=== PATIENT | male | born 1940 | race African-American/Black ===

== ENCOUNTER 2017-04-30 11:37 | Inpatient (IN) | payer OTHER ==
--- NOTE | 2017-04-30 11:45 | PDOC ---
History of Present Illness - General Chief Complaint: Revisit,Radiology Variance Stated Complaint: Revisit, Lab Variance Time Seen by Provider: 04/30/17 11:44 History Source: Patient Exam Limitations: No Limitations Medical Decision Making - Medical Decision Making 04/30/17 11:44 A portion of this note was documented by scribe services under my direction. I have reviewed the details of the note, within reason, and agree with the documentation with the following case summary and management plan written by me. Nursing documentation reviewed and incorporated into medical decision making
[2017-04-30 12:10] LABS: BASOPHIL 0.6 % (0-2.0); EOSINOPHIL 1.9 % (0-4.5); MCH 22.6 pg (25.7-33.7); MCHC 31.3 g/dl (32.0-35.9); MEAN CELL VOLUME 72.2 fl (80-96); NEUTROPHILS 52.8 % (42.8-82.8); PLATELET COUNT 137 K/MM3 (134-434); RDW 15.9 % (11.9-15.9); WHITE BLOOD COUNT 3.3 K/mm3 (4.0-10.0)
[2017-04-30 12:45] LABS: ALBUMIN 3.5 g/dl (3.4-5.0); ANION GAP 8 (8-16); BILIRUBIN,TOTAL 0.7 mg/dL (0.2-1.0); CALCIUM 8.5 mg/dL (8.5-10.1); CO2 27 mmol/L (21-32); CREATININE 0.8 mg/dL (0.7-1.3); GLUCOSE,RANDOM 118 mg/dL (74-106); SGOT/AST 9 U/L (15-37); SGPT/ALT 19 U/L (12-78)
[2017-04-30 12:46] LABS: ALK PHOS 55 U/L (45-117)
[2017-04-30 12:56] LABS: INR 1.26 (0.82-1.09); PROTHROMBIN TIME (PATIENT) 13.9 SEC (9.98-11.88)
--- NOTE | 2017-04-30 13:48 | PDOC ---
History of Present Illness - General Chief Complaint: Revisit,Radiology Variance Stated Complaint: Revisit, Lab Variance Time Seen by Provider: 04/30/17 11:44 History Source: Patient Exam Limitations: Clinical Condition, Dementia - History of Present Illness Initial Comments: 04/30/17 13:43 Patient is a 76M with history of CAD (s/p stenting in 2013), CVA (2003), HTN, non-insulin dependent diabetes here today complaining of abnormal radiology results. MRI of the head showed a subdural hematoma. Family reports that patient fell about a month ago, and has had increased slurring of his speech, and has been increasingly emotional labile and confused. Patient is unable to properly cooperate with review of systems, giving nonsensical answers or answers directly contradicted by family members. 04/30/17 14:[address] Donato Barriga. 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 Neurologist is Dr Murrell. Past History - Past Medical History Allergies/Adverse Reactions: Allergies Allergy/AdvReac Type Severity Reaction Status Date / Time No Known Allergies Allergy Verified 04/30/17 13:10 Home Medications: Ambulatory Orders Aspirin [Ecotrin] 325 mg PO DAILY 04/30/17 Carvedilol 12.5 mg PO BID 04/30/17 Clonidine HCl 0.2 mg PO BID 04/30/17 Gabapentin 100 mg PO TID 04/30/17 Glipizide 10 mg PO DAILY 04/30/17 Losartan/Hydrochlorothiazide [Losartan-Hctz 100-25 mg Tab] 1 each PO DAILY 04/30 Metformin HCl 1,500 mg PO DAILY 04/30/17 Quetiapine Fumarate [Seroquel -] 12.5 mg PO HS 04/30/17 Cardiac Disorders: Yes CVA: Yes (2004 w/ rt side residual weakness.) Diabetes: Yes HTN: Yes - Surgical History Cardiac Surgery: Yes (STENT.) - Psycho/Social/Smoking Cessation Hx Anxiety: No Suicidal Ideation: No Smoking History: Former smoker Have you smoked in the past 12 months: No If you are a former smoker, when did you quit?: 2004 Information on smoking cessation initiated: No Hx Alcohol Use: No Drug/Substance Use Hx: No Substance Use Type: None Review of Systems - Review of Systems Able to Perform ROS?: No (clinical condition) *Physical Exam - Vital Signs Last Vital Signs Temp Pulse Resp BP Pulse Ox 97.5 F L 61 18 156/84 100 04/30/17 11:49 04/30/17 13:08 04/30/17 13:08 04/30/17 13:08 04/30/17 13:08 - Physical Exam Comments: 04/30/17 13:48 GENERAL: Awake, alert, and fully oriented, in no acute distress HEAD: No signs of trauma, normocephalic, atraumatic EYES: PERRLA, EOMI, sclera anicteric, conjunctiva clear ENT: Auricles normal inspection, hearing grossly normal, nares patent, oropharynx clear without exudates. Moist mucosa LUNGS: No distress, speaks full sentences, clear to auscultation bilaterally HEART: Irregular rhythm, bradycardic, normal S1 and S2, no murmurs, rubs or gallops, peripheral pulses 1+ and equal ABDOMEN: Soft, nontender, normoactive bowel sounds. No guarding, no rebound. No masses EXTREMITIES: Normal inspection, Normal range of motion, 1+ pitting edema to knee . No clubbing or cyanosis. NEUROLOGICAL: Left sided facial droop, slurred speech, moves all extremities, alert, oriented to self, place, not year SKIN: Warm, Dry, normal turgor, no rashes or lesions noted. ED Treatment Course - LABORATORY CBC & Chemistry Diagram: 04/30/17 11:47 04/30/17 11:47 - ADDITIONAL ORDERS Additional order review: Laboratory Results 04/30/17 04/30/17 04/30/17 11:47 11:47 11:47 INR 1.26 H Sodium 140 Potassium 3.3 L D Chloride 105 Carbon Dioxide 27 Anion Gap 8 BUN 15 D Creatinine 0.8 D Creat Clearance w eGFR > 60 Random Glucose 118 H Calcium 8.5 Total Bilirubin 0.7 AST 9 L ALT 19 Alkaline Phosphatase 55 Total Protein 7.0 Albumin 3.5 Blood Type O POSITIVE Antibody Screen Negative 04/30/17 11:47 RBC 4.73 MCV 72.2 L MCHC 31.3 L RDW 15.9 MPV 9.0 Neutrophils % 52.8 Lymphocytes % 34.4 Monocytes % 10.3 H Eosinophils % 1.9 Basophils % 0.6 - RADIOLOGY Radiology Studies Ordered: Category Date Time Status CHEST X-RAY PORTABLE* [RAD] Stat Radiology 04/30/17 12:34 Completed Medical Decision Making - Medical Decision Making 04/30/17 13:51 76M with history of CVA, HTN, and CAD (s/p stenting in 2013) here today with subdural hematoma and multiple falls. Bradycardic to the high 30s in the ED, mostly in high 40s and low 50s, asymptomatic. ECG shows aflutter, normal axis, irregular rhythm, and no ST elevations. Falls likely due to cardiovascular dysfunction. Will evaluate with CBC, CMP, Trop, CXR, ECG. Will consult neurosurg for subdural hemotoma. 04/30/17 14:[address] Ackerman (Neurosurgery) and Dr. Man (Medicine). CBC and CMP unremarkable. Trop negative. INR 1.2, Hgb 10, K 3.3 04/30/17 15:32 Dr Ackerman contacted and discussed patient. Requested PTT and INR. INR already done , PTT ordered and in lab. 04/30/17 23:23 Admitted to ICU. *DC/Admit/Observation/Transfer Diagnosis at time of Disposition: Subdural hematoma, Bradycardia - Discharge Dispostion Condition at time of disposition: Guarded Admit: Yes - Referrals
--- NOTE | 2017-04-30 14:03 | PDOC ---
Attending Attestation - Resident Resident Name: Vimal Milian - ED Attending Attestation I have performed the following: I have examined & evaluated the patient, The case was reviewed & discussed with the resident, I agree w/resident's findings & plan, Exceptions are as noted - HPI HPI: 04/30/17 13:42 THis pt is a 76 yo M with a history of CAD, h/o CVA in the past Apparently, pt had been noted to have a change in her behaviour (increased agitation and confusion) Pt seen by neurologist who sent him for an MRI MRI obtained today, demonstrates a subdural hematoma Pt sent to the ER Noted to be bradycardiac Has irregular pulse (Aflutter, ?prior history) Pt had a known fall 1 month ago 04/30/17 14:04 - Physicial Exam PE: 04/30/17 14:03 Pt is awake Irregularly irregular, bradyardiac No abd tenderness to palpation - Medical Decision Making 04/30/17 14:04 Pt with SDH and bradycardia Will: Do labs EKG CXR Admit Discharge Disposition - Diagnosis Subdural hematoma, Bradycardia - Discharge Dispostion Condition at time of disposition: Fair Admit: Yes
[2017-04-30 14:08] LABS: CPK 153 IU/L (39-308); MAGNESIUM 1.8 mg/dL (1.8-2.4)
[2017-04-30 14:09] LABS: TROPONIN I < 0.02 ng/ml (0.00-0.05)
--- NOTE | 2017-04-30 16:16 | EKG ---
Test Reason : Blood Pressure : / mmHG Vent. Rate : 048 BPM Atrial Rate : 250 BPM P-R Int : 000 ms QRS Dur : 098 ms QT Int : 486 ms P-R-T Axes : 193 027 253 degrees QTc Int : 434 ms ATRIAL FLUTTER WITH VARIABLE A-V BLOCK NONSPECIFIC ST AND T WAVE ABNORMALITY ABNORMAL ECG NO PREVIOUS ECGS AVAILABLE Confirmed by VARGHESE BASS MD (2013) on 04/30/2017 4:16:10 PM Referred By: Confirmed By:VARGHESE BASS MD
--- NOTE | 2017-04-30 16:55 | PN ---
Progress Note (short form) - Note Progress Note: NEUROSURGERY CONSULT DICTATED Chart reviewed Pt examined Family at bedside and provided some history as well H/o CAD (s/p stenting in 2013), CVA (2003), HTN, non-insulin dependent diabetes here today secondary to MRI showing subdural hematoma. Family reports that patient fell about 3 months ago. Increased slurring of his speech, and has been increasingly emotional labile and confused. Denies H/A, N/V. No witnessed sz. Poor historian. PE; HR 30-60's General- unremarkable; speech garbled; A/A/Ox2 CN- intact; Motor- 4/5 R LE (Old?); R UE drift; Sensation- intact LT; decreased vibration distally; DTR- hyporeflexic, B toes upgoing WBC 3.3, Hgb 10.7, platelet 137k; BUN 15, Cr 0.8, Troponin < 0.02 Brain MRI- Atrophy; moderate size L [id number] subacute/chronic SDH 6x8 x 1.7cm with cortical mass effect but no shift; chronic L putamen ICH with encephalomalacia; B periventricular vascular dz Subacute chronic SDH with mass effect but no shift Prior multiple CVA's, largest L putamen Given size of SDH and mass effect as well as resultant neurological changes recently, would recommend surgical drainage through small L FTP craniotomy and possible subdural drain placement; the above can only be achieved if pt could be medically/cardiac-guerrero cleared Risks of surgery- bleeding, infection, stroke, seizure, coma, and other risks GA (AK, stroke, pneumonia etc) Pros and cons of treatment approaches including no surgery were discussed All questions answered Pt family also brought up possible transfer to tertiary institution for surgical intervention; should have cardiology input first (if pt cannot be cleared for surgery then surgery or transfer is moot) Spent 65 minutes in ED for history, exam, family conference in patient's presence, and care discussion with admitting team/ED team
[2017-04-30] MEDS ORDERED: KCL 10 MEQ IVPB 100 ML IVPB SCH (17:30)
--- NOTE | 2017-04-30 17:38 | HP ---
CHIEF COMPLAINT: Subdural hematoma (incidentally discovered on MRI) w/ new onset Afib PCP: Dr. Barriga HISTORY OF PRESENT ILLNESS: Pt is a 76 y/o M with PMH CAD with stents, CVA (2004), HTN, non-insulin dependent DM, spinal stenosis who had a fall 3 months ago and was sent to ED after and MRI done today revealed a subdural hematoma. History collected primarily from pt's and ED staff. Since pt had his fall, he has had personality change, slurred speech, emotional lability, hallucinations, confusion as well as new onset Afib. ER course was notable for: (1) EKG (slow afib), unremarkable CXR, CBC (mild microcytic anemia), CMP ( hypokalemia) (2) consults to Cardio, Neuro (3) Recent Travel: [place] PAST MEDICAL HISTORY: CAD with stents, CVA (2004), HTN, non-insulin dependent DM PAST SURGICAL HISTORY: spinal stenosis repair Social History: Smoking: denies Alcohol: denies Drugs: denies Family History: denies Allergies No Known Allergies Allergy (Verified 04/30/17 13:10) HOME MEDICATIONS: Home Medications Medication Instructions Recorded Aspirin [Ecotrin] 325 mg PO DAILY 04/30/17 Carvedilol 12.5 mg PO BID 04/30/17 Clonidine HCl 0.2 mg PO DAILY 04/30/17 Gabapentin 100 mg PO BID 04/30/17 Glipizide 10 mg PO DAILY 04/30/17 Losartan/Hydrochlorothiazide 1 each PO DAILY 04/30/17 [Losartan-Hctz 100-25 mg Tab] Metformin HCl 1,500 mg PO DAILY 04/30/17 Quetiapine Fumarate [Seroquel -] 12.5 mg PO HS 04/30/17 REVIEW OF SYSTEMS CONSTITUTIONAL: generalized weakness Absent: fever, chills, diaphoresis, , malaise, loss of appetite, weight change HEENT: Absent: rhinorrhea, nasal congestion, throat pain, throat swelling, difficulty swallowing, mouth swelling, ear pain, eye pain, visual changes CARDIOVASCULAR: Absent: chest pain, syncope, palpitations, irregular heart rate, lightheadedness , peripheral edema RESPIRATORY: Absent: cough, shortness of breath, dyspnea with exertion, orthopnea, wheezing, stridor, hemoptysis GASTROINTESTINAL: Absent: abdominal pain, abdominal distension, nausea, vomiting, diarrhea, constipation, melena, hematochezia GENITOURINARY: Incontinence Absent: dysuria, frequency, urgency, hesitancy, hematuria, flank pain, genital pain MUSCULOSKELETAL: Absent: myalgia, arthralgia, joint swelling, back pain, neck pain SKIN: Absent: rash, itching, pallor HEMATOLOGIC/IMMUNOLOGIC: Absent: easy bleeding, easy bruising, lymphadenopathy, frequent infections ENDOCRINE: Absent: unexplained weight gain, unexplained weight loss, heat intolerance, cold intolerance NEUROLOGIC: focal weakness, unsteady gait, mental status changes, bladder or bowel incontinence Absent: headache, or paresthesias, dizziness, , seizure, PSYCHIATRIC: hallucinations Absent: anxiety, depression, suicidal or homicidal ideation, . PHYSICAL EXAMINATION Vital Signs - 24 hr 04/30/17 04/30/17 04/30/17 11:49 13:08 16:14 Temperature 97.5 F L 97.5 F L Pulse Rate 52 L Pulse Rate [ 61 121 H Apical] Respiratory 18 18 18 Rate Blood Pressure 137/89 Blood Pressure 156/84 183/134 [Right Arm] O2 Sat by Pulse 100 100 98 Oximetry (%) GENERAL: Awake, alert, in no acute distress. HEAD: Normal with no signs of trauma. EYES: Pupils equal, round and reactive to light, extraocular movements intact, sclera anicteric, conjunctiva clear. No lid lag. EARS, NOSE, THROAT: nares patent, oropharynx clear without exudates. Moist mucous membranes. NECK: Normal range of motion, supple without lymphadenopathy, JVD, or masses. No carotid bruits LUNGS: Breath sounds equal, clear to auscultation bilaterally. No wheezes, and no crackles. No accessory muscle use. HEART: Regular rate and irregularly irregular rhythm, normal S1 and S2 without murmur, rub or gallop. ABDOMEN: Soft, nontender, not distended, normoactive bowel sounds, no guarding, no rebound, no masses. No hepatomegaly or splenomegaly. MUSCULOSKELETAL: Normal range of motion at all joints. No bony deformities or tenderness. No CVA tenderness. rigidity to passive ROM, limited active ROM UPPER EXTREMITIES: 2+ pulses, warm, well-perfused. No cyanosis. No clubbing. No peripheral edema. LOWER EXTREMITIES: 2+ pulses, warm, well-perfused. No calf tenderness. No peripheral edema. NEUROLOGICAL: Limitied participation/cooperation. right brow and nasolabial fold diminished movement. Normal speech. Gait not observed. Strength 5/5 UE b/l , 4/5 RLE, 5/5 LLE. Sensation intact throughout. 2+ reflexes in b/l biceps and patellar. Upgoing L babinski, downgoing R babinski. PSYCHIATRIC: Cooperative. Good eye contact. Appropriate mood and affect. SKIN: Warm, dry, normal turgor, no rashes or lesions noted, normal capillary refill. Laboratory Results - last 24 hr 04/30/17 04/30/17 04/30/17 11:47 11:47 11:47 WBC 3.3 L RBC 4.73 Hgb 10.7 L Hct 34.1 L MCV 72.2 L MCH 22.6 L MCHC 31.3 L RDW 15.9 Plt Count 137 MPV 9.0 Neutrophils % 52.8 Lymphocytes % 34.4 Monocytes % 10.3 H Eosinophils % 1.9 Basophils % 0.6 INR 1.26 H Sodium 140 Potassium 3.3 L D Chloride 105 Carbon Dioxide 27 Anion Gap 8 BUN 15 D Creatinine 0.8 D Creat Clearance w eGFR > 60 Random Glucose 118 H Calcium 8.5 Magnesium Total Bilirubin 0.7 AST 9 L ALT 19 Alkaline Phosphatase 55 Creatine Kinase Creatine Kinase Index CK-MB (CK-2) Troponin I Total Protein 7.0 Albumin 3.5 Blood Type Antibody Screen 04/30/17 04/30/17 11:47 13:01 WBC RBC Hgb Hct MCV MCH MCHC RDW Plt Count MPV Neutrophils % Lymphocytes % Monocytes % Eosinophils % Basophils % INR Sodium Potassium Chloride Carbon Dioxide Anion Gap BUN Creatinine Creat Clearance w eGFR Random Glucose Calcium Magnesium 1.8 Total Bilirubin AST ALT Alkaline Phosphatase Creatine Kinase 153 Creatine Kinase Index 0.8 CK-MB (CK-2) 1.313 Troponin I < 0.02 Total Protein Albumin Blood Type O POSITIVE Antibody Screen Negative ASSESSMENT/PLAN: Pt is a 76y/o M with PMH CAD with stents, CVA (2004), HTN, non-insulin dependent DM, spinal stenosis who presented to ED with new MRI showing subdural hematoma 3 months after a fall with head trauma. Pt admitted to ICU for evaluation and treatment of subdural hematoma and new onset afib with bradycardia. #Subdural hematoma -discovered on MRI -new onset afib w/ bradycardia -possible neurosurg tomorrow pending cardiac eval -neuro consult -neurosurg consult -cardio consult -speech and swallow consult -coags, NPO #afib -secondary to subdural hematoma #non-insulin dependent DM -diabetic diet #hypokalemia -replete w/ IV KCl #FEN -not on fluid -hypokalemia, repleting -diabetic diet #Dispo Admit to ICU for possible surgical evacuation tomorrow Ramiro Mcgraw MD PGY-1 Visit type - Emergency Visit Emergency Visit: Yes ED Registration Date: 04/30/17 Care time: The patient presented to the Emergency Department on the above date and was hospitalized for further evaluation of their emergent condition. - New Patient This patient is new to me today: Yes Date on this admission: 05/01/17 - Critical Care Critical Care patient: No
--- NOTE | 2017-04-30 17:39 | CONSULT ---
Consultation: REQUESTING PROVIDER: CONSULT REQUEST: We have been asked to medically evaluate this patient for. HISTORY OF PRESENT ILLNESS: Pt is a 76 y/o M with PMH CAD with stents, CVA (2004 ), HTN, non-insulin dependent DM, spinal stenosis who had a fall 3 months ago and was sent to ED after and MRI done today revealed a subdural hematoma. Since pt had his fall, he has had personality change, slurred speech, emotional lability, hallucinations, confusion as well as new onset Afib. In ED patient was given keppra and Dr Ackerman was consulted. Patient will go for surgery after cardiac clearance. patient is started on keppra. Patient is getting IV kcl. Will repeat sr. k in evening. walks with cane and sometime with walker. PMH; HTN, hyperlipidemia, DM, CAD( stent placed in 2014), 2 strokes in 2006 with residual weakness on right side, peripharal neuropathy b/l lower limb PSH: Cervical spine surgery for stenosis. Allergies: NKDA social: stopped smoking 30 years ago, unable to tell for how many years did he smoke. use to drink ocassionaly but stopped. EKG ( afib kavya), CBC ( microcytic anemia), CMP (hypokalemia) REVIEW OF SYSTEMS: CONSTITUTIONAL: Absent: fever, chills, diaphoresis, generalized weakness, malaise, loss of appetite, weight change HEENT: Absent: rhinorrhea, nasal congestion, throat pain, throat swelling, CARDIOVASCULAR: Absent: chest pain, syncope, palpitations, irregular heart rate, RESPIRATORY: Absent: cough, shortness of breath, dyspnea with exertion, GASTROINTESTINAL: Absent: abdominal pain, abdominal distension, nausea, vomiting, diarrhea, GENITOURINARY: Absent: dysuria, frequency, urgency, hesitancy, MUSCULOSKELETAL: Absent: myalgia, arthralgia, joint swelling, back pain, neck pain NEUROLOGIC: Absent: headache, focal weakness or paresthesias, dizziness, unsteady gait, seizure, mental status changes, bladder or bowel incontinence PHYSICAL EXAMINATION GENERAL: Awake, alert, oriented, in no acute distress. able to remember name, , date, recognize and grand daughter. HEAD: Normal with no signs of trauma. EYES: Pupils equal, extraocular movements intact, EARS, NOSE, THROAT: Moist mucous membranes. NECK: Normal range of motion, JVD, or masses. LUNGS: Breath sounds equal, clear to auscultation bilaterally. No wheezes, and no crackles. No accessory muscle use. HEART: irregular, normal S1 and S2 without murmur, ABDOMEN: Soft, nontender, not distended, normoactive bowel sounds, no guarding, no rebound, MUSCULOSKELETAL: Normal range of motion at all joints. No bony deformities or tenderness. No CVA tenderness. UPPER EXTREMITIES: 2+ pulses, warm, b/l fine touch present, power b/l biceps, trices, daltoid normal. pronation and supination normal. LOWER EXTREMITIES: 2+ pulses, warm, no pedal edema, b/l lowe limb power normal, peripharal neuropathy NEUROLOGICAL: Cranial nerves grossly II-XII intact. slurred speech. gait not checked. PSYCHIATRIC: Cooperative. Good eye contact. Appropriate mood and affect. SKIN: Warm, dry, Active Medications Generic Name Dose Route Start Last Admin Trade Name Freq PRN Reason Stop Dose Admin Chlorhexidine Gluconate 1 applic 04/30/17 22:00 Hibiclens For Decolonization - TP HS DANNY Potassium Chloride 100 mls @ 100 mls/hr 04/30/17 17:30 Potassium Chloride 10 Meq Premix Ivpb - IVPB 04/30/17 20:29 Q60M DANNY Insulin Aspart 0 vial 04/30/17 22:00 Novolog Vial Sliding Scale - SQ ACHS [facility] Protocol Levetiracetam 250 mg 04/30/17 22:00 Keppra - PO BID DANNY Mupirocin 1 applic 04/30/17 22:00 Bactroban Ointment (For Decolonization) - NS 05/05/17 21:59 BID DANNY CBCD WBC 3.3 K/mm3 (4.0-10.0) L 04/30/17 11:47 RBC 4.73 M/mm3 (4.00-5.60) 04/30/17 11:47 Hgb 10.7 GM/dL (11.7-16.9) L 04/30/17 11:47 Hct 34.1 % (35.4-49) L 04/30/17 11:47 MCV 72.2 fl (80-96) L 04/30/17 11:47 MCHC 31.3 g/dl (32.0-35.9) L 04/30/17 11:47 RDW 15.9 % (11.9-15.9) 04/30/17 11:47 Plt Count 137 K/MM3 (134-434) 04/30/17 11:47 MPV 9.0 fl (7.5-11.1) 04/30/17 11:47 CMP Sodium 140 mmol/L (136-145) 04/30/17 11:47 Potassium 3.3 mmol/L (3.5-5.1) L D 04/30/17 11:47 Chloride 105 mmol/L (98-107) 04/30/17 11:47 Carbon Dioxide 27 mmol/L (21-32) 04/30/17 11:47 Anion Gap 8 (8-16) 04/30/17 11:47 BUN 15 mg/dL (7-18) D 04/30/17 11:47 Creatinine 0.8 mg/dL (0.7-1.3) D 04/30/17 11:47 Creat Clearance w eGFR > 60 (>60) 04/30/17 11:47 Random Glucose 118 mg/dL (74-106) H 04/30/17 11:47 Calcium 8.5 mg/dL (8.5-10.1) 04/30/17 11:47 Total Bilirubin 0.7 mg/dL (0.2-1.0) 04/30/17 11:47 AST 9 U/L (15-37) L 04/30/17 11:47 ALT 19 U/L (12-78) 04/30/17 11:47 Alkaline Phosphatase 55 U/L (45-117) 04/30/17 11:47 Total Protein 7.0 g/dl (6.4-8.2) 04/30/17 11:47 Albumin 3.5 g/dl (3.4-5.0) 04/30/17 11:47 CARDIAC ENZYMES Creatine Kinase 153 IU/L (39-308) 04/30/17 13:01 Troponin I < 0.02 ng/ml (0.00-0.05) 04/30/17 13:01 Current Medications Generic Name Dose Route Start Last Admin Trade Name Freq PRN Reason Stop Dose Admin Chlorhexidine Gluconate 1 applic 04/30/17 22:00 Hibiclens For Decolonization - TP HS DANNY Insulin Aspart 0 vial 04/30/17 22:00 Novolog Vial Sliding Scale - SQ ACHS [facility] Protocol Levetiracetam 250 mg 04/30/17 22:00 Keppra - PO BID [facility] Mupirocin 1 applic 04/30/17 22:00 Bactroban Ointment (For Decolonization) - NS 05/05/17 21:59 BID [facility] Home Medications Medication Instructions Recorded Aspirin [Ecotrin] 325 mg PO DAILY 04/30/17 Carvedilol 12.5 mg PO BID 04/30/17 Clonidine HCl 0.2 mg PO DAILY 04/30/17 Gabapentin 100 mg PO BID 04/30/17 Glipizide 10 mg PO DAILY 04/30/17 Losartan/Hydrochlorothiazide 1 each PO DAILY 04/30/17 [Losartan-Hctz 100-25 mg Tab] Metformin HCl 1,500 mg PO DAILY 04/30/17 Quetiapine Fumarate [Seroquel -] 12.5 mg PO HS 04/30/17 ASSESSMENT/PLAN: Pt is a 76y/o M with PMH CAD with stents, CVA (2004), HTN, non-insulin dependent DM, spinal stenosis who presented to ED with new MRI showing subdural hematoma 3 months after a fall with head trauma. Pt admitted to ICU for evaluation and treatment of subdural hematoma and new onset afib with bradycardia. # Subacute on chronic Subdural hematoma - INR 1.26 not on any anticoagulation - keep head end elevated. - Monitor blood pressure and control blood pressure. - neuro consult - neurosurg consult: possible surgery after cardiac evaluation. - On Keppra for seizure prophylaxis #afib with bradycardia - Possible secondary to subdural hematoma. - Cardiology evaluation. - ECHO _ TSH _ repeat electrolytes in morning. - Patient took last dose of clonidine and carvedilol in morning. we will hold both for bradycardia. - Cardiology consult #non-insulin dependent DM - diabetic diet - monitor and contror blood sugra - novalog sliding scale - hold oral hypoglycemic was on metformin and glipizide #hypokalemia -replete po kcl. 40meq #HTN Family states he normally have high BP, his avg systolic is 170 He is on clonidine, carvedilol, losartan. Didn't take losartan this morning but took clonidine and carvedilol. we will hold carvedilol and clonidine due to bradycardia. H/o CAD stent placed in prox circumflex in 2013 on aspirin, will hold aspirin for now due to subdural haematoma. #FEN -not on fluid -hypokalemia, repleting -diabetic diet. npo #Dispo Admit to ICU for possible surgical evacuation tomorrow Visit type - Emergency Visit Emergency Visit: Yes ED Registration Date: 04/30/17 Care time: The patient presented to the Emergency Department on the above date and was hospitalized for further evaluation of their emergent condition. - New Patient This patient is new to me today: Yes Date on this admission: 04/30/17 - Critical Care Critical Care patient: Yes Total Critical Care Time (in minutes): 45 Critical Care Statement: The care of this patient involved high complexity decision making to prevent further life threatening deterioration of the patient 's condition and/or to evaluate & treat vital organ system(s) failure or risk of failure.
--- NOTE | 2017-04-30 18:01 | PN ---
Teaching Attending Note Name of Resident: Ramiro Mcgraw ATTENDING PHYSICIAN STATEMENT I saw and evaluated the patient. I reviewed the resident's note and discussed the case with the resident. I agree with the resident's findings and plan as documented. SUBJECTIVE: This is a 76 year old man with a history of cervical stenosis, CVA, HTN, type 2 DM who was sent to the ER after he was found to have a subdural hematoma on MRI. He had fallen about 2 months ago. His found him on the floor and he refused medical attention. Since the fall, she has noted him to be combative, with urinary incontinence, hallucinations, slurred speech. He was seen by Dr. Leal. According to his , blood tests were done. They then went to [place] for a month, and while there, he worsened. After returning to the , he again saw Dr. Leal and an MRI was ordered. It was done today, and he was advised to go to the ER when a subdural hematoma was noted. OBJECTIVE: Vital Signs Period Temp Pulse Resp BP Sys/Cortés Pulse Ox Last 24 Hr 97.5 F-97.5 F 52-121 18-18 137-183/84-134 98-100 HEART: Irregular LUNGS: Clear ABDOMEN: Soft, non-tender, non-distended, normal BS EXTREMITIES: No edema NEUROLOGICAL: Alert, confused, speech mildly slurred, right facial weakness, RLE strength 4/5 Home Medications Medication Instructions Recorded Aspirin [Ecotrin] 325 mg PO DAILY 04/30/17 Carvedilol 12.5 mg PO BID 04/30/17 Clonidine HCl 0.2 mg PO BID 04/30/17 Gabapentin 100 mg PO TID 04/30/17 Glipizide 10 mg PO DAILY 04/30/17 Losartan/Hydrochlorothiazide 1 each PO DAILY 04/30/17 [Losartan-Hctz 100-25 mg Tab] Metformin HCl 1,500 mg PO DAILY 04/30/17 Quetiapine Fumarate [Seroquel -] 12.5 mg PO HS 04/30/17 ASSESSMENT AND PLAN: This is a 76 year old man with a history of cervical stenosis, CVA, HTN, type 2 DM who presents to the ER after being found to have a subdural hematoma on MRI. 1. Subdural hematoma - Admit to ICU - Hold aspirin - Neurosurgery consult appreciated - Plan for surgical drainage - Keppra started for seizure prophylaxis - Neurology consult 2. Atrial fibrillation - Rate 30s-120s - Cardiology consult - Echocardiogram - Serial troponins - No anticoagulation secondary to SDH 3. Hypokalemia - Replete potassium 4. HTN - Continue Coreg, Clonidine, Hyzaar 4. Type 2 diabetes mellitus - Hold metformin, glipizide - Fingersticks with Novolog sliding scale 5. History of CVA 6. History of cervical stenosis
[2017-04-30 18:16] VITALS: BMI 22.6
[2017-04-30] MEDS ORDERED: POTASSIUM CHLORIDE TABS 20 MEQ TABLET.ER (FP) PO ONE (18:40)
[2017-04-30] MEDS ORDERED: MAGNESIUM OXIDE 400 MG TABLET (FP) PO ONE (18:44)
[2017-04-30] MEDS ORDERED: PNEUMOC 13-VAL CONJ-DIP CRM/PF 0.5 ML DISP.SYRIN IM ONE (19:00)
--- NOTE | 2017-04-30 19:09 | CONS ---
DATE OF CONSULTATION: 04/30/2017 REFERRING PHYSICIAN: Jessie Moffett M.D. CONSULTING PHYSICIAN: Vimal Ackerman M.D., neurosurgery CHIEF COMPLAINT: Moderate to large left hemispheric subdural hematoma with mass effect. HISTORY OF PRESENT ILLNESS: The patient is a 76-year-old right-handed male with history of dementia, coronary artery disease, multiple strokes most in the area of 2003, hypertension, and type 2 diabetes who was brought to the emergency room after having an MRI of the head done earlier today. The patient reports that the patient has fallen more frequently in the last couple months. He has been having about a 2-3 month history of personality changes and speech alteration. He denies any headache, nausea, or vomiting. Had no seizure activities. Patient's family also stated that he has been more confused recently. He denies any diplopia, increasing ataxia even though the gait has been worsening, according to the family. He has no new bowel or bladder dysfunction. There is no witnessed seizure activity. There is no fever , chills, no recent infections. Patient denies any chest pain, shortness of breath. He has a history of coronary artery disease and has been under the care of Dr. Larkin, his mri supervisor. He underwent a coronary stent a few years ago. His treating neurologist is Dr. Patel Leal. PAST MEDICAL HISTORY: Significant for hypertension, coronary artery disease, stroke, dementia, type 2 diabetes. MEDICATION: Include aspirin, Coreg, clonidine, gabapentin, glipizide, losartan/hydrochlorothiazide, metformin, and Seroquel. ALLERGIES: No known drug allergies. FAMILY HISTORY: Noncontributory. SOCIAL HISTORY: He smokes periodically and drinks alcohol socially. 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 He lives at home with his family. REVIEW OF SYSTEMS: Otherwise negative for other major constitutional, head and neck, cardiovascular, pulmonary, gastrointestinal, genitourinary, endocrinological, neurological, oncological, or psychological problem except for the above. PHYSICAL EXAMINATION: Vital signs: Temperature is 97.5 with blood pressure 183/134 mmHg, pulse rate has varied between 30 to 120. Noted saturation is 98% on room air. HEENT: Normocephalic, atraumatic, anicteric. Neck: Supple with no carotid bruit. Cardiovascular: Regular rate and rhythm. Coronary: Irregular rhythm without a murmur. He is bradycardic. Lungs: Clear bilaterally. Abdomen: Benign. He has active bowel sounds. Extremities: No signs of DVT. Distal pulses are symmetrically diminished. Neurologic: He is awake, alert, oriented x2. He knows his first name, and he knows the month. He does not know where is at, or why he is here. Cranial nerves examination, his speech is somewhat garbled, and he follows simple commands. Cranial nerves examination is intact 2-12. Motor examination shows 5/5 strength except right lower extremity which is 4/5. He has right upper extremity drift. These findings may be chronic, however. He has somewhat increased tone in his bilateral upper and lower extremity. Sensory examination is intact to light touch, but he has decreased distal vibratory sensation in lower extremities bilaterally. Deep tendon reflexes are hyporeflexive through. His toes are upgoing bilaterally. Gait is not tested for safety reasons. Cerebellar examination demonstrated a mild resting tremor bilaterally. LABORATORY EXAMINATION: Sodium 140, potassium 3.3, BUN and creatinine are 15 and 0.8 respectively, glucose 118, calcium 8.5, troponin less than 0.02, INR 1.26, and PTT is pending. White blood cell count is 3.3. Hemoglobin is 10.7, platelet count is 137,000. MRI of the brain demonstrated moderate cerebral atrophy. There is evidence of multiple bilateral periventricular chronic ischemic zones. There is the size of a large left prior left putamen stroke extending to the central centrum semiovale. There are multiple lacunae to the right basal ganglion as well. There is a moderate sized 1.7 x 6 x x 8 cm left frontal temporal parietal subacute/chronic subdural hematoma with cortical mass effect. Because of the atrophy, there is no significant midline shift. IMPRESSION: 1. Moderate sized subacute-chronic subdural hematoma with cortical mass effect and neurological/psychological changes. 2. Hypertension, coronary artery disease, bradycardia. 3. Non-insulin dependent diabetes. 4. Dementia. RECOMMENDATION: The patient unfortunately presented with a moderate sized left hemisphere subdural hematoma with cortical mass effect. He has sustained a couple falls in the last couple months. He has been falling more frequently according to the family. MRI of the brain, and my examination today, gives mild right hemiparesis, which could be from a chronic right basal ganglion stroke, however. This could also be from the subdural hematoma, however. He has exhibited some emotional, personality changes as well as decreasing gait stability. Given the size of the subdural hematoma, it should generally be evacuated given the mass effect. He does have some underlying atrophy which would accommodate the subdural hematoma partially. The risk of the craniotomy for evacuation of subdural hematoma would include but are not limited to bleeding, infection, stroke, seizure, coma, , and increased thromboembolic risks and other risks of general anesthesia including pneumonia. No guarantee he will be given for a favorable outcome, obviously. If the patient could be cleared from a medical and cardiac standpoint, surgical drainage is preferred. If the patient cannot be medically optimized and cleared, one would obviously need to take a chance and simply watch the hematoma conservatively. The hematoma is unlikely resolve by itself given the size. The pros and cons of various treatment approaches was discussed with the patient and his family at bedside emergency room. All questions answered. His treatment unfortunately is complicated by his age and multiple medical comorbidities. We ideally would need to hold aspirin for at least 24 hours before contemplating any neurosurgical procedure. The above was discussed with ICU team as well. In the meantime, I will put the patient on Keppra for seizure prophylaxis. VIMAL ACKERMAN M.D. [id number] MTDD
[2017-04-30] MEDS ORDERED: LOSARTAN POTASSIUM 25 MG TABLET PO ONE ×2 (19:46→22:45)
--- NOTE | 2017-04-30 19:53 | HP ---
CHIEF COMPLAINT: AMS Neurology: Dr. Leal HISTORY OF PRESENT ILLNESS: 76 yr old man with hx of CVA's, HTN, DMII sent by neurologist for MRI and found to have subdural hematoma. In February notes that she had left the apartment for 30mins and returned to find the pt nonverbal and not moving with blood in the corner of his mouth. She was able to wake him up and did not note any other abnormalities. He had refused to go to the hospital at that time. Since the fall his behavior has been changing; he has become more combative, has developed urinary incontinence, has had hallucinations, vision changes, slurred speech and speaking unlike his usual self. They went on vacation to [place] for about 4 weeks, there his intermittent combative behavior worsened, in one episode 5 men were required to subdue him. He was not taken to any physicians in [place]. 1 week after returning to the [place], she took him to the neurologist who sent him for an MRI. Recent Travel: [place] GENERAL: Awake, alert, and oriented to person, not birthday/date, knows this is a hospital, in no acute distress. HEAD: Normal with no signs of trauma. NECK: Normal range of motion, supple without lymphadenopathy, JVD, or masses. well-healed cervical spine scar. LUNGS: Breath sounds equal, clear to auscultation bilaterally. No wheezes, and no crackles. No accessory muscle use. HEART: afib, normal S1 and S2 without murmur, rub or gallop. UPPER EXTREMITIES: 2+ radial pulse, warm, well-perfused. No cyanosis. No clubbing. No peripheral edema. LOWER EXTREMITIES: 2+ DP pulses, warm, well-perfused. No peripheral edema. NEUROLOGICAL: slurred speech, facial asymmetry ASSESSMENT/PLAN: 76 yr old man with hx of CVA, DMII, HTN, presented with AMS, found to have subdural hematoma with new onset afib admitted to ICU for further monitoring. #Subdural hematoma - likely due to fall in February, although true etiology of unwitnessed fall is unclear - neurosurg consult Dr. Ackerman: recommend cardiology clearance prior to surgical intervention - kedeepikara - no need to repeat imaging at this time, if worsening neuro exam or worsening AMS, consider imaging - monitor h/h - pt eval, speech and swallow #Afib - kavya 30's to 120's - continous cardiac monitoring - defer anticoag at this time due to subdural hematoma - cardio consult #HTN home meds #DM II - hold oral hypoglycemics, BGM ACHS with NISS #F/E/N: no fluids needed at this time, replete magnesium po if bedside eval is clear, nutrition: when cleared low Na+/DM diet #DVT: scd's Visit type - Emergency Visit Emergency Visit: Yes ED Registration Date: 04/30/17 Care time: The patient presented to the Emergency Department on the above date and was hospitalized for further evaluation of their emergent condition. - New Patient This patient is new to me today: Yes Date on this admission: 04/30/17 - Critical Care Critical Care patient: Yes Total Critical Care Time (in minutes): 32 Critical Care Statement: The care of this patient involved high complexity decision making to prevent further life threatening deterioration of the patient 's condition and/or to evaluate & treat vital organ system(s) failure or risk of failure.
--- NOTE | 2017-04-30 20:51 | CONSULT ---
Consult Consult Specialty:: Pulm/CCM Reason for Consultation:: AMS 2/2 subdural hematoma 2/2 fall - History of Present Illness Chief Complaint: AMS History of Present Illness: 76 y/o M with PMH CAD with stents on ASA, CVA (2004), HTN,DMII, spinal stenosis s/p spinal surgery who was brought in to ED after family observed changes in mental status and personality after a fall a few months earlier. On MRI noted to have a subacute/chronic subdural hematoma with mass effect. Also noted to have a A-fib/flutter and bradycardia.He is transferred to ICU for monitoring pending clearance for craniotomy and drainage+/- subdural drain placement. In ED VS HR 30's to 60's,SBP 140's to 150's. Notable labs WBC 3.3, HGb 10.7,BUN/ Creat 15/0.8, K3.3, trop <0.02. Family states since pt had his fall, he has had personality change, slurred speech, emotional lability, hallucinations, confusion as well as new onset Afib. Seen by neurosurgery who recommends craniotomy and evacuation of clot but notes pt is high risk for complications and requires cardiac clearance. In ICU pt A+O x2, pleasant with garbled speech, HR irregular in A-flutter with long pauses rate 40's to 120's. Pacer pads at bedside. - History Source History Provided By: Medical Record Limitations to Obtaining History: Other (Slurred speech) - Past Medical History [employer]: Yes: CVA Cardio/Vascular: Yes: CAD, HTN Endocrine: Yes: Diabetes Mellitus - Alcohol/Substance Use Hx Alcohol Use: No - Smoking History Smoking history: Former smoker Have you smoked in the past 12 months: No If you are a former smoker, when did you quit?: 2004 - Social History Usual Living Arrangement: With Spouse Home Medications - Allergies Allergies/Adverse Reactions: Allergies Allergy/AdvReac Type Severity Reaction Status Date / Time No Known Allergies Allergy Verified 04/30/17 13:10 - Home Medications Home Medications: Ambulatory Orders Aspirin [Ecotrin] 325 mg PO DAILY 04/30/17 Carvedilol 12.5 mg PO BID 04/30/17 Clonidine HCl 0.2 mg PO BID 04/30/17 Gabapentin 100 mg PO TID 04/30/17 Glipizide 10 mg PO DAILY 04/30/17 Losartan/Hydrochlorothiazide [Losartan-Hctz 100-25 mg Tab] 1 each PO DAILY 04/30 Metformin HCl 1,500 mg PO DAILY 04/30/17 Quetiapine Fumarate [Seroquel -] 12.5 mg PO HS 04/30/17 Family Disease History - Family Disease History Family History: Unremarkable Review of Systems Unable to obtain ROS, reason: poor historian Physical Exam Vital Signs: Vital Signs Temperature 98 F 04/30/17 17:00 Pulse Rate 80 04/30/17 18:32 Respiratory Rate 16 04/30/17 18:32 Blood Pressure 152/98 04/30/17 18:32 O2 Sat by Pulse Oximetry (%) 98 04/30/17 16:14 Constitutional: Yes: Well Nourished, No Distress Eyes: Yes: Conjunctiva Clear, PERRL HENT: Yes: Normocephalic Neck: Yes: Trachea Midline, Other (old scar running down cervical to thoracic spine) Cardiovascular: Yes: Bradycardia Respiratory: Yes: Regular, CTA Bilaterally Gastrointestinal: Yes: Soft, Other (NT, ND + BS) Renal/: Yes: WNL Musculoskeletal: 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 Thought he was in a hotel), Confusion ...Motor Strength: WNL Psychiatric: Yes: WNL Labs: CBC,CMP WBC 3.3 K/mm3 (4.0-10.0) L 04/30/17 11:47 RBC 4.73 M/mm3 (4.00-5.60) 04/30/17 11:47 Hgb 10.7 GM/dL (11.7-16.9) L 04/30/17 11:47 Hct 34.1 % (35.4-49) L 04/30/17 11:47 MCV 72.2 fl (80-96) L 04/30/17 11:47 MCH 22.6 pg (25.7-33.7) L 04/30/17 11:47 MCHC 31.3 g/dl (32.0-35.9) L 04/30/17 11:47 RDW 15.9 % (11.9-15.9) 04/30/17 11:47 Plt Count 137 K/MM3 (134-434) 04/30/17 11:47 MPV 9.0 fl (7.5-11.1) 04/30/17 11:47 Neutrophils % 52.8 % (42.8-82.8) 04/30/17 11:47 Lymphocytes % 34.4 % (8-40) 04/30/17 11:47 Monocytes % 10.3 % (3.8-10.2) H 04/30/17 11:47 Eosinophils % 1.9 % (0-4.5) 04/30/17 11:47 Basophils % 0.6 % (0-2.0) 04/30/17 11:47 Sodium 140 mmol/L (136-145) 04/30/17 11:47 Potassium 3.3 mmol/L (3.5-5.1) L D 04/30/17 11:47 Chloride 105 mmol/L (98-107) 04/30/17 11:47 Carbon Dioxide 27 mmol/L (21-32) 04/30/17 11:47 Anion Gap 8 (8-16) 04/30/17 11:47 BUN 15 mg/dL (7-18) D 04/30/17 11:47 Creatinine 0.8 mg/dL (0.7-1.3) D 04/30/17 11:47 Creat Clearance w eGFR > 60 (>60) 04/30/17 11:47 POC Glucometer 91.54527 UNITS (()) 04/30/17 18:28 Random Glucose 118 mg/dL (74-106) H 04/30/17 11:47 Calcium 8.5 mg/dL (8.5-10.1) 04/30/17 11:47 Magnesium 1.8 mg/dL (1.8-2.4) 04/30/17 13:01 Total Bilirubin 0.7 mg/dL (0.2-1.0) 04/30/17 11:47 AST 9 U/L (15-37) L 04/30/17 11:47 ALT 19 U/L (12-78) 04/30/17 11:47 Alkaline Phosphatase 55 U/L (45-117) 04/30/17 11:47 Creatine Kinase 153 IU/L (39-308) 04/30/17 13:01 Creatine Kinase Index 0.8 % (0.0-5.0) 04/30/17 13:01 CK-MB (CK-2) 1.313 ng/mL (0.5-3.6) 04/30/17 13:01 Troponin I < 0.02 ng/ml (0.00-0.05) 04/30/17 13:01 Total Protein 7.0 g/dl (6.4-8.2) 04/30/17 11:47 Albumin 3.5 g/dl (3.4-5.0) 04/30/17 11:47 Imaging - Results MRI: Report Reviewed (L [id number]-[id number] subacute/chronic SDH with cortical mass effect but no shift) Problem List - Problems (1) Bradycardia Code(s): R00.1 - BRADYCARDIA, UNSPECIFIED (2) Subdural hematoma Code(s): I62.00 - NONTRAUMATIC SUBDURAL HEMORRHAGE, UNSPECIFIED Assessment/Plan 76 y/o M with PMH CAD with stents, CVA (2004), HTN,DMII, spinal stenosis s/p spinal surgery who was brought in to ED after family observed changes in mental status and personality after a fall a few months earlier. On MRI noted to have a subacute/chronic subdural hematoma with mass effect. Also noted to have a A- fib/flutter and bradycardia. He is transferred to ICU for monitoring pending clearance for craniotomy and drainage+/- subdural drain placement. Plan: Neuro: -Neuro surgery consult -Neuro checks -Cont Keppra -Hold ASA for now -Safety precautions CV: A-fib/A-flutter with irregular kavya-tachy response; -Cardiology consult -ECG -Replete electrolytes -Continue antiHTN meds -Pacer pads at bedside -TTE -SCD
[2017-04-30] MEDS ORDERED: PT OWN MED DRAWER 7, Y5N ONE (21:26)
--- NOTE | 2017-04-30 21:29 | CON.CARD ---
Cardiology Consult (text) - Consultation Consultation Note: cc: pre-op clearance/aflutter 76 yo with h/o CAD (s/p stenting last in 2013?/2014?), multiple CVA, HTN, NIDDM , here with subdural hematoma. Hospital course notable for new onset atrial flutter with slow ventricular conduction h/o multiple falls this year. Per family no syncope --> mechanical 2/2 residual weakness from cva. Falls increasing in frequency over the past 3 months. Over past 3 months, worsened functional capacity and increasing weakness/ frequency of falls. GAUTAM walking from room to room. Also with associated decreasing cognitive function, hallucinations, emotional lability. no orthopnea, pnd, le edema, overt beeding, cp, palps, presyncope, syncope. . no f/c/s, n/v/d, rashes, h/a, cough, congestion. pmhx/shx: per hpi, Cervical spine surgery for stenosis family hx: no premature cad social hx: former tobacco ros: per hpi Ambulatory Orders Aspirin [Ecotrin] 325 mg PO DAILY 04/30/17 Carvedilol 12.5 mg PO BID 04/30/17 Clonidine HCl 0.2 mg PO BID 04/30/17 Gabapentin 100 mg PO TID 04/30/17 Glipizide 10 mg PO DAILY 04/30/17 Losartan/Hydrochlorothiazide [Losartan-Hctz 100-25 mg Tab] 1 each PO DAILY 04/30 Metformin HCl 1,500 mg PO DAILY 04/30/17 Quetiapine Fumarate [Seroquel -] 12.5 mg PO HS 04/30/17 Current Medications Chlorhexidine Gluconate (Hibiclens For Decolonization -) 1 applic TP HS DANNY Insulin Aspart (Novolog Vial Sliding Scale -) 0 vial SQ ACHS DANNY PRN Reason: Protocol Levetiracetam (Keppra -) 250 mg PO BID DANNY Mupirocin (Bactroban Ointment (For Decolonization) -) 1 applic NS BID DANNY Stop: 05/05/17 21:59 Vital Signs - 24 hr 04/30/17 04/30/17 04/30/17 11:49 13:08 16:14 Temperature 97.5 F L 97.5 F L Pulse Rate 52 L Pulse Rate [ 61 121 H Apical] Respiratory 18 18 18 Rate Blood Pressure 137/89 Blood Pressure 156/84 183/134 [Right Arm] O2 Sat by Pulse 100 100 98 Oximetry (%) 04/30/17 04/30/17 17:00 18:32 Temperature 98 F Pulse Rate 72 80 Pulse Rate [ Apical] Respiratory 16 16 Rate Blood Pressure 168/90 152/98 Blood Pressure [Right Arm] O2 Sat by Pulse Oximetry (%) Intake & Output 04/28/17 04/29/17 04/30/17 05/01/17 07:59 07:59 07:59 07:59 Intake Total 250 Balance 250 Weight 162 lb nad, calm jvd flat, neck supple ctab, nl effort irregular nl s1, s2 no mrg, non-dispaced pmi + bs soft nt nd, no hsm ext without e/c/c alert, slightly confused no jaundice, diaphoresis, no carotid bruits + dp/pt CBC, BMP 04/30/17 11:47 04/30/17 11:47 Laboratory Tests 04/30/17 05/01/17 13:01 03:40 Magnesium 1.8 Troponin I < 0.02 < 0.02 ekg: afutter with variable block, vr 48 bpm. no acute ischemic changes tele: atrial flutter with intermittent SVR to the 40's. no signficant pauses cxr: no chf H/o 76 yo with h/o CAD (s/p stenting in 2013?/2014), mutiple CVA with residual right sided weakness, HTN, NIDDM, recurrent frequent falls (per family, mechanical not presyncopal) here with subdural hematoma. Hospital course notable for new onset atrial flutter with slow ventricular conduciton. Pre-op clearance - patient with RCRI 2 and poor functional status. Estimated kell-operative CV risk is intermediate-high. Currently with slow ventricular rate intermittently in the 40's. No significant pauses thus far on telemetry. Patient on clonidine and coreg as outpatient. Would hold and see monitor rates overnight since surgery/anesthesia may worsen conduction abnormalities. If no significant conduction abnormalities on telemetry on evaluation in the morning, will likely be able to proceed with surgery. - Worsened gautam does not seem to be related to heart failure/volume overload based on clinical exam and cxr. Likely 2/2 deconditioning. Would obtain echo but does not need to be done prior to surgery - bp control as mentioned below. HTN - holding home clonidine and carvedilol as above. Patient has not received anti -hypertensives here. Would give low dose of his home losartan dose now and uptitrate in the morning if bp remains stable. Can cover with IV medications prn overnight if needed. CAD - no recent pci. can hold asa in light of hematoma. con't statin. - currently free of anginal symptoms. ekg without ischemic changes New onset atria flutter - SVR as above. family denies presyncopal/syncopal symptoms/history, state that falls have been mechanical. - Not a candidate for AC due to recent frequent falls and subdural - non-urgent echo as mentioned. - lyte repletion CVA. - Not a candidate for AC or ASA at this time. statin once acute issues resolve. discussed plan with resident cct; 35 min.
[2017-04-30] MEDS ORDERED: CHLORHEXIDINE GLUCONATE 4% CLEANSER FOR DECOLONIZATION TP SCH (22:00)
[2017-04-30] MEDS ORDERED: MUPIROCIN 2% TOPICAL OINTMENT FOR DECOLONIZATION NS SCH (22:00)
[2017-04-30] MEDS ORDERED: levETIRAcetam 250 MG TABLET (FP) PO SCH (22:00)
[2017-04-30] MEDS: MUPIROCIN 2% TOPICAL OINTMENT FOR DECOLONIZATION NS SCH (22:57)
[2017-04-30] MEDS: CHLORHEXIDINE GLUCONATE 4% CLEANSER FOR DECOLONIZATION TP SCH (22:58)
[2017-04-30] MEDS: INSULIN SLIDING SCALE (NOVOLOG) 1 VIAL SQ SCH (23:00)
[2017-05-01] MEDS ORDERED: hydrALAZINE HCL 20 MG/ML VIAL IVPUSH ONE (00:09)
[2017-05-01] MEDS ORDERED: HALOPERIDOL LACTATE 5 MG/ML ONE (02:26)
[2017-05-01] MEDS ORDERED: HALOPERIDOL LACTATE 5 MG/ML IM ONE (02:38)
[2017-05-01] MEDS ORDERED: LORazepam 2 MG/ML SDV VIAL ONE ×3 (02:58→14:46)
[2017-05-01] MEDS ORDERED: MIDAZOLAM HCL 5 MG/1 ML Single Dose Vial ONE (03:21)
[2017-05-01] MEDS ORDERED: MIDAZOLAM HCL 2 MG/2 ML SINGLE DOSE VIAL IVPUSH ONE (03:39)
[2017-05-01] MEDS ORDERED: LACTATED RINGERS SOLUTION 1,000 ML IV SCH (03:45)
[2017-05-01] MEDS ORDERED: DEXTROSE 5%-LACTATED RINGERS 1,000 ML IV SCH (04:00)
[2017-05-01 04:05] LABS: BASOPHIL 0.5 % (0-2.0); EOSINOPHIL 1.3 % (0-4.5); MCH 23.4 pg (25.7-33.7); MCHC 32.6 g/dl (32.0-35.9); MEAN CELL VOLUME 71.8 fl (80-96); MEAN PLT VOLUME 9.7 fl (7.5-11.1); NEUTROPHILS 78.3 % (42.8-82.8); PLATELET COUNT 147 K/MM3 (134-434); RDW 16.1 % (11.9-15.9); WHITE BLOOD COUNT 5.8 K/mm3 (4.0-10.0)
[2017-05-01 04:19] LABS: INR 1.28 (0.82-1.09); PROTHROMBIN TIME (PATIENT) 14.1 SEC (9.98-11.88)
[2017-05-01 04:22] LABS: ACTIVATED PTT 31.5 SECONDS (26.9-34.4)
[2017-05-01 04:29] LABS: ALBUMIN 3.8 g/dl (3.4-5.0); ANION GAP 8 (8-16); BILIRUBIN,TOTAL 0.9 mg/dL (0.2-1.0); CALCIUM 8.7 mg/dL (8.5-10.1); CO2 25 mmol/L (21-32); CREATININE 0.8 mg/dL (0.7-1.3); GLUCOSE,RANDOM 144 mg/dL (74-106); SGOT/AST 12 U/L (15-37); SGPT/ALT 21 U/L (12-78); TOT PROT 7.6 g/dl (6.4-8.2)
[2017-05-01 04:37] LABS: ALK PHOS 63 U/L (45-117); CPK 206 IU/L (39-308); THYROID STIMULATING HORMONE 0.87 uIU/ml (0.358-3.74); TROPONIN I < 0.02 ng/ml (0.00-0.05)
[2017-05-01 05:37] LABS: ANISOCYTOSIS 1+; HYPOCHROMIA 1+; MICROCYTOSIS 1+; PLATELET COMMENT2 NO CLUMPING NOTED; PLATELET COMMENT3 NO CLOTTING DETECTED; PLATELET ESTIMATE DECREASED (NORMAL); POIKILOCYTOSIS 1+; POLYCHROMASIA 1+
[2017-05-01 05:38] LABS: OVALOCYTE 1+
--- NOTE | 2017-05-01 06:00 | PN ---
Progress Note (short form) - Note Progress Note: At about 2:30am pt became severely delirious and combative. Hospital security and additional staff needed to restrain him. Haldol 5mg IM given x1 with some improvement. CT head done to assess for increasing hematoma. Read pending. Lorazepam 0.5mg and versed 0.5mg required for CT scan. Problem List - Problems (1) Bradycardia Code(s): R00.1 - BRADYCARDIA, UNSPECIFIED (2) Subdural hematoma Code(s): I62.00 - NONTRAUMATIC SUBDURAL HEMORRHAGE, UNSPECIFIED
[2017-05-01] MEDS: INSULIN SLIDING SCALE (NOVOLOG) 1 VIAL SQ SCH ×4 (06:48→22:00)
[2017-05-01] MEDS ORDERED: METOPROLOL TARTRATE 5 MG/5 ML VIAL IVPUSH ONE (06:54)
--- NOTE | 2017-05-01 07:02 | CON.NEURO ---
Consult Consult Specialty:: neurology - History of Present Illness Chief Complaint: SDH History of Present Illness: 76 y/o M with PMH CAD with stents on ASA, CVA (2004), HTN,DMII, spinal stenosis s/p spinal surgery who was brought in to ED after family observed changes in mental status and personality after a fall a few months earlier. On MRI noted to have a subacute/chronic subdural hematoma with mass effect. Also noted to have a A-fib/flutter and bradycardia.He is transferred to ICU for monitoring pending clearance for craniotomy and drainage+/- subdural drain placement. In ED VS HR 30's to 60's,SBP 140's to 150's. Notable labs WBC 3.3, HGb 10.7,BUN/ Creat 15/0.8, K3.3, trop <0.02. Family states since pt had his fall, he has had personality change, slurred speech, emotional lability, hallucinations, confusion as well as new onset Afib. Seen by neurosurgery who recommends craniotomy and evacuation of clot but notes pt is high risk for complications and requires cardiac clearance.In ICU pt A+O x2, pleasant with garbled speech, HR irregular in A-flutter with long pauses rate 40's to 120's. Pacer pads at bedside. I saw and examined the pt at the bedside; HPI as above ; pt not able to provide hx to hx obtained from the chart. 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 Cardio/Vascular: Yes: CAD, HTN Endocrine: Yes: Diabetes Mellitus - Alcohol/Substance Use Hx Alcohol Use: No - Smoking History Smoking history: Former smoker Have you smoked in the past 12 months: No If you are a former smoker, when did you quit?: 2004 - Social History Usual Living Arrangement: With Spouse Home Medications - Allergies Allergies/Adverse Reactions: Allergies Allergy/AdvReac Type Severity Reaction Status Date / Time No Known Allergies Allergy Verified 04/30/17 13:10 - Home Medications Home Medications: Ambulatory Orders Aspirin [Ecotrin] 325 mg PO DAILY 04/30/17 Carvedilol 12.5 mg PO BID 04/30/17 Clonidine HCl 0.2 mg PO BID 04/30/17 Gabapentin 100 mg PO TID 04/30/17 Glipizide 10 mg PO DAILY 04/30/17 Losartan/Hydrochlorothiazide [Losartan-Hctz 100-25 mg Tab] 1 each PO DAILY 04/30 Metformin HCl 1,500 mg PO DAILY 04/30/17 Quetiapine Fumarate [Seroquel -] 12.5 mg PO HS 04/30/17 Review of Systems Unable to obtain ROS, reason: DUE TO AMS Physical Exam-Neuro Vital Signs: Vital Signs Temperature 98.4 F 05/01/17 06:00 Pulse Rate 127 H 05/01/17 06:00 Respiratory Rate 19 05/01/17 06:00 Blood Pressure 172/109 05/01/17 06:00 O2 Sat by Pulse Oximetry (%) 98 04/30/17 21:00 Constitutional: Yes: Anxious Neck: Yes: Supple Cardiovascular: Yes: Pulse Irregular Respiratory: Yes: CTA Bilaterally Musculoskeletal: Yes: WNL Edema: No Psychiatric: Yes: Agitated Labs: CBC, BMP 05/01/17 03:40 05/01/17 03:40 INR, PTT INR 1.28 (0.82-1.09) H 05/01/17 03:40 - Neuro Exam Level Of Consciousness: Yes: Sedated Eyes: Yes: PERRLA Speech: Other (Poor verbal outcome) Cranial Nerves II-XII Intact: Yes Gag: Present DTR's: 1+ Left Bicep, 1+ Right Bicep, 1+ Left Tricep, 1+ Right Tricep, 1+ Left Brachioradialis, 1+ Right Brachioradialis, 1+ Left Achilles, 1+ Right Achilles Babinski: Present (toesupgoing bilateral) Response to light touch: Normal Response to pain prick: Normal Motor Strength: 5/5: Left Arm, Right Arm (moves all exts ) Gait: Deferred Imaging - Results Cat Scan: Image Reviewed (L SDH 17-18 mm width) MRI: Image Reviewed (old L stratocapsular) Problem List - Problems (1) Subdural bleeding Code(s): I62.00 - NONTRAUMATIC SUBDURAL HEMORRHAGE, UNSPECIFIED (2) Dementia Code(s): F03.90 - UNSPECIFIED DEMENTIA WITHOUT BEHAVIORAL DISTURBANCE Qualifiers: Dementia behavioral disturbance: with behavioral disturbance (3) Old lacunar stroke without late effect Code(s): Z86.73 - PRSNL HX OF TIA (TIA), AND CEREB INFRC W/O RESID DEFICITS Assessment/Plan 76 y/o M w h/o 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 Pt has had a fall 1 month ago and per since that time has been having behavioral changes and AMS; was seen by neurologist a few days ago and MRI brain revealed L SDH 17-18 mm width . Per house staff , he has been agitated last night and scratched the RN ;his CTH wo did not reveal any acute changes last night ; he was started on keppra for seizure PPX yesterday; dx as Afib but AC held b/o cerebral bleed ; on exam today , sedated b/o haldol , lethargic ; moves all exts , no face asymmetria ; plantar upgoing b/l . -[facility] consult (plan for transfer) -Neurocheck q 2 hr -I recommend switching keppra to depakote 250 mg bid b/o mood irritation which could worsen by keppra - Off AC or ASP for now ; B/O risk of bleed Health maintenance per primary team. Thank you. Eddie Sanderson M.D. [phone]
--- NOTE | 2017-05-01 07:40 | PN ---
Progress Note (short form) - Note Progress Note: NEUROSURGERY Reported combativeness last night and scratched RN neck Denies H/A PE: Tmax 98.4, 144/111; 80-120's received beta caleb per RN General- unremarkable; speech garbled; restless; A/A/Ox1-2 CN- intact; Motor- 4/5 R LE (Old?); R UE drift; Sensation- intact LT; decreased vibration distally; DTR- hyporeflexic, B toes upgoing WBC 5.8, Hgb 12.6, platelet 137k; BUN 14, Cr 0.8, Troponin < 0.02; INR 1.28; ptt 31.5; NA 139; glucose 144 Brain MRI- Atrophy; moderate size L [id number] subacute/chronic SDH 6x8 x 1.7cm with cortical mass effect but no shift; chronic L putamen ICH with encephalomalacia; B periventricular vascular dz Head CT- No fx, old L putamen stroke; periventricular small vessel dz; atrophy; subacute chronic L hemipsheric SDH with cortical mass effect, no shift; no significant change c/w MRI from earlier Subacute chronic SDH with mass effect but no shift Prior multiple CVA's, largest in L putamen Given size of SDH and mass effect as well as resultant neurological changes recently, surgical drainage and possible subdural drain placement is the reasonable approach; the above can only be achieved if pt could be medically/ cardiac-guerrero cleared (reportedly not feasible at this time per cardiology) Risks of surgery- bleeding, infection, stroke, seizure, coma, and other risks GA (FL, stroke, DVT, PE, pneumonia etc) Pros and cons of treatment approaches including no surgery were discussed with pt and family yesterday All questions answered Pt family brought up possible transfer to tertiary institution for surgical intervention; should be stabilized cardic-guerrero if possible even if family wants pt transferred Spent 25 minutes in ICU for exam and care discussion with team
[2017-05-01] MEDS ORDERED: dilTIAZem HCL 50 MG/10 ML - 10 ML VIAL IVPUSH ONE ×2 (08:27→13:15)
[2017-05-01] MEDS ORDERED: DILTIAZEM INJECTION 125 MG in DEXTROSE 5%-WATER - 100 ML IVPB SCH (08:30)
[2017-05-01] MEDS ORDERED: dilTIAZem HCL 125 MG/25 ML - 5 ML VIAL ONE ×2 (08:33→18:17)
[2017-05-01] MEDS ORDERED: dilTIAZem HCL 125 MG/25 ML - 25 ML VIAL ONE ×2 (08:33→09:44)
[2017-05-01] MEDS ORDERED: MAGNESIUM SULF 50% (8.12 MEQ/2 ML-1 GM VIAL) IVPB ONE (08:52)
[2017-05-01] MEDS: KCL 10 MEQ IVPB 100 ML IVPB SCH ×2 (09:31→11:40)
[2017-05-01] MEDS: MUPIROCIN 2% TOPICAL OINTMENT FOR DECOLONIZATION NS SCH (09:32)
[2017-05-01] MEDS ORDERED: DIVALPROEX SODIUM 250 MG TABLET E.C. (FP) PO SCH (10:00)
--- NOTE | 2017-05-01 10:48 | CONSULT ---
Admitting History and Physical - Primary Care Physician PCP: Alex Cristina - Admission History of Present Illness: Per EMR: "Chief Complaint: SDH History of Present Illness: 76 y/o M with PMH CAD with stents on ASA, CVA (2004), HTN,DMII, spinal stenosis s/p spinal surgery who was brought in to ED after family observed changes in mental status and personality after a fall a few months earlier. On MRI noted to have a subacute/chronic subdural hematoma with mass effect. Also noted to have a A-fib/flutter and bradycardia.He is transferred to ICU for monitoring pending clearance for craniotomy and drainage+/- subdural drain placement. In ED VS HR 30's to 60's,SBP 140's to 150's. Notable labs WBC 3.3, HGb 10.7,BUN/ Creat 15/0.8, K3.3, trop <0.02. Family states since pt had his fall, he has had personality change, slurred speech, emotional lability, hallucinations, confusion as well as new onset Afib. Seen by neurosurgery who recommends craniotomy and evacuation of clot but notes pt is high risk for complications and requires cardiac clearance.In ICU pt A+O x2, pleasant with garbled speech, HR irregular in A-flutter with long pauses rate 40's to 120's. Pacer pads at bedside." Chart reviewed at length and discussed with staff. Pt tolerated regular diet, thin liquids last night. Pt has dentures. History Source: Medical Record Limitations to Obtaining History: Other (Per nursing, pt was confused, agitated. Given Ativan. Lethargic. 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 Given Ativan. Lethargic. NPO for OR/Craniotomy. To reassess 06/04.
--- NOTE | 2017-05-01 11:23 | PN ---
Teaching Attending Note Name of Resident: Mario Cordova ATTENDING PHYSICIAN STATEMENT I saw and evaluated the patient. I reviewed the resident's note and discussed the case with the resident. I agree with the resident's findings and plan as documented. SUBJECTIVE: Pt seen and examined in the ICU. Remains lethargic, altered, was given sedatives overnight to facilitate imaging. OBJECTIVE: Last Vital Signs Temp Pulse Resp BP Pulse Ox 98 F 72 18 153/93 98 05/01/17 10:00 05/01/17 10:00 05/01/17 10:00 05/01/17 10:00 05/01/17 09:00 Intake & Output 04/28/17 04/29/17 04/30/17 05/01/17 23:59 23:59 23:59 23:59 Intake Total 500 200 Output Total 925 800 Balance -425 -600 Weight 162 lb Gen: lethargic Heart: RRR Lung: decreased breath sounds at the bases Abd: soft, nontender Ext: no edema CBC, BMP 05/01/17 03:40 05/01/17 03:40 Active Medications Chlorhexidine Gluconate (Hibiclens For Decolonization -) 1 applic TP HS DANNY Last Admin: 04/30/17 22:58 Dose: 1 applic Divalproex Sodium (Depakote -) 250 mg PO BID DANNY Dextrose/Lactated Ringer's (D5-Lr -) 1,000 mls @ 100 mls/hr IV ASDIR DANNY Last Admin: 05/01/17 04:54 Dose: 100 mls/hr Diltiazem HCl 125 mg/ Dextrose 125 mls @ 5 mls/hr IVPB TITR DANNY PRN Reason: 5 MG/HR Last Admin: 05/01/17 09:17 Dose: 5 mls/hr Insulin Aspart (Novolog Vial Sliding Scale -) 0 vial SQ ACHS DANNY PRN Reason: Protocol Last Admin: 05/01/17 06:48 Dose: Not Given Lorazepam (Ativan Injection -) 1 mg IVPUSH Q6H PRN PRN Reason: ANXIETY Mupirocin (Bactroban Ointment (For Decolonization) -) 1 applic NS BID DANNY Stop: 05/05/17 21:59 Last Admin: 05/01/17 09:32 Dose: 1 applic ASSESSMENT AND PLAN: Acute on Chronic Subdural Hematoma Altered Mental Status Atrial Fibrillation/Flutter with RVR Bradycardia HTN DM CAD h/o CVA - antiepileptics per neuro - rate control with cardizem gtt - hold all anticoagulation, antiplatelets for now - neurosurgery evaluation in progress for evacuation - aspiration precautions - minimize sedatives - replete lytes - DVT prophylaxis - continue ICU monitoring critical care time spent in reviewing chart, evaluating patient and formulating plan 35 min
--- NOTE | 2017-05-01 11:27 | PN ---
Progress Note (short form) - Note Progress Note: s: pt lethargic, not communicating. overnight was very agitated and had aflutter with rvr so started on dilt gtt o: Vital Signs Temp 98 F 05/01/17 10:00 Pulse 72 05/01/17 10:00 Resp 18 05/01/17 10:00 BP 153/93 05/01/17 10:00 Pulse Ox 98 05/01/17 09:00 Intake & Output 04/30/17 04/30/17 05/01/17 11:59 23:59 11:59 Intake Total 500 200 Output Total 925 800 Balance -425 -600 Weight 189 lb 162 lb Intake: IV 200 D5-Lr - 1,000 ml @ 100 200 mls/hr IV ASDIR DANNY Rx#: [id number] Oral 500 Output: Urine 925 800 Void 925 800 Other: Voiding Method Urinal Urinal Bowel Movement No Height 5 ft 8 in 5 ft 11 in Body Mass Index (BMI) 28.7 22.6 Weight Measurement Method [facility] in [facility] Weight Measurement Method Est/Stated by Patient nad, calm jvd flat, neck supple ctab, weak effort irregular nl s1, s2 no mrg, non-dispaced pmi + bs soft nt nd, ext without e/c/c lethargic no jaundice, diaphoresis Laboratory Last Values WBC 5.8 K/mm3 (4.0-10.0) D 05/01/17 03:40 RBC 5.38 M/mm3 (4.00-5.60) 05/01/17 03:40 Hgb 12.6 GM/dL (11.7-16.9) D 05/01/17 03:40 Hct 38.6 % (35.4-49) 05/01/17 03:40 MCV 71.8 fl (80-96) L 05/01/17 03:40 MCH 23.4 pg (25.7-33.7) L 05/01/17 03:40 MCHC 32.6 g/dl (32.0-35.9) 05/01/17 03:40 RDW 16.1 % (11.9-15.9) H 05/01/17 03:40 Plt Count 147 K/MM3 (134-434) 05/01/17 03:40 MPV 9.7 fl (7.5-11.1) 05/01/17 03:40 Neutrophils % 78.3 % (42.8-82.8) D 05/01/17 03:40 Lymphocytes % 11.4 % (8-40) D 05/01/17 03:40 Monocytes % 8.5 % (3.8-10.2) 05/01/17 03:40 Eosinophils % 1.3 % (0-4.5) 05/01/17 03:40 Basophils % 0.5 % (0-2.0) 05/01/17 03:40 Hypochromia 1+ 05/01/17 03:40 Platelet Estimate Decreased (NORMAL) 05/01/17 03:40 Platelet Comment Few giant plts 05/01/17 03:40 Platelet Comment No clumping noted 05/01/17 03:40 Polychromasia 1+ 05/01/17 03:40 Poikilocytosis 1+ 05/01/17 03:40 Anisocytosis 1+ 05/01/17 03:40 Microcytosis 1+ 05/01/17 03:40 Ovalocytes 1+ 05/01/17 03:40 Fragmented RBCs Occasional 05/01/17 03:40 INR 1.28 (0.82-1.09) H 05/01/17 03:40 PTT (Actin FS) 31.5 SECONDS (26.9-34.4) 05/01/17 03:40 Sodium 139 mmol/L (136-145) 05/01/17 03:40 Potassium 3.4 mmol/L (3.5-5.1) L 05/01/17 03:40 Chloride 106 mmol/L (98-107) 05/01/17 03:40 Carbon Dioxide 25 mmol/L (21-32) 05/01/17 03:40 Anion Gap 8 (8-16) 05/01/17 03:40 BUN 14 mg/dL (7-18) 05/01/17 03:40 Creatinine 0.8 mg/dL (0.7-1.3) 05/01/17 03:40 Creat Clearance w eGFR > 60 (>60) 05/01/17 03:40 POC Glucometer 87.54154 UNITS (()) 04/30/17 23:08 Random Glucose 144 mg/dL (74-106) H D 05/01/17 03:40 Lactic Acid 1.7 mmol/L (0.4-2.0) 05/01/17 03:40 Calcium 8.7 mg/dL (8.5-10.1) 05/01/17 03:40 Magnesium 1.8 mg/dL (1.8-2.4) 04/30/17 13:01 Total Bilirubin 0.9 mg/dL (0.2-1.0) D 05/01/17 03:40 AST 12 U/L (15-37) L D 05/01/17 03:40 ALT 21 U/L (12-78) 05/01/17 03:40 Alkaline Phosphatase 63 U/L (45-117) 05/01/17 03:40 Creatine Kinase 206 IU/L (39-308) 05/01/17 03:40 Creatine Kinase Index 1.1 % (0.0-5.0) 05/01/17 03:40 CK-MB (CK-2) 2.463 ng/mL (0.5-3.6) 05/01/17 03:40 Troponin I < 0.02 ng/ml (0.00-0.05) 05/01/17 03:40 Total Protein 7.6 g/dl (6.4-8.2) 05/01/17 03:40 Albumin 3.8 g/dl (3.4-5.0) 05/01/17 03:40 TSH 0.87 uIU/ml (0.358-3.74) D 05/01/17 03:40 Blood Type O POSITIVE 04/30/17 11:47 Antibody Screen Negative 04/30/17 11:47 ekg: afutter with variable block, vr 48 bpm. no acute ischemic changes tele: atrial flutter with rvr 120s. no significant pauses cxr: no chf est cct 35 mins a/p: H/o 76 yo with h/o CAD (s/p stenting in 2013?/2014), 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 Hospital course notable for new onset atrial flutter with slow ventricular conduction. New onset atria flutter - Had svr initially and was on coreg and clonidine at home. Meds held and overnight was very agitated and had rvr. He was started on dilt gtt and has been titrated up and currently HR in 70s-80s. -he is unable to take po meds due to ams so will cont with dilt gtt for now - Not a candidate for AC due to recent frequent falls and current sdh - check non-urgent echo Pre-op clearance - patient with RCRI 2 and poor functional status. Estimated kell-operative CV risk is intermediate. Currently HR is controlled w/o significant bradycardia. Ok to proceed with neurosurgery from cardiac pov. d/w neurosurgery. HTN -npo currently due to ams. Cont dilt gtt. Will also order prn hydralazine iv for breakthru htn. CAD - no recent pci. can hold asa in light of hematoma. con't statin when able to take po - no signs acs. CVA. - Not a candidate for AC or ASA at this time. statin once acute issues resolve.
--- NOTE | 2017-05-01 12:02 | EKG ---
Test Reason : Blood Pressure : / mmHG Vent. Rate : 127 BPM Atrial Rate : 254 BPM P-R Int : 000 ms QRS Dur : 082 ms QT Int : 332 ms P-R-T Axes : 265 072 140 degrees QTc Int : 482 ms ATRIAL FLUTTER WITH 2:1 A-V CONDUCTION LEFT VENTRICULAR HYPERTROPHY WITH REPOLARIZATION ABNORMALITY NONSPECIFIC ST AND T WAVE ABNORMALITY ABNORMAL ECG Confirmed by MD GIRISH, RANGEL ([id number]) on 05/01/2017 12:01:36 PM Referred By: MEERA TAYLOR Confirmed By:RANGEL STOUT MD
[2017-05-01] MEDS: hydrALAZINE HCL 20 MG/ML VIAL IVPUSH PRN (12:20)
--- NOTE | 2017-05-01 12:24 | EKG ---
Test Reason : Blood Pressure : / mmHG Vent. Rate : 117 BPM Atrial Rate : 250 BPM P-R Int : 000 ms QRS Dur : 078 ms QT Int : 374 ms P-R-T Axes : 000 023 139 degrees QTc Int : 521 ms ATRIAL FLUTTER WITH VARIABLE A-V BLOCK PROLONGED QT NONSPECIFIC ST ABNORMALITY ABNORMAL ECG Confirmed by MD GIRISH, RANGEL ([id number]) on 05/01/2017 12:24:12 PM Referred By: Confirmed By:RANGEL STOUT MD
--- NOTE | 2017-05-01 12:33 | EKG ---
Test Reason : Blood Pressure : / mmHG Vent. Rate : 052 BPM Atrial Rate : 241 BPM P-R Int : 000 ms QRS Dur : 088 ms QT Int : 434 ms P-R-T Axes : 000 042 142 degrees QTc Int : 403 ms POOR DATA QUALITY, INTERPRETATION MAY BE ADVERSELY AFFECTED ATRIAL FLUTTER WITH VARIABLE A-V BLOCK POOR R WAVE PROGRESSION SEPTAL INFARCT , AGE UNDETERMINED ABNORMAL ECG Confirmed by MD GIRISH, RANGEL ([id number]) on 05/01/2017 12:32:50 PM Referred By: Confirmed By:RANGEL STOUT MD
[2017-05-01 13:07] LABS: MAGNESIUM 1.7 mg/dL (1.8-2.4); PHOSPHOROUS 2.2 mg/dL (2.5-4.9)
--- NOTE | 2017-05-01 14:32 | PN ---
Physical Exam: SUBJECTIVE: Patient seen and examined at bedside. Pt had flutter OBJECTIVE: Vital Signs Period Temp Pulse Resp BP Sys/Cortés Pulse Ox Last 24 Hr 98 F-98.4 F 72-127 16-20 128-172/90-111 98-98 GENERAL: The patient is awake, alert, and fully oriented, in no acute distress. HEAD: Normal with no signs of trauma. EYES: sclera anicteric, conjunctiva clear. No ptosis. ENT: Ears normal, nares patent, oropharynx clear without exudates, moist mucous membranes. NECK: Trachea midline, full range of motion, supple. LUNGS: Breath sounds equal, clear to auscultation bilaterally, no wheezes, no crackles, no accessory muscle use. HEART: Regular rate and rhythm, S1, S2 without murmur, rub or gallop. ABDOMEN: Soft, nontender, nondistended, normoactive bowel sounds, no guarding, no rebound, no hepatosplenomegaly, no masses. EXTREMITIES: 2+ pulses, warm, well-perfused, no edema. NEUROLOGICAL: Cranial nerves II through XII grossly intact. Normal speech, gait not observed. PSYCH: Normal mood, normal affect. SKIN: Warm, dry, normal turgor, no rashes or lesions noted Laboratory Results - last 24 hr 04/30/17 04/30/17 05/01/17 18:28 23:08 03:40 WBC 5.8 D RBC 5.38 Hgb 12.6 D Hct 38.6 MCV 71.8 L MCH 23.4 L MCHC 32.6 RDW 16.1 H Plt Count 147 MPV 9.7 Neutrophils % 78.3 D Lymphocytes % 11.4 D Monocytes % 8.5 Eosinophils % 1.3 Basophils % 0.5 Hypochromia 1+ Platelet Estimate Decreased Platelet Comment No clumping noted Polychromasia 1+ Poikilocytosis 1+ Anisocytosis 1+ Microcytosis 1+ Ovalocytes 1+ Fragmented RBCs Occasional INR PTT (Actin FS) Sodium Potassium Chloride Carbon Dioxide Anion Gap BUN Creatinine Creat Clearance w eGFR POC Glucometer 91.52127 87.15028 Random Glucose Hemoglobin A1c % Lactic Acid Calcium Phosphorus Magnesium Total Bilirubin AST ALT Alkaline Phosphatase Creatine Kinase Creatine Kinase Index CK-MB (CK-2) Troponin I Total Protein Albumin TSH 05/01/17 05/01/17 05/01/17 03:40 03:40 03:40 WBC RBC Hgb Hct MCV MCH MCHC RDW Plt Count MPV Neutrophils % Lymphocytes % Monocytes % Eosinophils % Basophils % Hypochromia Platelet Estimate Platelet Comment Polychromasia Poikilocytosis Anisocytosis Microcytosis Ovalocytes Fragmented RBCs INR 1.28 H PTT (Actin FS) 31.5 Sodium 139 Potassium 3.4 L Chloride 106 Carbon Dioxide 25 Anion Gap 8 BUN 14 Creatinine 0.8 Creat Clearance w eGFR > 60 POC Glucometer Random Glucose 144 H D Hemoglobin A1c % Lactic Acid 1.7 Calcium 8.7 Phosphorus 2.2 L Magnesium 1.7 L Total Bilirubin 0.9 D AST 12 L D ALT 21 Alkaline Phosphatase 63 Creatine Kinase 206 Creatine Kinase Index 1.1 CK-MB (CK-2) 2.463 Troponin I < 0.02 Total Protein 7.6 Albumin 3.8 TSH 0.87 D 05/01/17 05/01/17 03:40 11:48 WBC RBC Hgb Hct MCV MCH MCHC RDW Plt Count MPV Neutrophils % Lymphocytes % Monocytes % Eosinophils % Basophils % Hypochromia Platelet Estimate Platelet Comment Polychromasia Poikilocytosis Anisocytosis Microcytosis Ovalocytes Fragmented RBCs INR PTT (Actin FS) Sodium Potassium Chloride Carbon Dioxide Anion Gap BUN Creatinine Creat Clearance w eGFR POC Glucometer 218.55121 Random Glucose Hemoglobin A1c % 6.2 H Lactic Acid Calcium Phosphorus Magnesium Total Bilirubin AST ALT Alkaline Phosphatase Creatine Kinase Creatine Kinase Index CK-MB (CK-2) Troponin I Total Protein Albumin TSH Active Medications Generic Name Dose Route Start Last Admin Trade Name Freq PRN Reason Stop Dose Admin Chlorhexidine Gluconate 1 applic 04/30/17 22:00 04/30/17 22:58 Hibiclens For Decolonization - TP 1 applic HS DANNY Administration Divalproex Sodium 250 mg 05/01/17 10:00 Depakote - PO BID DANNY Hydralazine HCl 10 mg 05/01/17 11:41 05/01/17 12:20 Apresoline Injection - IVPUSH 10 mg Q4H PRN Administration HYPERTENSION Dextrose/Lactated Ringer's 1,000 mls @ 100 mls/hr 05/01/17 04:00 05/01/17 04:54 D5-Lr - IV 100 mls/hr ASDIR DANNY Administration Diltiazem HCl 125 mg/ Dextrose 125 mls @ 10 mls/hr 05/01/17 13:16 IVPB TITR DANNY 10 MG/HR Insulin Aspart 0 vial 04/30/17 22:00 05/01/17 12:42 Novolog Vial Sliding Scale - SQ Not Given ACHS DANNY Protocol Lorazepam 1 mg 05/01/17 08:40 Ativan Injection - IVPUSH Q6H PRN ANXIETY Mupirocin 1 applic 04/30/17 22:00 05/01/17 09:32 Bactroban Ointment (For Decolonization) - NS 05/05/17 21:59 1 applic BID DANNY Administration ASSESSMENT/PLAN: Pt is a 76y/o M with PMH CAD with stents, CVA (2004), HTN, non-insulin dependent DM, spinal stenosis who presented to ED with new MRI showing subdural hematoma 3 months after a fall with head trauma. Pt admitted to ICU for evaluation and treatment of subdural hematoma and new onset afib with bradycardia. #Subdural hematoma -discovered on MRI -new onset afib w/ bradycardia -possible neurosurg tomorrow today -neuro consult -neurosurg consult -cardio consult -speech and swallow consult -coags, NPO #afib -possibly secondary to subdural hematoma -per cardio on Diltiazem #non-insulin dependent DM -diabetic diet #hypokalemia -replete w/ IV KCl #hypomagnesemia -replete w/ IV Mag #FEN -not on fluid -hypokalemia, hypomagnesemia repleting -diabetic diet #Dispo Admit to ICU for possible surgical evacuation tomorrow Ramiro Mcgraw MD PGY-1 Visit type - Emergency Visit Emergency Visit: No - New Patient This patient is new to me today: No - Critical Care Critical Care patient: No - Discharge Referral Referred to [facility] No
--- NOTE | 2017-05-01 14:42 | PN ---
Teaching Attending Note Name of Resident: Ramiro Mcgraw ATTENDING PHYSICIAN STATEMENT I saw and evaluated the patient. I reviewed the resident's note and discussed the case with the resident. I agree with the resident's findings and plan as documented. SUBJECTIVE: Patient sleeping, difficult to arouse. Appears comfortable. OBJECTIVE: Patient has been agitated/combative. He is currently sedated. Vital Signs Period Temp Pulse Resp BP Sys/Cortés Pulse Ox Last 24 Hr 97.5 F-98.4 F 72-127 16-20 128-183/90-134 98-98 GENERAL: Somnolent HEART: Irregular LUNGS: Clear ABDOMEN: Soft, non-distended, normal BS EXTREMITIES: No edema NEUROLOGICAL: Unable to assess ASSESSMENT AND PLAN: This is a 76 year old man with a history of cervical stenosis, CAD, CVA, HTN, type 2 DM who presented to the ER with confusion, slurred speech, urinary incontinence after a fall 2 months ago. He was found to have a subdural hematoma on MRI. 1. Subdural hematoma - Aspirin held - Continue Depakote - Plan for surgical drainage 2. Atrial flutter with variable block - Cardizem IV drip started - Echocardiogram - No anticoagulation secondary to SDH 3. Hypokalemia - Continue to replete potassium 4. CAD 5. HTN - Coreg, Clonidine, Hyzaar held - On Cardizem IV drip, Hydralazine IV as needed 6. Type 2 diabetes mellitus - Metformin, glipizide held - Continue Novolog sliding scale 7. History of CVA - Aspirin held secondary to SDH 8. History of cervical stenosis
[2017-05-01] MEDS: DILTIAZEM INJECTION 125 MG in DEXTROSE 5%-WATER - 100 ML IVPB SCH (15:00)
[2017-05-01] MEDS ORDERED: ceFAZolin SODIUM 1 GM VIAL IVPB ONE (15:45)
--- NOTE | 2017-05-01 15:47 | PN ---
Physical Exam: SUBJECTIVE: Patient seen and examined. Patient got altered mental sensorium in middle of night and CT head was done. Patient got agitated last night and got halaodol and lorazepam. Patient have tachy of 130 and patient was started on cardiazem drip after consulting cardiology. OBJECTIVE: Vital Signs Period Temp Pulse Resp BP Sys/Cortés Pulse Ox Last 24 Hr 98 F-98.4 F 72-127 16-20 128-172/80-111 98-98 GENERAL: disoriented HEAD: Normal with no signs of trauma. no neck stiffness EYES: Pupils equal, extraocular movements not following command EARS, NOSE, THROAT: Moist mucous membranes. NECK: Normal range of motion, JVD, or masses. LUNGS: Breath sounds equal, clear to auscultation bilaterally. No wheezes, and no crackles. No accessory muscle use. HEART: irregular, normal S1 and S2 without murmur, ABDOMEN: Soft, nontender, not distended, normoactive bowel sounds, no guarding, no rebound, MUSCULOSKELETAL: Normal range of motion at all joints. No bony deformities or tenderness. No CVA tenderness. EXTREMITIES: 2+ pulses, warm, moving all 4 limbs SKIN: Warm, dry, Laboratory Results - last 24 hr 04/30/17 04/30/17 05/01/17 18:28 23:08 03:40 WBC 5.8 D RBC 5.38 Hgb 12.6 D Hct 38.6 MCV 71.8 L MCH 23.4 L MCHC 32.6 RDW 16.1 H Plt Count 147 MPV 9.7 Neutrophils % 78.3 D Lymphocytes % 11.4 D Monocytes % 8.5 Eosinophils % 1.3 Basophils % 0.5 Hypochromia 1+ Platelet Estimate Decreased Platelet Comment No clumping noted Polychromasia 1+ Poikilocytosis 1+ Anisocytosis 1+ Microcytosis 1+ Ovalocytes 1+ Fragmented RBCs Occasional INR PTT (Actin FS) Sodium Potassium Chloride Carbon Dioxide Anion Gap BUN Creatinine Creat Clearance w eGFR POC Glucometer [phone] 87.54899 Random Glucose Hemoglobin A1c % Lactic Acid Calcium Phosphorus Magnesium Total Bilirubin AST ALT Alkaline Phosphatase Creatine Kinase Creatine Kinase Index CK-MB (CK-2) Troponin I Total Protein Albumin TSH 05/01/17 05/01/17 05/01/17 03:40 03:40 03:40 WBC RBC Hgb Hct MCV MCH MCHC RDW Plt Count MPV Neutrophils % Lymphocytes % Monocytes % Eosinophils % Basophils % Hypochromia Platelet Estimate Platelet Comment Polychromasia Poikilocytosis Anisocytosis Microcytosis Ovalocytes Fragmented RBCs INR 1.28 H PTT (Actin FS) 31.5 Sodium 139 Potassium 3.4 L Chloride 106 Carbon Dioxide 25 Anion Gap 8 BUN 14 Creatinine 0.8 Creat Clearance w eGFR > 60 POC Glucometer Random Glucose 144 H D Hemoglobin A1c % Lactic Acid 1.7 Calcium 8.7 Phosphorus 2.2 L Magnesium 1.7 L Total Bilirubin 0.9 D AST 12 L D ALT 21 Alkaline Phosphatase 63 Creatine Kinase 206 Creatine Kinase Index 1.1 CK-MB (CK-2) 2.463 Troponin I < 0.02 Total Protein 7.6 Albumin 3.8 TSH 0.87 D 05/01/17 05/01/17 03:40 11:48 WBC RBC Hgb Hct MCV MCH MCHC RDW Plt Count MPV Neutrophils % Lymphocytes % Monocytes % Eosinophils % Basophils % Hypochromia Platelet Estimate Platelet Comment Polychromasia Poikilocytosis Anisocytosis Microcytosis Ovalocytes Fragmented RBCs INR PTT (Actin FS) Sodium Potassium Chloride Carbon Dioxide Anion Gap BUN Creatinine Creat Clearance w eGFR POC Glucometer [phone] Random Glucose Hemoglobin A1c % 6.2 H Lactic Acid Calcium Phosphorus Magnesium Total Bilirubin AST ALT Alkaline Phosphatase Creatine Kinase Creatine Kinase Index CK-MB (CK-2) Troponin I Total Protein Albumin TSH Active Medications Generic Name Dose Route Start Last Admin Trade Name Freq PRN Reason Stop Dose Admin Chlorhexidine Gluconate 1 applic 04/30/17 22:00 04/30/17 22:58 Hibiclens For Decolonization - TP 1 applic HS DANNY Administration Divalproex Sodium 250 mg 05/01/17 10:00 Depakote - PO BID DANNY Hydralazine HCl 10 mg 05/01/17 11:41 05/01/17 12:20 Apresoline Injection - IVPUSH 10 mg Q4H PRN Administration HYPERTENSION Dextrose/Lactated Ringer's 1,000 mls @ 100 mls/hr 05/01/17 04:00 05/01/17 04:54 D5-Lr - IV 100 mls/hr ASDIR DANNY Administration Diltiazem HCl 125 mg/ Dextrose 125 mls @ 10 mls/hr 05/01/17 13:16 IVPB TITR DANNY 10 MG/HR Insulin Aspart 0 vial 04/30/17 22:00 05/01/17 12:42 Novolog Vial Sliding Scale - SQ Not Given ACHS DANNY Protocol Lorazepam 1 mg 05/01/17 08:40 Ativan Injection - IVPUSH Q6H PRN ANXIETY Mupirocin 1 applic 04/30/17 22:00 05/01/17 09:32 Bactroban Ointment (For Decolonization) - NS 05/05/17 21:59 1 applic BID DANNY Administration ASSESSMENT/PLAN: Pt is a 76y/o M with PMH CAD with stents, CVA (2004), HTN, non-insulin dependent DM, spinal stenosis who presented to ED with new MRI showing subdural hematoma 3 months after a fall with head trauma. Pt admitted to ICU for evaluation and treatment of subdural hematoma and new onset afib with bradycardia. # Subacute on chronic Subdural hematoma - neurosurgery on case - neurology on case: advised to hold keppar and startyed on depakote 250mg bid - patinet finesse go for surgery after cardiac clearance. - #afib - Cardiology on case - ECHO reviewed _ TSH normal - patient started on cardiazem drip and increased to 10. Patient HR is still 130. Manager Customer Service informed. #non-insulin dependent DM - NPO going for surgery. - monitor and contror blood sugra - novalog sliding scale - hold oral hypoglycemic was on metformin and glipizide #hypokalemia -K 3.4 - KCL given. #HTN Family states he normally have high BP, his avg systolic is 170 on hydralazine and cardiazem H/o CAD stent placed in prox circumflex in 2013 on aspirin, will hold aspirin for now due to subdural haematoma. #FEN -on D5 LR 100ml/hr -hypokalemia, repleting - npo #Dispo in ICU Visit type - Emergency Visit Emergency Visit: Yes ED Registration Date: 04/30/17 Care time: The patient presented to the Emergency Department on the above date and was hospitalized for further evaluation of their emergent condition. - New Patient This patient is new to me today: No - Critical Care Critical Care patient: Yes Total Critical Care Time (in minutes): 45 Critical Care Statement: The care of this patient involved high complexity decision making to prevent further life threatening deterioration of the patient 's condition and/or to evaluate & treat vital organ system(s) failure or risk of failure.
[2017-05-01] MEDS ORDERED: LIDOCAINE HCL 0.5% EPINEPHRINE 1:200,000 50 ML VIAL IJ ONE (16:09)
[2017-05-01] MEDS ORDERED: THROMBIN (BOVINE) 5,000 UNIT VIAL TP ONE (16:15)
[2017-05-01] MEDS ORDERED: BACITRACIN 50,000 UNITS VIAL TP ONE (16:15)
--- NOTE | 2017-05-01 16:15 | EKG ---
Test Reason : Blood Pressure : / mmHG Vent. Rate : 128 BPM Atrial Rate : 256 BPM P-R Int : 000 ms QRS Dur : 084 ms QT Int : 326 ms P-R-T Axes : 268 009 252 degrees QTc Int : 475 ms ATRIAL FLUTTER WITH 2:1 A-V CONDUCTION CANNOT RULE OUT ANTERIOR INFARCT , AGE UNDETERMINED ABNORMAL ECG Confirmed by MD GIRISH, RANGEL ([id number]) on 05/01/2017 4:14:49 PM Referred By: Confirmed By:RANGEL STOUT MD
[2017-05-01] MEDS ORDERED: GELATIN, ABSORBABLE 100 EACH SPONGE TP ONE (17:00)
[2017-05-01] MEDS ORDERED: BACITRACIN 15 GM TUBE TOPICAL OINTMENT ONE (17:13)
--- NOTE | 2017-05-01 17:20 | OP ---
Operative Note - Note: Operative Date: 05/01/17 Pre-Operative Diagnosis: L SDH with mass effect Operation: L craniotomy for SDH; drain placement, microdissection Findings: subacute/chronic blood mostly Implants: Craniofix 11 mm x3 Post-Operative Diagnosis: Same as Pre-op Surgeon: Vimal Ackerman Fill Technician: Mulugeta Terry Anesthesiologist/APPLICATIONS INTERN: Marjan Sinclair Anesthesia: General Specimens Removed: SDH for path; fluid for culture Estimated Blood Loss (mls): 100 Drains & Tubes with Location: 12 Fr sundural red rubber catheter to sterile bile bag Operative Report Dictated: Yes
[2017-05-01] MEDS ORDERED: ONDANSETRON 4 MG/2 ML VIAL IVPB PRN (17:24)
[2017-05-01] MEDS ORDERED: BACITRACIN 15 GM TUBE TOPICAL OINTMENT TP ONE (17:30)
--- NOTE | 2017-05-01 17:58 | PN ---
Progress Note (short form) - Note Progress Note: NEUROSURGERY In ICU PE: BP and HR stable; in Afib Drain working Still drowsy-sedated Minimal movement B pupils 3 mm sluggish Allow pt to slowly wake up overnight and plan extubation in AM Longer recovery from GA needed secondary to multiple prior strokes Findings d/w family Labs pending Head CT in AM
[2017-05-01] MEDS: CEFAZOLIN (PRE-DOCKED) 50 ML IVPB SCH (18:41)
[2017-05-01] MEDS: DEXTROSE 5%-LACTATED RINGERS 1,000 ML IV SCH (18:42)
[2017-05-01] MEDS: dilTIAZem HCL 50 MG/10 ML - 10 ML VIAL IVPUSH PRN (20:00)
[2017-05-01] MEDS: VALPROATE SODIUM 500 MG/5 ML VIAL IVPB SCH (21:03)
[2017-05-01 21:15] LABS: ARTERIAL BLOOD GAS BASE EXCESS -0.9 meq/l (-2-2); ARTERIAL BLOOD GAS HCO3 22.8 meq/L (22-26); ARTERIAL BLOOD GAS pH 7.41 (7.35-7.45)
[2017-05-01 21:16] LABS: ART PUNCT SITE ARTERIAL LINE; LPM/O2% 50%; PT. ON O2? YES; TYPE OF O2 MECH VENT
[2017-05-01 21:17] LABS: MECH. VENT. YES; VENT RATE 15; VT/PRESS 500
[2017-05-01 21:18] LABS: MEAN PLT VOLUME 10.2 fl (7.5-11.1); PLATELET COUNT 175 K/MM3 (134-434)
[2017-05-01 21:30] LABS: INR 1.23 (0.82-1.09); PROTHROMBIN TIME (PATIENT) 13.6 SEC (9.98-11.88)
[2017-05-01 21:49] LABS: PLATELET ESTIMATE ADEQUATE (NORMAL)
[2017-05-01 21:54] LABS: ALBUMIN 3.5 g/dl (3.4-5.0); ANION GAP 9 (8-16); BILIRUBIN,TOTAL 0.8 mg/dL (0.2-1.0); CALCIUM 8.4 mg/dL (8.5-10.1); CO2 23 mmol/L (21-32); CREATININE 0.8 mg/dL (0.7-1.3); GLUCOSE,RANDOM 181 mg/dL (74-106); PHOSPHOROUS 2.8 mg/dL (2.5-4.9); SGOT/AST 14 U/L (15-37); SGPT/ALT 20 U/L (12-78); TOT PROT 7.1 g/dl (6.4-8.2)
[2017-05-01 21:55] LABS: ALK PHOS 60 U/L (45-117)
[2017-05-02] MEDS: MUPIROCIN 2% TOPICAL OINTMENT FOR DECOLONIZATION NS SCH ×3 (00:03→22:13)
[2017-05-02] MEDS: PROPOFOL 100 ML IVPB SCH ×2 (00:03→22:08)
[2017-05-02] MEDS: CHLORHEXIDINE GLUCONATE 4% CLEANSER FOR DECOLONIZATION TP SCH ×2 (00:03→22:13)
[2017-05-02] MEDS: KCL 10 MEQ IVPB 100 ML IVPB SCH ×3 (00:05→02:00)
[2017-05-02] MEDS: CEFAZOLIN (PRE-DOCKED) 50 ML IVPB SCH ×2 (03:04→09:58)
[2017-05-02] MEDS ORDERED: dilTIAZem HCL 125 MG/25 ML - 5 ML VIAL ONE ×2 (05:04→15:18)
[2017-05-02] MEDS ORDERED: PROPOFOL 100 ML ONE (05:04)
[2017-05-02 06:02] LABS: BASOPHIL 0.2 % (0-2.0); EOSINOPHIL 0.3 % (0-4.5); MCH 23.3 pg (25.7-33.7); MCHC 32.3 g/dl (32.0-35.9); MEAN CELL VOLUME 72.1 fl (80-96); MEAN PLT VOLUME 10.1 fl (7.5-11.1); NEUTROPHILS 76.9 % (42.8-82.8); PLATELET COUNT 189 K/MM3 (134-434); RDW 16.4 % (11.9-15.9); WHITE BLOOD COUNT 9.2 K/mm3 (4.0-10.0)
[2017-05-02 06:18] LABS: ANION GAP 8 (8-16); CALCIUM 8.4 mg/dL (8.5-10.1); CO2 24 mmol/L (21-32); CREATININE 0.8 mg/dL (0.7-1.3); GLUCOSE,RANDOM 217 mg/dL (74-106); PHOSPHOROUS 2.6 mg/dL (2.5-4.9)
[2017-05-02] MEDS ORDERED: SODIUM CHLORIDE 500 ML IV STA (06:24)
[2017-05-02] MEDS: INSULIN SLIDING SCALE (NOVOLOG) 1 VIAL SQ SCH ×4 (07:32→22:08)
[2017-05-02 07:56] LABS: ART PUNCT SITE ARTERIAL LINE; ARTERIAL BLOOD GAS BASE EXCESS -1.2 meq/l (-2-2); ARTERIAL BLOOD GAS HCO3 21.9 meq/L (22-26); ARTERIAL BLOOD GAS pH 7.43 (7.35-7.45)
[2017-05-02 07:57] LABS: LPM/O2% 35%; MECH. VENT. YES; PT. ON O2? YES; TYPE OF O2 MECH VENT; VENT RATE 15; VT/PRESS 500
--- NOTE | 2017-05-02 09:45 | PN ---
Progress Note (short form) - Note Progress Note: NEUROSURGERY POD #1 In ICU PE: SBP 110-160's; HR stable; in Afib Drain working - 45 cc total/clearing up Still drowsy-sedated B pupils 3 mm sluggish Moving B UE/LE WBC 9.2, Hgb 13, INR 1.23 Cont anticonvulsant Allow pt to wake up after head CT and plan extubation during the day Plan d/c drain in am 8-27 Findings d/w family previously
[2017-05-02] MEDS: VALPROATE SODIUM 500 MG/5 ML VIAL IVPB SCH (09:57)
[2017-05-02] MEDS: hydrALAZINE HCL 20 MG/ML VIAL IVPUSH PRN ×2 (09:57→16:33)
[2017-05-02] MEDS: PANTOPRAZOLE SODIUM 100 ML IVPB SCH (09:58)
--- NOTE | 2017-05-02 10:40 | PN ---
Progress Note (short form) - Note Progress Note: PULM/CCM SUBJECTIVE: Pt seen and examined in the ICU. -still sedated, going for repeat CT head this morning then daily awakening with ideally extubation -tachy on cardizem gtt but normotensive OBJECTIVE: Vital Signs Temp 98 F 05/02/17 05:00 Pulse 116 H 05/02/17 10:08 Resp 19 05/02/17 10:08 BP 144/78 05/02/17 08:00 Pulse Ox 100 05/02/17 10:10 Intake & Output 05/01/17 05/01/17 05/02/17 11:59 23:59 11:59 Intake Total 200 2600 1500 Output Total 800 150 345 Balance -600 2450 1155 Weight 73.482 kg 72.1 kg Intake: IV 200 2500 1450 D5-Lr - 1,000 ml @ 081 933 1314 mls/hr IV ASDIR DANNY Rx#: [id number] Cardizem Injection - 125 100 100 mg In D5w - 100 ml @ 10 MG/HR 10 mls/hr IVPB TITR DANNY Rx#:[id number] D5-Lr - 1,000 ml @ 75 mls 750 /hr IV ASDIR DANNY Rx#: [id number] Diprivan - 100 ml @ 5 MCG 100 /KG/MIN 2.204 mls/hr IVPB TITR DANNY Rx#:[id number] Normal Saline - 500 ml @ 500 500 mls/hr IV ASDIR STA Rx#:[id number] IVPB 100 50 Output: Drainage 45 Head 45 Urine 800 50 300 Void 800 Hall 300 Estimated Blood Loss 100 Other: Voiding Method Urinal Indwelling Catheter Bowel Movement No No Weight Measurement Method Built in [facility] Gen: lethargic, withdrawals to stimuli HEENT: PERRL, craniotomy dressed. Heart: RRR Lung: decreased breath sounds at the bases Abd: soft, nontender Ext: no edema CBC, BMP 05/02/17 05:15 05/02/17 05:15 Active Medications Chlorhexidine Gluconate (Hibiclens For Decolonization -) 1 applic TP HS DANNY Last Admin: 05/02/17 00:03 Dose: 1 applic Hydralazine HCl (Apresoline Injection -) 10 mg IVPUSH Q4H PRN PRN Reason: HYPERTENSION Last Admin: 05/02/17 09:57 Dose: 10 mg Diltiazem HCl 125 mg/ Dextrose 125 mls @ 10 mls/hr IVPB TITR DANNY PRN Reason: 10 MG/HR Last Admin: 05/01/17 15:00 Dose: 10 mls/hr Cefazolin Sodium (Ancef 1gm Ivpb (Pre-Docked)) 50 mls @ 100 mls/hr IVPB Q8H-IV DANNY Stop: 05/02/17 17:59 Last Admin: 05/02/17 09:58 Dose: 100 mls/hr Pantoprazole Sodium (Protonix 40mg Ivpb (Pre-Docked)) 100 mls @ 200 mls/hr IVPB DAILY DANNY Last Admin: 05/02/17 09:58 Dose: 200 mls/hr Dextrose/Lactated Ringer's (D5-Lr -) 1,000 mls @ 75 mls/hr IV ASDIR DANNY Last Admin: 05/01/17 18:42 Dose: 75 mls/hr Propofol (Diprivan -) 100 mls @ 2.204 mls/hr IVPB TITR DANNY; 5 MCG/KG/MIN PRN Reason: Protocol Last Admin: 05/02/17 00:03 Dose: 2.204 mls/hr Insulin Aspart (Novolog Vial Sliding Scale -) 0 vial SQ ACHS DANNY PRN Reason: Protocol Last Admin: 05/02/17 07:32 Dose: Not Given Lorazepam (Ativan Injection -) 1 mg IVPUSH Q6H PRN PRN Reason: ANXIETY Mupirocin (Bactroban Ointment (For Decolonization) -) 1 applic NS BID [facility] Stop: 05/05/17 21:59 Last Admin: 05/02/17 09:58 Dose: 1 applic Ondansetron HCl (Zofran Injection) 4 mg IVPB Q6H PRN PRN Reason: NAUSEA Valproate Sodium (Depacon Injection -) 500 mg IVPB DAILY [facility] Last Admin: 05/02/17 09:57 Dose: 500 mg ASSESSMENT AND PLAN: Acute on Chronic Subdural Hematoma Altered Mental Status Atrial Fibrillation/Flutter with RVR Bradycardia HTN DM CAD h/o CVA - repeat CT head, s/p evacuation - antiepileptics per neuro - rate control with cardizem gtt, change to PO once controlled - hold all anticoagulation, antiplatelets for now - aspiration precautions - minimize sedatives - replete lytes - DVT prophylaxis - continue ICU monitoring critical care time spent in reviewing chart, evaluating patient and formulating plan 35 min Wolf Calzada ACNP [id number]
--- NOTE | 2017-05-02 11:57 | PN ---
Progress Note, Physician Chief Complaint: change in Mental Status History of Present Illness: 76 y/o M with PMH CAD with stents on ASA, CVA (2004), HTN,DMII, spinal stenosis s/p spinal surgery who was brought in to ED after family observed changes in mental status and personality after a fall a few months earlier. On MRI noted to have a subacute/chronic subdural hematoma with mass effect. Also noted to have a A-fib/flutter and bradycardia.He is transferred to ICU for monitoring pending clearance for craniotomy and drainage+/- subdural drain placement. In ED VS HR 30's to 60's,SBP 140's to 150's. Notable labs WBC 3.3, HGb 10.7,BUN/ Creat 15/0.8, K3.3, trop <0.02. Family states since pt had his fall, he has had personality change, slurred speech, emotional lability, hallucinations, confusion as well as new onset Afib. Seen by neurosurgery and underwent craniotomy for drainage and then drain placement. - Current Medication List Current Medications: Active Medications Chlorhexidine Gluconate (Hibiclens For Decolonization -) 1 applic TP HS DANNY Last Admin: 05/02/17 00:03 Dose: 1 applic Hydralazine HCl (Apresoline Injection -) 10 mg IVPUSH Q4H PRN PRN Reason: HYPERTENSION Last Admin: 05/02/17 09:57 Dose: 10 mg Diltiazem HCl 125 mg/ Dextrose 125 mls @ 10 mls/hr IVPB TITR DANNY PRN Reason: 10 MG/HR Last Admin: 05/01/17 15:00 Dose: 10 mls/hr Cefazolin Sodium (Ancef 1gm Ivpb (Pre-Docked)) 50 mls @ 100 mls/hr IVPB Q8H-IV DANNY Stop: 05/02/17 17:59 Last Admin: 05/02/17 09:58 Dose: 100 mls/hr Pantoprazole Sodium (Protonix 40mg Ivpb (Pre-Docked)) 100 mls @ 200 mls/hr IVPB DAILY DANNY Last Admin: 05/02/17 09:58 Dose: 200 mls/hr Dextrose/Lactated Ringer's (D5-Lr -) 1,000 mls @ 75 mls/hr IV ASDIR DANNY Last Admin: 05/01/17 18:42 Dose: 75 mls/hr Propofol (Diprivan -) 100 mls @ 2.204 mls/hr IVPB TITR DANNY; 5 MCG/KG/MIN PRN Reason: Protocol Last Admin: 05/02/17 00:03 Dose: 2.204 mls/hr Insulin Aspart (Novolog Vial Sliding Scale -) 0 vial SQ ACHS DANNY PRN Reason: Protocol Last Admin: 05/02/17 07:32 Dose: Not Given Lorazepam (Ativan Injection -) 1 mg IVPUSH Q6H PRN PRN Reason: ANXIETY Mupirocin (Bactroban Ointment (For Decolonization) -) 1 applic NS BID [facility] Stop: 05/05/17 21:59 Last Admin: 05/02/17 09:58 Dose: 1 applic Ondansetron HCl (Zofran Injection) 4 mg IVPB Q6H PRN PRN Reason: NAUSEA Valproate Sodium (Depacon Injection -) 500 mg IVPB DAILY [facility] Last Admin: 05/02/17 09:57 Dose: 500 mg - Objective Vital Signs: Vital Signs Temperature 98 F 05/02/17 05:00 Pulse Rate 116 H 05/02/17 10:08 Respiratory Rate 18 05/02/17 11:47 Blood Pressure 144/78 05/02/17 08:00 O2 Sat by Pulse Oximetry (%) 100 05/02/17 10:10 Neurological: Yes: Other (Patient intubated, unresponsive to verbal/tactile stimuli. Pupils equal/reactive to light.) Labs: CBC, BMP 05/02/17 05:15 05/02/17 05:15 INR, PTT INR 1.23 (0.82-1.09) H 05/01/17 20:45 Problem List - Problems (1) Subdural bleeding Assessment/Plan: s/p drainage Code(s): I62.00 - NONTRAUMATIC SUBDURAL HEMORRHAGE, UNSPECIFIED Assessment/Plan monitor as patient wakes up, off sedation/intubation
[2017-05-02] MEDS ORDERED: hydrALAZINE HCL 20 MG/ML VIAL IVPUSH ONE (12:34)
--- NOTE | 2017-05-02 13:11 | PN ---
Progress Note (short form) - Note Progress Note: ANESTHESIOLOGY POST-OP CHECK 76M s/p craniotomy and evacuation of hematoma under general anesthesia, POD #1: No acute events. Remains intubated and sedated. Plan to extubate today as per ICU team Vital Signs Temperature 98.8 F 05/02/17 12:00 Pulse Rate 70 05/02/17 12:00 Respiratory Rate 16 05/02/17 12:00 Blood Pressure 136/86 05/02/17 12:00 O2 Sat by Pulse Oximetry (%) 100 05/02/17 10:10 Active Medications Chlorhexidine Gluconate (Hibiclens For Decolonization -) 1 applic TP HS DANNY Last Admin: 05/02/17 00:03 Dose: 1 applic Hydralazine HCl (Apresoline Injection -) 10 mg IVPUSH Q4H PRN PRN Reason: HYPERTENSION Last Admin: 05/02/17 09:57 Dose: 10 mg Diltiazem HCl 125 mg/ Dextrose 125 mls @ 10 mls/hr IVPB TITR DANNY PRN Reason: 10 MG/HR Last Admin: 05/01/17 15:00 Dose: 10 mls/hr Cefazolin Sodium (Ancef 1gm Ivpb (Pre-Docked)) 50 mls @ 100 mls/hr IVPB Q8H-IV DANNY Stop: 05/02/17 17:59 Last Admin: 05/02/17 09:58 Dose: 100 mls/hr Pantoprazole Sodium (Protonix 40mg Ivpb (Pre-Docked)) 100 mls @ 200 mls/hr IVPB DAILY DANNY Last Admin: 05/02/17 09:58 Dose: 200 mls/hr Dextrose/Lactated Ringer's (D5-Lr -) 1,000 mls @ 75 mls/hr IV ASDIR DANNY Last Admin: 05/01/17 18:42 Dose: 75 mls/hr Propofol (Diprivan -) 100 mls @ 2.204 mls/hr IVPB TITR DANNY; 5 MCG/KG/MIN PRN Reason: Protocol Last Admin: 05/02/17 00:03 Dose: 2.204 mls/hr Insulin Aspart (Novolog Vial Sliding Scale -) 0 vial SQ ACHS DANNY PRN Reason: Protocol Last Admin: 05/02/17 12:43 Dose: Not Given Lorazepam (Ativan Injection -) 1 mg IVPUSH Q6H PRN PRN Reason: ANXIETY Mupirocin (Bactroban Ointment (For Decolonization) -) 1 applic NS BID [facility] Stop: 05/05/17 21:59 Last Admin: 05/02/17 09:58 Dose: 1 applic Ondansetron HCl (Zofran Injection) 4 mg IVPB Q6H PRN PRN Reason: NAUSEA Valproate Sodium (Depacon Injection -) 500 mg IVPB DAILY [facility] Last Admin: 05/02/17 09:57 Dose: 500 mg Gen: intubated, sedated No apparent anesthesia complications. Continue management as per ICU.
[2017-05-02] MEDS ORDERED: LABETALOL HCL 5 MG/1 ML (100MG/20 ML VIAL) IVPUSH ONE ×2 (13:34→15:02)
[2017-05-02] MEDS ORDERED: LABETALOL HCL 5 MG/1 ML (100MG/20 ML VIAL) ONE (13:36)
--- NOTE | 2017-05-02 14:31 | PN ---
Physical Exam: SUBJECTIVE: Patient seen and examined at bedside. Intubated and sedated. S/P craniotomy. OBJECTIVE: Vital Signs Period Temp Pulse Resp BP Sys/Cortés Pulse Ox Last 24 Hr 97.2 F-98.8 F 57-128 14-20 117-199/59-101 100-100 GENERAL: The patient is intubated and sedated HEAD: large bandage and drain with serosanguinous fluid EYES: sclera anicteric, conjunctiva clear. No ptosis. ENT: Ears normal, nares patent, oropharynx clear without exudates, moist mucous membranes. NECK: Trachea midline, full range of motion, supple. LUNGS: Breath sounds equal, clear to auscultation bilaterally, no wheezes, no crackles, no accessory muscle use. HEART: Regular rate and rhythm, S1, S2 without murmur, rub or gallop. ABDOMEN: Soft, nondistended, normoactive bowel sounds, no guarding, no hepatosplenomegaly, no masses. EXTREMITIES: 2+ pulses, warm, well-perfused, no edema. NEUROLOGICAL: gait not observed. SKIN: Warm, dry, normal turgor, no rashes or lesions noted Laboratory Results - last 24 hr 05/01/17 05/01/17 05/01/17 16:00 20:45 20:45 WBC 6.0 RBC 5.52 Hgb 12.7 Hct 39.7 MCV 72.0 L MCH 23.0 L MCHC 32.0 RDW 16.0 H Plt Count 175 MPV 10.2 Neutrophils % Lymphocytes % Monocytes % Eosinophils % Basophils % Differential Comment Slide scanned Platelet Estimate Adequate Platelet Comment Few giant plts INR 1.23 H PTT (Actin FS) 33.0 Puncture Site ABG pH ABG pCO2 at Pt Temp ABG pO2 at Pt Temp ABG HCO3 ABG O2 Sat (Measured) ABG O2 Content ABG Base Excess Frank Test O2 Delivery Device Oxygen Flow Rate Vent Mode Vent Rate Mechanical Rate PEEP Pressure Support Vent Sodium Potassium Chloride Carbon Dioxide Anion Gap BUN Creatinine Creat Clearance w eGFR POC Glucometer Random Glucose Calcium Phosphorus Magnesium Total Bilirubin AST ALT Alkaline Phosphatase Total Protein Albumin Blood Type O POSITIVE Antibody Screen Negative Crossmatch IS Only See Detail 05/01/17 05/01/17 05/01/17 20:45 21:05 21:10 WBC RBC Hgb Hct MCV MCH MCHC RDW Plt Count MPV Neutrophils % Lymphocytes % Monocytes % Eosinophils % Basophils % Differential Comment Platelet Estimate Platelet Comment INR PTT (Actin FS) Puncture Site Arterial line ABG pH 7.41 ABG pCO2 at Pt Temp 36.8 ABG pO2 at Pt Temp 256.0 H* ABG HCO3 22.8 ABG O2 Sat (Measured) 100.0 H* ABG O2 Content 18.5 ABG Base Excess -0.9 Frank Test Not applicable O2 Delivery Device Mech vent Oxygen Flow Rate 50% Vent Mode A/c Vent Rate 15 Mechanical Rate Yes PEEP 5.0 Pressure Support Vent 500 Sodium 138 Potassium 3.4 L Chloride 106 Carbon Dioxide 23 Anion Gap 9 BUN 10 D Creatinine 0.8 Creat Clearance w eGFR > 60 POC Glucometer 192.93965 Random Glucose 181 H D Calcium 8.4 L Phosphorus 2.8 D Magnesium 2.0 Total Bilirubin 0.8 AST 14 L ALT 20 Alkaline Phosphatase 60 Total Protein 7.1 Albumin 3.5 Blood Type Antibody Screen Crossmatch IS Only 05/02/17 05/02/17 05/02/17 05:15 05:15 05:47 WBC 9.2 D RBC 5.59 Hgb 13.0 Hct 40.3 MCV 72.1 L MCH 23.3 L MCHC 32.3 RDW 16.4 H Plt Count 189 MPV 10.1 Neutrophils % 76.9 Lymphocytes % 11.7 Monocytes % 10.9 H Eosinophils % 0.3 Basophils % 0.2 Differential Comment Platelet Estimate Platelet Comment INR PTT (Actin FS) Puncture Site ABG pH ABG pCO2 at Pt Temp ABG pO2 at Pt Temp ABG HCO3 ABG O2 Sat (Measured) ABG O2 Content ABG Base Excess Rfank Test O2 Delivery Device Oxygen Flow Rate Vent Mode Vent Rate Mechanical Rate PEEP Pressure Support Vent Sodium 137 Potassium 3.9 Chloride 105 Carbon Dioxide 24 Anion Gap 8 BUN 10 Creatinine 0.8 Creat Clearance w eGFR POC Glucometer 231.43931 Random Glucose 217 H Calcium 8.4 L Phosphorus 2.6 Magnesium 2.0 Total Bilirubin AST ALT Alkaline Phosphatase Total Protein Albumin Blood Type Antibody Screen Crossmatch IS Only 05/02/17 05/02/17 07:55 12:03 WBC RBC Hgb Hct MCV MCH MCHC RDW Plt Count MPV Neutrophils % Lymphocytes % Monocytes % Eosinophils % Basophils % Differential Comment Platelet Estimate Platelet Comment INR PTT (Actin FS) Puncture Site Arterial line ABG pH 7.43 ABG pCO2 at Pt Temp 33.2 L ABG pO2 at Pt Temp 152.0 H* D ABG HCO3 21.9 L ABG O2 Sat (Measured) 100.0 H* ABG O2 Content 18.3 ABG Base Excess -1.2 Frank Test Not applicable O2 Delivery Device Mech vent Oxygen Flow Rate 35% Vent Mode A/c Vent Rate 15 Mechanical Rate Yes PEEP 5.0 Pressure Support Vent 500 Sodium Potassium Chloride Carbon Dioxide Anion Gap BUN Creatinine Creat Clearance w eGFR POC Glucometer 233.43566 Random Glucose Calcium Phosphorus Magnesium Total Bilirubin AST ALT Alkaline Phosphatase Total Protein Albumin Blood Type Antibody Screen Crossmatch IS Only Active Medications Generic Name Dose Route Start Last Admin Trade Name Freq PRN Reason Stop Dose Admin Chlorhexidine Gluconate 1 applic 04/30/17 22:00 05/02/17 00:03 Hibiclens For Decolonization - TP 1 applic HS DANNY Administration Hydralazine HCl 10 mg 05/01/17 11:41 05/02/17 09:57 Apresoline Injection - IVPUSH 10 mg Q4H PRN Administration HYPERTENSION Diltiazem HCl 125 mg/ Dextrose 125 mls @ 10 mls/hr 05/01/17 13:16 05/01/17 15: 00 IVPB 10 mls/hr TITR DANNY Administration 10 MG/HR Cefazolin Sodium 50 mls @ 100 mls/hr 05/01/17 18:00 05/02/17 09:58 Ancef 1gm Ivpb (Pre-Docked) IVPB 05/02/17 17:59 100 mls/hr Q8H-IV DANNY Administration Pantoprazole Sodium 100 mls @ 200 mls/hr 05/02/17 10:00 05/02/17 09:58 Protonix 40mg Ivpb (Pre-Docked) IVPB 200 mls/hr DAILY DANNY Administration Dextrose/Lactated Ringer's 1,000 mls @ 75 mls/hr 05/01/17 18:30 05/01/17 18:42 D5-Lr - IV 75 mls/hr ASDIR DANNY Administration Propofol 100 mls @ 2.204 mls/hr 05/01/17 18:30 05/02/17 00:03 Diprivan - IVPB 2.204 mls/hr TITR DANNY Administration Protocol 5 MCG/KG/MIN Insulin Aspart 0 vial 04/30/17 22:00 05/02/17 12:43 Novolog Vial Sliding Scale - SQ Not Given ACHS DANNY Protocol Lorazepam 1 mg 05/01/17 08:40 Ativan Injection - IVPUSH Q6H PRN ANXIETY Mupirocin 1 applic 04/30/17 22:00 05/02/17 09:58 Bactroban Ointment (For Decolonization) - NS 05/05/17 21:59 1 applic BID DANNY Administration Ondansetron HCl 4 mg 05/01/17 17:24 Zofran Injection IVPB Q6H PRN NAUSEA Valproate Sodium 500 mg 05/01/17 19:30 05/02/17 09:57 Depacon Injection - IVPB 500 mg DAILY DANNY Administration ASSESSMENT/PLAN: Pt is a 76y/o M with PMH CAD with stents, CVA (2004), HTN, non-insulin dependent DM, spinal stenosis who presented to ED with new MRI showing subdural hematoma 3 months after a fall with head trauma. Pt admitted to ICU for evaluation and treatment of subdural hematoma and new onset afib with bradycardia. #Subdural hematoma -discovered on MRI -new onset afib w/ bradycardia, unclear relationship to subdural -neuro, neurosurg, cardio, speech and swallow consults -s/p craniotomy #afib -possibly secondary to subdural hematoma -per cardio on Diltiazem #non-insulin dependent DM -diabetic diet -NPO while sedated #hypokalemia -resolved #hypomagnesemia -resolved #FEN -not on fluid -hypokalemia, hypomagnesemia repleting -NPO #Dispo Admit to ICU for possible surgical evacuation tomorrow Ramiro Mcgraw MD PGY-1 Visit type - Emergency Visit Emergency Visit: No - New Patient This patient is new to me today: No - Critical Care Critical Care patient: No - Discharge Referral Referred to [facility] Med [facility] No
[2017-05-02] MEDS: DILTIAZEM INJECTION 125 MG in DEXTROSE 5%-WATER - 100 ML IVPB SCH (15:25)
--- NOTE | 2017-05-02 16:09 | PN ---
Progress Note (short form) - Note Progress Note: CC: pre-op clearance/subdural hematoma s: s/p surgery yesterday to evacuate hematoma. extubated this afternoon. remains lethargic, unable to take PO. Diltiazem drip weaned off and remains rate controlled. Currently with suboptimal bp control. o: Current Medications Chlorhexidine Gluconate (Hibiclens For Decolonization -) 1 applic TP HS DANNY Last Admin: 05/02/17 00:03 Dose: 1 applic Hydralazine HCl (Apresoline Injection -) 10 mg IVPUSH Q4H PRN PRN Reason: HYPERTENSION Last Admin: 05/02/17 09:57 Dose: 10 mg Diltiazem HCl 125 mg/ Dextrose 125 mls @ 10 mls/hr IVPB TITR DANNY PRN Reason: 10 MG/HR Last Admin: 05/02/17 15:25 Dose: 10 mls/hr Cefazolin Sodium (Ancef 1gm Ivpb (Pre-Docked)) 50 mls @ 100 mls/hr IVPB Q8H-IV DANNY Stop: 05/02/17 17:59 Last Admin: 05/02/17 09:58 Dose: 100 mls/hr Pantoprazole Sodium (Protonix 40mg Ivpb (Pre-Docked)) 100 mls @ 200 mls/hr IVPB DAILY DANNY Last Admin: 05/02/17 09:58 Dose: 200 mls/hr Dextrose/Lactated Ringer's (D5-Lr -) 1,000 mls @ 75 mls/hr IV ASDIR DANNY Last Admin: 05/01/17 18:42 Dose: 75 mls/hr Propofol (Diprivan -) 100 mls @ 2.204 mls/hr IVPB TITR DANNY; 5 MCG/KG/MIN PRN Reason: Protocol Last Admin: 05/02/17 00:03 Dose: 2.204 mls/hr Insulin Aspart (Novolog Vial Sliding Scale -) 0 vial SQ ACHS DANNY PRN Reason: Protocol Last Admin: 05/02/17 12:43 Dose: Not Given Lorazepam (Ativan Injection -) 1 mg IVPUSH Q6H PRN PRN Reason: ANXIETY Mupirocin (Bactroban Ointment (For Decolonization) -) 1 applic NS BID DANNY Stop: 05/05/17 21:59 Last Admin: 05/02/17 09:58 Dose: 1 applic Ondansetron HCl (Zofran Injection) 4 mg IVPB Q6H PRN PRN Reason: NAUSEA Valproate Sodium (Depacon Injection -) 500 mg IVPB DAILY DANNY Last Admin: 05/02/17 09:57 Dose: 500 mg Vital Signs - 24 hr 05/01/17 05/01/17 05/01/17 18:24 18:28 18:40 Temperature 97.2 F L Pulse Rate 124 H 62 124 H Respiratory 16 15 16 Rate Blood Pressure 155/90 162/92 O2 Sat by Pulse 100 Oximetry (%) 05/01/17 05/01/17 05/01/17 19:00 20:00 20:31 Temperature 97.4 F L Pulse Rate 128 H 57 L Respiratory 15 15 15 Rate Blood Pressure 162/92 150/95 O2 Sat by Pulse 100 Oximetry (%) 05/01/17 05/01/17 05/01/17 21:00 22:00 23:00 Temperature 98 F Pulse Rate 70 70 67 Respiratory 15 15 15 Rate Blood Pressure 136/75 136/75 120/65 O2 Sat by Pulse Oximetry (%) 05/01/17 05/02/17 05/02/17 23:30 00:00 01:00 Temperature Pulse Rate 63 81 Respiratory 15 15 15 Rate Blood Pressure 144/70 199/101 O2 Sat by Pulse Oximetry (%) 05/02/17 05/02/17 05/02/17 02:00 02:30 03:00 Temperature 97.8 F Pulse Rate 87 66 Respiratory 17 15 15 Rate Blood Pressure 178/82 161/77 O2 Sat by Pulse Oximetry (%) 05/02/17 05/02/17 05/02/17 04:00 05:00 06:00 Temperature 98 F Pulse Rate 69 67 66 Respiratory 15 19 15 Rate Blood Pressure 148/88 140/59 117/70 O2 Sat by Pulse Oximetry (%) 05/02/17 05/02/17 05/02/17 07:00 07:28 08:00 Temperature Pulse Rate 66 66 Respiratory 15 15 14 Rate Blood Pressure 145/61 144/78 O2 Sat by Pulse Oximetry (%) 05/02/17 05/02/17 05/02/17 09:00 10:08 10:10 Temperature Pulse Rate 116 H Respiratory 19 Rate Blood Pressure O2 Sat by Pulse 100 100 100 Oximetry (%) 05/02/17 05/02/17 05/02/17 11:47 12:00 14:00 Temperature 98.8 F 98.7 F Pulse Rate 70 70 Respiratory 18 16 16 Rate Blood Pressure 136/86 154/67 O2 Sat by Pulse Oximetry (%) 05/02/17 05/02/17 14:02 14:54 Temperature Pulse Rate 79 Respiratory 20 Rate Blood Pressure O2 Sat by Pulse 100 Oximetry (%) Intake & Output 04/30/17 05/01/17 05/02/17 05/03/17 07:59 07:59 07:59 07:59 Intake Total 700 4100 Output Total 1725 495 200 Balance -1025 3605 -200 Weight 162 lb 158 lb 15.253 oz nad, calm jvd flat, neck supple bibasilar crackles, weak effort irregular nl s1, s2 no mrg, non-dispaced pmi + bs soft nt nd, ext without e/c/c lethargic no jaundice, diaphoresis + dp/pt CBC, BMP 05/02/17 05:15 05/02/17 05:15 ekg: afutter with variable block, vr 48 bpm. no acute ischemic changes tele: overall rate controlled atrial flutter. brief SVR to the 50's (no significant pauses) cxr: no chf echo 04/2017: Mild conc lvh. grossly nl lv fn. tds for rwma. nl rv function. 1+ velasquez. mild-mod mac. 1+ mr. mild-mod tr. rvsp 30-40. < 1 cm pericardial effusion, not hemodynamically significant. 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 Hospital course notable for new onset atrial flutter with slow ventricular conduction. New onset atrial flutter - Not a candidate for AC due to recent frequent falls and current sdh - echo with grossly normal lv function. - on admit Had svr to 40's initially (Had been on coreg and clonidine at home). Outpatient meds held and overnight was very agitated and had rvr. He was started on dilt gtt and with improvement in HR to 70s-80s. - 05/02 extubated, but still too lethargic to take PO . Diltiazem drip weaned off and remains overall rate controlled. continue diltiazem IV PRN for breakthrough RVR. - ongoing prn lyte repletion Pre-op clearance - patient with RCRI 2 and poor functional status. Estimated intermediate kell- operative CV risk - s/p L craniotomy for SDH; drain placement, microdissection 05/01. - Ongoing managment of bp/hr as mentioned. HTN - suboptimal bp control while on diltiazem drip. Was able to wean off diltiazem drip from perspective of rate today. Will prioritize mgm't of htn over rate and start nicardipine to achieve bp control. Still unable to take PO . CAD - no recent pci. OK to hold asa. - Patient with multiple falls and subdural hematoma on ASA --> will not be able to continue. - con't statin when able to take po. - no signs acs - ce's neg x 2. ekg without acute ischemic changes. CVA. - Not a candidate for AC or ASA at this time as mentioned. statin once acute issues resolve and able to take po.
[2017-05-02] MEDS ORDERED: dilTIAZem HCL 60 MG TABLET (FP) PO SCH (16:15)
[2017-05-02] MEDS ORDERED: ACETAMINOPHEN 1000 MG/100 ML VIAL (NON FORMULARY) IVPB PRN (16:53)
--- NOTE | 2017-05-02 17:33 | PN ---
Teaching Attending Note Name of Resident: Ramiro Mcgraw ATTENDING PHYSICIAN STATEMENT I saw and evaluated the patient. I reviewed the resident's note and discussed the case with the resident. I agree with the resident's findings and plan as documented. SUBJECTIVE: Patient sedated on vent. OBJECTIVE: Vital Signs Period Temp Pulse Resp BP Sys/Cortés Pulse Ox Last 24 Hr 97.2 F-98.8 F 57-128 14-20 117-199/59-101 100-100 HEART: Irregular LUNGS: Clear ABDOMEN: Soft, non-distended, normal BS EXTREMITIES: No edema ASSESSMENT AND PLAN: This is a 76 year old man with a history of cervical stenosis, CAD, CVA, HTN, type 2 DM who presented to the ER with confusion, slurred speech, urinary incontinence after a fall 2 months ago. He was found to have a subdural hematoma on MRI. 1. Subdural hematoma, subacute/chronic - Aspirin held - Continue Depakote - s/p craniotomy with drain placement yesterday 2. Atrial flutter with variable block - HR and BP have been difficult to manage with Cardizem IV drip - Echocardiogram shows normal LV function, mild concentric LVH, small pericardial effusion, mildly dilated RA, mild MR, mild to moderate TR, RVSP 30- 40 mmHg - No anticoagulation secondary to SDH 3. Hypokalemia - Improved 4. Hypomagnesemia - Improved 5. CAD 6. HTN - Coreg, Clonidine, Hyzaar held - Cardizem IV drip discontinued - Nicardipine IV drip started 7. Type 2 diabetes mellitus - Metformin, glipizide held - Continue Novolog sliding scale 8. History of CVA - Aspirin held secondary to SDH 9. History of cervical stenosis
[2017-05-02] MEDS ORDERED: niCARdipine HCL 25 MG/10 ML AMPUL IVPB ONE ×2 (17:34→22:15)
[2017-05-02] MEDS ORDERED: DILTIAZEM 30 MG, DILTIAZEM 60 MG PO SCH (18:00)
[2017-05-02] MEDS: NICARDIPINE 25 MG in DEXTROSE 5%-WATER - 240 ML IVPB SCH (18:12)
[2017-05-02] MEDS: DEXTROSE 5%-LACTATED RINGERS 1,000 ML IV SCH (19:00)
[2017-05-02] MEDS ORDERED: dilTIAZem HCL 125 MG/25 ML - 25 ML VIAL ONE (19:51)
--- NOTE | 2017-05-02 20:09 | PN ---
Progress Note (short form) - Note Progress Note: NEUROSURGERY F/U POD #1 In ICU Extubated PE: Temp 100.4 earlier; SBP 110-180's, currently 120-140's; HR higher earlier, stable now; in Afib On cardene drip, received cardizem for tachycardia earlier Drain removed earlier by RN Some serosangrenous drainage from drain site earlier- nothing active presently Arousable B pupils 3 mm sluggish; face symmetric Moving B UE/LE Subdural fluid culture - gram stain negative, cultures pending WBC 9.2, Hgb 13, INR 1.[address]- decreased L sided SDH; intracranial air Cont anticonvulsant for sz prophylaxis Cardiology for BP optimization; maintenance meds needed D/w medical team at length earlier
[2017-05-02] MEDS ORDERED: HALOPERIDOL LACTATE 5 MG/ML IM PRN (22:38)
[2017-05-02] MEDS ORDERED: HALOPERIDOL LACTATE 5 MG/ML ONE (22:41)
[2017-05-03] MEDS: dilTIAZem HCL 50 MG/10 ML - 10 ML VIAL IVPUSH PRN ×4 (03:15→21:12)
[2017-05-03] MEDS ORDERED: niCARdipine HCL 25 MG/10 ML AMPUL IVPB ONE (03:45)
[2017-05-03 06:03] LABS: MCH 23.3 pg (25.7-33.7); MCHC 32.3 g/dl (32.0-35.9); MEAN CELL VOLUME 72.2 fl (80-96); MEAN PLT VOLUME 9.9 fl (7.5-11.1); PLATELET COUNT 141 K/MM3 (134-434); RDW 16.1 % (11.9-15.9); WHITE BLOOD COUNT 9.9 K/mm3 (4.0-10.0)
[2017-05-03 06:21] LABS: INR 1.38 (0.82-1.09); PROTHROMBIN TIME (PATIENT) 15.3 SEC (9.98-11.88)
[2017-05-03 06:35] LABS: ALBUMIN 3.1 g/dl (3.4-5.0); ANION GAP 9 (8-16); CALCIUM 7.9 mg/dL (8.5-10.1); CO2 25 mmol/L (21-32); GLUCOSE,RANDOM 174 mg/dL (74-106); MAGNESIUM 1.9 mg/dL (1.8-2.4)
[2017-05-03 06:39] LABS: ALK PHOS 53 U/L (45-117); BILIRUBIN,TOTAL 0.9 mg/dL (0.2-1.0); CREATININE 0.6 mg/dL (0.7-1.3); PHOSPHOROUS 1.7 mg/dL (2.5-4.9); SGOT/AST 13 U/L (15-37); SGPT/ALT 16 U/L (12-78); TOT PROT 6.5 g/dl (6.4-8.2)
[2017-05-03] MEDS: INSULIN SLIDING SCALE (NOVOLOG) 1 VIAL SQ SCH ×5 (07:19→21:06)
[2017-05-03] MEDS ORDERED: dilTIAZem HCL 50 MG/10 ML - 10 ML VIAL IVPUSH ONE (08:20)
[2017-05-03] MEDS ORDERED: HALOPERIDOL LACTATE 5 MG/ML IM PRN (08:23)
--- NOTE | 2017-05-03 08:29 | PN ---
Progress Note (short form) - Note Progress Note: Seen and examined in ICU extubated yesterday Cotn to have RVR cont on nifedapine gtt for BP control and cardizem IVP for rate control very restless and agitated required Current Medications Acetaminophen (Ofirmev Injection -) 1,000 mg IVPB Q6H PRN PRN Reason: FEVER OR PAIN Stop: 05/03/17 10:54 Last Admin: 05/02/17 17:00 Dose: 1,000 mg Chlorhexidine Gluconate (Hibiclens For Decolonization -) 1 applic TP HS DANNY Last Admin: 05/02/17 22:13 Dose: 1 applic Diltiazem HCl (Cardizem Injection -) 5 mg IVPUSH Q4H PRN PRN Reason: TACHYCARDIA Last Admin: 05/03/17 07:10 Dose: 5 mg Diltiazem HCl (Cardizem Injection -) 10 mg IVPUSH ONCE ONE Stop: 05/03/17 08:21 Haloperidol (Haldol Injection (Fast Acting) -) 5 mg IM Q6H PRN PRN Reason: AGITATION Stop: 05/04/17 02:24 Hydralazine HCl (Apresoline Injection -) 10 mg IVPUSH Q4H PRN PRN Reason: HYPERTENSION Last Admin: 05/02/17 16:33 Dose: 10 mg Pantoprazole Sodium (Protonix 40mg Ivpb (Pre-Docked)) 100 mls @ 200 mls/hr IVPB DAILY DANNY Last Admin: 05/02/17 09:58 Dose: 200 mls/hr Dextrose/Lactated Ringer's (D5-Lr -) 1,000 mls @ 75 mls/hr IV ASDIR DANNY Last Admin: 05/02/17 19:00 Dose: 75 mls/hr Nicardipine HCl 25 mg/ (Dextrose) 250 mls @ 25 mls/hr IVPB TITR DANNY; 2.5 MG/HR PRN Reason: Protocol Last Admin: 05/02/17 18:12 Dose: 25 mls/hr Insulin Aspart (Novolog Vial Sliding Scale -) 0 vial SQ ACHS DANNY PRN Reason: Protocol Last Admin: 05/03/17 07:19 Dose: Not Given Lorazepam (Ativan Injection -) 1 mg IVPUSH Q6H PRN PRN Reason: ANXIETY Mupirocin (Bactroban Ointment (For Decolonization) -) 1 applic NS BID [facility] Stop: 05/05/17 21:59 Last Admin: 05/02/17 22:13 Dose: 1 applic Ondansetron HCl (Zofran Injection) 4 mg IVPB Q6H PRN PRN Reason: NAUSEA Valproate Sodium (Depacon Injection -) 500 mg IVPB DAILY [facility] Last Admin: 05/02/17 09:57 Dose: 500 mg Vital Signs Period Temp Pulse Resp BP Sys/Cortés Pulse Ox Last 24 Hr 98.2 F-100.4 F 65-136 14-21 117-167/55-95 100-100 Intake & Output 04/30/17 05/01/17 05/02/17 05/03/17 23:59 23:59 23:59 23:59 Intake Total 500 2800 2670 1250 Output Total 925 101 864 1831 Balance -425 1850 1725 -350 Weight 73.482 kg 73.482 kg 72.1 kg 72.1 kg Exam: very restless, moving around in bed Neuro: PERRL, MAN, unintelligible speech, dressing c/d/i CV: irr, irr RVR Pulm: CTA Abd: SNTND Ext: WWP +2 pulses CBCD WBC 9.9 K/mm3 (4.0-10.0) 05/03/17 05:15 RBC 5.12 M/mm3 (4.00-5.60) 05/03/17 05:15 Hgb 11.9 GM/dL (11.7-16.9) 05/03/17 05:15 Hct 36.9 % (35.4-49) 05/03/17 05:15 MCV 72.2 fl (80-96) L 05/03/17 05:15 MCHC 32.3 g/dl (32.0-35.9) 05/03/17 05:15 RDW 16.1 % (11.9-15.9) H 05/03/17 05:15 Plt Count 141 K/MM3 (134-434) D 05/03/17 05:15 MPV 9.9 fl (7.5-11.1) 05/03/17 05:15 CMP Sodium 141 mmol/L (136-145) 05/03/17 05:15 Potassium 3.6 mmol/L (3.5-5.1) 05/03/17 05:15 Chloride 107 mmol/L (98-107) 05/03/17 05:15 Carbon Dioxide 25 mmol/L (21-32) 05/03/17 05:15 Anion Gap 9 (8-16) 05/03/17 05:15 BUN 8 mg/dL (7-18) 05/03/17 05:15 Creatinine 0.6 mg/dL (0.7-1.3) L D 05/03/17 05:15 Creat Clearance w eGFR > 60 (>60) 05/03/17 05:15 Random Glucose 174 mg/dL (74-106) H 05/03/17 05:15 Calcium 7.9 mg/dL (8.5-10.1) L 05/03/17 05:15 Total Bilirubin 0.9 mg/dL (0.2-1.0) 05/03/17 05:15 AST 13 U/L (15-37) L 05/03/17 05:15 ALT 16 U/L (12-78) 05/03/17 05:15 Alkaline Phosphatase 53 U/L (45-117) 05/03/17 05:15 Total Protein 6.5 g/dl (6.4-8.2) 05/03/17 05:15 Albumin 3.1 g/dl (3.4-5.0) L 05/03/17 05:15 CARDIAC ENZYMES Creatine Kinase 206 IU/L (39-308) 05/01/17 03:40 Troponin I < 0.02 ng/ml (0.00-0.05) 05/01/17 03:40 ASSESSMENT AND PLAN: Acute on Chronic Subdural Hematoma Altered Mental Status Atrial Fibrillation/Flutter with RVR Bradycardia HTN DM CAD h/o CVA - antiepileptics per neuro - swallow eval ordered - rate control with cardizem gtt, change to PO once controlled - hold all anticoagulation, antiplatelets for now - aspiration precautions - minimize benzos given delirium, will use haldol - follow QTc given haldol doses - replete lytes - DVT prophylaxis - continue ICU monitoring Boerem ACNP Pulm/CCM CCT: 35m
--- NOTE | 2017-05-03 08:54 | PN ---
Progress Note (short form) - Note Progress Note: NEUROSURGERY F/U POD #2 In ICU Family at bedside Extubated yesterday PE: AF; SBP 120-150's lately; HR variable; in Afib On cardene drip, received cardizem for tachycardia earlier Dressing dry Arousable B pupils 3 mm to 2 mm; face symmetric Moving B UE/LE Subdural fluid culture - gram stain negative, cultures pending WBC 9.9, Hgb 11.9; INR 1.[address]- decreased L sided SDH; intracranial air (improved mass effect) Cont anticonvulsant for sz prophylaxis Cardiology f/u for BP optimization; optimally SBP 120-160 PT/ROM eventually for inpatient rehab when cardiac condition stabilized
[2017-05-03] MEDS ORDERED: AMIODARONE HCL INJECTION 450 MG in DEXTROSE 5%-WATER - 241 ML IVPB SCH ×4 (09:00→18:00)
[2017-05-03] MEDS ORDERED: AMIODARONE HCL INJECTION 150 MG in DEXTROSE 5%-WATER - 97 ML IVPB ONE (09:00)
[2017-05-03] MEDS ORDERED: AMIODARONE HCL 150 MG/3 ML VIAL ONE (09:11)
[2017-05-03] MEDS: VALPROATE SODIUM 500 MG/5 ML VIAL IVPB SCH (09:26)
[2017-05-03] MEDS: PANTOPRAZOLE SODIUM 100 ML IVPB SCH (09:26)
[2017-05-03] MEDS: MUPIROCIN 2% TOPICAL OINTMENT FOR DECOLONIZATION NS SCH ×2 (09:30→21:05)
--- NOTE | 2017-05-03 10:33 | PN ---
Progress Note, Physician Chief Complaint: change in Mental Status, subdural hematoma History of Present Illness: 76 y/o M with PMH CAD with stents on ASA, CVA (2004), HTN,DMII, spinal stenosis s/p spinal surgery who was brought in to ED after family observed changes in mental status and personality after a fall a few months earlier. On MRI noted to have a subacute/chronic subdural hematoma with mass effect. Also noted to have a A-fib/flutter and bradycardia.He is transferred to ICU for monitoring pending clearance for craniotomy and drainage+/- subdural drain placement. In ED VS HR 30's to 60's,SBP 140's to 150's. Notable labs WBC 3.3, HGb 10.7,BUN/ Creat 15/0.8, K3.3, trop <0.02. Family states since pt had his fall, he has had personality change, slurred speech, emotional lability, hallucinations, confusion as well as new onset Afib. Seen by neurosurgery and underwent craniotomy for drainage and then drain placement. - Current Medication List Current Medications: Active Medications Acetaminophen (Ofirmev Injection -) 1,000 mg IVPB Q6H PRN PRN Reason: FEVER OR PAIN Stop: 05/03/17 10:54 Last Admin: 05/02/17 17:00 Dose: 1,000 mg Chlorhexidine Gluconate (Hibiclens For Decolonization -) 1 applic TP HS [facility] Last Admin: 05/02/17 22:13 Dose: 1 applic Diltiazem HCl (Cardizem Injection -) 5 mg IVPUSH Q4H PRN PRN Reason: TACHYCARDIA Last Admin: 05/03/17 07:10 Dose: 5 mg Haloperidol (Haldol Injection (Fast Acting) -) 5 mg IM Q6H PRN PRN Reason: AGITATION Stop: 05/04/17 02:24 Last Admin: 05/03/17 08:38 Dose: 5 mg Hydralazine HCl (Apresoline Injection -) 10 mg IVPUSH Q4H PRN PRN Reason: HYPERTENSION Last Admin: 05/02/17 16:33 Dose: 10 mg Pantoprazole Sodium (Protonix 40mg Ivpb (Pre-Docked)) 100 mls @ 200 mls/hr IVPB DAILY [facility] Last Admin: 08/27/17 09:26 Dose: 200 mls/hr Dextrose/Lactated Ringer's (D5-Lr -) 1,000 mls @ 75 mls/hr IV ASDIR DANNY Last Admin: 05/02/17 19:00 Dose: 75 mls/hr Nicardipine HCl 25 mg/ (Dextrose) 250 mls @ 25 mls/hr IVPB TITR DANNY; 2.5 MG/HR PRN Reason: Protocol Last Admin: 05/02/17 18:12 Dose: 25 mls/hr Amiodarone HCl 450 mg/ (Dextrose) 250 mls @ 33.33 mls/hr IVPB TITR DANNY; 1 MG/ MIN PRN Reason: Protocol Stop: 05/03/17 14:59 Amiodarone HCl 450 mg/ (Dextrose) 250 mls @ 16.66 mls/hr IVPB TITR DANNY; 0.5 MG/ MIN PRN Reason: Protocol Amiodarone HCl 450 mg/ (Dextrose) 250 mls @ 16.66 mls/hr IVPB TITR DANNY; 0.5 MG/ MIN PRN Reason: Protocol Stop: 05/03/17 17:59 Insulin Aspart (Novolog Vial Sliding Scale -) 0 vial SQ ACHS DANYN PRN Reason: Protocol Last Admin: 05/03/17 07:19 Dose: Not Given Lorazepam (Ativan Injection -) 1 mg IVPUSH Q6H PRN PRN Reason: ANXIETY Mupirocin (Bactroban Ointment (For Decolonization) -) 1 applic NS BID DANNY Stop: 05/05/17 21:59 Last Admin: 05/03/17 09:30 Dose: 1 applic Ondansetron HCl (Zofran Injection) 4 mg IVPB Q6H PRN PRN Reason: NAUSEA Valproate Sodium (Depacon Injection -) 500 mg IVPB DAILY [facility] Last Admin: 05/03/17 09:26 Dose: 500 mg - Objective Vital Signs: Vital Signs Temperature 98.4 F 05/03/17 06:00 Pulse Rate 136 H 05/03/17 07:00 Respiratory Rate 20 05/03/17 07:00 Blood Pressure 133/92 05/03/17 07:00 O2 Sat by Pulse Oximetry (%) 100 05/02/17 21:00 Neurological: Yes: Alert (today more alert, sitting up in bed, moving all limbs , uncooperative with formal exam, persevartive, answers his name to most questions), Other (moves all limbs, right more than left.) Labs: CBC, BMP 05/03/17 05:15 05/03/17 05:15 INR, PTT INR 1.38 (0.82-1.09) H 05/03/17 05:15 - ....Imaging Cat Scan: Report Reviewed, Image Reviewed (s/p craniotomy, diminished size of chronic subdural with reduced mass effect. Small amount of acute blood without mass effect.) Problem List - Problems (1) Subdural bleeding Assessment/Plan: s/p drainage of subdural with patient waking up, but still not back to normal mentation. Unclear if perseveration is evidence of global confusion or aphasia or both. Dr. Gilliland will be covering on Thursday, 05/04. Code(s): I62.00 - NONTRAUMATIC SUBDURAL HEMORRHAGE, UNSPECIFIED
[2017-05-03] MEDS ORDERED: LORazepam 2 MG/ML SDV VIAL ONE (12:04)
[2017-05-03] MEDS: NICARDIPINE 25 MG in DEXTROSE 5%-WATER - 240 ML IVPB SCH ×2 (13:00→18:39)
[2017-05-03] MEDS ORDERED: dilTIAZem HCL 50 MG/10 ML - 10 ML VIAL IVPUSH PRN (14:37)
--- NOTE | 2017-05-03 18:19 | PN ---
Progress Note (short form) - Note Progress Note: CC: pre-op clearance/subdural hematoma s: Nicardipene drip started yesterday with prn IV diltiazem for rate control. Remained overall rate controlled overnight, but this morning heart rate did not respond to prn diltiazem --> started on amiodarone drip. BP has been well controlled. Patient still remains lethargic off sedation, still unable to take PO. o: Current Medications Chlorhexidine Gluconate (Hibiclens For Decolonization -) 1 applic TP HS DANNY Last Admin: 05/02/17 22:13 Dose: 1 applic Diltiazem HCl (Cardizem Injection -) 5 mg IVPUSH Q4H PRN PRN Reason: TACHYCARDIA Last Admin: 05/03/17 16:58 Dose: 5 mg Haloperidol (Haldol Injection (Fast Acting) -) 5 mg IM Q6H PRN PRN Reason: AGITATION Stop: 05/04/17 02:24 Last Admin: 05/03/17 08:38 Dose: 5 mg Hydralazine HCl (Apresoline Injection -) 10 mg IVPUSH Q4H PRN PRN Reason: HYPERTENSION Last Admin: 05/02/17 16:33 Dose: 10 mg Pantoprazole Sodium (Protonix 40mg Ivpb (Pre-Docked)) 100 mls @ 200 mls/hr IVPB DAILY DANNY Last Admin: 05/03/17 09:26 Dose: 200 mls/hr Dextrose/Lactated Ringer's (D5-Lr -) 1,000 mls @ 75 mls/hr IV ASDIR DANNY Last Admin: 05/02/17 19:00 Dose: 75 mls/hr Nicardipine HCl 25 mg/ (Dextrose) 250 mls @ 25 mls/hr IVPB TITR DANNY; 2.5 MG/HR PRN Reason: Protocol Last Admin: 05/03/17 13:00 Dose: 50 mls/hr Amiodarone HCl 450 mg/ (Dextrose) 250 mls @ 16.66 mls/hr IVPB TITR DANNY; 0.5 MG/ MIN PRN Reason: Protocol Amiodarone HCl 450 mg/ (Dextrose) 250 mls @ 16.66 mls/hr IVPB TITR DANNY; 0.5 MG/ MIN PRN Reason: Protocol Stop: 05/03/17 17:59 Insulin Aspart (Novolog Vial Sliding Scale -) 0 vial SQ ACHS DANNY PRN Reason: Protocol Last Admin: 05/03/17 14:23 Dose: 4 units Lorazepam (Ativan Injection -) 1 mg IVPUSH Q6H PRN PRN Reason: ANXIETY Last Admin: 05/03/17 12:15 Dose: 1 mg Mupirocin (Bactroban Ointment (For Decolonization) -) 1 applic NS BID [facility] Stop: 05/05/17 21:59 Last Admin: 05/03/17 09:30 Dose: 1 applic Ondansetron HCl (Zofran Injection) 4 mg IVPB Q6H PRN PRN Reason: NAUSEA Valproate Sodium (Depacon Injection -) 500 mg IVPB DAILY [facility] Last Admin: 05/03/17 09:26 Dose: 500 mg Vital Signs - 24 hr 05/02/17 05/02/17 05/02/17 18:00 18:12 18:39 Temperature 99.6 F Pulse Rate 95 H 98 H 98 H Respiratory 14 Rate Blood Pressure 124/95 167/71 167/71 O2 Sat by Pulse Oximetry (%) 05/02/17 05/02/17 05/02/17 19:00 20:00 21:00 Temperature Pulse Rate 133 H 128 H 94 H Respiratory 18 16 18 Rate Blood Pressure 164/68 145/65 144/56 O2 Sat by Pulse 100 Oximetry (%) 05/02/17 05/02/17 05/03/17 22:00 23:00 00:00 Temperature 98.6 F 98.4 F Pulse Rate 74 80 133 H Respiratory 17 18 21 Rate Blood Pressure 129/56 124/68 125/73 O2 Sat by Pulse Oximetry (%) 05/03/17 05/03/17 05/03/17 01:00 02:00 03:00 Temperature 98.2 F Pulse Rate 128 H 109 H 133 H Respiratory 20 20 18 Rate Blood Pressure 138/74 154/82 152/55 O2 Sat by Pulse Oximetry (%) 05/03/17 05/03/17 05/03/17 04:00 05:00 06:00 Temperature 98.4 F Pulse Rate 75 88 90 Respiratory 20 20 20 Rate Blood Pressure 117/69 145/69 142/75 O2 Sat by Pulse Oximetry (%) 05/03/17 05/03/17 05/03/17 07:00 08:00 09:00 Temperature Pulse Rate 136 H 89 Respiratory 20 14 Rate Blood Pressure 133/92 159/67 O2 Sat by Pulse 100 Oximetry (%) 05/03/17 05/03/17 05/03/17 12:00 13:00 14:00 Temperature 98.7 F Pulse Rate 100 H 86 109 H Respiratory 20 16 Rate Blood Pressure 134/61 125/88 125/88 O2 Sat by Pulse Oximetry (%) Intake & Output 05/01/17 05/02/17 05/03/17 05/04/17 07:59 07:59 07:59 07:59 Intake Total 700 4100 2420 Output Total 9884 029 9326 Balance -1025 3605 220 Weight 162 lb 158 lb 15.253 oz 158 lb 15.253 oz nad, calm jvd flat, neck supple bibasilar crackles, weak effort irregular nl s1, s2 no mrg, non-dispaced pmi + bs soft nt nd, ext without e/c/c lethargic, does not open eyes with stimulation. no jaundice, diaphoresis CBC, BMP 05/03/17 05:15 05/03/17 05:15 Laboratory Tests 05/03/17 05:15 Magnesium 1.9 Albumin 3.1 L ekg: afutter with variable block, vr 48 bpm. no acute ischemic changes tele: rate controlled aflutter until this morning. (HR 130's) cxr: no chf echo 04/2017: Mild conc lvh. grossly nl lv fn. tds for rwma. nl rv function. 1+ velasquez. mild-mod mac. 1+ mr. mild-mod tr. rvsp 30-40. < 1 cm pericardial effusion, not hemodynamically significant. 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 Hospital course notable for new onset atrial flutter with slow ventricular conduction. New onset atrial flutter - Not a candidate for AC due to recent frequent falls and current sdh - echo with grossly normal lv function. - on admit Had svr to 40's initially (Had been on coreg and clonidine at home). Outpatient meds held and overnight was very agitated and had rvr. He was started on dilt gtt and with improvement in HR to 70s-80s. - 05/02 extubated, but still too lethargic to take PO . Diltiazem drip weaned off and remained overall rate controlled with diltiazem IV PRN for breakthrough RVR. - 05/03. breakthrough RVR this morning that did not respond to prn diltiazem --> started on amiodarone drip with improvement in heart rates. Con' t diltiazem prn for breakthrough RVR. Still unable to take PO, plan for speech and swallow eval tomorrow. - ongoing prn lyte repletion Pre-op clearance - patient with RCRI 2 and poor functional status. Estimated intermediate kell- operative CV risk - s/p L craniotomy for SDH; drain placement, microdissection 05/01. - Ongoing managment of bp/hr as mentioned. HTN - suboptimal control while on diltiazem drip. Was able to wean off diltiazem drip from perspective of rate 05/02. Priortized mgm't of htn over rate --> started nicardipine to achieve bp control 05/02 - 05/03: bp well controlled on nicardipine drip. continue. will transition to po regimen when can take PO. CAD - no recent pci. OK to hold asa. - Patient with multiple falls and subdural hematoma on ASA --> will not be able to continue. - con't statin when able to take po. - no signs acs - ce's neg x 2. ekg without acute ischemic changes. CVA. - Not a candidate for AC or ASA at this time as mentioned. statin once acute issues resolve and able to take po.
[2017-05-03] MEDS: DEXTROSE 5%-0.45% SALINE 1,000 ML IV SCH (18:40)
[2017-05-03] MEDS: DEXTROSE 5%-LACTATED RINGERS 1,000 ML IV SCH (18:40)
--- NOTE | 2017-05-03 19:02 | PN ---
Physical Exam: SUBJECTIVE: Patient seen and examined. He is lethargic. He has been confused and agitated. OBJECTIVE: Vital Signs Period Temp Pulse Resp BP Sys/Cortés Pulse Ox Last 24 Hr 98.2 F-98.7 F 74-137 14-21 116-159/55-92 100-100 GENERAL: Asleep. LUNGS: Breath sounds equal, clear to auscultation bilaterally, no wheezes, no crackles, no accessory muscle use. HEART: Irregular. ABDOMEN: Soft, nondistended, normoactive bowel sounds, no hepatosplenomegaly, no masses. EXTREMITIES: 2+ pulses, warm, well-perfused, no edema. NEUROLOGICAL: Unable to assess. Laboratory Results - last 24 hr 05/02/17 05/03/17 05/03/17 21:45 05:15 05:15 WBC 9.9 RBC 5.12 Hgb 11.9 Hct 36.9 MCV 72.2 L MCH 23.3 L MCHC 32.3 RDW 16.1 H Plt Count 141 D MPV 9.9 INR 1.38 H PTT (Actin FS) 30.0 Sodium Potassium Chloride Carbon Dioxide Anion Gap BUN Creatinine Creat Clearance w eGFR POC Glucometer [phone] Random Glucose Calcium Phosphorus Magnesium Total Bilirubin AST ALT Alkaline Phosphatase Total Protein Albumin 05/03/17 05/03/17 05/03/17 05:15 05:20 13:25 WBC RBC Hgb Hct MCV MCH MCHC RDW Plt Count MPV INR PTT (Actin FS) Sodium 141 Potassium 3.6 Chloride 107 Carbon Dioxide 25 Anion Gap 9 BUN 8 Creatinine 0.6 L D Creat Clearance w eGFR > 60 POC Glucometer [phone] Random Glucose 174 H Calcium 7.9 L Phosphorus 1.7 L D Magnesium 1.9 Total Bilirubin 0.9 AST 13 L ALT 16 Alkaline Phosphatase 53 Total Protein 6.5 Albumin 3.1 L 05/03/17 17:16 WBC RBC Hgb Hct MCV MCH MCHC RDW Plt Count MPV INR PTT (Actin FS) Sodium Potassium Chloride Carbon Dioxide Anion Gap BUN Creatinine Creat Clearance w eGFR POC Glucometer [phone] Random Glucose Calcium Phosphorus Magnesium Total Bilirubin AST ALT Alkaline Phosphatase Total Protein Albumin Active Medications Generic Name Dose Route Start Last Admin Trade Name Freq PRN Reason Stop Dose Admin Chlorhexidine Gluconate 1 applic 04/30/17 22:00 05/02/17 22:13 Hibiclens For Decolonization - TP 1 applic HS DANNY Administration Diltiazem HCl 10 mg 05/03/17 17:55 05/03/17 18:00 Cardizem Injection - IVPUSH 10 mg Q4H PRN Administration TACHYCARDIA Haloperidol 5 mg 05/03/17 08:23 05/03/17 08:38 Haldol Injection (Fast Acting) - IM 05/04/17 02:24 5 mg Q6H PRN Administration AGITATION Hydralazine HCl 10 mg 05/01/17 11:41 05/02/17 16:33 Apresoline Injection - IVPUSH 10 mg Q4H PRN Administration HYPERTENSION Pantoprazole Sodium 100 mls @ 200 mls/hr 05/02/17 10:00 05/03/17 09:26 Protonix 40mg Ivpb (Pre-Docked) IVPB 200 mls/hr DAILY DANNY Administration Dextrose/Lactated Ringer's 1,000 mls @ 75 mls/hr 05/01/17 18:30 05/03/17 18:40 D5-Lr - IV Not Given ASDIR DANNY Nicardipine HCl 25 mg/ 250 mls @ 25 mls/hr 05/02/17 17:30 05/03/17 18:39 Dextrose IVPB 50 mls/hr TITR DANNY Administration Protocol 2.5 MG/HR Amiodarone HCl 450 mg/ 250 mls @ 16.66 mls/hr 05/03/17 18:00 05/03/17 18:00 Dextrose IVPB Not Given TITR DANNY Protocol 0.5 MG/MIN Dextrose/Sodium Chloride 1,000 mls @ 75 mls/hr 05/03/17 18:15 05/03/17 18:40 D5-1/2ns - IV 75 mls/hr ASDIR DANNY Administration Insulin Aspart 0 vial 05/03/17 14:17 05/03/17 17:30 Novolog Vial Sliding Scale - SQ 2 units ACHS DANNY Administration Protocol Lorazepam 1 mg 05/01/17 08:40 05/03/17 18:01 Ativan Injection - IVPUSH 1 mg Q6H PRN Administration ANXIETY Mupirocin 1 applic 04/30/17 22:00 05/03/17 09:30 Bactroban Ointment (For Decolonization) - NS 05/05/17 21:59 1 applic BID DANNY Administration Ondansetron HCl 4 mg 05/01/17 17:24 Zofran Injection IVPB Q6H PRN NAUSEA Valproate Sodium 500 mg 05/01/17 19:30 05/03/17 09:26 Depacon Injection - IVPB 500 mg DAILY DANNY Administration ASSESSMENT/PLAN: This is a 76 year old man with a history of cervical stenosis, CAD, CVA, HTN, type 2 DM who presented to the ER with confusion, slurred speech, urinary incontinence after a fall 2 months ago. He was found to have a subdural hematoma on MRI. 1. Subdural hematoma, subacute/chronic - Aspirin held - Continue Depacon for seizure prophylaxis - s/p craniotomy with drain placement 05/01 - Extubated 05/02 2. Atrial flutter with variable block - HR and BP have been difficult to manage with Cardizem IV drip - Amiodarone IV drip started with Cardizem IVP as needed - Echocardiogram shows normal LV function, mild concentric LVH, small pericardial effusion, mildly dilated RA, mild MR, mild to moderate TR, RVSP 30- 40 mmHg - No anticoagulation secondary to SDH 3. Hypokalemia - Improved 4. Hypomagnesemia - Improved 5. CAD 6. HTN - Coreg, Clonidine, Hyzaar held - Continue Nicardipine IV drip, Hydralazine IVP as needed 7. Type 2 diabetes mellitus - Metformin, glipizide held - Continue Novolog sliding scale 8. History of CVA - Aspirin held secondary to SDH 9. History of cervical stenosis 10. Stress ulcer prophylaxis - On Protonix 11. DVT prophylaxis - SCDs - No anticoagulation secondary to SDH Visit type - Emergency Visit Emergency Visit: Yes ED Registration Date: 04/30/17 Care time: The patient presented to the Emergency Department on the above date and was hospitalized for further evaluation of their emergent condition. - New Patient This patient is new to me today: No - Critical Care Critical Care patient: No - Discharge Referral Referred to [facility] No
--- NOTE | 2017-05-03 19:35 | EKG ---
Test Reason : Blood Pressure : / mmHG Vent. Rate : 132 BPM Atrial Rate : 264 BPM P-R Int : 000 ms QRS Dur : 080 ms QT Int : 326 ms P-R-T Axes : 264 015 249 degrees QTc Int : 483 ms ATRIAL FLUTTER WITH 2:1 A-V CONDUCTION ABNORMAL ECG WHEN COMPARED WITH ECG OF 01-MAY-2017 09:40, NO SIGNIFICANT CHANGE IS FOUND Confirmed by ALEX GUTIERREZ, LENIN ([id number]) on 05/03/2017 7:35:19 PM Referred By: Laisha CONTRERAS Confirmed By:LENIN JOHNSON MD
[2017-05-03] MEDS: CHLORHEXIDINE GLUCONATE 4% CLEANSER FOR DECOLONIZATION TP SCH (21:06)
[2017-05-04] MEDS: DILTIAZEM INJECTION 125 MG in DEXTROSE 5%-WATER - 100 ML IVPB SCH ×2 (00:19→14:35)
[2017-05-04] MEDS: dilTIAZem HCL 50 MG/10 ML - 10 ML VIAL IVPUSH PRN (00:19)
[2017-05-04] MEDS ORDERED: DIGOXIN 0.5 MG/2 ML AMPUL ONE (02:11)
[2017-05-04] MEDS ORDERED: DIGOXIN 0.5 MG/2 ML AMPUL IVPUSH ONE (02:11)
[2017-05-04] MEDS ORDERED: METOPROLOL TARTRATE 5 MG/5 ML VIAL IVPUSH ONE (02:30)
[2017-05-04] MEDS ORDERED: METOPROLOL TARTRATE 5 MG/5 ML VIAL ONE (02:34)
[2017-05-04] MEDS ORDERED: LORazepam 2 MG/ML SDV VIAL ONE ×2 (04:56→11:24)
[2017-05-04 05:53] LABS: MCH 23.5 pg (25.7-33.7); MCHC 32.9 g/dl (32.0-35.9); MEAN CELL VOLUME 71.3 fl (80-96); MEAN PLT VOLUME 10.1 fl (7.5-11.1); PLATELET COUNT 147 K/MM3 (134-434); RDW 16.4 % (11.9-15.9); WHITE BLOOD COUNT 8.1 K/mm3 (4.0-10.0)
[2017-05-04 06:21] LABS: ANION GAP 9 (8-16); CALCIUM 8.1 mg/dL (8.5-10.1); CO2 25 mmol/L (21-32); CREATININE 0.6 mg/dL (0.7-1.3); GLUCOSE,RANDOM 208 mg/dL (74-106); MAGNESIUM 1.8 mg/dL (1.8-2.4); PHOSPHOROUS 1.8 mg/dL (2.5-4.9)
[2017-05-04] MEDS: INSULIN SLIDING SCALE (NOVOLOG) 1 VIAL SQ SCH ×4 (06:30→23:20)
[2017-05-04] MEDS: hydrALAZINE HCL 20 MG/ML VIAL IVPUSH PRN ×2 (06:34→10:53)
--- NOTE | 2017-05-04 06:50 | SURG ---
Surgery Cable [address] Operator Note Cable [address] Operator: Mulugeta Terry PA-C Date of Service: 05/01/17 Diagnosis: Left subdural hematoma with mass effect Procedure: Left craniotomy; drain placement, microdissection I was present for the entirety of the operative procedure. For further detail, please refer to operative report. Visit type - Case Type Case Type: ED Admission - Emergency Emergency Visit: Yes ED Registration Date: 04/30/17 Care time: The patient presented to the Emergency Department on the above date and was hospitalized for further evaluation of their emergent condition. - New patient This patient is new to me today: Yes Date on this admission: 05/04/17
[2017-05-04] MEDS: DEXTROSE 5%-0.45% SALINE 1,000 ML IV SCH ×2 (07:46→22:11)
--- NOTE | 2017-05-04 08:27 | PN ---
Progress Note (short form) - Note Progress Note: NEUROSURGERY F/U POD #3 In ICU PE: Tmax 98.6, AF; SBP 120-150's; HR variable up to 130's; in Afib On cardene drip, received cardizem for tachycardia earlier Dressing dry without drainage Drowsy, arousable B pupils 3 mm to 2 mm; face symmetric; tongue midline Moving B UE/LE at least 4/5 Subdural fluid culture - gram stain negative, cultures pending Head CT- decreased L sided SDH; intracranial air (improved mass effect) Cont anticonvulsant for sz prophylaxis Cardiology f/u for BP and HR optimization; optimally SBP 120-160 PT/ROM For inpatient rehab when cardiac condition stabilized
--- NOTE | 2017-05-04 08:35 | PN ---
Physical Exam: SUBJECTIVE: Patient seen and examined by me - Pt w/ atrial Flutter w/ RVR yesterday. Started on nicardipene gtt with prn IV diltiazem for rate control. Sys downtrending to 110s, so nicardipine gtt stopped and transitioned to diltiazem gtt. BP responded but poor HR control, received metoprolol 5mg x1 IV and digoxin 250 mg IV x1. - In AM, Pt started on amiodarone gtt per cardiology. Pt started on Propanol 2mg IV Q4h. - Remains intermittently agitated. Received 1mg Ativan in AM. Significantly sedated throughout day, w/ poor verbalization and waxing/waning consciousness. - Per nursing, possibly slight facial droop on R side of mouth in early PM. However, neuro exam appears grossly unchanged from AM. Per , no significant change in mental status. - Per speech and swallow, pt to remain NPO OBJECTIVE: Active Medications Generic Name Dose Route Start Last Admin Trade Name Freq PRN Reason Stop Dose Admin Chlorhexidine Gluconate 1 applic 04/30/17 22:00 05/03/17 21:06 Hibiclens For Decolonization - TP 1 applic HS DANNY Administration Diltiazem HCl 10 mg 05/03/17 17:55 05/04/17 00:19 Cardizem Injection - IVPUSH 10 mg Q4H PRN Administration TACHYCARDIA Hydralazine HCl 10 mg 05/01/17 11:41 05/04/17 06:34 Apresoline Injection - IVPUSH 10 mg Q4H PRN Administration HYPERTENSION Pantoprazole Sodium 100 mls @ 200 mls/hr 05/02/17 10:00 05/03/17 09:26 Protonix 40mg Ivpb (Pre-Docked) IVPB 200 mls/hr DAILY DANNY Administration Dextrose/Lactated Ringer's 1,000 mls @ 75 mls/hr 05/01/17 18:30 05/03/17 18:40 D5-Lr - IV Not Given ASDIR DANNY Amiodarone HCl 450 mg/ 250 mls @ 16.66 mls/hr 05/03/17 18:00 05/03/17 18:00 Dextrose IVPB Not Given TITR DANNY Protocol 0.5 MG/MIN Dextrose/Sodium Chloride 1,000 mls @ 75 mls/hr 05/03/17 18:15 05/04/17 07:46 D5-1/2ns - IV 75 mls/hr ASDIR DANNY Administration Diltiazem HCl 125 mg/ Dextrose 125 mls @ 5 mls/hr 05/04/17 00:30 05/04/17 00:19 IVPB 5 mls/hr TITR DANNY Administration Protocol 5 MG/HR Insulin Aspart 0 vial 05/03/17 14:17 05/04/17 06:30 Novolog Vial Sliding Scale - SQ 4 units ACHS DANNY Administration Protocol Lorazepam 1 mg 05/01/17 08:40 05/04/17 04:57 Ativan Injection - IVPUSH 1 mg Q6H PRN Administration ANXIETY Mupirocin 1 applic 04/30/17 22:00 05/03/17 21:05 Bactroban Ointment (For Decolonization) - NS 05/05/17 21:59 1 applic BID DANNY Administration Ondansetron HCl 4 mg 05/01/17 17:24 Zofran Injection IVPB Q6H PRN NAUSEA Valproate Sodium 500 mg 05/01/17 19:30 05/03/17 09:26 Depacon Injection - IVPB 500 mg DAILY DANNY Administration Vital Signs Period Temp Pulse Resp BP Sys/Cortés Pulse Ox Last 24 Hr 98.3 F-99 F 70-137 14-22 109-181/61-107 100-100 Intake & Output 05/01/17 05/02/17 05/03/17 05/04/17 23:59 23:59 23:59 23:59 Intake Total 2800 2670 3014 1140.4 Output Total 523 134 6920 700 Balance 1850 1725 514 440.4 Weight 73.482 kg 72.1 kg 72.1 kg GENERAL: Patient lethargic and non-interactive due to sedation HEAD: L side craniotomy w/ bandage. No other lesions noted ENT: Ears normal, nares patent, oropharynx clear without exudates, moist mucous membranes. NECK: Trachea midline, full range of motion, supple. LUNGS: Bibasilar crackles HEART: Irregular irregular, S1, S2 without murmur, rub or gallop. ABDOMEN: Soft, nontender, nondistended, normoactive bowel sounds, no guarding, no rebound, no hepatosplenomegaly, no masses. EXTREMITIES: 2+ pulses, warm, well-perfused, no edema. NEUROLOGICAL: Difficult to perform due to significant sedation. 3/5 strength in R leg, 5/5 in L leg. 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 Cranial nerves appear grossly intact II-XII. Laboratory Results - last 24 hr 05/03/17 05/03/17 05/03/17 13:25 17:16 20:54 WBC RBC Hgb Hct MCV MCH MCHC RDW Plt Count MPV Sodium Potassium Chloride Carbon Dioxide Anion Gap BUN Creatinine POC Glucometer 246.02393 157.30089 134.62210 Random Glucose Calcium Phosphorus Magnesium 05/04/17 05/04/17 05/04/17 05:00 05:00 06:26 WBC 8.1 RBC 5.32 Hgb 12.5 Hct 37.9 MCV 71.3 L MCH 23.5 L MCHC 32.9 RDW 16.4 H Plt Count 147 MPV 10.1 Sodium 138 Potassium 3.3 L Chloride 104 Carbon Dioxide 25 Anion Gap 9 BUN 8 Creatinine 0.6 L POC Glucometer [phone] Random Glucose 208 H Calcium 8.1 L Phosphorus 1.8 L Magnesium 1.8 micro: CSF culture neg ekg: Aflutter w/ RVR. Normal axis. Irregularly irregular rate. No acute ischemic changes tele: Aflutter w/ RVR, rate in 130s. ASSESSMENT/PLAN: Per attending note (will update): 76 year old man with a history of cervical stenosis, CAD, CVA, HTN, type 2 DM who presented to the ER with confusion, slurred speech, urinary incontinence after a fall 2 months ago. He was found to have a subdural hematoma on MRI. #Neuro ASA held Extubated on 05/02 S/p craniotomy w/ drain Depacon for seizure PPX Haldol PRN for sedation Trend MS. Neuro checks Q2H #Cardiac A-flutter w/ RVR to 130s Amiodarone gtt started this AM. Diltiazem 125 mg IV gtt for rate control Diltiazem 10 mg IV q4h prn for HTN Propanol 2mg q4h HTN meds held. Hydralazine 10mg IV q4h prn Echocardiogram shows normal LV function, mild concentric LVH, small pericardial effusion, mildly dilated RA, mild MR, mild to moderate TR, RVSP 30-40 mmHg #Pulmonary - 2L NC for O2 support. #ID No elevated WBC, afebrile #Renal monitor lytes HypoK, HypoMg Repleted #Heme SCDs for DVT PPX Contact Neurosurg about AC #GI Zofran 4mg q6 for nausea Protonix 40mg daily #Endocrine Insulin SS Metformin, glipizide held FEN Fluids: D5 NS 75ml/hr Electolytes: Monitor Nutrition: NPO Dispo: Full code. Will require ICU monitoring Jorge Hobbs, PGY1 Plan discussed w/ attending, Dr. Beauchamp Visit type - Emergency Visit Emergency Visit: No - New Patient This patient is new to me today: Yes Date on this admission: 05/04/17 - Critical Care Critical Care patient: Yes Total Critical Care Time (in minutes): 35 Critical Care Statement: The care of this patient involved high complexity decision making to prevent further life threatening deterioration of the patient 's condition and/or to evaluate & treat vital organ system(s) failure or risk of failure.
--- NOTE | 2017-05-04 08:43 | PN ---
Progress Note, Physician Chief Complaint: SDH History of Present Illness: has had refractory tachycardia overnight, received metoprolol IVP and digoxin 0.25mg; on amio gtt 0.5 mg/min no kavya events per RN report and overnight cardiology note awake, slurred speech, minimal verbal output/communication - Current Medication List Current Medications: Active Medications Chlorhexidine Gluconate (Hibiclens For Decolonization -) 1 applic TP HS DANNY Last Admin: 05/03/17 21:06 Dose: 1 applic Diltiazem HCl (Cardizem Injection -) 10 mg IVPUSH Q4H PRN PRN Reason: TACHYCARDIA Last Admin: 05/04/17 00:19 Dose: 10 mg Hydralazine HCl (Apresoline Injection -) 10 mg IVPUSH Q4H PRN PRN Reason: HYPERTENSION Last Admin: 05/04/17 06:34 Dose: 10 mg Pantoprazole Sodium (Protonix 40mg Ivpb (Pre-Docked)) 100 mls @ 200 mls/hr IVPB DAILY DANNY Last Admin: 05/03/17 09:26 Dose: 200 mls/hr Dextrose/Lactated Ringer's (D5-Lr -) 1,000 mls @ 75 mls/hr IV ASDIR DANNY Last Admin: 05/03/17 18:40 Dose: Not Given Dextrose/Sodium Chloride (D5-1/2ns -) 1,000 mls @ 75 mls/hr IV ASDIR DANNY Last Admin: 05/04/17 07:46 Dose: 75 mls/hr Diltiazem HCl 125 mg/ Dextrose 125 mls @ 5 mls/hr IVPB TITR DANNY; 5 MG/HR PRN Reason: Protocol Last Admin: 05/04/17 00:19 Dose: 5 mls/hr Amiodarone HCl 450 mg/ (Dextrose) 250 mls @ 33.33 mls/hr IVPB TITR DANNY PRN Reason: 1 MG/MIN Insulin Aspart (Novolog Vial Sliding Scale -) 0 vial SQ ACHS DANNY PRN Reason: Protocol Last Admin: 05/04/17 06:30 Dose: 4 units Lorazepam (Ativan Injection -) 1 mg IVPUSH Q6H PRN PRN Reason: ANXIETY Last Admin: 05/04/17 04:57 Dose: 1 mg Mupirocin (Bactroban Ointment (For Decolonization) -) 1 applic NS BID DANNY Stop: 05/05/17 21:59 Last Admin: 05/03/17 21:05 Dose: 1 applic Ondansetron HCl (Zofran Injection) 4 mg IVPB Q6H PRN PRN Reason: NAUSEA Valproate Sodium (Depacon Injection -) 500 mg IVPB DAILY [facility] Last Admin: 05/03/17 09:26 Dose: 500 mg - Objective Vital Signs: Vital Signs Temperature 98.3 F 05/04/17 07:15 Pulse Rate 70 05/04/17 07:37 Respiratory Rate 22 05/04/17 07:15 Blood Pressure 131/82 05/04/17 07:15 O2 Sat by Pulse Oximetry (%) 100 05/04/17 07:24 Constitutional: Yes: Well Nourished, No Distress, Calm Cardiovascular: Yes: Regular Rate and Rhythm, S1, S2. No: JVD, Gallop, Murmur Respiratory: Yes: Regular, CTA Bilaterally (not taking deep breaths). No: Accessory Muscle Use, Rales, Wheezes Extremities: No: Cold Edema: No Neurological: Yes: Alert. No: Seizure Psychiatric: No: Agitated Labs: CBC, BMP 05/04/17 05:00 05/04/17 05:00 INR, PTT INR 1.38 (0.82-1.09) H 05/03/17 05:15 - ....Imaging EKG: Other (tele: AFL 2:1 conduction, at times variable A:V conduction, max HR 130s) Assessment/Plan Echo 04/2017: Mild conc lvh. grossly nl lv fn. tds for rwma. nl rv function. mild-mod tr. rvsp 30-40. < 1 cm pericardial effusion, not hemodynamically significant. 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 Hospital course notable for new onset atrial flutter with slow ventricular conduction. New onset atrial flutter - Not a candidate for AC due to recent frequent falls, the current fall resulting in subdural hematoma - echo with grossly normal lv function. - on admit Had svr to 40's initially (Had been on coreg and clonidine at home)-- suspect initial bradycardia was due to home meds plus increased ICP - rapid AFL rates once home meds held, requiring diltiazem gtt, then required addition of amiodarone drip for rapid HRs on diltiazem. - 05/04: remains rapid in AFL with 2:1 A-V conduction. increased amio to 1 mg/ min and given dose of propranolol 2mg IVP x1, and HR decreased to 70s with variable AFL conduction. - cont present amio rate, start standing propranolol 2mg IVP q4H - will give prn amiodarone boluses as needed h/o multiple falls, now with fall and SDH - s/p L craniotomy for SDH--mgmt per neurosurgery - Ongoing managment of bp/hr as mentioned. HTN - required nicardipine gtt over weekend, now off - bp currently well controlled, cont HR control regimen as above - tight bp control to reduce risk of further ICH CAD - prior details uncertain, no recent PCI - Patient with multiple falls and subdural hematoma on ASA --> may not be able to continue this unfortunately, as risks of recurrent falls and ICH >> benefits. cont holding ASA for now, reassess later (requires outpt cardio f/u also to clarify prior stent history--if no stents, would definitely stop ASA here) - con't statin when able to take po. - no signs acs - ce's neg x 2. ekg without acute ischemic changes. CVA. - Not a candidate for AC or ASA at this time as mentioned. statin once acute issues resolve and able to take po. est crit care time in mgmt of potentially life-threatening conditions = 38 min
[2017-05-04] MEDS ORDERED: PT OWN MED DRAWER 7, Y5N ONE ×2 (08:50→22:07)
[2017-05-04] MEDS: AMIODARONE HCL INJECTION 450 MG in DEXTROSE 5%-WATER - 241 ML IVPB SCH ×4 (08:58→23:10)
[2017-05-04] MEDS ORDERED: PROPRANOLOL HCL 1 MG/1 ML VIAL IVPUSH ONE (09:00)
[2017-05-04] MEDS: MUPIROCIN 2% TOPICAL OINTMENT FOR DECOLONIZATION NS SCH ×2 (09:01→23:13)
[2017-05-04] MEDS: PANTOPRAZOLE SODIUM 100 ML IVPB SCH (09:01)
[2017-05-04] MEDS: VALPROATE SODIUM 500 MG/5 ML VIAL IVPB SCH (09:01)
[2017-05-04] MEDS ORDERED: MAGNESIUM SULF 50% (8.12 MEQ/2 ML-1 GM VIAL) IVPB ONE (10:30)
--- NOTE | 2017-05-04 10:45 | CONSULT ---
Admitting History and Physical - Primary Care Physician PCP: Alireza Traore - Admission History of Present Illness: 76 y/o M with PMH CAD with stents on ASA, CVA (2004), HTN,DMII, spinal stenosis s/p spinal surgery who was brought in to ED after family observed changes in mental status and personality after a fall a few months earlier. On MRI noted to have a subacute/chronic subdural hematoma with mass effect. Also noted to have a A-fib/flutter and bradycardia.He is transferred to ICU for monitoring pending clearance for craniotomy and drainage+/- subdural drain placement. In ED VS HR 30's to 60's,SBP 140's to 150's. Notable labs WBC 3.3, HGb 10.7,BUN/ Creat 15/0.8, K3.3, trop <0.02. Family states since pt had his fall, he has had personality change, slurred speech, emotional lability, hallucinations, confusion as well as new onset Afib. Seen by neurosurgery who recommends craniotomy and evacuation of clot but notes pt is high risk for complications and requires cardiac clearance.In ICU pt A+O x2, pleasant with garbled speech, HR irregular in A-flutter with long pauses rate 40's to 120's. Pacer pads at bedside." Pt s/p Left craniotomy> Pt has been reported as agitated at times, given Ativan. Awake for me and cooperative with poor functional communication. 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: CVA Cardiovascular: Yes: CAD, HTN Endocrine: Yes: Diabetes Mellitus - Smoking History Smoking history: Former smoker Have you smoked in the past 12 months: No If you are a former smoker, when did you quit?: 2004 - Alcohol/Substance Use Hx Alcohol Use: No History - Admission Reason For Visit: BRADYCARDIA; SUBDURAL HEMATOMA - Diagnostics X-ray: Report Reviewed CT Scan: Report Reviewed (Left fronto parietal and chronic BG.) - General Mental Status: Awake and Alert, Flat Affect, Lethargic Attention: Distractible Ability to Follow Directions: Poor Head/Neck Control: Fair - Hearing Hearing: Functional Speech Evaluation - Communication Primary Language: NEPALESE Communication: Yes: Dysarthria, Aphasia Oral Expression Ability: Yes: Severe Impairment - Speech Production Dysarthria: Yes: Flaccid Apraxia: Yes Able to Make Needs Known: Yes: Severely Impaired Intelligibility: Yes: Severely Impaired - Speech Characteristics Voice Loudness: Mildly Soft/Quiet Voice Pitch: Yes: Normal Voice Phonatory-based Quality: Yes: Dysphonia (mild) Speech Pattern: Impaired Speech Clarity: < 25% Nasal Resonance: Nasal Emission (snort- like sounts,) Articulation: Yes: Imprecise Voice, Other Observations: Yes: Progressively Weak Voice - Language/Auditory Comprehension Observation: Able to respond to yes/no queries: No, Yes/No Confusion: Yes, Comprehends Conversational Speech: No, Benefits from Slow Speech: Yes, Benefits from Repetiton: Yes - Language/Verbal Expression Aphasia: Yes: Nonfluent, Anomia, Paraphrasic Errors, Neologisms, Apraxia, Sound Errors Able to Respond to Simple Queries: Yes: Severely Impaired Able to Communicate Wants and Needs: Yes: Severely Impaired Functional Communication Status: Yes: Severely Impaired Aware of Errors: No Attempts to Correct Errors: No - Swallow Evaluation/Bedside Assessment Current Nutritional Intake: NPO Oral Secretions: Yes: WFL Dentition: Yes: Edentulous Facial Symmetry at Rest: Facial Droop Right Jaw Position: Closed at Rest Against Resistance Opening: Weak Against Resistance Closing: Weak Pucker Lips: Droops Right Lingual Movement: Reduced Protrusion Lingual Speed of Movement: Reduced Lingual Movement Strgth Against Opposition: Reduced Laryngeal Movement: Reduced Excursion, Labored,delay initiation, Reduced Velocity Rate of Intake: Slow/Holding Bolus Size: Small Labial Seal: Impaired Bilaterally Oral Prep Time: Increased A-P Transit: Impaired Pocketing: Present Bilaterally Timing of Swallow: Delayed Coughing/Throat Clear: No Change in Voice: No Recommendations - Speech Evaluation, Impression/Plan Impression: Poor intelligibilty of speech production, with improved intelligibility upon repetition of single words. Unable to count in unison with rare intelligible nos. prodced. Perseveration. Paraphasic errors. Dysarthria with imprecise articulkation with reduced rate, audible snorting with velopharyngeal wealness suspected. Swallow is weak, slow to initiate, with repeat swallows generated. No cough or change in voice noted. Suspect stasis and risk of aspiration. With each trial, swallow seemed to improve in coordination and rate. - Disposition Discharge to: [facility] - Dysphagia Impressions/Plan Swallowing Skills: Impaired Dysphagia Impressions: Moderate Impairment, Risk of Aspiration *Silent aspiration: cannot be R/O at bedside Dysphagia Treatment Plan: Small Bites, Chin Tuck/Down, Head Tilt Right, Clear Pocket Food, Elevate HOB during feed, Other (Tell pt to swallow with each trial. Palpate larynx for reflex, and allow pt to swallow continuously, 2-3 times, to clear residue. D/c po trials if congested, cough, throat clear,vocal wetness,etc) Recommendations: Modified Barium Swallow (when medically stable) - Recommendations Diet Consistency: NPO, Other (Npo except for trial of Magic cup only. d/c if signs of dysphagia noted.) Liquids: NPO
[2017-05-04] MEDS ORDERED: POTASSIUM PHOSPHATE 30 MM in SODIUM CHLORIDE 250 ML IVPB ONE (11:00)
[2017-05-04] MEDS ORDERED: cloNIDine-TTS 0.1 MG/24 HRS PATCH.TDWK TD SCH (11:00)
--- NOTE | 2017-05-04 12:21 | PN ---
Teaching Attending Note Name of Resident: Jorge Hobbs ATTENDING PHYSICIAN STATEMENT I saw and evaluated the patient. I reviewed the resident's note and discussed the case with the resident. I agree with the resident's findings and plan as documented. SUBJECTIVE: Pt seen and examined in the ICU. Remains lethargic in rapid atrial fibrillation. No fevers recorded. Received sedation early this AM. OBJECTIVE: Last Vital Signs Temp Pulse Resp BP Pulse Ox 98.3 F 82 20 129/85 100 05/04/17 07:15 05/04/17 12:00 05/04/17 12:00 05/04/17 12:00 05/04/17 09:32 Intake & Output 05/01/17 05/02/17 05/03/17 05/04/17 23:59 23:59 23:59 23:59 Intake Total 2800 2670 3014 1140.4 Output Total 618 533 4396 700 Balance 1850 1725 514 440.4 Weight 162 lb 158 lb 15.253 oz 158 lb 15.253 oz Gen: lethargic, moaning with stimulation Heart: irregular, tachycardic Lung: decreased breath sounds at the bases Abd: soft, nontender Ext: no edema CBC, BMP 05/04/17 05:00 05/04/17 05:00 Active Medications Chlorhexidine Gluconate (Hibiclens For Decolonization -) 1 applic TP HS [facility] Last Admin: 05/03/17 21:06 Dose: 1 applic Clonidine HCl (Catapres Tts Patch -) 0.1 mg TD Q7D@1000 DANNY Last Admin: 05/04/17 11:26 Dose: 0.1 mg Diltiazem HCl (Cardizem Injection -) 10 mg IVPUSH Q4H PRN PRN Reason: TACHYCARDIA Last Admin: 05/04/17 00:19 Dose: 10 mg Hydralazine HCl (Apresoline Injection -) 10 mg IVPUSH Q4H PRN PRN Reason: HYPERTENSION Last Admin: 05/04/17 10:53 Dose: 10 mg Pantoprazole Sodium (Protonix 40mg Ivpb (Pre-Docked)) 100 mls @ 200 mls/hr IVPB DAILY [facility] Last Admin: 05/04/17 09:01 Dose: 200 mls/hr Dextrose/Sodium Chloride (D5-1/2ns -) 1,000 mls @ 75 mls/hr IV ASDIR DANNY Last Admin: 05/04/17 07:46 Dose: 75 mls/hr Diltiazem HCl 125 mg/ Dextrose 125 mls @ 5 mls/hr IVPB TITR DANNY; 5 MG/HR PRN Reason: Protocol Last Admin: 05/04/17 00:19 Dose: 5 mls/hr Amiodarone HCl 450 mg/ (Dextrose) 250 mls @ 33.33 mls/hr IVPB TITR DANNY PRN Reason: 1 MG/MIN Last Admin: 05/04/17 09:12 Dose: 33.33 mls/hr Potassium Phosphate 30 mm/ (Sodium Chloride) 260 mls @ 62.5 mls/hr IVPB ONCE ONE Stop: 05/04/17 15:09 Last Admin: 05/04/17 11:26 Dose: 62.5 mls/hr Insulin Aspart (Novolog Vial Sliding Scale -) 0 vial SQ ACHS DANNY PRN Reason: Protocol Last Admin: 05/04/17 11:35 Dose: Not Given Lorazepam (Ativan Injection -) 1 mg IVPUSH Q6H PRN PRN Reason: ANXIETY Last Admin: 05/04/17 04:57 Dose: 1 mg Mupirocin (Bactroban Ointment (For Decolonization) -) 1 applic NS BID [facility] Stop: 05/05/17 21:59 Last Admin: 05/04/17 09:01 Dose: 1 applic Ondansetron HCl (Zofran Injection) 4 mg IVPB Q6H PRN PRN Reason: NAUSEA Propranolol HCl (Inderal Injection -) 2 mg IVPUSH Q4H-IV DANNY Valproate Sodium (Depacon Injection -) 500 mg IVPB DAILY [facility] Last Admin: 05/04/17 09:01 Dose: 500 mg ASSESSMENT AND PLAN: Acute on Chronic Subdural Hematoma Altered Mental Status Atrial Fibrillation/Flutter with RVR HTN DM CAD h/o CVA - antiepileptics per neuro - rate control with cardizem gtt - aspiration precautions - minimize sedatives - replete lytes - DVT prophylaxis - continue ICU monitoring critical care time spent in reviewing chart, evaluating patient and formulating plan 35 min
[2017-05-04] MEDS: PROPRANOLOL HCL 1 MG/1 ML VIAL IVPUSH SCH ×3 (13:47→22:08)
[2017-05-04] MEDS ORDERED: LORazepam 2 MG/ML SDV VIAL IVPUSH PRN (15:55)
--- NOTE | 2017-05-04 16:02 | PN ---
Teaching Attending Note Name of Resident: Mulugeta Waters ATTENDING PHYSICIAN STATEMENT I saw and evaluated the patient. I reviewed the resident's note and discussed the case with the resident. I agree with the resident's findings and plan as documented. SUBJECTIVE: unable toobtain hx , no events over night OBJECTIVE: NAD, awake , alert , confused , minimal verbal response HEENT: EOMI, round equal pupils 3 mm in diameter , L scalp surgical incision , with no bleeding . no JVD CV: irreg irreg . Lungs : CTAB ext : no edema Abd : soft, NT, ND , nl BS ASSESSMENT AND PLAN: 76 y/o man with h/o CAD, HTN, DM II, CVA , and other medical problems who presented with confusion and urinary incontinence and was found to have L subdural hematoma 1- Subdural hematoma , due to fall. s/p Evacuation 05/01 . STAble. - cont neuro checks - cont valproic acid for seizure prophylaxis - tight blood pressure control 2- A flutter and A fib with RVR. was hard to control. still tachy this am , reposnded to propranolol - cont Amiodaron gtt - cont standing propranolol IV - cont and try to taper off cardizem gtt - can not anticoagulate due to ICH 3- uncontrolled HTN: responded to propranolol - cont standing propranolol. - start clonidine patch 0.1 q 72 h - cont cardizem gtt 4- hypokalemia and hypophosphatemia: replete 5- Dm : hold oral meds - SSI 6- H/o CVA and CAD, off asa due to ICH SCDs
[2017-05-04] MEDS ORDERED: INSULIN (NOVOLOG) ASPART 100 UNITS/ML 10ML VIAL ONE (17:34)
--- NOTE | 2017-05-04 18:57 | PN ---
Physical Exam: SUBJECTIVE: Patient seen and examined, EMR consulted. Per nurse, pt was agitated overnight and was given ativan. When pt was seen, he was very lethargic, mumbling incoherently, barely able to state his own name. He did not answer any other questions. OBJECTIVE: Vital Signs Period Temp Pulse Resp BP Sys/Cortés Pulse Ox Last 24 Hr 98.3 F-99 F 68-136 14-22 109-181/69-107 100-100 GENERAL: AAOx1 (name), lying in bed HEAD: bandage covering left side of head, incision clean, dry, and intact. EYES: PERRL, extraocular movements intact, sclera anicteric, conjunctiva clear. No ptosis. ENT: Ears normal, nares patent, oropharynx clear without exudates, moist mucous membranes. NECK: Trachea midline, full range of motion, supple. LUNGS: b/l rales appreciated HEART: Regular rate and rhythm, S1, S2 without murmur, rub or gallop. ABDOMEN: Soft, nontender, nondistended, normoactive bowel sounds, no guarding, no rebound, no hepatosplenomegaly, no masses. EXTREMITIES: 2+ pulses, warm, well-perfused, no edema. 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 Laboratory Results - last 24 hr 05/01/17 05/03/17 05/04/17 16:00 20:54 05:00 WBC 8.1 RBC 5.32 Hgb 12.5 Hct 37.9 MCV 71.3 L MCH 23.5 L MCHC 32.9 RDW 16.4 H Plt Count 147 MPV 10.1 Sodium Potassium Chloride Carbon Dioxide Anion Gap BUN Creatinine POC Glucometer 134.22913 Random Glucose Calcium Phosphorus Magnesium Blood Type O POSITIVE Antibody Screen Negative Crossmatch IS Only See Detail 05/04/17 05/04/17 05/04/17 05:00 06:26 11:34 WBC RBC Hgb Hct MCV MCH MCHC RDW Plt Count MPV Sodium 138 Potassium 3.3 L Chloride 104 Carbon Dioxide 25 Anion Gap 9 BUN 8 Creatinine 0.6 L POC Glucometer 225.48086 148.92304 Random Glucose 208 H Calcium 8.1 L Phosphorus 1.8 L Magnesium 1.8 Blood Type Antibody Screen Crossmatch IS Only 05/04/17 17:04 WBC RBC Hgb Hct MCV MCH MCHC RDW Plt Count MPV Sodium Potassium Chloride Carbon Dioxide Anion Gap BUN Creatinine POC Glucometer [phone] Random Glucose Calcium Phosphorus Magnesium Blood Type Antibody Screen Crossmatch IS Only Active Medications Generic Name Dose Route Start Last Admin Trade Name Freq PRN Reason Stop Dose Admin Chlorhexidine Gluconate 1 applic 04/30/17 22:00 05/03/17 21:06 Hibiclens For Decolonization - TP 1 applic HS DANNY Administration Clonidine HCl 0.1 mg 05/04/17 11:00 05/04/17 11:26 Catapres Tts Patch - TD 0.1 mg Q7D@1000 DANNY Administration Diltiazem HCl 10 mg 05/03/17 17:55 05/04/17 00:19 Cardizem Injection - IVPUSH 10 mg Q4H PRN Administration TACHYCARDIA Hydralazine HCl 10 mg 05/01/17 11:41 05/04/17 10:53 Apresoline Injection - IVPUSH 10 mg Q4H PRN Administration HYPERTENSION Pantoprazole Sodium 100 mls @ 200 mls/hr 05/02/17 10:00 05/04/17 09:01 Protonix 40mg Ivpb (Pre-Docked) IVPB 200 mls/hr DAILY DANNY Administration Dextrose/Sodium Chloride 1,000 mls @ 75 mls/hr 05/03/17 18:15 05/04/17 07:46 D5-1/2ns - IV 75 mls/hr ASDIR DANNY Administration Diltiazem HCl 125 mg/ Dextrose 125 mls @ 5 mls/hr 05/04/17 00:30 05/04/17 14:35 IVPB 5 mls/hr TITR DANNY Administration Protocol 5 MG/HR Amiodarone HCl 450 mg/ 250 mls @ 33.33 mls/hr 05/04/17 08:34 05/04/17 14:34 Dextrose IVPB 33.33 mls/hr TITR DANNY Administration 1 MG/MIN Insulin Aspart 0 vial 05/03/17 14:17 05/04/17 17:35 Novolog Vial Sliding Scale - SQ 4 units ACHS DANNY Administration Protocol Lorazepam 1 mg 05/04/17 15:55 Ativan Injection - IVPUSH Q6H PRN ANXIETY Mupirocin 1 applic 04/30/17 22:00 05/04/17 09:01 Bactroban Ointment (For Decolonization) - NS 05/05/17 21:59 1 applic BID DANYN Administration Ondansetron HCl 4 mg 05/01/17 17:24 Zofran Injection IVPB Q6H PRN NAUSEA Propranolol HCl 2 mg 05/04/17 14:00 05/04/17 17:19 Inderal Injection - IVPUSH Not Given Q4H-IV DANNY Valproate Sodium 500 mg 05/01/17 19:30 05/04/17 09:01 Depacon Injection - IVPB 500 mg DAILY DANNY Administration ASSESSMENT/PLAN: 76 year old man with a history of cervical stenosis, CAD, CVA, HTN, type 2 DM who presented to the ER with confusion, slurred speech, urinary incontinence after a fall 2 months ago, found to have a subdural hematoma on MRI. 1. Subdural hematoma, subacute/chronic - Aspirin held - Continue Depacot for seizure prophylaxis - s/p craniotomy with drain placement 05/01 - Extubated 05/02 -continue neuro checks and tight BP control 2. Atrial flutter with variable block - HR and BP have been difficult to manage with Cardizem IV drip - Echocardiogram shows normal LV function, mild concentric LVH, small pericardial effusion, mildly dilated RA, mild MR, mild to moderate TR, RVSP 30- 40 mmHg - No anticoagulation secondary to SDH - cont Amiodaron gtt - cont standing propranolol IV - cont and try to taper off cardizem gtt 3. Hypokalemia -K of 3.3 today, repleted 4. Hypomagnesemia - 1.8 today, repleted 5. CAD 6. HTN - cont standing propranolol. - started clonidine patch 0.1 q 72 h - cont cardizem gtt 7. Type 2 diabetes mellitus - Metformin and glipizide held - Continue Novolog sliding scale 8. History of CVA - Aspirin held secondary to SDH 9. History of cervical stenosis 10. Stress ulcer prophylaxis - On Protonix 11. DVT prophylaxis - SCDs - No anticoagulation secondary to SDH #Dispo -- Mulugeta Waters MD PGY1 Problem List - Problems (1) Atrial fibrillation Code(s): I48.91 - UNSPECIFIED ATRIAL FIBRILLATION (2) Diabetes mellitus Code(s): E11.9 - TYPE 2 DIABETES MELLITUS WITHOUT COMPLICATIONS Visit type - Emergency Visit Emergency Visit: Yes ED Registration Date: 04/30/17 Care time: The patient presented to the Emergency Department on the above date and was hospitalized for further evaluation of their emergent condition. - New Patient This patient is new to me today: Yes Date on this admission: 05/04/17 - Critical Care Critical Care patient: Yes Total Critical Care Time (in minutes): 36 Critical Care Statement: The care of this patient involved high complexity decision making to prevent further life threatening deterioration of the patient 's condition and/or to evaluate & treat vital organ system(s) failure or risk of failure.
--- NOTE | 2017-05-04 18:58 | EKG ---
Test Reason : Blood Pressure : / mmHG Vent. Rate : 130 BPM Atrial Rate : 260 BPM P-R Int : 000 ms QRS Dur : 084 ms QT Int : 314 ms P-R-T Axes : 066 043 262 degrees QTc Int : 462 ms ATRIAL FLUTTER WITH 2:1 A-V CONDUCTION ABNORMAL ECG WHEN COMPARED WITH ECG OF 03-MAY-2017 11:21, T WAVE VARIATION Confirmed by SAM RUCKER MD ([id number]) on 05/04/2017 6:58:15 PM Referred By: Confirmed By:SAM RUCKER MD
--- NOTE | 2017-05-04 20:56 | PN ---
Progress Note (short form) - Note Progress Note: Pts. condition appears improved today, he is more alert, follows 1 step commands , turns head to calling his name, attempts to verbalize/ answer questions but garbled speech. Pupils bilat 3mm-2mm. Right memiparesis 2/5 strength. s/p drainage of subdural with patient waking up, but still not back to normal mentation. Unclear if perseveration is evidence of global confusion or aphasia or both. Will cont. to monitor.
[2017-05-04] MEDS: CHLORHEXIDINE GLUCONATE 4% CLEANSER FOR DECOLONIZATION TP SCH (22:08)
[2017-05-04] MEDS ORDERED: HEMOQUE TEST 1 EACH EACH ONE (23:17)
[2017-05-05] MEDS: hydrALAZINE HCL 20 MG/ML VIAL IVPUSH PRN ×3 (01:09→20:21)
[2017-05-05] MEDS: PROPRANOLOL HCL 1 MG/1 ML VIAL IVPUSH SCH ×3 (01:30→10:32)
[2017-05-05] MEDS: DILTIAZEM INJECTION 125 MG in DEXTROSE 5%-WATER - 100 ML IVPB SCH (01:31)
[2017-05-05] MEDS: AMIODARONE HCL INJECTION 450 MG in DEXTROSE 5%-WATER - 241 ML IVPB SCH ×2 (06:11→10:23)
[2017-05-05] MEDS: INSULIN SLIDING SCALE (NOVOLOG) 1 VIAL SQ SCH ×4 (06:17→22:34)
--- NOTE | 2017-05-05 06:46 | PN ---
Physical Exam: SUBJECTIVE: Patient seen and examined by me this AM - Mental status improved. Responds to name and simple commands. Still remains dysarthric and intermittently conscious - No new focal neurological findings noted. - Occasional runs of aFib with RVR overnight, now in NSR in AM - BP in 190s systolic overnight, received 20mg hydralazine IV push q4h w/ correction to 140s systolic - Cardiology and neurosurgery following PM - Seen by speech and swallow. Approved for PO meds. Will go for modified barium swallow. - Plan for transfer to telemetry given clinical improvement. OBJECTIVE: Vital Signs Period Temp Pulse Resp BP Sys/Cortés Pulse Ox Last 24 Hr 98 F-99 F 68-131 10-22 108-193/72-151 100-100 Intake & Output 05/02/17 05/03/17 05/04/17 05/05/17 23:59 23:59 23:59 23:59 Intake Total 2670 3014 2960.4 1359.6 Output Total 945 2500 2000 600 Balance 1725 514 960.4 759.6 Weight 72.1 kg 72.1 kg 74.588 kg GENERAL: Patient lethargic but responsive to simple commands. HEAD: L side craniotomy suture line, w no erythema or drainage. No other lesions noted ENT: Ears normal, nares patent, oropharynx clear without exudates, moist mucous membranes. NECK: Trachea midline, full range of motion, supple. LUNGS: Bibasilar crackles HEART: Irregular irregular, S1, S2 without murmur, rub or gallop. ABDOMEN: Soft, nontender, nondistended, normoactive bowel sounds, no guarding, no rebound, no hepatosplenomegaly, no masses. EXTREMITIES: 2+ pulses, warm, well-perfused, no edema. NEUROLOGICAL: Difficult to perform due to waxing and waning MS. 4/5 strength in R leg, 5/5 in L leg. 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 Cranial nerves appear grossly intact II-XII. Laboratory Results - last 24 hr 05/01/17 05/04/17 05/04/17 16:00 11:34 17:04 WBC RBC Hgb Hct MCV MCH MCHC RDW Plt Count MPV Neutrophils % Lymphocytes % Monocytes % Eosinophils % Basophils % Sodium Potassium Chloride Carbon Dioxide Anion Gap BUN Creatinine POC Glucometer 148.33742 231.42343 Random Glucose Calcium Phosphorus Magnesium Blood Type O POSITIVE Antibody Screen Negative Crossmatch IS Only See Detail 05/04/17 05/05/17 05/05/17 23:19 05:30 05:30 WBC 9.5 RBC 5.55 Hgb 12.6 Hct 39.7 MCV 71.7 L MCH 22.7 L MCHC 31.7 L RDW 16.3 H Plt Count 148 MPV 9.8 Neutrophils % 79.4 Lymphocytes % 7.7 L D Monocytes % 12.4 H Eosinophils % 0.2 Basophils % 0.3 Sodium 137 Potassium 3.6 Chloride 104 Carbon Dioxide 24 Anion Gap 9 BUN 10 D Creatinine 0.7 POC Glucometer 143.25689 Random Glucose 211 H Calcium 8.2 L Phosphorus 2.1 L Magnesium 2.1 Blood Type Antibody Screen Crossmatch IS Only 05/05/17 06:15 WBC RBC Hgb Hct MCV MCH MCHC RDW Plt Count MPV Neutrophils % Lymphocytes % Monocytes % Eosinophils % Basophils % Sodium Potassium Chloride Carbon Dioxide Anion Gap BUN Creatinine POC Glucometer [phone] Random Glucose Calcium Phosphorus Magnesium Blood Type Antibody Screen Crossmatch IS Only Active Medications Generic Name Dose Route Start Last Admin Trade Name Freq PRN Reason Stop Dose Admin Chlorhexidine Gluconate 1 applic 04/30/17 22:00 05/04/17 22:08 Hibiclens For Decolonization - TP 1 applic HS DANNY Administration Clonidine HCl 0.1 mg 05/04/17 11:00 05/04/17 11:26 Catapres Tts Patch - TD 0.1 mg Q7D@1000 DANNY Administration Diltiazem HCl 10 mg 05/03/17 17:55 05/04/17 00:19 Cardizem Injection - IVPUSH 10 mg Q4H PRN Administration TACHYCARDIA Hydralazine HCl 20 mg 05/05/17 05:33 05/05/17 05:37 Apresoline Injection - IVPUSH 20 mg Q4H PRN Administration HYPERTENSION Pantoprazole Sodium 100 mls @ 200 mls/hr 05/02/17 10:00 05/04/17 09:01 Protonix 40mg Ivpb (Pre-Docked) IVPB 200 mls/hr DAILY DANNY Administration Dextrose/Sodium Chloride 1,000 mls @ 75 mls/hr 05/03/17 18:15 05/04/17 22:11 D5-1/2ns - IV 75 mls/hr ASDIR DANNY Administration Diltiazem HCl 125 mg/ Dextrose 125 mls @ 5 mls/hr 05/04/17 00:30 05/05/17 01:31 IVPB Not Given TITR DANNY Protocol 5 MG/HR Amiodarone HCl 450 mg/ 250 mls @ 33.33 mls/hr 05/04/17 08:34 05/05/17 06:11 Dextrose IVPB 33.33 mls/hr TITR DANNY Administration 1 MG/MIN Insulin Aspart 0 vial 05/03/17 14:17 05/05/17 06:17 Novolog Vial Sliding Scale - SQ 4 units ACHS DANNY Administration Protocol Lorazepam 1 mg 05/04/17 15:55 05/04/17 22:12 Ativan Injection - IVPUSH 1 mg Q6H PRN Administration ANXIETY Mupirocin 1 applic 04/30/17 22:00 05/04/17 23:13 Bactroban Ointment (For Decolonization) - NS 05/05/17 21:59 1 applic BID DANNY Administration Ondansetron HCl 4 mg 05/01/17 17:24 Zofran Injection IVPB Q6H PRN NAUSEA Propranolol HCl 2 mg 05/04/17 14:00 05/05/17 05:08 Inderal Injection - IVPUSH 2 mg Q4H-IV DANNY Administration Valproate Sodium 500 mg 05/01/17 19:30 05/04/17 09:01 Depacon Injection - IVPB 500 mg DAILY DANNY Administration micro: CSF culture neg ekg (05/04): Aflutter w/ RVR. Normal axis. Irregularly irregular rate. No acute ischemic changes tele: Occasional runs of aFib with RVR ASSESSMENT/PLAN: 76 year old man with a history of cervical stenosis, CAD, CVA, HTN, type 2 DM who presented to the ER with confusion, slurred speech, urinary incontinence after a fall 2 months ago. He was found to have a subdural hematoma on MRI. Better control of HR on amio gtt w/ indural and cardizem. BP spiked overnight to 190s, down to 140s w/ hydralazine 20mg IV q4h. Mental status continues to improve. Plan to transfer to Telemetry floor given clinical improvement. Approved for PO meds. #Neuro ASA held Extubated on 05/02 S/p craniotomy w/ drain Depacon for seizure PPX Haldol 1mg PRN PO for sedation Trend MS. Much improved since yesterday. #Cardiac Now NSR w/ occasional runs of afib w/ RVR. Much improved on amio, cardizem regimen Amiodarone PO 200mg Transition to PO cardizem 60 mg PO Q6h Diltiazem 20mg IV q4h prn for HTN Propanol 40 mg PO TID BPs to 190s systolic overnight. Improved to 140s with hydralazine 20mg IV push. cardiology recs appreciated. #Pulmonary - 2L NC for O2 support. #ID No elevated WBC, afebrile #Renal monitor lytes HypoMg Repleted #Heme SCDs for DVT PPX Contact Neurosurg about AC #GI Zofran 4mg q6 for nausea Protonix 40mg daily #Endocrine Insulin SS Metformin, glipizide held FEN Fluids: D5 NS 40ml Electolytes: Monitor lytes Nutrition: Magic cup as tolerated. PO meds Dispo: Full code. Plan for transfer to Telemetry. Jorge Hobbs, PGY1 Plan to be discussed w/ attending, Dr. Beauchamp Visit type - Emergency Visit Emergency Visit: No - New Patient This patient is new to me today: No - Critical Care Critical Care patient: Yes Total Critical Care Time (in minutes): 35 Critical Care Statement: The care of this patient involved high complexity decision making to prevent further life threatening deterioration of the patient 's condition and/or to evaluate & treat vital organ system(s) failure or risk of failure.
[2017-05-05 06:47] LABS: BASOPHIL 0.3 % (0-2.0); EOSINOPHIL 0.2 % (0-4.5); MCH 22.7 pg (25.7-33.7); MCHC 31.7 g/dl (32.0-35.9); MEAN CELL VOLUME 71.7 fl (80-96); MEAN PLT VOLUME 9.8 fl (7.5-11.1); NEUTROPHILS 79.4 % (42.8-82.8); PLATELET COUNT 148 K/MM3 (134-434); RDW 16.3 % (11.9-15.9); WHITE BLOOD COUNT 9.5 K/mm3 (4.0-10.0)
[2017-05-05] MEDS ORDERED: INSULIN (NOVOLOG MIX 70/30) 100 UNITS/ML MDV SQ ONE (07:00)
[2017-05-05 07:15] LABS: ANION GAP 9 (8-16); CALCIUM 8.2 mg/dL (8.5-10.1); CO2 24 mmol/L (21-32); GLUCOSE,RANDOM 211 mg/dL (74-106); MAGNESIUM 2.1 mg/dL (1.8-2.4)
[2017-05-05 07:17] LABS: CREATININE 0.7 mg/dL (0.7-1.3); PHOSPHOROUS 2.1 mg/dL (2.5-4.9)
--- NOTE | 2017-05-05 07:59 | PN ---
Progress Note (short form) - Note Progress Note: NEUROSURGERY F/U POD #4 In ICU PE: Tmax 98.6, AF; SBP still with spikes to 170-180's; HR more stabilized On catapress patch and other antihypertensives Dressing dry without drainage More awake B pupils 3 mm to 2 mm; face symmetric; tongue midline Moving B UE/LE at least 4-/5; R side slightly less Subdural fluid culture - gram stain negative, bacterial culture negative Cont anticonvulsant for sz prophylaxis Cardiology f/u for BP and HR optimization PT/ROM For inpatient rehab when cardiac condition stabilized
[2017-05-05] MEDS ORDERED: POTASSIUM PHOSPHATE 30 MM in SODIUM CHLORIDE 250 ML IVPB ONE (09:30)
[2017-05-05] MEDS: PANTOPRAZOLE SODIUM 100 ML IVPB SCH (10:28)
[2017-05-05] MEDS: VALPROATE SODIUM 500 MG/5 ML VIAL IVPB SCH (10:28)
[2017-05-05] MEDS: MUPIROCIN 2% TOPICAL OINTMENT FOR DECOLONIZATION NS SCH (10:30)
[2017-05-05] MEDS ORDERED: PT OWN MED DRAWER 7, Y5N ONE ×3 (10:30→22:13)
--- NOTE | 2017-05-05 10:32 | PN ---
Progress Note, Physician Chief Complaint: change in Mental Status, subdural hematoma History of Present Illness: 76 y/o M with PMH CAD with stents on ASA, CVA (2004), HTN,DMII, spinal stenosis s/p spinal surgery who was brought in to ED after family observed changes in mental status and personality after a fall a few months earlier. On MRI noted to have a subacute/chronic subdural hematoma with mass effect. Also noted to have a A-fib/flutter and bradycardia.He is transferred to ICU for monitoring pending clearance for craniotomy and drainage+/- subdural drain placement. In ED VS HR 30's to 60's,SBP 140's to 150's. Notable labs WBC 3.3, HGb 10.7,BUN/ Creat 15/0.8, K3.3, trop <0.02. Family states since pt had his fall, he has had personality change, slurred speech, emotional lability, hallucinations, confusion as well as new onset Afib. Seen by neurosurgery and underwent craniotomy for drainage and then drain placement. He is increasingly alert and nurse says that he was singing to her this AM. - Current Medication List Current Medications: Active Medications Chlorhexidine Gluconate (Hibiclens For Decolonization -) 1 applic TP HS [facility] Last Admin: 05/04/17 22:08 Dose: 1 applic Clonidine HCl (Catapres Tts Patch -) 0.1 mg TD Q7D@1000 ON [facility] Last Admin: 05/04/17 11:26 Dose: 0.1 mg Diltiazem HCl (Cardizem Injection -) 10 mg IVPUSH Q4H PRN PRN Reason: TACHYCARDIA Last Admin: 05/04/17 00:19 Dose: 10 mg Hydralazine HCl (Apresoline Injection -) 20 mg IVPUSH Q4H PRN PRN Reason: HYPERTENSION Last Admin: 05/05/17 05:37 Dose: 20 mg Pantoprazole Sodium (Protonix 40mg Ivpb (Pre-Docked)) 100 mls @ 200 mls/hr IVPB DAILY [facility] Last Admin: 05/04/17 09:01 Dose: 200 mls/hr Dextrose/Sodium Chloride (D5-1/2ns -) 1,000 mls @ 75 mls/hr IV ASDIR ON [facility] OF [facility] Last Admin: 05/04/17 22:11 Dose: 75 mls/hr Diltiazem HCl 125 mg/ Dextrose 125 mls @ 5 mls/hr IVPB TITR DANNY; 5 MG/HR PRN Reason: Protocol Last Admin: 05/05/17 01:31 Dose: Not Given Amiodarone HCl 450 mg/ (Dextrose) 250 mls @ 33.33 mls/hr IVPB TITR DANNY PRN Reason: 1 MG/MIN Last Admin: 05/05/17 06:11 Dose: 33.33 mls/hr Potassium Phosphate 30 mm/ (Sodium Chloride) 260 mls @ 62.5 mls/hr IVPB ONCE ONE Stop: 05/05/17 13:39 Insulin Aspart (Novolog Vial Sliding Scale -) 0 vial SQ ACHS DANNY PRN Reason: Protocol Last Admin: 05/05/17 06:17 Dose: 4 units Lorazepam (Ativan Injection -) 1 mg IVPUSH Q6H PRN PRN Reason: ANXIETY Last Admin: 05/04/17 22:12 Dose: 1 mg Mupirocin (Bactroban Ointment (For Decolonization) -) 1 applic NS BID ON [facility] Stop: 05/05/17 21:59 Last Admin: 05/04/17 23:13 Dose: 1 applic Ondansetron HCl (Zofran Injection) 4 mg IVPB Q6H PRN PRN Reason: NAUSEA Propranolol HCl (Inderal Injection -) 2 mg IVPUSH Q4H-IV DANNY Last Admin: 05/05/17 05:08 Dose: 2 mg Valproate Sodium (Depacon Injection -) 500 mg IVPB DAILY ON [facility] Last Admin: 05/04/17 09:01 Dose: 500 mg - Objective Vital Signs: Vital Signs Temperature 98.4 F 05/05/17 10:00 Pulse Rate 83 05/05/17 10:00 Respiratory Rate 23 05/05/17 10:00 Blood Pressure 126/94 05/05/17 10:00 O2 Sat by Pulse Oximetry (%) 100 05/05/17 03:07 Neurological: Yes: Other (seen in bed sleeping, and with some effort he was roused and conversant. A bit confused but moving all limbs.) Labs: CBC, BMP 05/05/17 05:30 05/05/17 05:30 INR, PTT INR 1.38 (0.82-1.09) H 05/03/17 05:15 Problem List - Problems (1) Subdural bleeding Code(s): I62.00 - NONTRAUMATIC SUBDURAL HEMORRHAGE, UNSPECIFIED Assessment/Plan monitor as patient wakes up, off sedation/intubation
[2017-05-05] MEDS: DEXTROSE 5%-0.45% SALINE 1,000 ML IV SCH ×2 (11:51→18:42)
--- NOTE | 2017-05-05 11:51 | PN ---
Teaching Attending Note Name of Resident: Jorge Hobbs ATTENDING PHYSICIAN STATEMENT I saw and evaluated the patient. I reviewed the resident's note and discussed the case with the resident. I agree with the resident's findings and plan as documented. SUBJECTIVE: Pt seen and examined in the ICU. Mental status slightly improved from yesterday. Heart rates better controlled but remains hypertensive. On amiodarone and cardizem gtts. OBJECTIVE: Last Vital Signs Temp Pulse Resp BP Pulse Ox 98.4 F 83 23 126/94 100 05/05/17 10:00 05/05/17 10:00 05/05/17 10:00 05/05/17 10:00 05/05/17 03:07 Intake & Output 05/02/17 05/03/17 05/04/17 05/05/17 23:59 23:59 23:59 23:59 Intake Total 2670 3014 2960.4 1359.6 Output Total 945 2500 2000 600 Balance 1725 514 960.4 759.6 Weight 158 lb 15.253 oz 158 lb 15.253 oz 164 lb 7 oz Gen: confused but more alert Heart: irregularly irregular Lung: decreased breath sounds at the bases Abd: soft, nontender Ext: no edema CBC, BMP 05/05/17 05:30 05/05/17 05:30 Active Medications Chlorhexidine Gluconate (Hibiclens For Decolonization -) 1 applic TP HS [facility] Last Admin: 05/04/17 22:08 Dose: 1 applic Clonidine HCl (Catapres Tts Patch -) 0.1 mg TD Q7D@1000 DANNY Last Admin: 05/04/17 11:26 Dose: 0.1 mg Diltiazem HCl (Cardizem Injection -) 10 mg IVPUSH Q4H PRN PRN Reason: TACHYCARDIA Last Admin: 05/04/17 00:19 Dose: 10 mg Hydralazine HCl (Apresoline Injection -) 20 mg IVPUSH Q4H PRN PRN Reason: HYPERTENSION Last Admin: 05/05/17 05:37 Dose: 20 mg Pantoprazole Sodium (Protonix 40mg Ivpb (Pre-Docked)) 100 mls @ 200 mls/hr IVPB DAILY [facility] Last Admin: 05/05/17 10:28 Dose: 200 mls/hr Dextrose/Sodium Chloride (D5-1/2ns -) 1,000 mls @ 75 mls/hr IV ASDIR DANNY Last Admin: 05/04/17 22:11 Dose: 75 mls/hr Diltiazem HCl 125 mg/ Dextrose 125 mls @ 5 mls/hr IVPB TITR DANNY; 5 MG/HR PRN Reason: Protocol Last Admin: 05/05/17 01:31 Dose: Not Given Amiodarone HCl 450 mg/ (Dextrose) 250 mls @ 33.33 mls/hr IVPB TITR DANNY PRN Reason: 1 MG/MIN Last Admin: 05/05/17 10:23 Dose: Not Given Potassium Phosphate 30 mm/ (Sodium Chloride) 260 mls @ 62.5 mls/hr IVPB ONCE ONE Stop: 05/05/17 13:39 Insulin Aspart (Novolog Vial Sliding Scale -) 0 vial SQ ACHS DANNY PRN Reason: Protocol Last Admin: 05/05/17 06:17 Dose: 4 units Lorazepam (Ativan Injection -) 1 mg IVPUSH Q6H PRN PRN Reason: ANXIETY Last Admin: 05/04/17 22:12 Dose: 1 mg Mupirocin (Bactroban Ointment (For Decolonization) -) 1 applic NS BID [facility] Stop: 05/05/17 21:59 Last Admin: 05/04/17 23:13 Dose: 1 applic Ondansetron HCl (Zofran Injection) 4 mg IVPB Q6H PRN PRN Reason: NAUSEA Propranolol HCl (Inderal Injection -) 2 mg IVPUSH Q4H-IV DANNY Last Admin: 05/05/17 10:32 Dose: 2 mg Valproate Sodium (Depacon Injection -) 500 mg IVPB DAILY [facility] Last Admin: 05/05/17 10:28 Dose: 500 mg ASSESSMENT AND PLAN: Acute on Chronic Subdural Hematoma Altered Mental Status Atrial Fibrillation/Flutter with RVR HTN DM CAD h/o CVA - antiepileptics per neuro - rate control with cardizem, amiodarone gtts, transition to PO if can take PO meds - replete lytes - d/c IVF if tolerating PO - aspiration precautions - minimize sedatives - replete lytes - DVT prophylaxis - can monitor on telemetry critical care time spent in reviewing chart, evaluating patient and formulating plan 35 min
[2017-05-05] MEDS ORDERED: INSULIN (NOVOLOG) ASPART 100 UNITS/ML 10ML VIAL ONE ×2 (12:26→17:33)
--- NOTE | 2017-05-05 12:33 | PN ---
Progress Note, RADIO JOURNALIST - Note Progress Note: Looking much better. Able to repeat single words with good intelligibility eg "Hello", but still with unintelligible propositional speech. Snorting intermittently with weakness/dyscoordination of velum suspected. Swallowing seems stronger. Silent aspiration can not be r/o at bedside. Vocal quality fairly euphonic. Singing with good vocal quality and pitch variation, but with jargon output, without pt awareness. Selected Entries 05/04/17 05/04/17 05/04/17 01:00 02:00 04:00 Temperature 98.6 F 98.4 F 98.6 F 05/04/17 05/04/17 05/04/17 07:15 18:00 20:00 Temperature 98.3 F 98 F 98 F 05/04/17 05/05/17 05/05/17 22:00 02:07 03:00 Temperature 98.2 F 98.2 F 99 F 05/05/17 05/05/17 05:35 10:00 Temperature 99 F 98.4 F Laboratory Tests 05/05/17 05:30 WBC 9.5 Suggest: MBS to r/o silent aspiration and initiate most liberal diet with safety , when medically stable. Continue magic cup as tolerated. Crush medication, according to facilities maintenance manager's guidelines and provide in applesauce.
--- NOTE | 2017-05-05 13:00 | PN ---
Progress Note (short form) - Note Progress Note: Chief Complaint: SDH History of Present Illness: awake, slurred speech, able to take po meds today. denies cp, palps, dizziness , sob. + cough Current Medications Chlorhexidine Gluconate (Hibiclens For Decolonization -) 1 applic TP HS DANNY Last Admin: 05/04/17 22:08 Dose: 1 applic Clonidine HCl (Catapres Tts Patch -) 0.1 mg TD Q7D@1000 DANNY Last Admin: 05/04/17 11:26 Dose: 0.1 mg Diltiazem HCl (Cardizem Injection -) 10 mg IVPUSH Q4H PRN PRN Reason: TACHYCARDIA Last Admin: 05/04/17 00:19 Dose: 10 mg Hydralazine HCl (Apresoline Injection -) 20 mg IVPUSH Q4H PRN PRN Reason: HYPERTENSION Last Admin: 05/05/17 05:37 Dose: 20 mg Pantoprazole Sodium (Protonix 40mg Ivpb (Pre-Docked)) 100 mls @ 200 mls/hr IVPB DAILY DANNY Last Admin: 05/05/17 10:28 Dose: 200 mls/hr Dextrose/Sodium Chloride (D5-1/2ns -) 1,000 mls @ 75 mls/hr IV ASDIR DANNY Last Admin: 05/05/17 11:51 Dose: 75 mls/hr Diltiazem HCl 125 mg/ Dextrose 125 mls @ 5 mls/hr IVPB TITR DANNY; 5 MG/HR PRN Reason: Protocol Last Admin: 05/05/17 01:31 Dose: Not Given Amiodarone HCl 450 mg/ (Dextrose) 250 mls @ 33.33 mls/hr IVPB TITR DANNY PRN Reason: 1 MG/MIN Last Admin: 05/05/17 10:23 Dose: Not Given Potassium Phosphate 30 mm/ (Sodium Chloride) 260 mls @ 62.5 mls/hr IVPB ONCE ONE Stop: 05/05/17 13:39 Last Admin: 05/05/17 11:54 Dose: 62.5 mls/hr Insulin Aspart (Novolog Vial Sliding Scale -) 0 vial SQ ACHS DANNY PRN Reason: Protocol Last Admin: 05/05/17 12:28 Dose: 4 units Lorazepam (Ativan Injection -) 1 mg IVPUSH Q6H PRN PRN Reason: ANXIETY Last Admin: 05/04/17 22:12 Dose: 1 mg Mupirocin (Bactroban Ointment (For Decolonization) -) 1 applic NS BID [facility] Stop: 05/05/17 21:59 Last Admin: 05/05/17 10:30 Dose: 1 applic Ondansetron HCl (Zofran Injection) 4 mg IVPB Q6H PRN PRN Reason: NAUSEA Propranolol HCl (Inderal Injection -) 2 mg IVPUSH Q4H-IV [facility] Last Admin: 05/05/17 10:32 Dose: 2 mg Valproate Sodium (Depacon Injection -) 500 mg IVPB DAILY [facility] Last Admin: 05/05/17 10:28 Dose: 500 mg Vital Signs - 24 hr 05/04/17 05/04/17 05/04/17 13:43 14:00 14:35 Temperature Pulse Rate 92 H 78 68 Respiratory 20 18 Rate Blood Pressure 142/92 140/87 140/87 O2 Sat by Pulse Oximetry (%) 05/04/17 05/04/17 05/04/17 15:00 16:00 18:00 Temperature 98 F Pulse Rate 79 72 Respiratory 22 22 Rate Blood Pressure 144/86 124/82 143/72 O2 Sat by Pulse Oximetry (%) 05/04/17 05/04/17 05/04/17 19:00 19:43 20:00 Temperature 98 F Pulse Rate 77 85 Respiratory 20 18 Rate Blood Pressure 161/89 167/107 O2 Sat by Pulse 100 Oximetry (%) 05/04/17 05/04/17 05/04/17 21:00 22:00 22:30 Temperature 98.2 F Pulse Rate 84 94 H 75 Respiratory 22 18 18 Rate Blood Pressure 170/97 193/104 185/95 O2 Sat by Pulse Oximetry (%) 05/04/17 05/05/17 05/05/17 23:00 00:00 00:41 Temperature Pulse Rate 79 81 96 H Respiratory 12 10 L 14 Rate Blood Pressure 108/88 165/104 152/106 O2 Sat by Pulse Oximetry (%) 05/05/17 05/05/17 05/05/17 01:00 01:24 02:00 Temperature Pulse Rate 97 H 88 87 Respiratory 14 14 14 Rate Blood Pressure 183/151 189/94 184/88 O2 Sat by Pulse Oximetry (%) 05/05/17 05/05/17 05/05/17 02:05 02:07 03:00 Temperature 98.2 F 99 F Pulse Rate 78 80 74 Respiratory 16 16 16 Rate Blood Pressure 163/133 142/85 160/84 O2 Sat by Pulse Oximetry (%) 05/05/17 05/05/17 05/05/17 03:07 04:00 05:00 Temperature Pulse Rate 75 88 88 Respiratory 14 18 Rate Blood Pressure 157/75 170/111 O2 Sat by Pulse 100 Oximetry (%) 05/05/17 05/05/17 05/05/17 05:10 05:35 06:00 Temperature 99 F Pulse Rate 99 H 74 74 Respiratory 23 16 18 Rate Blood Pressure 183/102 192/89 148/88 O2 Sat by Pulse Oximetry (%) 05/05/17 05/05/17 05/05/17 07:00 08:00 10:00 Temperature 98.4 F Pulse Rate 96 H 84 83 Respiratory 18 20 23 Rate Blood Pressure 158/96 172/76 126/94 O2 Sat by Pulse Oximetry (%) Intake & Output 05/03/17 05/04/17 05/05/17 05/06/17 07:59 07:59 07:59 07:59 Intake Total 2420 2904.4 3179.6 0 Output Total 2200 1600 1900 Balance 220 1304.4 1279.6 0 Weight 158 lb 15.253 oz 164 lb 7 oz Constitutional: Yes: Well Nourished, No Distress, Calm Cardiovascular: Yes: Regular Rate and Rhythm, S1, S2. No: JVD, Gallop, Murmur Respiratory: Yes: trace rales (not taking deep breaths). No: Accessory Muscle Use, Rales, Wheezes Extremities: No: Cold Edema: No Neurological: Yes: Alert. No: Seizure Psychiatric: No: Agitated Labs: CBC, BMP 05/05/17 05:30 05/05/17 05:30 Laboratory Tests 05/05/17 05:30 Magnesium 2.1 - ....Imaging EKG: Other (tele: intermittent rate controlled afib/sr/wenckebach Assessment/Plan Echo 04/2017: Mild conc lvh. grossly nl lv fn. tds for rwma. nl rv function. mild-mod tr. rvsp 30-40. < 1 cm pericardial effusion, not hemodynamically significant. 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 Hospital course notable for new onset atrial flutter with slow ventricular conduction. New onset atrial flutter - Not a candidate for AC due to recent frequent falls, the current fall resulting in subdural hematoma - echo with grossly normal lv function. - on admit Had svr to 40's initially (Had been on coreg and clonidine at home)-- suspect initial bradycardia was due to home meds plus increased ICP - rapid AFL rates once home meds held, requiring diltiazem gtt, then required addition of amiodarone drip for rapid HRs on diltiazem. - 05/04: remains rapid in AFL with 2:1 A-V conduction. increased amio to 1 mg/ min and given dose of propranolol 2mg IVP x1, and HR decreased to 70s with variable AFL conduction. --> cont present amio rate, started standing propranolol 2mg IVP q4H, prn amiodarone boluses as needed - 05/05 remains rate controlled. intermittently in SR/Wenckebach. Cleared to take PO meds. Has been on amiodarone drip since 05/03 --> will change to maintenance dosing 200 mg po daily. Transition off diltiazem drip and start po regimen of diltiazem 60 mg QID and propanolol 40 mg tid. h/o multiple falls, now with fall and SDH - s/p L craniotomy for SDH--mgmt per neurosurgery - Ongoing managment of bp/hr as mentioned. HTN - required nicardipine gtt over weekend, now off - bp currently well controlled, HR control regimen as above - tight bp control to reduce risk of further ICH CAD - prior details uncertain, no recent PCI - Patient with multiple falls and subdural hematoma on ASA --> may not be able to continue this unfortunately, as risks of recurrent falls and ICH >> benefits. cont holding ASA for now, reassess later (requires outpt cardio f/u also to clarify prior stent history--if no stents, would definitely stop ASA here) - con't statin when able to take po. - no signs acs - ce's neg x 2. ekg without acute ischemic changes. CVA. - Not a candidate for AC or ASA at this time as mentioned. statin once acute issues resolve and able to take po. est crit care time in mgmt of potentially life-threatening conditions = 38 min
--- NOTE | 2017-05-05 13:42 | PATH ---
Surgical Pathology Report Patient Name: LAYO MILLER Med. Rec. #: [id number] /Age/Gender: 1940 (Age: 76) / M Account: [id number] [facility] Taken: 05/01/2017 Received: 05/04/2017 Reported: 05/05/2017 Physicians: Vimal Ackerman M.D. Specimen(s) Received SUBDURAL BLOOD Clinical History Subdural hematoma Final Diagnosis SUBDURAL BLOOD, EVACUATION: FRESH AND CLOTTED BLOOD. Electronically Signed Kris Hood M.D. Gross Description Received in formalin labeled "subdural blood" is a 0.4 x 0.4 x 0.1 cm aggregate of brown tissue fragments, consistent with blood clot. The specimen is submitted in toto in one cassette. 05/04/201705/04/2017
[2017-05-05] MEDS: AMIODARONE HCL 200 MG TABLET (FP) PO SCH (13:54)
[2017-05-05] MEDS: dilTIAZem HCL 60 MG TABLET (FP) PO SCH ×3 (13:54→23:58)
[2017-05-05] MEDS: PROPRANOLOL HCL 40 MG TABLET PO SCH ×2 (15:20→22:34)
--- NOTE | 2017-05-05 15:37 | PN ---
Teaching Attending Note Name of Resident: Mulugeta Waters ATTENDING PHYSICIAN STATEMENT I saw and evaluated the patient. I reviewed the resident's note and discussed the case with the resident. I agree with the resident's findings and plan as documented. SUBECTIVES events over night notable for persistent HTN. OBJECTIVE: NAD, awake , more alert compared to yesterday, garbled speech, partial response to commands HEENT: EOMI, round equal pupils 3 mm in diameter , L scalp surgical incision , with no bleeding . no JVD CV: irreg irreg . Lungs : CTAB ext : no edema Abd : soft, NT, ND , nl BS Neuro : unable to fully assess. 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 no rigidity . 1+ knee jerk and biceps reflexes b/l ASSESSMENT AND PLAN: 76 y/o man with h/o CAD, HTN, DM II, CVA , and other medical problems who presented with confusion and urinary incontinence and was found to have L subdural hematoma 1- Subdural hematoma , due to fall. s/p Evacuation 05/01 . more awake today - cont neuro checks - cont valproic acid for seizure prophylaxis - tight blood pressure control SBP goal 120-160 2- A flutter and A fib with RVR. was hard to control. HR improved on IV propranolol - appreciate Card help. switch to po amio, cardizem and propranolol - can not anticoagulate due to ICH 3- Uncontrolled HTN: - PO propranolol, and cardizem. - clonidine patch stopped by card 4- Dm : hold oral meds - SSI 6- H/o CVA and CAD, off asa due to ICH 7- Nutrition , speech eval with improved response. po meds and majic cup. needs MBS SCDs
--- NOTE | 2017-05-05 16:00 | PN ---
Physical Exam: SUBJECTIVE: Patient seen and examined, EMR consulted. Overnight pt became hypertensive requiring an increase in hydralazine to 20mg q4h PRN which was administered every 4h. Per nurse, pt is more alert than yesterday. When speaking to pt this am, he was difficult to arouse, even with sternal rub. He did not open his eyes when asked, but did squeeze my hands when directed. Pt unable to report any complaints. OBJECTIVE: Vital Signs Period Temp Pulse Resp BP Sys/Cortés Pulse Ox Last 24 Hr 98 F-99 F 72-99 10-23 108-193/72-151 100-100 GENERAL: The patient is sleeping and snoring in bed, unable to be woken up HEAD: incision with sutures on left side of scalp, clean, dry, and intact ENT: Ears normal, nares patent, oropharynx clear without exudates, moist mucous membranes. NECK: Trachea midline, full range of motion, supple. LUNGS: Breath sounds equal, clear to auscultation bilaterally, no wheezes, no crackles, no accessory muscle use. HEART: irregularly irregular, no m/r/g ABDOMEN: Soft, nontender, nondistended, normoactive bowel sounds, no guarding, no rebound, no hepatosplenomegaly, no masses. de oliveira in place. EXTREMITIES: 2+ pulses, warm, well-perfused, no edema. NEUROLOGICAL: strength is 5/5 in left hand, 4/5 in right hand. Pt not cooperating when asked to lift legs or arms. Unable to assess sensation, mental status, cerebellar signs. SKIN: Warm, dry, normal turgor, no rashes or lesions noted Laboratory Results - last 24 hr 05/01/17 05/04/17 05/04/17 16:00 17:04 23:19 WBC RBC Hgb Hct MCV MCH MCHC RDW Plt Count MPV Neutrophils % Lymphocytes % Monocytes % Eosinophils % Basophils % Sodium Potassium Chloride Carbon Dioxide Anion Gap BUN Creatinine POC Glucometer 231.09969 143.69331 Random Glucose Calcium Phosphorus Magnesium Blood Type O POSITIVE Antibody Screen Negative Crossmatch IS Only See Detail 05/05/17 05/05/17 05/05/17 05:30 05:30 06:15 WBC 9.5 RBC 5.55 Hgb 12.6 Hct 39.7 MCV 71.7 L MCH 22.7 L MCHC 31.7 L RDW 16.3 H Plt Count 148 MPV 9.8 Neutrophils % 79.4 Lymphocytes % 7.7 L D Monocytes % 12.4 H Eosinophils % 0.2 Basophils % 0.3 Sodium 137 Potassium 3.6 Chloride 104 Carbon Dioxide 24 Anion Gap 9 BUN 10 D Creatinine 0.7 POC Glucometer [phone] Random Glucose 211 H Calcium 8.2 L Phosphorus 2.1 L Magnesium 2.1 Blood Type Antibody Screen Crossmatch IS Only Active Medications Generic Name Dose Route Start Last Admin Trade Name Freq PRN Reason Stop Dose Admin Amiodarone HCl 200 mg 05/05/17 13:15 05/05/17 13:54 Cordarone - PO 200 mg DAILY DANNY Administration Chlorhexidine Gluconate 1 applic 04/30/17 22:00 05/04/17 22:08 Hibiclens For Decolonization - TP 1 applic HS DANNY Administration Diltiazem HCl 10 mg 05/03/17 17:55 05/04/17 00:19 Cardizem Injection - IVPUSH 10 mg Q4H PRN Administration TACHYCARDIA Diltiazem HCl 60 mg 05/05/17 13:15 05/05/17 13:54 Cardizem - PO 60 mg Q6HPO DANNY Administration Hydralazine HCl 20 mg 05/05/17 05:33 05/05/17 05:37 Apresoline Injection - IVPUSH 20 mg Q4H PRN Administration HYPERTENSION Pantoprazole Sodium 100 mls @ 200 mls/hr 05/02/17 10:00 05/05/17 10:28 Protonix 40mg Ivpb (Pre-Docked) IVPB 200 mls/hr DAILY DANNY Administration Dextrose/Sodium Chloride 1,000 mls @ 75 mls/hr 05/03/17 18:15 05/05/17 11:51 D5-1/2ns - IV 75 mls/hr ASDIR DANNY Administration Insulin Aspart 0 vial 05/03/17 14:17 05/05/17 12:28 Novolog Vial Sliding Scale - SQ 4 units ACHS DANNY Administration Protocol Lorazepam 1 mg 05/04/17 15:55 05/04/17 22:12 Ativan Injection - IVPUSH 1 mg Q6H PRN Administration ANXIETY Mupirocin 1 applic 04/30/17 22:00 05/05/17 10:30 Bactroban Ointment (For Decolonization) - NS 05/05/17 21:59 1 applic BID DANNY Administration Ondansetron HCl 4 mg 05/01/17 17:24 Zofran Injection IVPB Q6H PRN NAUSEA Propranolol HCl 40 mg 05/05/17 14:00 05/05/17 15:20 Inderal - PO 40 mg TID DANNY Administration Valproate Sodium 500 mg 05/01/17 19:30 05/05/17 10:28 Depacon Injection - IVPB 500 mg DAILY DANNY Administration ASSESSMENT/PLAN: 76 year old man with a history of cervical stenosis, CAD, CVA, HTN, type 2 DM who presented to the ER with confusion, slurred speech, urinary incontinence after a fall 2 months ago, found to have a subdural hematoma on MRI. 1. Subdural hematoma, subacute/chronic - Aspirin held - Continue Depacot for seizure prophylaxis - s/p craniotomy with drain placement 05/01 - Extubated 05/02 -continue neuro checks and tight SBP control (120-160) 2. Atrial flutter with RVR - HR improved on IV propranolol - per cardio recs, switch to po cardizem, amiodarone, and propranolol - No anticoagulation secondary to SDH - pt transferred to telemetry 3. Hypokalemia and hypophosphatemia -K of 3.6 and Phos of 2.1 today, repleted 4. Hypomagnesemia - 2.1 today, resolved 5. CAD - cont statin now that tolerating po 6. HTN - po propranolol, clonidine patch 0.1 q 72 h, cardizem gtt, IV PRN meds 7. Type 2 diabetes mellitus - Metformin and glipizide held - Continue Novolog sliding scale 8. History of CVA - Aspirin held secondary to ICH 9. History of cervical stenosis 10. Stress ulcer prophylaxis - On Protonix 11. DVT prophylaxis - SCDs 12. Speech and swallow - pt able to tolerate po, will go for barium swallow #Dispo -needs outpt cardiology f/u to clarify prior stent hx -- Mulugeta Waters MD PGY1 Problem List - Problems (1) Atrial fibrillation Code(s): I48.91 - UNSPECIFIED ATRIAL FIBRILLATION (2) Diabetes mellitus Code(s): E11.9 - TYPE 2 DIABETES MELLITUS WITHOUT COMPLICATIONS Visit type - Emergency Visit Emergency Visit: Yes ED Registration Date: 04/30/17 Care time: The patient presented to the Emergency Department on the above date and was hospitalized for further evaluation of their emergent condition. - New Patient This patient is new to me today: No - Critical Care Critical Care patient: No
[2017-05-05] MEDS ORDERED: HALOPERIDOL 1 MG TABLET (FP) PO ONE (16:32)
[2017-05-05] MEDS: CHLORHEXIDINE GLUCONATE 4% CLEANSER FOR DECOLONIZATION TP SCH (22:34)
[2017-05-06] MEDS: dilTIAZem HCL 60 MG TABLET (FP) PO SCH ×4 (00:05→17:33)
[2017-05-06] MEDS: hydrALAZINE HCL 20 MG/ML VIAL IVPUSH PRN ×2 (03:24→10:03)
[2017-05-06] MEDS: PROPRANOLOL HCL 40 MG TABLET PO SCH (06:01)
[2017-05-06] MEDS: INSULIN SLIDING SCALE (NOVOLOG) 1 VIAL SQ SCH ×4 (06:06→21:57)
[2017-05-06 06:40] LABS: BASOPHIL 0.4 % (0-2.0); MCH 23.4 pg (25.7-33.7); MCHC 32.3 g/dl (32.0-35.9); MEAN CELL VOLUME 72.3 fl (80-96); MEAN PLT VOLUME 10.9 fl (7.5-11.1); NEUTROPHILS 69.5 % (42.8-82.8); RDW 16.1 % (11.9-15.9); WHITE BLOOD COUNT 7.7 K/mm3 (4.0-10.0)
[2017-05-06 06:51] LABS: INR 1.2 (0.82-1.09); PROTHROMBIN TIME (PATIENT) 13.2 SEC (9.98-11.88)
[2017-05-06 06:54] LABS: ACTIVATED PTT 29.2 SECONDS (26.9-34.4); ALK PHOS 62 U/L (45-117); ANION GAP 9 (8-16); BILIRUBIN,TOTAL 1.2 mg/dL (0.2-1.0); CALCIUM 7.9 mg/dL (8.5-10.1); CO2 25 mmol/L (21-32); CREATININE 0.7 mg/dL (0.7-1.3); GLUCOSE,RANDOM 170 mg/dL (74-106); PHOSPHOROUS 2.3 mg/dL (2.5-4.9); SGOT/AST 18 U/L (15-37); SGPT/ALT 20 U/L (12-78); TOT PROT 6.8 g/dl (6.4-8.2)
--- NOTE | 2017-05-06 08:02 | PN ---
Physical Exam: SUBJECTIVE: Patient seen and examined by me this AM - Mental status continue to improve, less sedated. Appears to comprehend questions and answer with basic yes/no. - No major overnight events. - Brief episode of hypertension overnight to 180s. Received Hydralazine 20mg IV and corrected to 140s. - Nicolás down to 50s throughout morning. Amio, cardizem and Inderal held. - Puree diet approved. Modified barium swallow cancelled today due to bradycardia. - Received Hydralazine 20mg IV dose for HTN w. systolic to 160s this AM. Corrected to 140s. - OOB today - Will speak with family to determine baseline functional status/ambulation. OBJECTIVE: Intake & Output 05/03/17 05/04/17 05/05/17 05/06/17 23:59 23:59 23:59 23:59 Intake Total 3014 2960.4 2463.6 1000 Output Total 2500 2000 1600 700 Balance 514 960.4 863.6 300 Weight 72.1 kg 74.588 kg 74.531 kg Vital Signs Period Temp Pulse Resp BP Sys/Cortés Pulse Ox Last 24 Hr 98 F-98.7 F 52-88 14-23 126-180/59-118 100-100 GENERAL: Patient alert and interactive with interviewer. Able to answer questions with yes/no. Mildly aphasic/dysarthric. HEAD: L side craniotomy suture line, w no erythema or drainage. No other lesions noted ENT: Ears normal, nares patent, oropharynx clear without exudates, moist mucous membranes. NECK: Trachea midline, full range of motion, supple. LUNGS: Bibasilar crackles. BL breath sounds equal in all camarlilo. HEART: Irregular irregular, S1, S2 without murmur, rub or gallop. ABDOMEN: Soft, nontender, nondistended, normoactive bowel sounds, no guarding, no rebound, no hepatosplenomegaly, no masses. EXTREMITIES: 2+ pulses, warm, well-perfused, no edema. NEUROLOGICAL: Difficult to assess given MS. 4/5 strength in R leg, 5/5 in L leg. Bilateral bead preparer strength 5/5. Cranial nerves appear grossly intact II-XII. Laboratory Results - last 24 hr CBC, BMP 05/06/17 05:20 05/06/17 05:20 05/05/17 05/05/1717 12:22 16:41 22:31 WBC RBC Hgb Hct MCV MCH MCHC RDW MPV Neutrophils % Lymphocytes % Monocytes % Eosinophils % Basophils % INR PTT (Actin FS) Sodium Potassium Chloride Carbon Dioxide Anion Gap BUN Creatinine Creat Clearance w eGFR POC Glucometer [phone] [phone] Random Glucose Calcium Phosphorus Magnesium Total Bilirubin AST ALT Alkaline Phosphatase Total Protein Albumin 05/06/17 05/06/17 05/06/17 05:20 05:20 05:20 WBC 7.7 RBC 5.29 Hgb 12.4 Hct 38.2 MCV 72.3 L MCH 23.4 L MCHC 32.3 RDW 16.1 H MPV 10.9 D Neutrophils % 69.5 Lymphocytes % 13.5 D Monocytes % 15.6 H Eosinophils % 1.0 D Basophils % 0.4 INR 1.20 H PTT (Actin FS) 29.2 Sodium 138 Potassium 3.7 Chloride 104 Carbon Dioxide 25 Anion Gap 9 BUN 11 Creatinine 0.7 Creat Clearance w eGFR > 60 POC Glucometer Random Glucose 170 H Calcium 7.9 L Phosphorus 2.3 L Magnesium 2.0 Total Bilirubin 1.2 H D AST 18 D ALT 20 D Alkaline Phosphatase 62 Total Protein 6.8 Albumin 3.0 L 05/06/17 06:04 WBC RBC Hgb Hct MCV MCH MCHC RDW MPV Neutrophils % Lymphocytes % Monocytes % Eosinophils % Basophils % INR PTT (Actin FS) Sodium Potassium Chloride Carbon Dioxide Anion Gap BUN Creatinine Creat Clearance w eGFR POC Glucometer [phone] Random Glucose Calcium Phosphorus Magnesium Total Bilirubin AST ALT Alkaline Phosphatase Total Protein Albumin Active Medications Generic Name Dose Route Start Last Admin Trade Name Freq PRN Reason Stop Dose Admin Amiodarone HCl 200 mg 05/05/17 13:15 05/05/17 13:54 Cordarone - PO 200 mg DAILY DANNY Administration Chlorhexidine Gluconate 1 applic 04/30/17 22:00 05/05/17 22:34 Hibiclens For Decolonization - TP 1 applic HS DANNY Administration Diltiazem HCl 10 mg 05/03/17 17:55 05/04/17 00:19 Cardizem Injection - IVPUSH 10 mg Q4H PRN Administration TACHYCARDIA Diltiazem HCl 60 mg 05/05/17 13:15 05/06/17 06:08 Cardizem - PO Not Given Q6HPO DANNY Hydralazine HCl 20 mg 05/05/17 05:33 05/06/17 03:24 Apresoline Injection - IVPUSH 20 mg Q4H PRN Administration HYPERTENSION Pantoprazole Sodium 100 mls @ 200 mls/hr 05/02/17 10:00 05/05/17 10:28 Protonix 40mg Ivpb (Pre-Docked) IVPB 200 mls/hr DAILY DANNY Administration Dextrose/Sodium Chloride 1,000 mls @ 75 mls/hr 05/03/17 18:15 05/05/17 18:42 D5-1/2ns - IV Not Given ASDIR DANNY Insulin Aspart 0 vial 05/03/17 14:17 05/06/17 06:06 Novolog Vial Sliding Scale - SQ 2 units ACHS DANNY Administration Protocol Ondansetron HCl 4 mg 05/01/17 17:24 Zofran Injection IVPB Q6H PRN NAUSEA Propranolol HCl 40 mg 05/05/17 14:00 05/06/17 06:01 Inderal - PO 40 mg TID DANNY Administration Valproate Sodium 500 mg 05/01/17 19:30 05/05/17 10:28 Depacon Injection - IVPB 500 mg DAILY DANNY Administration micro: CSF culture neg ekg (05/04): Aflutter w/ RVR. Normal axis. Irregularly irregular rate. No acute ischemic changes tele: Occasional runs of aFib with RVR ASSESSMENT/PLAN: 76 year old man with a history of cervical stenosis, CAD, CVA, HTN, type 2 DM who presented to the ER with confusion, slurred speech, urinary incontinence after a fall 2 months ago. He was found to have a subdural hematoma on MRI. HR well controlled on amio, inderal PO, however AM episodes of bradycardia to 50s, so amio/cardizem/inderal held. Will switch to home meds and held carvedilol until bradycardia improves. Hydralazine 20mg IV given in overnight and in AM for persistent HTN. Mental status continues to improve, able to answer questions in affirmative/negative with mild dysarthria/aphasia. Plan to transfer to Telemetry floor given clinical improvement. Approved for puree diet and PO meds. #Neuro OOB today ASA held Extubated on 05/02 S/p craniotomy w/ drain Depacon for seizure PPX Haldol 1mg PRN PO for sedation Trend MS. Continues to improve #Cardiac HR better controlled on amio, cardizem, inderal. Episodes of persistent bradycardia in AM, so current regimen held. Will switch to home meds. Amiodarone held cardizem held Diltiazem 20mg IV q4h prn for HTN Propanol held Rate control with PO cardizem, propranolol Resume home losartan-HCTZ combo daily, catapress patch BPs continues to trend upward. Hydralazine 20mg IV PRN for BP >160 #Pulmonary - 2L NC for O2 support. #ID No elevated WBC, afebrile #Renal monitor lytes HypoMg 2.2. Repleted this AM. #Heme SCDs for DVT PPX Hold AC until neurosurg confirms #GI Zofran 4mg q6 for nausea Protonix 40mg daily #Endocrine Insulin SS Metformin, glipizide held FEN Fluids: D5 NS 40ml Electolytes: Monitor lytes Nutrition: Puree diet. PO meds Dispo: Full code. Plan for transfer to Telemetry. Jorge Hobbs, PGY1 Plan to be discussed w/ attending, Dr. Beauchamp Visit type - Emergency Visit Emergency Visit: No - New Patient This patient is new to me today: No - Critical Care Critical Care patient: No Total Critical Care Time (in minutes): 35 Critical Care Statement: The care of this patient involved high complexity decision making to prevent further life threatening deterioration of the patient 's condition and/or to evaluate & treat vital organ system(s) failure or risk of failure.
--- NOTE | 2017-05-06 08:07 | PN ---
Progress Note (short form) - Note Progress Note: NEUROSURGERY F/U POD #5 In ICU PE: Tmax 98.6, AF; SBP and HR more stabilized Scalp incision dry without drainage More awake B pupils 3 mm to 2 mm; face symmetric; tongue midline Moving B UE/LE at least 4-/5; R side slightly weaker Subdural fluid culture - gram stain negative, bacterial culture negative Cont anticonvulsant for sz prophylaxis Cardiology f/u for BP and HR optimization PT/ROM For inpatient rehab when cardiac condition stabilized D/C scalp sutures in 3-5 days
[2017-05-06 08:13] LABS: PLATELET COMMENT2 FEW LARGE PLTS; PLATELET COUNT 166 K/MM3 (134-434); PLATELET ESTIMATE ADEQUATE (NORMAL)
[2017-05-06] MEDS: AMIODARONE HCL 200 MG TABLET (FP) PO SCH (09:32)
[2017-05-06] MEDS: VALPROATE SODIUM 500 MG/5 ML VIAL IVPB SCH (09:32)
[2017-05-06] MEDS ORDERED: POTASSIUM PHOSPHATE 30 MM in SODIUM CHLORIDE 250 ML IVPB ONE (10:00)
[2017-05-06] MEDS: PANTOPRAZOLE SODIUM 100 ML IVPB SCH (10:53)
--- NOTE | 2017-05-06 10:54 | PN ---
Progress Note, [employer] - Note Progress Note: Pt more verbal today, with increased accuracy of social speech, with paraphasic errors noted. Looks comfortable. No gross congestion. NPO except for magic cup suggested. Continue magic cup/ mbs when medically stable. If mbs can not be done today, trial of dys puree, honey until mbs done. Monitor tolerance.
--- NOTE | 2017-05-06 10:58 | PN ---
Teaching Attending Note Name of Resident: Jorge Hobbs ATTENDING PHYSICIAN STATEMENT I saw and evaluated the patient. I reviewed the resident's note and discussed the case with the resident. I agree with the resident's findings and plan as documented. SUBJECTIVE: Pt seen and examined in the ICU. Mental status continues to improve. Denies any headache, shortness of breath or chest pain. Remains hypertensive. OBJECTIVE: Last Vital Signs Temp Pulse Resp BP Pulse Ox 98.2 F 59 L 18 165/83 100 05/06/17 10:00 05/06/17 10:00 05/06/17 10:00 05/06/17 10:00 05/06/17 08:00 Intake & Output 05/03/17 05/04/17 05/05/17 05/06/17 23:59 23:59 23:59 23:59 Intake Total 3014 2960.4 2463.6 1000 Output Total 2500 2000 1600 700 Balance 514 960.4 863.6 300 Weight 158 lb 15.253 oz 164 lb 7 oz 164 lb 5 oz Gen: more alert, awake Heart: RRR Lung: decreased breath sounds at the bases Abd: soft, nontender Ext: trace edema CBC, BMP 05/06/17 05:20 05/06/17 05:20 Active Medications Amiodarone HCl (Cordarone -) 200 mg PO DAILY [facility] Last Admin: 05/06/17 09:32 Dose: 200 mg Chlorhexidine Gluconate (Hibiclens For Decolonization -) 1 applic TP HS [facility] Last Admin: 05/05/17 22:34 Dose: 1 applic Diltiazem HCl (Cardizem Injection -) 10 mg IVPUSH Q4H PRN PRN Reason: TACHYCARDIA Last Admin: 05/04/17 00:19 Dose: 10 mg Diltiazem HCl (Cardizem -) 60 mg PO Q6HPO DANNY Last Admin: 05/06/17 06:08 Dose: Not Given Hydralazine HCl (Apresoline Injection -) 20 mg IVPUSH Q4H PRN PRN Reason: HYPERTENSION Last Admin: 05/06/17 10:03 Dose: 20 mg Pantoprazole Sodium (Protonix 40mg Ivpb (Pre-Docked)) 100 mls @ 200 mls/hr IVPB DAILY [facility] Last Admin: 05/06/17 10:53 Dose: 200 mls/hr Dextrose/Sodium Chloride (D5-1/2ns -) 1,000 mls @ 75 mls/hr IV ASDIR DANNY Last Admin: 05/05/17 18:42 Dose: Not Given Potassium Phosphate 30 mm/ (Sodium Chloride) 260 mls @ 62.5 mls/hr IVPB ONCE ONE Stop: 05/06/17 14:09 Insulin Aspart (Novolog Vial Sliding Scale -) 0 vial SQ ACHS DANNY PRN Reason: Protocol Last Admin: 05/06/17 06:06 Dose: 2 units Ondansetron HCl (Zofran Injection) 4 mg IVPB Q6H PRN PRN Reason: NAUSEA Propranolol HCl (Inderal -) 40 mg PO TID [facility] Last Admin: 05/06/17 06:01 Dose: 40 mg Valproate Sodium (Depacon Injection -) 500 mg IVPB DAILY [facility] Last Admin: 05/06/17 09:32 Dose: 500 mg ASSESSMENT AND PLAN: Acute on Chronic Subdural Hematoma s/p Craniotomy/Hematoma Evacuation Altered Mental Status improving Atrial Fibrillation/Flutter with RVR HTN DM CAD h/o CVA - antiepileptics per neuro - rate control with PO cardizem, propranolol - resume home losartan, HCTZ - replete lytes - d/c IVF if tolerating PO - aspiration precautions - minimize sedatives - replete lytes - DVT prophylaxis - can monitor on telemetry
--- NOTE | 2017-05-06 11:10 | OP ---
DATE OF OPERATION: 05/01/2017 PREOPERATIVE DIAGNOSES: 1. Dlttc-jz-vcbiuex left hemispheric subdural hematoma with mass effect. 2. Hypertension. 3. Coronary artery disease. 4. Atrial fibrillation. 5. Diabetes. POSTOPERATIVE DIAGNOSES: 1. Keezm-of-oxormgu left hemispheric subdural hematoma with mass effect. 2. Hypertension. 3. Coronary artery disease. 4. Atrial fibrillation. 5. Diabetes. PROCEDURE: 1. Left frontoparietal craniotomy for evacuation of subdural hematoma and placement of subdural drain (34597). 2. Microsurgical dissection with operating microscope and microsurgical technique (23434). ATTENDING SURGEON: Vimal Ackerman MD ALARM SIGNAL OPERATOR: SCOOTER Pavon ANESTHESIA: General endotracheal. ANESTHESIOLOGIST: Marjan Sinclair MD ESTIMATED BLOOD LOSS: 400 mL FINDINGS: A subdural, ulygk-[id number] blood collection with massive cortical mass effect. INDICATIONS: The patient is a 76-year-old male with a history of hypertension, coronary artery disease status post stent placement, who was brought in with altered mental status over the past couple months. His gait has also gradually deteriorated over the past month or two. He has been falling at times. A CT scan demonstrated a moderate-size, left-sided subdural hematoma with cortical mass effect. Because of his neurological deterioration, his family has now consented for a left frontoparietal craniotomy for drainage of subdural hematoma. The patient was not able to consent for himself because of some baseline dementia as well as altered mental status. Risks of surgery include, but are not limited to, bleeding, infection, stroke, seizure, coma, , DVT/PE, MN and stroke. The patient's family understands the indications for the procedure, the procedure in detail, risks and benefits and alternatives for treatment of his condition, including observation only, and wishes to proceed with surgery. No guarantees were given for a favorable outcome. PROCEDURE IN DETAIL: After the patient was taken to the operating room, he was placed in supine position. After general anesthesia was induced and appropriate lines were placed, he was turned over to the right lateral decubitus position with the left side up. An axillary roll was also placed. He was secured in lateral position with a mejia bag. All pressure points were checked and padded. The left frontoparietal region was clipped and then cleaned with alcohol and prepped with Betadine. An approximately 8-cm incision was planned over the frontoparietal junction. After the patient was sterilely prepped and draped, the incision was marked and infiltrated with 5 mL of 0.5% Xylocaine with epinephrine. The scalp incision was opened with a number 10 blade. The cerebellar retractors were inserted. Two small bur holes were opened with a high-speed pneumatic drill, one anteriorly and one posteriorly. The underlying dura was dissected free. The high-speed craniotome was used to create a craniotomy bone flap. The dura was then opened in a straight xindcmaa-ix-twcykwmgl fashion and carlo'd both anteriorly and posteriorly to gain the best subdural exposure. The underlying fluid came out under relatively high pressure and it was drained. Some acute subdural blood was also found. All 4 quadrants of the exposure were irrigated with plain saline. It was irrigated until the fluid was clear. The underlying brain cortex appeared relatively healthy. It was pulsating nicely with CSF pulsation now that the decompression was completed. This portion of the decompression was performed with the use of the operative microscope as well as illumination and magnification. Microsurgical techniques were utilized. At this point, a number 12-Kinyarwanda red rubber catheter was cut to appropriate length, which came out through a separate stab incision anteriorly. At this point, there was no significant bleeding noted. Excellent hemostasis was obtained with Gelfoam and bipolar electrocautery. The craniotomy bone flap was secured with the CranioFix titanium system. Three 11-mm devices were utilized. After the wound was copiously irrigated, the galea was closed with 3-0 Vicryl suture, and the skin was closed with 3-0 nylon interrupted suture. A sterile head wrap was applied. The drain was connected to a sterile bile vat. The drain appeared to be functioning at the end of the procedure. The patient remained intubated and was transported to the ICU in critical condition. It is planned for him to be extubated the morning after surgery. All needle and lap counts were correct. The patient received one dose of 1 gm of Ancef prior to the incision. The OR timeout procedure was followed. The patient's family was updated as to the patient's clinical condition as well as the intraoperative findings. Olegario [id number] MTDD
--- NOTE | 2017-05-06 13:06 | PN ---
Physical Exam: SUBJECTIVE: Patient seen and examined, EMR consulted. No acute events overnight. BP better controlled. This morning, pt more alert and responsive. Pt denies pain anywhere. OBJECTIVE: Vital Signs Period Temp Pulse Resp BP Sys/Cortés Pulse Ox Last 24 Hr 98 F-98.7 F 52-88 14-23 127-180/59-118 100-100 GENERAL: AAOx2 (name and place), lying in bed sleeping, more responsive to questions and commands than yesterday HEAD: incision site clean, dry, and intact EYES: pupils equal and reactive to light NECK: Trachea midline, full range of motion, supple. LUNGS: Breath sounds equal, rhonchi, no rales HEART: irregularly irregular, no m/r/g ABDOMEN: Soft, nontender, nondistended, normoactive bowel sounds, no guarding, no rebound, no hepatosplenomegaly, no masses. EXTREMITIES: 2+ pulses, warm, well-perfused, no edema. SCDs on legs NEUROLOGICAL: pt not following many commands making CN assessment difficult SKIN: Warm, dry, normal turgor, no rashes or lesions noted Laboratory Results - last 24 hr 05/05/17 05/05/17 05/05/17 12:22 16:41 22:31 WBC RBC Hgb Hct MCV MCH MCHC RDW Plt Count MPV Neutrophils % Lymphocytes % Monocytes % Eosinophils % Basophils % Platelet Estimate Platelet Comment INR PTT (Actin FS) Sodium Potassium Chloride Carbon Dioxide Anion Gap BUN Creatinine Creat Clearance w eGFR POC Glucometer [phone] 140.45500 Random Glucose Calcium Phosphorus Magnesium Total Bilirubin AST ALT Alkaline Phosphatase Total Protein Albumin 05/06/17 05/06/17 05/06/17 05:20 05:20 05:20 WBC 7.7 RBC 5.29 Hgb 12.4 Hct 38.2 MCV 72.3 L MCH 23.4 L MCHC 32.3 RDW 16.1 H Plt Count 166 MPV 10.9 D Neutrophils % 69.5 Lymphocytes % 13.5 D Monocytes % 15.6 H Eosinophils % 1.0 D Basophils % 0.4 Platelet Estimate Adequate Platelet Comment Few large plts INR 1.20 H PTT (Actin FS) 29.2 Sodium 138 Potassium 3.7 Chloride 104 Carbon Dioxide 25 Anion Gap 9 BUN 11 Creatinine 0.7 Creat Clearance w eGFR > 60 POC Glucometer Random Glucose 170 H Calcium 7.9 L Phosphorus 2.3 L Magnesium 2.0 Total Bilirubin 1.2 H D AST 18 D ALT 20 D Alkaline Phosphatase 62 Total Protein 6.8 Albumin 3.0 L 05/06/17 05/06/17 06:04 11:08 WBC RBC Hgb Hct MCV MCH MCHC RDW Plt Count MPV Neutrophils % Lymphocytes % Monocytes % Eosinophils % Basophils % Platelet Estimate Platelet Comment INR PTT (Actin FS) Sodium Potassium Chloride Carbon Dioxide Anion Gap BUN Creatinine Creat Clearance w eGFR POC Glucometer 196.26363 131.39321 Random Glucose Calcium Phosphorus Magnesium Total Bilirubin AST ALT Alkaline Phosphatase Total Protein Albumin Active Medications Generic Name Dose Route Start Last Admin Trade Name Freq PRN Reason Stop Dose Admin Amiodarone HCl 100 mg 05/07/17 10:00 Cordarone - PO DAILY [facility] Chlorhexidine Gluconate 1 applic 04/30/17 22:00 05/05/17 22:34 Hibiclens For Decolonization - TP 1 applic HS DANNY Administration Diltiazem HCl 10 mg 05/03/17 17:55 05/04/17 00:19 Cardizem Injection - IVPUSH 10 mg Q4H PRN Administration TACHYCARDIA Diltiazem HCl 60 mg 05/06/17 12:00 05/06/17 12:04 Cardizem - PO Not Given Q6HPO DANNY Hydralazine HCl 20 mg 05/05/17 05:33 05/06/17 10:03 Apresoline Injection - IVPUSH 20 mg Q4H PRN Administration HYPERTENSION Pantoprazole Sodium 100 mls @ 200 mls/hr 05/02/17 10:00 05/06/17 10:53 Protonix 40mg Ivpb (Pre-Docked) IVPB 200 mls/hr DAILY DANNY Administration Dextrose/Sodium Chloride 1,000 mls @ 75 mls/hr 05/03/17 18:15 05/05/17 18:42 D5-1/2ns - IV Not Given ASDIR DANNY Potassium Phosphate 30 mm/ 260 mls @ 62.5 mls/hr 05/06/17 10:00 05/06/17 11:20 Sodium Chloride IVPB 05/06/17 14:09 62.5 mls/hr ONCE ONE Administration Insulin Aspart 0 vial 05/03/17 14:17 05/06/17 11:10 Novolog Vial Sliding Scale - SQ Not Given ACHS DANNY Protocol Ondansetron HCl 4 mg 05/01/17 17:24 Zofran Injection IVPB Q6H PRN NAUSEA Propranolol HCl 40 mg 05/06/17 14:00 Inderal - PO TID DANNY Valproate Sodium 500 mg 05/01/17 19:30 05/06/17 09:32 Depacon Injection - IVPB 500 mg DAILY DANNY Administration ASSESSMENT/PLAN: 76 year old man with a history of cervical stenosis, CAD, CVA, HTN, type 2 DM who presented to the ER with confusion, slurred speech, urinary incontinence after a fall 2 months ago, found to have a subdural hematoma on MRI, s/p hematoma evacuation. 1. Subdural hematoma, subacute/chronic - Aspirin held - Continue Depacot for seizure prophylaxis - s/p craniotomy with drain placement 05/01 - Extubated 05/02 -continue neuro checks and tight SBP control (120-160) 2. Atrial flutter with RVR - per cardio recs, switched to po cardizem, amiodarone, and propranolol - pt transferred to telemetry 3. Hypokalemia and hypophosphatemia -K of 3.7 and Phos of 2.3 today, repleted 4. Hypomagnesemia - 2 today, resolved 5. CAD - continue statin now that tolerating po 6. HTN - po propranolol 40 TID, po cardizem 60 q6h, IV hydralazine q4h PRN -will touch base with cards regarding trial of home BP meds now that pt is tolerating po meds 7. Type 2 diabetes mellitus - Metformin and glipizide held - Continue Novolog sliding scale 8. History of CVA - Aspirin held secondary to ICH 9. History of cervical stenosis 10. Speech and swallow - pt able to tolerate po meds, barium swallow ordered #FEN/ppx -D5 w/ 1/2NS -repleted potassium and phosphate -NPO as per speech and swallow -pantoprazole for stress ulcer ppx -SCDs for DVT ppx #Dispo -needs outpt cardiology f/u to clarify prior stent hx -- Mulugeta Waters MD PGY1 Problem List - Problems (1) Atrial fibrillation Code(s): I48.91 - UNSPECIFIED ATRIAL FIBRILLATION (2) Diabetes mellitus Code(s): E11.9 - TYPE 2 DIABETES MELLITUS WITHOUT COMPLICATIONS Visit type - Emergency Visit Emergency Visit: Yes ED Registration Date: 04/30/17 Care time: The patient presented to the Emergency Department on the above date and was hospitalized for further evaluation of their emergent condition. - New Patient This patient is new to me today: No - Critical Care Critical Care patient: No
[2017-05-06] MEDS ORDERED: hydrALAZINE HCL 20 MG/ML VIAL IVPUSH PRN (13:12)
[2017-05-06] MEDS ORDERED: dilTIAZem HCL 50 MG/10 ML - 10 ML VIAL IVPUSH PRN (13:12)
[2017-05-06] MEDS ORDERED: DEXTROSE 5%-0.45% SALINE 1,000 ML IV SCH (13:12)
[2017-05-06] MEDS ORDERED: ONDANSETRON 4 MG/2 ML VIAL IVPB PRN (13:12)
--- NOTE | 2017-05-06 13:54 | PN ---
Teaching Attending Note Name of Resident: Mulugeta Waters ATTENDING PHYSICIAN STATEMENT I saw and evaluated the patient. I reviewed the resident's note and discussed the case with the resident. I agree with the resident's findings and plan as documented. SUBJECTIVE: Patient is more awake today, able to answer to some questions. slurred speech, No fever or chills, no shortness of breath, no nausea or vomiting. OBJECTIVE: Vital Signs Temperature 98.2 F 05/06/17 10:00 Pulse Rate 54 L 05/06/17 11:56 Respiratory Rate 18 05/06/17 11:56 Blood Pressure 148/93 05/06/17 11:56 O2 Sat by Pulse Oximetry (%) 100 05/06/17 08:00 CBCD WBC 7.7 K/mm3 (4.0-10.0) 05/06/17 05:20 RBC 5.29 M/mm3 (4.00-5.60) 05/06/17 05:20 Hgb 12.4 GM/dL (11.7-16.9) 05/06/17 05:20 Hct 38.2 % (35.4-49) 05/06/17 05:20 MCV 72.3 fl (80-96) L 05/06/17 05:20 MCHC 32.3 g/dl (32.0-35.9) 05/06/17 05:20 RDW 16.1 % (11.9-15.9) H 05/06/17 05:20 Plt Count 166 K/MM3 (134-434) 05/06/17 05:20 MPV 10.9 fl (7.5-11.1) D 05/06/17 05:20 CMP Sodium 138 mmol/L (136-145) 05/06/17 05:20 Potassium 3.7 mmol/L (3.5-5.1) 05/06/17 05:20 Chloride 104 mmol/L (98-107) 05/06/17 05:20 Carbon Dioxide 25 mmol/L (21-32) 05/06/17 05:20 Anion Gap 9 (8-16) 05/06/17 05:20 BUN 11 mg/dL (7-18) 05/06/17 05:20 Creatinine 0.7 mg/dL (0.7-1.3) 05/06/17 05:20 Creat Clearance w eGFR > 60 (>60) 05/06/17 05:20 Random Glucose 170 mg/dL (74-106) H 05/06/17 05:20 Calcium 7.9 mg/dL (8.5-10.1) L 05/06/17 05:20 Total Bilirubin 1.2 mg/dL (0.2-1.0) H D 05/06/17 05:20 AST 18 U/L (15-37) D 05/06/17 05:20 ALT 20 U/L (12-78) D 05/06/17 05:20 Alkaline Phosphatase 62 U/L (45-117) 05/06/17 05:20 Total Protein 6.8 g/dl (6.4-8.2) 05/06/17 05:20 Albumin 3.0 g/dl (3.4-5.0) L 05/06/17 05:20 CARDIAC ENZYMES Creatine Kinase 206 IU/L (39-308) 05/01/17 03:40 Troponin I < 0.02 ng/ml (0.00-0.05) 05/01/17 03:40 Current Medications Generic Name Dose Route Start Last Admin Trade Name Freq PRN Reason Stop Dose Admin Chlorhexidine Gluconate 1 applic 05/06/17 22:00 Hibiclens For Decolonization - TP HS DANNY Diltiazem HCl 60 mg 05/06/17 12:00 05/06/17 12:04 Cardizem - PO Not Given Q6HPO DANNY Diltiazem HCl 10 mg 05/06/17 13:12 Cardizem Injection - IVPUSH Q4H PRN TACHYCARDIA Hydralazine HCl 20 mg 05/06/17 13:12 Apresoline Injection - IVPUSH Q4H PRN HYPERTENSION Potassium Phosphate 30 mm/ 260 mls @ 62.5 mls/hr 05/06/17 10:00 05/06/17 11:20 Sodium Chloride IVPB 05/06/17 14:09 62.5 mls/hr ONCE ONE Administration Dextrose/Sodium Chloride 1,000 mls @ 75 mls/hr 05/06/17 13:12 D5-1/2ns - IV ASDIR DANNY Pantoprazole Sodium 100 mls @ 200 mls/hr 05/07/17 10:00 Protonix 40mg Ivpb (Pre-Docked) IVPB DAILY DANNY Insulin Aspart 1 vial 05/06/17 16:30 Novolog Vial Sliding Scale - SQ ACHS [facility] Protocol Ondansetron HCl 4 mg 05/06/17 13:12 Zofran Injection IVPB Q6H PRN NAUSEA Valproate Sodium 500 mg 05/07/17 10:00 Depacon Injection - IVPB DAILY [facility] Home Medications Medication Instructions Recorded Aspirin [Ecotrin] 325 mg PO DAILY 04/30/17 Carvedilol 12.5 mg PO BID 04/30/17 Clonidine HCl 0.2 mg PO BID 04/30/17 Gabapentin 100 mg PO TID 04/30/17 Glipizide 10 mg PO DAILY 04/30/17 Losartan/Hydrochlorothiazide 1 each PO DAILY 04/30/17 [Losartan-Hctz 100-25 mg Tab] Metformin HCl 1,500 mg PO DAILY 04/30/17 Quetiapine Fumarate [Seroquel -] 12.5 mg PO HS 04/30/17 PE: per resident's note Slurred speech, but able to answer to some questions clearly. Head: left parietal area with laceration around 6 inches long, site is clean ASSESSMENT AND PLAN: Patient is a 76 y/o man with h/o CAD, HTN, DM II, CVA , presented to ED. with confusion and urinary incontinence and was found to have Left subdural hematoma. # Acute left Subdural hematoma , due to fall. s/p Evacuation 05/01 . more awake today , patient admits to drinking to wine but unable to give more information in terms of whether drinks daily or socially. cont neuro checks , On valproic acid for seizure prophylaxis , Keep Blood pressure between SBP goal 120-160 # A flutter and A fib with RVR. was hard to control. HR improved on IV propranolol . on PO cardizem now and prn Hydralazine IV, further managment per cardiology. patient cannot be anticoagulated due to ICH (recent). #HTN Uncontrolled : on Cardizem, hydralazine # Dm : hold oral meds , SSI # H/o CVA and CAD, off asa due to ICH #Nutrition: Majic cup continue, MBS once medically stable by Nunu Mejia DVT px: SCDs , heparin is contraindicated due to subdural hematoma.
[2017-05-06] MEDS ORDERED: PROPRANOLOL HCL 40 MG TABLET PO SCH (14:00)
[2017-05-06] MEDS ORDERED: POTASSIUM CHLORIDE TABS 20 MEQ TABLET.ER (FP) PO ONE (16:15)
--- NOTE | 2017-05-06 18:34 | PN ---
Progress Note (short form) - Note Progress Note: Chief Complaint: SDH History of Present Illness: Transitioned to po regimen yesterday. Overnight and today, heart rate trended down. last dose of propanolol this morning. Last dose of cardizem PO was yesterday. Remains in SVR today as well. BP intermittently elevated. required one dose of IV hydralazine. patient asleep on evaluation, but according to family much more alert today. Sat up in bed. Is eating pureed foods. Current Medications Chlorhexidine Gluconate (Hibiclens For Decolonization -) 1 applic TP HS [facility] Diltiazem HCl (Cardizem -) 60 mg PO Q6HPO [facility] Last Admin: 05/06/17 17:33 Dose: Not Given Diltiazem HCl (Cardizem Injection -) 10 mg IVPUSH Q4H PRN PRN Reason: TACHYCARDIA Hydralazine HCl (Apresoline Injection -) 20 mg IVPUSH Q4H PRN PRN Reason: HYPERTENSION Dextrose/Sodium Chloride (D5-1/2ns -) 1,000 mls @ 75 mls/hr IV ASDIR [facility] Last Admin: 05/06/17 13:15 Dose: 75 mls/hr Pantoprazole Sodium (Protonix 40mg Ivpb (Pre-Docked)) 100 mls @ 200 mls/hr IVPB DAILY [facility] Insulin Aspart (Novolog Vial Sliding Scale -) 1 vial SQ ACHS [facility] PRN Reason: Protocol Last Admin: 05/06/17 16:37 Dose: Not Given Ondansetron HCl (Zofran Injection) 4 mg IVPB Q6H PRN PRN Reason: NAUSEA Valproate Sodium (Depacon Injection -) 500 mg IVPB DAILY [facility] Vital Signs - 24 hr 05/05/17 05/05/17 05/05/17 18:00 19:44 20:00 Temperature 98.7 F Pulse Rate 60 63 Respiratory 22 18 Rate Blood Pressure 171/75 175/85 O2 Sat by Pulse 100 Oximetry (%) 05/05/17 05/05/17 05/05/17 21:00 22:00 23:00 Temperature 98.4 F Pulse Rate 63 62 60 Respiratory 18 14 16 Rate Blood Pressure 149/63 127/86 146/76 O2 Sat by Pulse Oximetry (%) 05/06/17 05/06/17 05/06/17 00:00 01:00 02:00 Temperature 98.4 F Pulse Rate 52 L 58 L 60 Respiratory 20 20 20 Rate Blood Pressure 140/59 155/80 151/76 O2 Sat by Pulse Oximetry (%) 05/06/17 05/06/17 05/06/17 03:00 03:20 03:35 Temperature Pulse Rate 59 L 62 60 Respiratory 20 18 20 Rate Blood Pressure 163/118 180/73 164/72 O2 Sat by Pulse Oximetry (%) 05/06/17 05/06/17 05/06/17 04:00 05:00 06:00 Temperature 98.2 F Pulse Rate 80 66 66 Respiratory 18 18 18 Rate Blood Pressure 159/77 160/88 157/65 O2 Sat by Pulse Oximetry (%) 05/06/17 05/06/17 05/06/17 07:00 08:00 10:00 Temperature 98.0 F 98.2 F Pulse Rate 68 60 59 L Respiratory 18 18 18 Rate Blood Pressure 141/88 163/90 165/83 O2 Sat by Pulse 100 Oximetry (%) 05/06/17 05/06/17 05/06/17 11:56 14:00 14:40 Temperature 98.0 F 98.4 F Pulse Rate 54 L 61 56 L Respiratory 18 18 18 Rate Blood Pressure 148/93 147/87 156/70 O2 Sat by Pulse Oximetry (%) 05/06/17 16:00 Temperature 98.4 F Pulse Rate 66 Respiratory 18 Rate Blood Pressure 132/65 O2 Sat by Pulse Oximetry (%) Intake & Output 05/04/17 05/05/17 05/06/17 05/07/17 07:59 07:59 07:59 07:59 Intake Total 2904.4 3179.6 2104 1275 Output Total 1600 1900 1700 450 Balance 1304.4 1279.6 404 825 Weight 164 lb 7 oz 164 lb 5 oz Constitutional: Yes: Well Nourished, No Distress, Calm Cardiovascular: Yes: irregular Rate and Rhythm, S1, S2. No: JVD, Gallop, Murmur Respiratory: Yes: trace rales (not taking deep breaths). No: Accessory Muscle Use, Rales, Wheezes Extremities: No: Cold Edema: No Neurological: Yes: Alert. No: Seizure Psychiatric: No: Agitated Labs: CBC, BMP 05/06/17 05:20 05/06/17 05:20 - ....Imaging EKG: Other (tele: afib with SVR - rates 40's - 60's) Assessment/Plan Echo 04/2017: Mild conc lvh. grossly nl lv fn. tds for rwma. nl rv function. mild-mod tr. rvsp 30-40. < 1 cm pericardial effusion, not hemodynamically significant. 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 Hospital course notable for new onset atrial flutter with slow ventricular conduction. New onset atrial flutter - Not a candidate for AC due to recent frequent falls, the current fall resulting in subdural hematoma - echo with grossly normal lv function. - on admit Had svr to 40's initially (Had been on coreg and clonidine at home)-- suspect initial bradycardia was due to home meds plus increased ICP - rapid AFL rates once home meds held, requiring diltiazem gtt, then required addition of amiodarone drip for rapid HRs on diltiazem. - 05/04: remains rapid in AFL with 2:1 A-V conduction. increased amio to 1 mg/ min and given dose of propranolol 2mg IVP x1, and HR decreased to 70s with variable AFL conduction. --> cont present amio rate, started standing propranolol 2mg IVP q4H, prn amiodarone boluses as needed - 05/05 remains rate controlled. intermittently in SR/Wenckebach. Cleared to take PO meds. Has been on amiodarone drip since 05/03 --> will change to maintenance dosing 200 mg po daily. Transition off diltiazem drip and start po regimen of diltiazem 60 mg QID and propanolol 40 mg tid. h/o multiple falls, now with fall and SDH - 05/06 SVR today persists despite receiving minimal PO regimen. Will stop amiodarone to avoid ongoing SVR. Start propanolol at a lower dose without diltiazem this evening to avoid recurrence of RVR overnight (as has happened in past when rate control meds have been held). lyte repletion prn h/o multiple falls, now with fall and SDH - s/p L craniotomy for SDH--mgmt per neurosurgery - Ongoing managment of bp/hr as mentioned. HTN - required nicardipine gtt over weekend, now off - tight bp control to reduce risk of further ICH - 05/06 bp suboptimal today while rate control medications being held for SVR. Can give prn hydralazine (decreased dose to 10 mg) if needed until propanolol is resumed this evening. If SVR continues to persist tomorrow/bp remains uncontrolled then will have to choose alternate medication. now taking in PO -- > will decrease the rate of IVF. CAD - prior details uncertain, no recent PCI - Patient with multiple falls and subdural hematoma on ASA --> may not be able to continue this unfortunately, as risks of recurrent falls and ICH >> benefits. cont holding ASA for now, reassess later (requires outpt cardio f/u also to clarify prior stent history--if no stents, would definitely stop ASA here) - con't statin when able to take po. - no signs acs - ce's neg x 2. ekg without acute ischemic changes. CVA. - Not a candidate for AC or ASA at this time as mentioned. statin once acute issues resolve, consider starting tomorrow. est crit care time in mgmt of potentially life-threatening conditions = 35 min
[2017-05-06] MEDS: DEXTROSE 5%-0.45% SALINE 1,000 ML IV SCH (20:55)
[2017-05-06] MEDS: CHLORHEXIDINE GLUCONATE 4% CLEANSER FOR DECOLONIZATION TP SCH (21:55)
[2017-05-06] MEDS: PROPRANOLOL HCL 20 MG TABLET PO SCH (21:56)
[2017-05-07] MEDS: hydrALAZINE HCL 20 MG/ML VIAL IVPUSH PRN ×2 (02:35→17:50)
[2017-05-07] MEDS ORDERED: HALOPERIDOL LACTATE 5 MG/ML IM ONE ×2 (02:37→20:19)
[2017-05-07] MEDS: PROPRANOLOL HCL 20 MG TABLET PO SCH ×3 (06:02→21:53)
[2017-05-07] MEDS: INSULIN SLIDING SCALE (NOVOLOG) 1 VIAL SQ SCH ×4 (06:04→21:51)
[2017-05-07 07:42] LABS: MCH 22.9 pg (25.7-33.7); MEAN CELL VOLUME 71.7 fl (80-96); MEAN PLT VOLUME 10.5 fl (7.5-11.1); PLATELET COUNT 171 K/MM3 (134-434); WHITE BLOOD COUNT 7.4 K/mm3 (4.0-10.0)
[2017-05-07 08:06] LABS: ANION GAP 9 (8-16); CALCIUM 8.3 mg/dL (8.5-10.1); CO2 26 mmol/L (21-32); CREATININE 0.7 mg/dL (0.7-1.3); GLUCOSE,RANDOM 138 mg/dL (74-106); MAGNESIUM 1.9 mg/dL (1.8-2.4); PHOSPHOROUS 2.6 mg/dL (2.5-4.9)
--- NOTE | 2017-05-07 09:16 | PN ---
Progress Note (short form) - Note Progress Note: NEUROSURGERY F/U POD #6 In ICU PE: AF; SBP and HR more stabilized Scalp incision dry without drainage Drowsy Face slightly droopy; tongue midline Moving B UE/LE at least 4-/5; R side weaker Cont anticonvulsant for sz prophylaxis Cardiology f/u for BP and HR optimization PT/ROM For inpatient rehab when cardiac condition stabilized D/C scalp sutures soon
[2017-05-07] MEDS ORDERED: PANTOPRAZOLE SODIUM 100 ML IVPB SCH (10:00)
[2017-05-07] MEDS ORDERED: AMIODARONE HCL 200 MG TABLET (FP) PO SCH (10:00)
[2017-05-07] MEDS ORDERED: PT OWN MED DRAWER 7, Y5N ONE ×3 (10:05→21:42)
--- NOTE | 2017-05-07 10:16 | PN ---
Progress Note (short form) - Note Progress Note: s: lethargic, no overnight events Current Medications Generic Name Dose Route Start Last Admin Trade Name Freq PRN Reason Stop Dose Admin Chlorhexidine Gluconate 1 applic 05/06/17 22:00 05/06/17 21:55 Hibiclens For Decolonization - TP 1 applic HS DANNY Administration Diltiazem HCl 10 mg 05/06/17 13:12 Cardizem Injection - IVPUSH Q4H PRN TACHYCARDIA Hydralazine HCl 10 mg 05/06/17 18:38 05/07/17 02:35 Apresoline Injection - IVPUSH 10 mg Q4H PRN Administration HYPERTENSION Hydralazine HCl 25 mg 05/07/17 10:00 Apresoline - PO BID DANNY Pantoprazole Sodium 100 mls @ 200 mls/hr 05/07/17 10:00 Protonix 40mg Ivpb (Pre-Docked) IVPB DAILY DANNY Dextrose/Sodium Chloride 1,000 mls @ 42 mls/hr 05/06/17 18:45 05/06/17 20:55 D5-1/2ns - IV 42 mls/hr ASDIR DANNY Administration Insulin Aspart 1 vial 05/06/17 16:30 05/07/17 06:04 Novolog Vial Sliding Scale - SQ Not Given ACHS [facility] Protocol Ondansetron HCl 4 mg 05/06/17 13:12 Zofran Injection IVPB Q6H PRN NAUSEA Propranolol HCl 20 mg 05/06/17 22:00 05/07/17 06:02 Inderal - PO Not Given Q8H DANNY Valproate Sodium 500 mg 05/07/17 10:00 Depacon Injection - IVPB DAILY [facility] Vital Signs Period Temp Pulse Resp BP Sys/Cortés Pulse Ox Last 24 Hr 98.0 F-98.9 F 54-68 18-20 124-172/63-93 100 Constitutional: Yes: Well Nourished, No Distress, Calm Cardiovascular: Yes: irregular Rate and Rhythm, S1, S2. No: JVD, Gallop, Murmur Respiratory: Yes: trace rales (not taking deep breaths). No: Accessory Muscle Use, Rales, Wheezes Extremities: No: Cold Edema: No Neurological: Yes: Alert. No: Seizure Psychiatric: No: Agitated Labs: CBC, BMP 05/07/17 06:45 05/07/17 06:45 tele: sr with mobitz1 and afib with rate controlled Echo 04/2017: Mild conc lvh. grossly nl lv fn. tds for rwma. nl rv function. mild-mod tr. rvsp 30-40. < 1 cm pericardial effusion, not hemodynamically significant. 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 Hospital course notable for new onset atrial flutter with slow ventricular conduction. New onset atrial flutter - Not a candidate for AC due to recent frequent falls, the current fall resulting in subdural hematoma - echo with grossly normal lv function. - on admit Had svr to 40's initially (Had been on coreg and clonidine at home)-- suspect initial bradycardia was due to home meds plus increased ICP - rapid AFL rates once home meds held, requiring diltiazem gtt, then required addition of amiodarone drip for rapid HRs on diltiazem. - 05/04: remains rapid in AFL with 2:1 A-V conduction. increased amio to 1 mg/ min and given dose of propranolol 2mg IVP x1, and HR decreased to 70s with variable AFL conduction. --> cont present amio rate, started standing propranolol 2mg IVP q4H, prn amiodarone boluses as needed - 05/05 remains rate controlled. intermittently in SR/Wenckebach. Cleared to take PO meds. Has been on amiodarone drip since 05/03 --> will change to maintenance dosing 200 mg po daily. Transition off diltiazem drip and start po regimen of diltiazem 60 mg QID and propanolol 40 mg tid. h/o multiple falls, now with fall and SDH - 05/06 SVR today persists despite receiving minimal PO regimen. Will stop amiodarone to avoid ongoing SVR. Start propanolol at a lower dose without diltiazem this evening to avoid recurrence of RVR overnight (as has happened in past when rate control meds have been held). lyte repletion prn -05/07: cont low dose inderal, when in afib rate is controlled. no pathologic bradycardia overnight. h/o multiple falls, now with fall and SDH - s/p L craniotomy for SDH--mgmt per neurosurgery - Ongoing managment of bp/hr as mentioned. HTN - required nicardipine gtt over weekend, now off - tight bp control to reduce risk of further ICH - 05/06 bp suboptimal today while rate control medications being held for SVR. Can give prn hydralazine (decreased dose to 10 mg) if needed until propanolol is resumed this evening. If SVR continues to persist tomorrow/bp remains uncontrolled then will have to choose alternate medication. now taking in PO -- > will decrease the rate of IVF. -05/07: will start po hydralazine for better bp control CAD - prior details uncertain, no recent PCI - Patient with multiple falls and subdural hematoma on ASA --> may not be able to continue this unfortunately, as risks of recurrent falls and ICH >> benefits. cont holding ASA for now, reassess later (requires outpt cardio f/u also to clarify prior stent history--if no stents, would definitely stop ASA here) - con't statin when able to take po. - no signs acs - ce's neg x 2. ekg without acute ischemic changes. CVA. - Not a candidate for AC or ASA at this time as mentioned. statin once acute issues resolve and taking po reliably.
[2017-05-07] MEDS: VALPROATE SODIUM 500 MG/5 ML VIAL IVPB SCH (10:27)
--- NOTE | 2017-05-07 10:39 | PN ---
Progress Note, [employer] - Note Progress Note: MBS postponed yesterday due to intermittent lethargy.Order for dys puree, honey placed, until mbs done. Monitor tolerance. Reported to be quite agitated, medicated at 2 am. Lethargic this am. Impaired communication and intelligibility may contribute to pt's agitation. Selected Entries 05/06/17 05/06/17 05/06/17 02:00 06:00 08:00 Lunch Temperature 98.4 F 98.2 F 98.0 F 05/06/17 05/06/17 05/06/17 10:00 14:00 14:40 Lunch 75% Temperature 98.2 F 98.0 F 98.4 F 05/06/17 05/06/17 05/06/17 16:00 18:00 18:30 Lunch Temperature 98.4 F 98.9 F 98.0 F 05/06/17 05/07/17 22:00 06:00 Lunch Temperature 98.6 F 98.5 F Laboratory Tests 05/06/17 05/07/17 05:20 06:45 WBC 7.7 7.4 Dysphagia puree with Honey thick liquids and Magic cup TID. Feed only when fully alert, HOB elevated.Monitor tolerance. For mbs tomorrow, if status improves.
[2017-05-07] MEDS ORDERED: PANTOPRAZOLE SODIUM 40 MG in SODIUM CHLORIDE 100 ML IVPB SCH (10:43)
[2017-05-07] MEDS ORDERED: SODIUM CHLORIDE 100 ML IVPB ONE (10:45)
[2017-05-07] MEDS ORDERED: PANTOPRAZOLE SODIUM 40 MG VIAL ONE (10:45)
[2017-05-07] MEDS: hydrALAZINE HCL 25 MG TABLET (FP) PO SCH ×2 (11:33→21:53)
[2017-05-07] MEDS: DEXTROSE 5%-0.45% SALINE 1,000 ML IV SCH ×2 (14:34→19:00)
--- NOTE | 2017-05-07 14:55 | PN ---
Physical Exam: SUBJECTIVE: Patient seen and examined. Overnight at around 2am, pt became very agitated and tried taking out his IV lines, was given haldol 5mg, and placed on physical restraints. No episodes of severe bradycardia overnight. This am, pt was snoring and still difficult to arouse. Pt seen again with attending later in morning, and pt was significantly more alert, eating, and responding incoherently to questions. Pt unable to communicate any complaints. OBJECTIVE: Vital Signs Period Temp Pulse Resp BP Sys/Cortés Pulse Ox Last 24 Hr 97.3 F-98.9 F 59-101 18-20 124-172/63-94 98-100 GENERAL: The patient is awake, more alert than yesterday, and AAOx1 (name) HEAD: approximately 8cm incision with ehsan on L scalp healing well, dry, clean, and intact without signs of infection. EYES: PERRL, extraocular movements intact, sclera anicteric, conjunctiva clear. No ptosis. ENT: Ears normal, nares patent, oropharynx clear without exudates, moist mucous membranes. NECK: Trachea midline, full range of motion, supple. LUNGS: Breath sounds equal, clear to auscultation bilaterally, no wheezes, no crackles, no accessory muscle use. HEART: Regular rate and rhythm, S1, S2 without murmur, rub or gallop. ABDOMEN: Soft, nontender, nondistended, normoactive bowel sounds, no guarding, no rebound, no hepatosplenomegaly, no masses. EXTREMITIES: 2+ pulses, warm, well-perfused, no edema. NEUROLOGICAL: Cranial nerves II through XII unable to be fully assessed. speech incoherent, gait not observed. SKIN: Warm, dry, normal turgor, no rashes or lesions noted Laboratory Results - last 24 hr 05/06/17 05/06/17 05/07/17 16:31 20:20 05:57 WBC RBC Hgb Hct MCV MCH MCHC RDW Plt Count MPV Sodium Potassium Chloride Carbon Dioxide Anion Gap BUN Creatinine POC Glucometer [id number] 271 121 Random Glucose Calcium Phosphorus Magnesium 05/07/17 05/07/17 05/07/17 06:45 06:45 11:37 WBC 7.4 RBC 5.52 Hgb 12.7 Hct 39.6 MCV 71.7 L MCH 22.9 L MCHC 32.0 RDW 16.0 H Plt Count 171 MPV 10.5 Sodium 138 Potassium 4.0 Chloride 103 Carbon Dioxide 26 Anion Gap 9 BUN 13 Creatinine 0.7 POC Glucometer 176 Random Glucose 138 H Calcium 8.3 L Phosphorus 2.6 Magnesium 1.9 Active Medications Generic Name Dose Route Start Last Admin Trade Name Freq PRN Reason Stop Dose Admin Chlorhexidine Gluconate 1 applic 05/06/17 22:00 05/06/17 21:55 Hibiclens For Decolonization - TP 1 applic HS DANNY Administration Diltiazem HCl 10 mg 05/06/17 13:12 Cardizem Injection - IVPUSH Q4H PRN TACHYCARDIA Hydralazine HCl 10 mg 05/06/17 18:38 05/07/17 02:35 Apresoline Injection - IVPUSH 10 mg Q4H PRN Administration HYPERTENSION Hydralazine HCl 25 mg 05/07/17 10:00 05/07/17 11:33 Apresoline - PO 25 mg BID DANNY Administration Dextrose/Sodium Chloride 1,000 mls @ 42 mls/hr 05/06/17 18:45 05/07/17 14:34 D5-1/2ns - IV 42 mls/hr ASDIR DANNY Administration Pantoprazole Sodium 40 mg/ 100 mls @ 200 mls/hr 05/07/17 10:43 05/07/17 12:01 Sodium Chloride IVPB 200 mls/hr DAILY DANNY Administration Insulin Aspart 1 vial 05/06/17 16:30 05/07/17 11:43 Novolog Vial Sliding Scale - SQ 2 unit ACHS DANNY Administration Protocol Ondansetron HCl 4 mg 05/06/17 13:12 Zofran Injection IVPB Q6H PRN NAUSEA Propranolol HCl 20 mg 05/06/17 22:00 05/07/17 14:29 Inderal - PO 20 mg Q8H DANNY Administration Valproate Sodium 500 mg 05/07/17 10:00 05/07/17 10:27 Depacon Injection - IVPB 500 mg DAILY DANNY Administration ASSESSMENT/PLAN: 76 year old man with a history of cervical stenosis, CAD, CVA, HTN, type 2 DM who presented to the ER with confusion, slurred speech, urinary incontinence after a fall 2 months ago, found to have a subdural hematoma on MRI, s/p hematoma evacuation. 1. Subdural hematoma, subacute/chronic - Aspirin held - Continue valproic acid 500mg IV for seizure prophylaxis - s/p craniotomy with drain placement 05/01 - Extubated 05/02 -continue neuro checks and tight SBP control (120-160) -neurosurgery following, incision ehsan to be removed soon -f/u PT eval 2. Atrial flutter with RVR - on telemetry - per cardio recs, changed to hydralazine 25mg PO BID, propranolol 20mg PO TID, and amiodarone was stopped. 3. Hypokalemia and hypophosphatemia -K of 4, phosphate of 2.6 -pt is eating now, will hold off on repletion for now 4. Hypomagnesemia - resolved 5. CAD - continue statin now that tolerating po 6. HTN - propranolol 20mg PO TID, hydralazine 25mg PO BID, IV hydralazine q4h PRN -will touch base with cards regarding trial of home BP meds now that pt is tolerating po meds 7. Type 2 diabetes mellitus - Metformin and glipizide held - Continue Novolog sliding scale 8. History of CVA - Aspirin held secondary to ICH 9. History of cervical stenosis 10. Speech and swallow - pt able to tolerate po meds, barium swallow to be done yulisa, recs appreciated 11. microcytic anemia -Hgb of 12.7 with MCV of 72 -f/u iron studies, folic acid, B12 #FEN/ppx -D5 w/ 1/2NS -Mg and Ph slightly low, but pt is eating now -diet as per speech and swallow -pantoprazole for stress ulcer ppx -SCDs for DVT ppx #Dispo -needs outpt cardiology f/u to clarify prior stent hx -- Mulugeta Waters MD PGY1 Problem List - Problems (1) Atrial fibrillation Code(s): I48.91 - UNSPECIFIED ATRIAL FIBRILLATION (2) Diabetes mellitus Code(s): E11.9 - TYPE 2 DIABETES MELLITUS WITHOUT COMPLICATIONS Visit type - Emergency Visit Emergency Visit: Yes ED Registration Date: 04/30/17 Care time: The patient presented to the Emergency Department on the above date and was hospitalized for further evaluation of their emergent condition. - New Patient This patient is new to me today: No - Critical Care Critical Care patient: No
[2017-05-07] MEDS ORDERED: FOLIC ACID 1 MG TABLET (FP) PO SCH (15:15)
[2017-05-07] MEDS ORDERED: INSULIN (NOVOLOG) ASPART 100 UNITS/ML 10ML VIAL ONE (17:41)
--- NOTE | 2017-05-07 18:03 | PN ---
Progress Note (short form) - Note Progress Note: 76 y/o M with PMH CAD with stents on ASA, CVA (2005), HTN,DMII, spinal stenosis s/p spinal surgery who was brought in to ED after family observed changes in mental status and personality after a fall a few months earlier. On CT noted to have a subacute/chronic subdural hematoma with mass effect. Also noted to have a A-fib/flutter and bradycardia.He is transferred to ICU for monitoring pending clearance for craniotomy and drainage+/- subdural drain placement. seen by neurosurgery and underwent craniotomy for drainage and then drain placement. FU: POD #6 awake but remains aphasic, expressive, poor naming and repetition, though can follow simple requests CT HD: 05/02/17 Impression: Interval postsurgical changes are noted in comparison to a prior CT study of 05/01/2017. - Current Medication List Current Medications: Active Medications Chlorhexidine Gluconate (Hibiclens For Decolonization -) 1 applic TP HS [facility] Last Admin: 05/04/17 22:08 Dose: 1 applic Clonidine HCl (Catapres Tts Patch -) 0.1 mg TD Q7D@1000 [facility] Last Admin: 05/04/17 11:26 Dose: 0.1 mg Diltiazem HCl (Cardizem Injection -) 10 mg IVPUSH Q4H PRN PRN Reason: TACHYCARDIA Last Admin: 05/04/17 00:19 Dose: 10 mg Hydralazine HCl (Apresoline Injection -) 20 mg IVPUSH Q4H PRN PRN Reason: HYPERTENSION Last Admin: 05/05/17 05:37 Dose: 20 mg Pantoprazole Sodium (Protonix 40mg Ivpb (Pre-Docked)) 100 mls @ 200 mls/hr IVPB DAILY [facility] Last Admin: 05/04/17 09:01 Dose: 200 mls/hr Dextrose/Sodium Chloride (D5-1/2ns -) 1,000 mls @ 75 mls/hr IV ASDIR DANNY Last Admin: 05/04/17 22:11 Dose: 75 mls/hr Diltiazem HCl 125 mg/ Dextrose 125 mls @ 5 mls/hr IVPB TITR DANNY; 5 MG/HR PRN Reason: Protocol Last Admin: 05/05/17 01:31 Dose: Not Given Amiodarone HCl 450 mg/ (Dextrose) 250 mls @ 33.33 mls/hr IVPB TITR DANNY PRN Reason: 1 MG/MIN Last Admin: 05/05/17 06:11 Dose: 33.33 mls/hr Potassium Phosphate 30 mm/ (Sodium Chloride) 260 mls @ 62.5 mls/hr IVPB ONCE ONE Stop: 05/05/17 13:39 Insulin Aspart (Novolog Vial Sliding Scale -) 0 vial SQ ACHS DANNY PRN Reason: Protocol Last Admin: 05/05/17 06:17 Dose: 4 units Lorazepam (Ativan Injection -) 1 mg IVPUSH Q6H PRN PRN Reason: ANXIETY Last Admin: 05/04/17 22:12 Dose: 1 mg Mupirocin (Bactroban Ointment (For Decolonization) -) 1 applic NS BID DANNY Stop: 05/05/17 21:59 Last Admin: 05/04/17 23:13 Dose: 1 applic Ondansetron HCl (Zofran Injection) 4 mg IVPB Q6H PRN PRN Reason: NAUSEA Propranolol HCl (Inderal Injection -) 2 mg IVPUSH Q4H-IV DANNY Last Admin: 05/05/17 05:08 Dose: 2 mg Valproate Sodium (Depacon Injection -) 500 mg IVPB DAILY [facility] Last Admin: 05/04/17 09:01 Dose: 500 mg - Objective Vital Signs: Vital Signs Temperature 98.0 F 05/07/17 14:44 Pulse Rate 101 H 05/07/17 14:44 Respiratory Rate 20 05/07/17 14:44 Blood Pressure 141/94 05/07/17 14:44 O2 Sat by Pulse Oximetry (%) 98 05/07/17 10:43 Neurological: Yes: Other (seen in bed sleeping, and with some effort he was roused and conversant. A bit confused but moving all limbs.) Labs: CBCD WBC 7.4 K/mm3 (4.0-10.0) 05/07/17 06:45 RBC 5.52 M/mm3 (4.00-5.60) 05/07/17 06:45 Hgb 12.7 GM/dL (11.7-16.9) 05/07/17 06:45 Hct 39.6 % (35.4-49) 05/07/17 06:45 MCV 71.7 fl (80-96) L 05/07/17 06:45 MCHC 32.0 g/dl (32.0-35.9) 05/07/17 06:45 RDW 16.0 % (11.9-15.9) H 05/07/17 06:45 Plt Count 171 K/MM3 (134-434) 05/07/17 06:45 MPV 10.5 fl (7.5-11.1) 05/07/17 06:45 CMP Sodium 138 mmol/L (136-145) 05/07/17 06:45 Potassium 4.0 mmol/L (3.5-5.1) 05/07/17 06:45 Chloride 103 mmol/L (98-107) 05/07/17 06:45 Carbon Dioxide 26 mmol/L (21-32) 05/07/17 06:45 Anion Gap 9 (8-16) 05/07/17 06:45 BUN 13 mg/dL (7-18) 05/07/17 06:45 Creatinine 0.7 mg/dL (0.7-1.3) 05/07/17 06:45 Creat Clearance w eGFR > 60 (>60) 05/06/17 05:20 Calcium 8.3 mg/dL (8.5-10.1) L 05/07/17 06:45 Total Bilirubin 1.2 mg/dL (0.2-1.0) H D 05/06/17 05:20 AST 18 U/L (15-37) D 05/06/17 05:20 ALT 20 U/L (12-78) D 05/06/17 05:20 Alkaline Phosphatase 62 U/L (45-117) 05/06/17 05:20 Total Protein 6.8 g/dl (6.4-8.2) 05/06/17 05:20 Albumin 3.0 g/dl (3.4-5.0) L 05/06/17 05:20 Problem List - Problems (1) Subdural bleeding Code(s): I62.00 - NONTRAUMATIC SUBDURAL HEMORRHAGE, UNSPECIFIED Assessment/Plan s/p subdural evacuation with residual aphasia otherwise stable when stabilizes ( after one month, will consider intermediate project manager AC for AFIB, though will have to reasess if he is still a candidate) cont optimize BP Dr Kwok
--- NOTE | 2017-05-07 18:50 | PN ---
Teaching Attending Note Name of Resident: Mulugeta Waters ATTENDING PHYSICIAN STATEMENT I saw and evaluated the patient. I reviewed the resident's note and discussed the case with the resident. I agree with the resident's findings and plan as documented. SUBJECTIVE: Patient feels better today, more awake and alert. OBJECTIVE: Vital Signs Temperature 98.0 F 05/07/17 14:44 Pulse Rate 101 H 05/07/17 14:44 Respiratory Rate 20 05/07/17 14:44 Blood Pressure 141/94 05/07/17 14:44 O2 Sat by Pulse Oximetry (%) 98 05/07/17 10:43 CBCD WBC 7.4 K/mm3 (4.0-10.0) 05/07/17 06:45 RBC 5.52 M/mm3 (4.00-5.60) 05/07/17 06:45 Hgb 12.7 GM/dL (11.7-16.9) 05/07/17 06:45 Hct 39.6 % (35.4-49) 05/07/17 06:45 MCV 71.7 fl (80-96) L 05/07/17 06:45 MCHC 32.0 g/dl (32.0-35.9) 05/07/17 06:45 RDW 16.0 % (11.9-15.9) H 05/07/17 06:45 Plt Count 171 K/MM3 (134-434) 05/07/17 06:45 MPV 10.5 fl (7.5-11.1) 05/07/17 06:45 CMP Sodium 138 mmol/L (136-145) 05/07/17 06:45 Potassium 4.0 mmol/L (3.5-5.1) 05/07/17 06:45 Chloride 103 mmol/L (98-107) 05/07/17 06:45 Carbon Dioxide 26 mmol/L (21-32) 05/07/17 06:45 Anion Gap 9 (8-16) 05/07/17 06:45 BUN 13 mg/dL (7-18) 05/07/17 06:45 Creatinine 0.7 mg/dL (0.7-1.3) 05/07/17 06:45 Creat Clearance w eGFR > 60 (>60) 05/06/17 05:20 Random Glucose 138 mg/dL (74-106) H 05/07/17 06:45 Calcium 8.3 mg/dL (8.5-10.1) L 05/07/17 06:45 Total Bilirubin 1.2 mg/dL (0.2-1.0) H D 05/06/17 05:20 AST 18 U/L (15-37) D 05/06/17 05:20 ALT 20 U/L (12-78) D 05/06/17 05:20 Alkaline Phosphatase 62 U/L (45-117) 05/06/17 05:20 Total Protein 6.8 g/dl (6.4-8.2) 05/06/17 05:20 Albumin 3.0 g/dl (3.4-5.0) L 05/06/17 05:20 CARDIAC ENZYMES Creatine Kinase 206 IU/L (39-308) 05/01/17 03:40 Troponin I < 0.02 ng/ml (0.00-0.05) 05/01/17 03:40 Current Medications Generic Name Dose Route Start Last Admin Trade Name Scottie PRN Reason Stop Dose Admin Chlorhexidine Gluconate 1 applic 05/06/17 22:00 05/06/17 21:55 Hibiclens For Decolonization - TP 1 applic HS DANNY Administration Diltiazem HCl 10 mg 05/06/17 13:12 Cardizem Injection - IVPUSH Q4H PRN TACHYCARDIA Folic Acid 1 mg 05/07/17 15:15 05/07/17 17:09 Folic Acid - PO 1 mg hold it for now DAILY DANNY Administration Hydralazine HCl 10 mg 05/06/17 18:38 05/07/17 17:50 Apresoline Injection - IVPUSH 10 mg Q4H PRN Administration HYPERTENSION Hydralazine HCl 25 mg 05/07/17 10:00 05/07/17 11:33 Apresoline - PO 25 mg BID DANNY Administration Dextrose/Sodium Chloride 1,000 mls @ 42 mls/hr 05/06/17 18:45 05/07/17 14:34 D5-1/2ns - IV 42 mls/hr ASDIR DANNY Administration Pantoprazole Sodium 40 mg/ 100 mls @ 200 mls/hr 05/07/17 10:43 05/07/17 12:01 Sodium Chloride IVPB 200 mls/hr DAILY DANNY Administration Insulin Aspart 1 vial 05/06/17 16:30 05/07/17 17:47 Novolog Vial Sliding Scale - SQ 6 unit ACHS DANNY Administration Protocol Ondansetron HCl 4 mg 05/06/17 13:12 Zofran Injection IVPB Q6H PRN NAUSEA Propranolol HCl 20 mg 05/06/17 22:00 05/07/17 14:29 Inderal - PO 20 mg Q8H DANNY Administration Valproate Sodium 500 mg 05/07/17 10:00 05/07/17 10:27 Depacon Injection - IVPB 500 mg DAILY DANNY Administration Home Medications Medication Instructions Recorded Aspirin [Ecotrin] 325 mg PO DAILY 04/30/17 Carvedilol 12.5 mg PO BID 04/30/17 Clonidine HCl 0.2 mg PO BID 04/30/17 Gabapentin 100 mg PO TID 04/30/17 Glipizide 10 mg PO DAILY 04/30/17 Losartan/Hydrochlorothiazide 1 each PO DAILY 04/30/17 [Losartan-Hctz 100-25 mg Tab] Metformin HCl 1,500 mg PO DAILY 04/30/17 Quetiapine Fumarate [Seroquel -] 12.5 mg PO HS 04/30/17 PE: per resident's note Slurred speech improving ,and able to answer to questions clearly. Head: left parietal area with incision around 4 inches long, site is clean, around 10 stitches ASSESSMENT AND PLAN: Patient is a 76 y/o man with h/o CAD, HTN, DM II, CVA , presented to ED. with confusion and urinary incontinence and was found to have Left subdural hematoma. # POD #6, s/p left subdural evacuation with residual aphasia s/p fall. s/p Evacuation 05/01 . more awake today , patient admits to drinking to wine but unable to give more information in terms of whether drinks daily or socially. cont neuro checks , On valproic acid for seizure prophylaxis , Keep Blood pressure between SBP goal 120-160 # A flutter and A fib with RVR. was hard to control. HR improved on po Inderal now s/p IV propranolol .discontinue PO cardizem now and prn Hydralazine IV, further managment per cardiology. patient cannot be anticoagulated due to ICH ( recent). #HTN Uncontrolled : on Inderal and hydralazine oral continue # Dm : hold oral meds , SSI # H/o CVA and CAD, off asa due to ICH #Nutrition: Majic cup continue, MBS once medically stable by Nunu Mejia DVT px: SCDs , heparin is contraindicated due to subdural hematoma. D/C scalp sutures soon
[2017-05-07] MEDS: CHLORHEXIDINE GLUCONATE 4% CLEANSER FOR DECOLONIZATION TP SCH (21:50)
[2017-05-07] MEDS ORDERED: HALOPERIDOL LACTATE 5 MG/ML IM PRN (21:50)
[2017-05-08] MEDS ORDERED: PT OWN MED DRAWER 7, Y5N ONE ×5 (06:25→22:47)
[2017-05-08] MEDS: INSULIN SLIDING SCALE (NOVOLOG) 1 VIAL SQ SCH ×4 (06:26→22:28)
[2017-05-08] MEDS: PROPRANOLOL HCL 20 MG TABLET PO SCH ×3 (06:26→22:21)
[2017-05-08 07:42] LABS: MAGNESIUM 1.8 mg/dL (1.8-2.4); PHOSPHOROUS 2.3 mg/dL (2.5-4.9)
--- NOTE | 2017-05-08 08:38 | PN ---
Progress Note (short form) - Note Progress Note: NEUROSURGERY F/U POD #7 In telemetry PE: AF; SBP up to 170's Scalp incision clean/dry without drainage Drowsy but easily arousable Conversant with somewhat dysarthric speech Face slightly droopy; tongue midline Moving B UE/LE at least 4-/5; R side a little weaker Cont anticonvulsant for sz prophylaxis Cardiology f/u for BP and HR optimization PT/ROM/mobilize For inpatient rehab when cardiac condition stabilized D/C scalp sutures Prior to initiating AC tx (if clinically indicated) should obtain repeat head CT
[2017-05-08] MEDS ORDERED: hydrALAZINE HCL 50 MG TABLET (FP) PO SCH (09:19)
[2017-05-08] MEDS: hydrALAZINE HCL 20 MG/ML VIAL IVPUSH PRN (09:43)
[2017-05-08] MEDS: VALPROATE SODIUM 500 MG/5 ML VIAL IVPB SCH (09:46)
[2017-05-08] MEDS: THIAMINE HCL 100 MG TABLET (FP) PO SCH (09:46)
[2017-05-08] MEDS ORDERED: PANTOPRAZOLE 40 MG TABLET (FP) PO SCH (10:00)
--- NOTE | 2017-05-08 10:21 | PN ---
Progress Note (short form) - Note Progress Note: s: awake, alert, denies cp/sob/dizzy. no overnight events Current Medications Generic Name Dose Route Start Last Admin Trade Name Freq PRN Reason Stop Dose Admin Chlorhexidine Gluconate 1 applic 05/06/17 22:00 05/07/17 21:50 Hibiclens For Decolonization - TP Not Given HS DANNY Diltiazem HCl 10 mg 05/06/17 13:12 Cardizem Injection - IVPUSH Q4H PRN TACHYCARDIA Hydralazine HCl 10 mg 05/06/17 18:38 05/08/17 09:43 Apresoline Injection - IVPUSH 10 mg Q4H PRN Administration HYPERTENSION Hydralazine HCl 50 mg 05/08/17 09:19 05/08/17 10:11 Apresoline - PO 50 mg BID DANNY Administration Dextrose/Sodium Chloride 1,000 mls @ 42 mls/hr 05/06/17 18:45 05/07/17 19:00 D5-1/2ns - IV Not Given ASDIR DANNY Insulin Aspart 1 vial 05/06/17 16:30 05/08/17 06:26 Novolog Vial Sliding Scale - SQ 4 unit ACHS DANNY Administration Protocol Ondansetron HCl 4 mg 05/06/17 13:12 Zofran Injection IVPB Q6H PRN NAUSEA Pantoprazole Sodium 40 mg 05/08/17 10:00 05/08/17 09:46 Protonix - PO 40 mg DAILY DANNY Administration Propranolol HCl 20 mg 05/06/17 22:00 05/08/17 06:26 Inderal - PO 20 mg Q8H DANNY Administration Thiamine HCl 100 mg 05/08/17 10:00 05/08/17 09:46 Vitamin B1 - PO 100 mg DAILY DANNY Administration Valproate Sodium 500 mg 05/07/17 10:00 05/08/17 09:46 Depacon Injection - IVPB 500 mg DAILY DANNY Administration Vital Signs Period Temp Pulse Resp BP Sys/Cortés Pulse Ox Last 24 Hr 97.8 F-98.8 F 60-106 18-20 141-178/82-107 98-98 Constitutional: Yes: Well Nourished, No Distress, Calm Cardiovascular: Yes: irregular Rate and Rhythm, S1, S2. No: JVD, Gallop, Murmur Respiratory: Yes: trace rales . No: Accessory Muscle Use, Rales, Wheezes Extremities: No: Cold Edema: No Neurological: Yes: Alert. No: Seizure Psychiatric: No: Agitated no jaundice diaphoresis Labs: CBC, BMP 05/07/17 06:45 05/07/17 06:45 tele: sr with mobitz1 and afib with rate controlled Echo 04/2017: Mild conc lvh. grossly nl lv fn. tds for rwma. nl rv function. mild-mod tr. rvsp 30-40. < 1 cm pericardial effusion, not hemodynamically significant. 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 Hospital course notable for new onset atrial flutter with slow ventricular conduction. New onset atrial flutter - Not a candidate for AC due to recent frequent falls, the current fall resulting in subdural hematoma - echo with grossly normal lv function. - on admit Had svr to 40's initially (Had been on coreg and clonidine at home)-- suspect initial bradycardia was due to home meds plus increased ICP - rapid AFL rates once home meds held, requiring diltiazem gtt, then required addition of amiodarone drip for rapid HRs on diltiazem. - 05/04: remains rapid in AFL with 2:1 A-V conduction. increased amio to 1 mg/ min and given dose of propranolol 2mg IVP x1, and HR decreased to 70s with variable AFL conduction. --> cont present amio rate, started standing propranolol 2mg IVP q4H, prn amiodarone boluses as needed - 05/05 remains rate controlled. intermittently in SR/Wenckebach. Cleared to take PO meds. Has been on amiodarone drip since 05/03 --> will change to maintenance dosing 200 mg po daily. Transition off diltiazem drip and start po regimen of diltiazem 60 mg QID and propanolol 40 mg tid. h/o multiple falls, now with fall and SDH - 05/06 SVR today persists despite receiving minimal PO regimen. Will stop amiodarone to avoid ongoing SVR. Start propanolol at a lower dose without diltiazem this evening to avoid recurrence of RVR overnight (as has happened in past when rate control meds have been held). lyte repletion prn -05/07-05/08: cont low dose inderal, when in afib rate is controlled. no pathologic bradycardia overnight. h/o multiple falls, now with fall and SDH - s/p L craniotomy for SDH--mgmt per neurosurgery - Ongoing managment of bp/hr as mentioned. HTN - required nicardipine gtt over weekend, now off - tight bp control to reduce risk of further ICH - 05/06 bp suboptimal today while rate control medications being held for SVR. Can give prn hydralazine (decreased dose to 10 mg) if needed until propanolol is resumed this evening. If SVR continues to persist tomorrow/bp remains uncontrolled then will have to choose alternate medication. now taking in PO -- > will decrease the rate of IVF. -05/07: will start po hydralazine for better bp control -05/08: bp still elevated, will increase hydralazine to 50 bid CAD - prior details uncertain, no recent PCI - Patient with multiple falls and subdural hematoma on ASA --> may not be able to continue this unfortunately, as risks of recurrent falls and ICH >> benefits. cont holding ASA for now, reassess later (requires outpt cardio f/u also to clarify prior stent history--if no stents, would definitely stop ASA here) - con't statin when able to take po. - no signs acs - ce's neg x 2. ekg without acute ischemic changes. CVA. - Not a candidate for AC or ASA at this time as mentioned. statin once acute issues resolve and taking po reliably.
--- NOTE | 2017-05-08 11:43 | PN ---
Progress Note, TELEPHONE APPOINTMENT CLERK - Note Progress Note: Dysphagia puree with Honey thick liquids and Magic cup TID. Tolerating diet well with good appetite. Sleepy but arousable. Intelligibility of speech continues to improve. Selected Entries 05/07/17 05/07/17 05/07/17 06:00 10:00 11:44 Breakfast 75% 75% Supper Temperature 98.5 F 97.3 F L 05/07/17 05/07/17 05/07/17 14:44 18:35 21:00 Breakfast Supper 50% Temperature 98.0 F 98.1 F 98.8 F 05/08/17 05/08/17 05/08/17 02:00 06:00 09:30 Breakfast Supper Temperature 98.1 F 97.8 F 98.6 F 05/08/17 10:08 Breakfast 75% Supper Temperature Laboratory Tests 05/07/17 06:45 WBC 7.4 Suggest MBS to upgrade diet with safety Continue speech/swallowing tx upon d/c: Acute rehab/str
[2017-05-08] MEDS ORDERED: INSULIN (NOVOLOG) ASPART 100 UNITS/ML 10ML VIAL ONE ×2 (12:09→22:15)
[2017-05-08] MEDS: MAGNESIUM OXIDE 400 MG TABLET (FP) PO SCH ×2 (12:11→22:22)
[2017-05-08] MEDS: NAPH,MB-DB/K PH,MBDB POWDER PACKET PO SCH ×2 (12:12→22:22)
[2017-05-08] MEDS: hydrALAZINE HCL 50 MG TABLET (FP) PO SCH ×2 (15:30→22:22)
[2017-05-08] MEDS: DEXTROSE 5%-0.45% SALINE 1,000 ML IV SCH (16:33)
--- NOTE | 2017-05-08 16:54 | PN ---
Physical Exam: SUBJECTIVE: Patient seen and examined. Overnight, pt became agitated for brief period and calmed down without any medication delivered. This am, pt more alert and awake than yesterday. He is more responsive and following more commands. He denies any new complaints and denies pain anywhere. OBJECTIVE: Vital Signs Period Temp Pulse Resp BP Sys/Cortés Pulse Ox Last 24 Hr 97.8 F-98.8 F 79-106 18-20 148-178/75-107 98-99 GENERAL: The patient is awake and more alert. HEAD: 8cm incision with ehsan, intact, clean, and dry without signs of infection. EYES: PERRL, extraocular movements intact, sclera anicteric, conjunctiva clear. No ptosis. ENT: Ears normal, nares patent, oropharynx clear without exudates, moist mucous membranes. NECK: Trachea midline, full range of motion, supple. LUNGS: Breath sounds equal, clear to auscultation bilaterally, no wheezes, no crackles, no accessory muscle use. HEART: Regular rate and rhythm, S1, S2 without murmur, rub or gallop. ABDOMEN: Soft, nontender, nondistended, normoactive bowel sounds, no guarding, no rebound, no hepatosplenomegaly, no masses. EXTREMITIES: 2+ pulses, warm, well-perfused, no edema. NEUROLOGICAL: CN still difficult to fully assess. gait not observed. SKIN: Warm, dry, normal turgor, no rashes or lesions noted Laboratory Results - last 24 hr 05/07/17 05/08/17 05/08/17 20:54 06:20 07:00 POC Glucometer 147 236 Phosphorus 2.3 L Magnesium 1.8 Vitamin B12 1945 H D Serum Folate 18 H 05/08/17 12:06 POC Glucometer 216 Phosphorus Magnesium Vitamin B12 Serum Folate Active Medications Generic Name Dose Route Start Last Admin Trade Name Freq PRN Reason Stop Dose Admin Chlorhexidine Gluconate 1 applic 05/06/17 22:00 05/07/17 21:50 Hibiclens For Decolonization - TP Not Given HS DANNY Diltiazem HCl 10 mg 05/06/17 13:12 Cardizem Injection - IVPUSH Q4H PRN TACHYCARDIA Hydralazine HCl 10 mg 05/06/17 18:38 05/08/17 09:43 Apresoline Injection - IVPUSH 10 mg Q4H PRN Administration HYPERTENSION Hydralazine HCl 50 mg 05/08/17 14:00 05/08/17 15:30 Apresoline - PO 50 mg TID DANNY Administration Dextrose/Sodium Chloride 1,000 mls @ 42 mls/hr 05/06/17 18:45 05/08/17 16:33 D5-1/2ns - IV 42 mls/hr ASDIR DANNY Administration Insulin Aspart 1 vial 05/06/17 16:30 05/08/17 12:12 Novolog Vial Sliding Scale - SQ 4 unit ACHS DANNY Administration Protocol Magnesium Oxide 400 mg 05/08/17 11:45 05/08/17 12:11 Mag-Ox - PO 05/08/17 22:01 400 mg BID DANNY Administration Ondansetron HCl 4 mg 05/06/17 13:12 Zofran Injection IVPB Q6H PRN NAUSEA Potassium Phos/Sodium Phos 2 packet 05/08/17 11:45 05/08/17 12:12 Phos-Nak Packet - PO 05/08/17 22:01 2 packet BID DANNY Administration Propranolol HCl 20 mg 05/06/17 22:00 05/08/17 15:30 Inderal - PO 20 mg Q8H DANNY Administration Ranitidine HCl 150 mg 05/08/17 22:00 Zantac - PO BID DANNY Thiamine HCl 100 mg 05/08/17 10:00 05/08/17 09:46 Vitamin B1 - PO 100 mg DAILY DANNY Administration Valproate Sodium 500 mg 05/07/17 10:00 05/08/17 09:46 Depacon Injection - IVPB 500 mg DAILY DANNY Administration ASSESSMENT/PLAN: 76 year old man with a history of cervical stenosis, CAD, CVA, HTN, type 2 DM who presented to the ER with confusion, slurred speech, urinary incontinence after a fall 2 months ago, found to have a subdural hematoma on MRI, s/p hematoma evacuation. 1. Subdural hematoma, subacute/chronic - Aspirin held - Continue valproic acid 500mg IV for seizure prophylaxis - s/p craniotomy with drain placement 05/01 - Extubated 05/02 -continue neuro checks and tight SBP control (120-160) -neurosurgery following, incision ehsan to be removed soon -f/u PT eval 2. Atrial flutter with RVR - per cardio recs, changed to hydralazine 50mg PO TID and propranolol 20mg PO TID 3. Hypokalemia and hypophosphatemia -phosphate of 2.3, repleted 4. Hypomagnesemia - Mg of 1.8, repleted 5. CAD - continue statin now that tolerating po 6. HTN - propranolol 20mg PO TID, hydralazine 50mg PO TID, IV hydralazine q4h PRN 7. Type 2 diabetes mellitus - Metformin and glipizide held - Continue Novolog sliding scale 8. History of CVA - Aspirin held secondary to ICH 9. History of cervical stenosis 10. Speech and swallow - MBS performed today, diet as directed 11. microcytic anemia -Hgb of 12.7 with MCV of 72 -B12: 1943 -folate: 18 -f/u iron studies -thiamine 100mg qd started #FEN/ppx -D5 w/ 1/2NS @42 ml/hr -repleted Mg and phosphate -diet as per speech and swallow: trial of dysphagia ground diet with 1-2 soft items, nectar thick consistency -zantac 150mg BID (changed from pantoprazole) for stress ulcer ppx -SCDs for DVT ppx #Dispo -needs outpt cardiology f/u to clarify prior stent hx -- Mulugeta Waters MD PGY1 Problem List - Problems (1) Atrial fibrillation Code(s): I48.91 - UNSPECIFIED ATRIAL FIBRILLATION (2) Diabetes mellitus Code(s): E11.9 - TYPE 2 DIABETES MELLITUS WITHOUT COMPLICATIONS Visit type - Emergency Visit Emergency Visit: Yes ED Registration Date: 04/30/17 Care time: The patient presented to the Emergency Department on the above date and was hospitalized for further evaluation of their emergent condition. - New Patient This patient is new to me today: No - Critical Care Critical Care patient: No
--- NOTE | 2017-05-08 17:48 | PN ---
Teaching Attending Note Name of Resident: Mulugeta Waters ATTENDING PHYSICIAN STATEMENT I saw and evaluated the patient. I reviewed the resident's note and discussed the case with the resident. I agree with the resident's findings and plan as documented. SUBJECTIVE: Patient is comfortable with no acute distress. Sun downing at nights. OBJECTIVE: Vital Signs Temperature 98.4 F 05/08/17 15:00 Pulse Rate 79 05/08/17 15:00 Respiratory Rate 18 05/08/17 15:00 Blood Pressure 148/75 05/08/17 15:00 O2 Sat by Pulse Oximetry (%) 99 05/08/17 11:08 CBCD WBC 7.4 K/mm3 (4.0-10.0) 05/07/17 06:45 RBC 5.52 M/mm3 (4.00-5.60) 05/07/17 06:45 Hgb 12.7 GM/dL (11.7-16.9) 05/07/17 06:45 Hct 39.6 % (35.4-49) 05/07/17 06:45 MCV 71.7 fl (80-96) L 05/07/17 06:45 MCHC 32.0 g/dl (32.0-35.9) 05/07/17 06:45 RDW 16.0 % (11.9-15.9) H 05/07/17 06:45 Plt Count 171 K/MM3 (134-434) 05/07/17 06:45 MPV 10.5 fl (7.5-11.1) 05/07/17 06:45 CMP Sodium 138 mmol/L (136-145) 05/07/17 06:45 Potassium 4.0 mmol/L (3.5-5.1) 05/07/17 06:45 Chloride 103 mmol/L (98-107) 05/07/17 06:45 Carbon Dioxide 26 mmol/L (21-32) 05/07/17 06:45 Anion Gap 9 (8-16) 05/07/17 06:45 BUN 13 mg/dL (7-18) 05/07/17 06:45 Creatinine 0.7 mg/dL (0.7-1.3) 05/07/17 06:45 Creat Clearance w eGFR > 60 (>60) 05/06/17 05:20 Random Glucose 138 mg/dL (74-106) H 05/07/17 06:45 Calcium 8.3 mg/dL (8.5-10.1) L 05/07/17 06:45 Total Bilirubin 1.2 mg/dL (0.2-1.0) H D 05/06/17 05:20 AST 18 U/L (15-37) D 05/06/17 05:20 ALT 20 U/L (12-78) D 05/06/17 05:20 Alkaline Phosphatase 62 U/L (45-117) 05/06/17 05:20 Total Protein 6.8 g/dl (6.4-8.2) 05/06/17 05:20 Albumin 3.0 g/dl (3.4-5.0) L 05/06/17 05:20 CARDIAC ENZYMES Creatine Kinase 206 IU/L (39-308) 05/01/17 03:40 Troponin I < 0.02 ng/ml (0.00-0.05) 05/01/17 03:40 Current Medications Generic Name Dose Route Start Last Admin Trade Name Freq PRN Reason Stop Dose Admin Chlorhexidine Gluconate 1 applic 05/06/17 22:00 05/07/17 21:50 Hibiclens For Decolonization - TP Not Given HS DANNY Diltiazem HCl 10 mg 05/06/17 13:12 Cardizem Injection - IVPUSH Q4H PRN TACHYCARDIA Hydralazine HCl 10 mg 05/06/17 18:38 05/08/17 09:43 Apresoline Injection - IVPUSH 10 mg Q4H PRN Administration HYPERTENSION Hydralazine HCl 50 mg 05/08/17 14:00 05/08/17 15:30 Apresoline - PO 50 mg TID DANNY Administration Dextrose/Sodium Chloride 1,000 mls @ 42 mls/hr 05/06/17 18:45 05/08/17 16:33 D5-1/2ns - IV 42 mls/hr ASDIR DANNY Administration Insulin Aspart 1 vial 05/06/17 16:30 05/08/17 17:22 Novolog Vial Sliding Scale - SQ Not Given ACHS DANNY Protocol Magnesium Oxide 400 mg 05/08/17 11:45 05/08/17 12:11 Mag-Ox - PO 05/08/17 22:01 400 mg BID DANNY Administration Ondansetron HCl 4 mg 05/06/17 13:12 Zofran Injection IVPB Q6H PRN NAUSEA Potassium Phos/Sodium Phos 2 packet 05/08/17 11:45 05/08/17 12:12 Phos-Nak Packet - PO 05/08/17 22:01 2 packet BID DANNY Administration Propranolol HCl 20 mg 05/06/17 22:00 05/08/17 15:30 Inderal - PO 20 mg Q8H DANNY Administration Ranitidine HCl 150 mg 05/08/17 22:00 Zantac - PO BID DANNY Thiamine HCl 100 mg 05/08/17 10:00 05/08/17 09:46 Vitamin B1 - PO 100 mg DAILY DANNY Administration Valproate Sodium 500 mg 05/07/17 10:00 05/08/17 09:46 Depacon Injection - IVPB 500 mg DAILY DANNY Administration Home Medications Medication Instructions Recorded Aspirin [Ecotrin] 325 mg PO DAILY 04/30/17 Carvedilol 12.5 mg PO BID 04/30/17 Clonidine HCl 0.2 mg PO BID 04/30/17 Gabapentin 100 mg PO TID 04/30/17 Glipizide 10 mg PO DAILY 04/30/17 Losartan/Hydrochlorothiazide 1 each PO DAILY 04/30/17 [Losartan-Hctz 100-25 mg Tab] Metformin HCl 1,500 mg PO DAILY 04/30/17 Quetiapine Fumarate [Seroquel -] 12.5 mg PO HS 04/30/17 PE: per resident's note Slurred speech improving ,and able to answer to questions clearly. Head: left parietal area with incision around 4 inches long, site is clean, around 10 stitches ASSESSMENT AND PLAN: Patient is a 76 y/o man with h/o CAD, HTN, DM II, CVA , presented to ED. with confusion and urinary incontinence and was found to have Left subdural hematoma. # POD #7, s/p left subdural evacuation with residual aphasia s/p fall. s/p Evacuation 05/01 . On valproic acid for seizure prophylaxis , Keep Blood pressure between SBP goal 120-160 # A flutter and A fib with RVR. was hard to control. HR improved on po Inderal now s/p IV propranolol .discontinue PO cardizem now and prn Hydralazine IV, further managment per cardiology. patient cannot be anticoagulated due to ICH ( recent). #HTN Uncontrolled : on Inderal and hydralazine oral continue # Dm : hold oral meds , SSI # H/o CVA and CAD, off asa due to ICH #Nutrition: Majic cup continue, MBS once medically stable by Nunu Mejia DVT px: SCDs , heparin is contraindicated due to subdural hematoma.
--- NOTE | 2017-05-08 18:19 | PN ---
Progress Note (short form) - Note Progress Note: 76 y/o M with PMH CAD with stents on ASA, CVA (2005), HTN,DMII, spinal stenosis s/p spinal surgery who was brought in to ED after family observed changes in mental status and personality after a fall a few months earlier. On CT noted to have a subacute/chronic subdural hematoma with mass effect. Also noted to have a A-fib/flutter and bradycardia.He is transferred to ICU for monitoring pending clearance for craniotomy and drainage+/- subdural drain placement. seen by neurosurgery and underwent craniotomy for drainage and then drain placement. FU: POD #7 awake but remains aphasic, expressive, poor naming and repetition, though can follow simple requests family bedside, explained these may be residual effects of bleed CT HD: 05/02/17 Impression: Interval postsurgical changes are noted in comparison to a prior CT study of 05/01/2017. - Current Medication List Current Medications: Active Medications Chlorhexidine Gluconate (Hibiclens For Decolonization -) 1 applic TP HS DANNY Last Admin: 05/04/17 22:08 Dose: 1 applic Clonidine HCl (Catapres Tts Patch -) 0.1 mg TD Q7D@1000 DANNY Last Admin: 05/04/17 11:26 Dose: 0.1 mg Diltiazem HCl (Cardizem Injection -) 10 mg IVPUSH Q4H PRN PRN Reason: TACHYCARDIA Last Admin: 05/04/17 00:19 Dose: 10 mg Hydralazine HCl (Apresoline Injection -) 20 mg IVPUSH Q4H PRN PRN Reason: HYPERTENSION Last Admin: 05/05/17 05:37 Dose: 20 mg Pantoprazole Sodium (Protonix 40mg Ivpb (Pre-Docked)) 100 mls @ 200 mls/hr IVPB DAILY DANNY Last Admin: 05/04/17 09:01 Dose: 200 mls/hr Dextrose/Sodium Chloride (D5-1/2ns -) 1,000 mls @ 75 mls/hr IV ASDIR DANNY Last Admin: 05/04/17 22:11 Dose: 75 mls/hr Diltiazem HCl 125 mg/ Dextrose 125 mls @ 5 mls/hr IVPB TITR DANNY; 5 MG/HR PRN Reason: Protocol Last Admin: 05/05/17 01:31 Dose: Not Given Amiodarone HCl 450 mg/ (Dextrose) 250 mls @ 33.33 mls/hr IVPB TITR DANNY PRN Reason: 1 MG/MIN Last Admin: 05/05/17 06:11 Dose: 33.33 mls/hr Potassium Phosphate 30 mm/ (Sodium Chloride) 260 mls @ 62.5 mls/hr IVPB ONCE ONE Stop: 05/05/17 13:39 Insulin Aspart (Novolog Vial Sliding Scale -) 0 vial SQ ACHS DANNY PRN Reason: Protocol Last Admin: 05/05/17 06:17 Dose: 4 units Lorazepam (Ativan Injection -) 1 mg IVPUSH Q6H PRN PRN Reason: ANXIETY Last Admin: 05/04/17 22:12 Dose: 1 mg Mupirocin (Bactroban Ointment (For Decolonization) -) 1 applic NS BID [facility] Stop: 05/05/17 21:59 Last Admin: 05/04/17 23:13 Dose: 1 applic Ondansetron HCl (Zofran Injection) 4 mg IVPB Q6H PRN PRN Reason: NAUSEA Propranolol HCl (Inderal Injection -) 2 mg IVPUSH Q4H-IV DANNY Last Admin: 05/05/17 05:08 Dose: 2 mg Valproate Sodium (Depacon Injection -) 500 mg IVPB DAILY [facility] Last Admin: 05/04/17 09:01 Dose: 500 mg - Objective Vital Signs: Vital Signs Temperature 98.6 F 05/08/17 17:50 Pulse Rate 83 05/08/17 17:50 Respiratory Rate 20 05/08/17 17:50 Blood Pressure 171/89 05/08/17 17:50 O2 Sat by Pulse Oximetry (%) 99 05/08/17 11:08 Neurological: Yes: Other (seen in bed sleeping, and with some effort he was roused and conversant. A bit confused but moving all limbs.) Labs: CBCD WBC 7.4 K/mm3 (4.0-10.0) 05/07/17 06:45 RBC 5.52 M/mm3 (4.00-5.60) 05/07/17 06:45 Hgb 12.7 GM/dL (11.7-16.9) 05/07/17 06:45 Hct 39.6 % (35.4-49) 05/07/17 06:45 MCV 71.7 fl (80-96) L 05/07/17 06:45 MCHC 32.0 g/dl (32.0-35.9) 05/07/17 06:45 RDW 16.0 % (11.9-15.9) H 05/07/17 06:45 Plt Count 171 K/MM3 (134-434) 05/07/17 06:45 MPV 10.5 fl (7.5-11.1) 05/07/17 06:45 CMP Sodium 138 mmol/L (136-145) 05/07/17 06:45 Potassium 4.0 mmol/L (3.5-5.1) 05/07/17 06:45 Chloride 103 mmol/L (98-107) 05/07/17 06:45 Carbon Dioxide 26 mmol/L (21-32) 05/07/17 06:45 Anion Gap 9 (8-16) 05/07/17 06:45 BUN 13 mg/dL (7-18) 05/07/17 06:45 Creatinine 0.7 mg/dL (0.7-1.3) 05/07/17 06:45 Creat Clearance w eGFR > 60 (>60) 05/06/17 05:20 Calcium 8.3 mg/dL (8.5-10.1) L 05/07/17 06:45 Total Bilirubin 1.2 mg/dL (0.2-1.0) H D 05/06/17 05:20 AST 18 U/L (15-37) D 05/06/17 05:20 ALT 20 U/L (12-78) D 05/06/17 05:20 Alkaline Phosphatase 62 U/L (45-117) 05/06/17 05:20 Total Protein 6.8 g/dl (6.4-8.2) 05/06/17 05:20 Albumin 3.0 g/dl (3.4-5.0) L 05/06/17 05:20 Problem List - Problems (1) Subdural bleeding Code(s): I62.00 - NONTRAUMATIC SUBDURAL HEMORRHAGE, UNSPECIFIED Assessment/Plan s/p subdural evacuation with residual aphasia otherwise stable when stabilizes ( after one month, will consider custodial AC for AFIB, though will have to reasess if he is still a candidate) cont optimize BP Dr Kwok
[2017-05-08] MEDS: RANITIDINE HCL 150 MG TABLET (FP) PO SCH (22:22)
[2017-05-09 06:06] LABS: SERUM IRON 91 ug/dL (38-169); TOTAL IRON BINDING CAPACITY 232 ug/dL (250-450); UIBC 141 ug/dL (111-343)
[2017-05-09] MEDS: PROPRANOLOL HCL 20 MG TABLET PO SCH ×3 (06:09→21:51)
[2017-05-09] MEDS: hydrALAZINE HCL 50 MG TABLET (FP) PO SCH ×3 (06:09→21:51)
[2017-05-09] MEDS: DEXTROSE 5%-0.45% SALINE 1,000 ML IV SCH ×2 (06:10→20:06)
[2017-05-09] MEDS: INSULIN SLIDING SCALE (NOVOLOG) 1 VIAL SQ SCH ×4 (06:10→21:50)
[2017-05-09 07:34] LABS: ANION GAP 6 (8-16); CALCIUM 8.4 mg/dL (8.5-10.1); CO2 31 mmol/L (21-32); CREATININE 0.8 mg/dL (0.7-1.3); GLUCOSE,RANDOM 159 mg/dL (74-106); PHOSPHOROUS 3.2 mg/dL (2.5-4.9)
--- NOTE | 2017-05-09 09:06 | PN ---
Progress Note (short form) - Note Progress Note: s: lethargic, no overnight events Current Medications Generic Name Dose Route Start Last Admin Trade Name Freq PRN Reason Stop Dose Admin Diltiazem HCl 10 mg 05/06/17 13:12 Cardizem Injection - IVPUSH Q4H PRN TACHYCARDIA Hydralazine HCl 10 mg 05/06/17 18:38 05/08/17 09:43 Apresoline Injection - IVPUSH 10 mg Q4H PRN Administration HYPERTENSION Hydralazine HCl 100 mg 05/09/17 08:13 Apresoline - PO TID DANNY Dextrose/Sodium Chloride 1,000 mls @ 42 mls/hr 05/06/17 18:45 05/09/17 06:10 D5-1/2ns - IV Not Given ASDIR [facility] Insulin Aspart 1 vial 05/06/17 16:30 05/09/17 06:10 Novolog Vial Sliding Scale - SQ Not Given ACHS [facility] Protocol Ondansetron HCl 4 mg 05/06/17 13:12 Zofran Injection IVPB Q6H PRN NAUSEA Propranolol HCl 20 mg 05/06/17 22:00 05/09/17 06:09 Inderal - PO 20 mg Q8H DANNY Administration Ranitidine HCl 150 mg 05/08/17 22:00 05/08/17 22:22 Zantac - PO 150 mg BID DANNY Administration Thiamine HCl 100 mg 05/08/17 10:00 05/08/17 09:46 Vitamin B1 - PO 100 mg DAILY DANNY Administration Valproate Sodium 500 mg 05/07/17 10:00 05/08/17 09:46 Depacon Injection - IVPB 500 mg DAILY DANNY Administration Vital Signs Period Temp Pulse Resp BP Sys/Cortés Pulse Ox Last 24 Hr 98.3 F-208.0 F 58-104 18-20 148-171/75-100 99-99 Constitutional: Yes: Well Nourished, No Distress, Calm Cardiovascular: Yes: irregular Rate and Rhythm, S1, S2. No: JVD, Gallop, Murmur Respiratory: Yes: trace rales . No: Accessory Muscle Use, Rales, Wheezes Extremities: No: Cold Edema: No Neurological: Yes:lethargic No: Seizure Psychiatric: No: Agitated no jaundice diaphoresis Labs: CBC, BMP 05/07/17 06:45 05/09/17 06:00 tele: sr Echo 04/2017: Mild conc lvh. grossly nl lv fn. tds for rwma. nl rv function. mild-mod tr. rvsp 30-40. < 1 cm pericardial effusion, not hemodynamically significant. 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 Hospital course notable for new onset atrial flutter with slow ventricular conduction. New onset atrial flutter - Not a candidate for AC due to recent frequent falls, the current fall resulting in subdural hematoma - echo with grossly normal lv function. - on admit Had svr to 40's initially (Had been on coreg and clonidine at home)-- suspect initial bradycardia was due to home meds plus increased ICP - rapid AFL rates once home meds held, requiring diltiazem gtt, then required addition of amiodarone drip for rapid HRs on diltiazem. - 05/04: remains rapid in AFL with 2:1 A-V conduction. increased amio to 1 mg/ min and given dose of propranolol 2mg IVP x1, and HR decreased to 70s with variable AFL conduction. --> cont present amio rate, started standing propranolol 2mg IVP q4H, prn amiodarone boluses as needed - 05/05 remains rate controlled. intermittently in SR/Wenckebach. Cleared to take PO meds. Has been on amiodarone drip since 05/03 --> will change to maintenance dosing 200 mg po daily. Transition off diltiazem drip and start po regimen of diltiazem 60 mg QID and propanolol 40 mg tid. h/o multiple falls, now with fall and SDH - 05/06 SVR today persists despite receiving minimal PO regimen. Will stop amiodarone to avoid ongoing SVR. Start propanolol at a lower dose without diltiazem this evening to avoid recurrence of RVR overnight (as has happened in past when rate control meds have been held). lyte repletion prn -05/07-05/09: cont low dose inderal, when in afib rate is controlled. no pathologic bradycardia overnight. h/o multiple falls, now with fall and SDH - s/p L craniotomy for SDH--mgmt per neurosurgery - Ongoing managment of bp/hr as mentioned. HTN - required nicardipine gtt over weekend, now off - tight bp control to reduce risk of further ICH - 05/06 bp suboptimal today while rate control medications being held for SVR. Can give prn hydralazine (decreased dose to 10 mg) if needed until propanolol is resumed this evening. If SVR continues to persist tomorrow/bp remains uncontrolled then will have to choose alternate medication. now taking in PO -- > will decrease the rate of IVF. -05/07: will start po hydralazine for better bp control -05/08: bp still elevated, will increase hydralazine to 50 bid -05/09: bp still elevated, will increase hydralazine from 50 tid to 100 tid CAD - prior details uncertain, no recent PCI - Patient with multiple falls and subdural hematoma on ASA --> may not be able to continue this unfortunately, as risks of recurrent falls and ICH >> benefits. cont holding ASA for now, reassess later (requires outpt cardio f/u also to clarify prior stent history--if no stents, would definitely stop ASA here) - con't statin when able to take po. - no signs acs - ce's neg x 2. ekg without acute ischemic changes. CVA. - Not a candidate for AC or ASA at this time as mentioned. will start statin.
[2017-05-09] MEDS ORDERED: PT OWN MED DRAWER 7, Y5N ONE ×4 (09:35→21:48)
[2017-05-09] MEDS: RANITIDINE HCL 150 MG TABLET (FP) PO SCH ×2 (10:15→21:51)
[2017-05-09] MEDS: THIAMINE HCL 100 MG TABLET (FP) PO SCH (10:15)
[2017-05-09] MEDS ORDERED: INSULIN (NOVOLOG) ASPART 100 UNITS/ML 10ML VIAL ONE ×3 (11:26→21:48)
[2017-05-09] MEDS: VALPROATE SODIUM 500 MG/5 ML VIAL IVPB SCH (16:04)
[2017-05-09] MEDS: hydrALAZINE HCL 20 MG/ML VIAL IVPUSH PRN (17:16)
--- NOTE | 2017-05-09 17:17 | PN ---
Progress Note (short form) - Note Progress Note: Patient is agitated seems gets agitated at the same time every day. Vital Signs Temperature 98.7 F 05/09/17 14:00 Pulse Rate 95 H 05/09/17 14:00 Respiratory Rate 16 05/09/17 14:00 Blood Pressure 158/79 05/09/17 14:00 O2 Sat by Pulse Oximetry (%) 97 05/09/17 09:00 GENERAL: The patient is awake and more alert. HEAD: 4cm incision with sutures, intact, clean, and dry without signs of infection. EYES: PERRL, extraocular movements intact, sclera anicteric, conjunctiva clear. ENT: Ears normal, oropharynx clear without exudates, moist mucous membranes. NECK: Trachea midline, full range of motion, supple. LUNGS: Breath sounds equal, clear to auscultation bilaterally, no wheezes, no crackles, no accessory muscle use. HEART: Regular rate and rhythm, S1, S2 without murmur, rub or gallop. ABDOMEN: Soft, nontender, nondistended, normoactive bowel sounds, no guarding, no rebound, no hepatosplenomegaly, no masses. EXTREMITIES: 2+ pulses, warm, well-perfused, no edema. NEUROLOGICAL: CN still difficult to fully assess. gait not observed. SKIN: Warm, dry, normal turgor, no rashes or lesions noted CBCD WBC 7.4 K/mm3 (4.0-10.0) 05/07/17 06:45 RBC 5.52 M/mm3 (4.00-5.60) 05/07/17 06:45 Hgb 12.7 GM/dL (11.7-16.9) 05/07/17 06:45 Hct 39.6 % (35.4-49) 05/07/17 06:45 MCV 71.7 fl (80-96) L 05/07/17 06:45 MCHC 32.0 g/dl (32.0-35.9) 05/07/17 06:45 RDW 16.0 % (11.9-15.9) H 05/07/17 06:45 Plt Count 171 K/MM3 (134-434) 05/07/17 06:45 MPV 10.5 fl (7.5-11.1) 05/07/17 06:45 CMP Sodium 139 mmol/L (136-145) 05/09/17 06:00 Potassium 4.0 mmol/L (3.5-5.1) 05/09/17 06:00 Chloride 102 mmol/L (98-107) 05/09/17 06:00 Carbon Dioxide 31 mmol/L (21-32) 05/09/17 06:00 Anion Gap 6 (8-16) L 05/09/17 06:00 BUN 11 mg/dL (7-18) 05/09/17 06:00 Creatinine 0.8 mg/dL (0.7-1.3) 05/09/17 06:00 Creat Clearance w eGFR > 60 (>60) 05/06/17 05:20 Random Glucose 159 mg/dL (74-106) H 05/09/17 06:00 Calcium 8.4 mg/dL (8.5-10.1) L 05/09/17 06:00 Total Bilirubin 1.2 mg/dL (0.2-1.0) H D 05/06/17 05:20 AST 18 U/L (15-37) D 05/06/17 05:20 ALT 20 U/L (12-78) D 05/06/17 05:20 Alkaline Phosphatase 62 U/L (45-117) 05/06/17 05:20 Total Protein 6.8 g/dl (6.4-8.2) 05/06/17 05:20 Albumin 3.0 g/dl (3.4-5.0) L 05/06/17 05:20 CARDIAC ENZYMES Creatine Kinase 206 IU/L (39-308) 05/01/17 03:40 Troponin I < 0.02 ng/ml (0.00-0.05) 05/01/17 03:40 Current Medications Generic Name Dose Route Start Last Admin Trade Name Freq PRN Reason Stop Dose Admin Atorvastatin Calcium 20 mg 05/09/17 22:00 Lipitor - PO HS DANNY Diltiazem HCl 10 mg 05/06/17 13:12 Cardizem Injection - IVPUSH Q4H PRN TACHYCARDIA Hydralazine HCl 10 mg 05/06/17 18:38 05/08/17 09:43 Apresoline Injection - IVPUSH 10 mg Q4H PRN Administration HYPERTENSION Hydralazine HCl 100 mg 05/09/17 08:13 05/09/17 16:04 Apresoline - PO 100 mg TID DANNY Administration Dextrose/Sodium Chloride 1,000 mls @ 42 mls/hr 05/06/17 18:45 05/09/17 06:10 D5-1/2ns - IV Not Given ASDIR DANNY Insulin Aspart 1 vial 05/06/17 16:30 05/09/17 17:14 Novolog Vial Sliding Scale - SQ 4 unit ACHS DANNY Administration Protocol Ondansetron HCl 4 mg 05/06/17 13:12 Zofran Injection IVPB Q6H PRN NAUSEA Propranolol HCl 20 mg 05/06/17 22:00 05/09/17 16:05 Inderal - PO 20 mg Q8H DANNY Administration Ranitidine HCl 150 mg 05/08/17 22:00 05/09/17 10:15 Zantac - PO 150 mg BID DANNY Administration Thiamine HCl 100 mg 05/08/17 10:00 05/09/17 10:15 Vitamin B1 - PO 100 mg DAILY DANNY Administration Valproate Sodium 500 mg 05/07/17 10:00 05/09/17 16:04 Depacon Injection - IVPB 500 mg DAILY DANNY Administration Home Medications Medication Instructions Recorded Aspirin [Ecotrin] 325 mg PO DAILY 04/30/17 Carvedilol 12.5 mg PO BID 04/30/17 Clonidine HCl 0.2 mg PO BID 04/30/17 Gabapentin 100 mg PO TID 04/30/17 Glipizide 10 mg PO DAILY 04/30/17 Losartan/Hydrochlorothiazide 1 each PO DAILY 04/30/17 [Losartan-Hctz 100-25 mg Tab] Metformin HCl 1,500 mg PO DAILY 04/30/17 Quetiapine Fumarate [Seroquel -] 12.5 mg PO HS 04/30/17 A/P: Patient is a 76 y/o man with h/o CAD, HTN, DM II, CVA , presented to ED. with confusion and urinary incontinence and was found to have Left subdural hematoma. # POD #8 s/p left subdural evacuation with residual aphasia s/p fall. s/p Evacuation 05/01 . On valproic acid for seizure prophylaxis , Keep Blood pressure between SBP goal 120-160 # A flutter and A fib with RVR. was hard to control. HR improved on po Inderal now s/p IV propranolol .discontinue PO cardizem now and prn Hydralazine IV, further managment per cardiology. patient cannot be anticoagulated due to ICH ( recent). #HTN Uncontrolled : on Inderal and hydralazine oral continue # Dm : hold oral meds , SSI # H/o CVA and CAD, off asa due to ICH #Nutrition: Majic cup continue, MBS once medically stable by Nunu Mejia DVT px: SCDs , heparin is contraindicated due to subdural hematoma. Visit type - Emergency Visit Emergency Visit: Yes ED Registration Date: 04/30/17 Care time: The patient presented to the Emergency Department on the above date and was hospitalized for further evaluation of their emergent condition. - New Patient This patient is new to me today: No - Critical Care Critical Care patient: No
[2017-05-09] MEDS: ATORVASTATIN CA 20 MG TABLET (FP) PO SCH (21:51)
[2017-05-10] MEDS ORDERED: PT OWN MED DRAWER 7, Y5N ONE ×4 (06:20→13:43)
[2017-05-10] MEDS ORDERED: INSULIN (NOVOLOG) ASPART 100 UNITS/ML 10ML VIAL ONE ×4 (06:20→21:56)
[2017-05-10] MEDS: PROPRANOLOL HCL 20 MG TABLET PO SCH ×3 (06:21→22:12)
[2017-05-10] MEDS: hydrALAZINE HCL 50 MG TABLET (FP) PO SCH ×3 (06:21→22:13)
[2017-05-10] MEDS: INSULIN SLIDING SCALE (NOVOLOG) 1 VIAL SQ SCH ×4 (06:21→22:13)
--- NOTE | 2017-05-10 09:17 | PN ---
Progress Note (short form) - Note Progress Note: s: lethargic, no overnight events Current Medications Generic Name Dose Route Start Last Admin Trade Name Freq PRN Reason Stop Dose Admin Amlodipine Besylate 5 mg 05/10/17 10:00 Norvasc - PO DAILY DANNY Atorvastatin Calcium 20 mg 05/09/17 22:00 05/09/17 21:51 Lipitor - PO 20 mg HS DANNY Administration Diltiazem HCl 10 mg 05/06/17 13:12 Cardizem Injection - IVPUSH Q4H PRN TACHYCARDIA Hydralazine HCl 10 mg 05/06/17 18:38 05/09/17 17:16 Apresoline Injection - IVPUSH 10 mg Q4H PRN Administration HYPERTENSION Hydralazine HCl 100 mg 05/09/17 08:13 05/10/17 06:21 Apresoline - PO 100 mg TID DANNY Administration Dextrose/Sodium Chloride 1,000 mls @ 42 mls/hr 05/06/17 18:45 05/09/17 20:06 D5-1/2ns - IV Not Given ASDIR DANNY Insulin Aspart 1 vial 05/06/17 16:30 05/10/17 06:21 Novolog Vial Sliding Scale - SQ 2 units ACHS DANNY Administration Protocol Ondansetron HCl 4 mg 05/06/17 13:12 Zofran Injection IVPB Q6H PRN NAUSEA Propranolol HCl 20 mg 05/06/17 22:00 05/10/17 06:21 Inderal - PO 20 mg Q8H DANNY Administration Ranitidine HCl 150 mg 05/08/17 22:00 05/09/17 21:51 Zantac - PO 150 mg BID DANNY Administration Thiamine HCl 100 mg 05/08/17 10:00 05/09/17 10:15 Vitamin B1 - PO 100 mg DAILY DANNY Administration Valproate Sodium 500 mg 05/07/17 10:00 05/09/17 16:04 Depacon Injection - IVPB 500 mg DAILY DANNY Administration Vital Signs Period Temp Pulse Resp BP Sys/Cortés Pulse Ox Last 24 Hr 97.6 F-99.2 F 68-96 16-20 123-170/79-109 96-98 Constitutional: Yes: Well Nourished, No Distress, Calm Cardiovascular: Yes: irregular Rate and Rhythm, S1, S2. No: JVD, Gallop, Murmur Respiratory: Yes: trace rales . No: Accessory Muscle Use, Rales, Wheezes Extremities: No: Cold Edema: No Neurological: Yes:lethargic No: Seizure Psychiatric: No: Agitated no jaundice diaphoresis Labs: CBC, BMP 05/07/17 06:45 05/09/17 06:00 tele: sr Echo 04/2017: Mild conc lvh. grossly nl lv fn. tds for rwma. nl rv function. mild-mod tr. rvsp 30-40. < 1 cm pericardial effusion, not hemodynamically significant. 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 Hospital course notable for new onset atrial flutter with slow ventricular conduction. New onset atrial flutter - Not a candidate for AC due to recent frequent falls, the current fall resulting in subdural hematoma - echo with grossly normal lv function. - on admit Had svr to 40's initially (Had been on coreg and clonidine at home)-- suspect initial bradycardia was due to home meds plus increased ICP - rapid AFL rates once home meds held, requiring diltiazem gtt, then required addition of amiodarone drip for rapid HRs on diltiazem. - 05/04: remains rapid in AFL with 2:1 A-V conduction. increased amio to 1 mg/ min and given dose of propranolol 2mg IVP x1, and HR decreased to 70s with variable AFL conduction. --> cont present amio rate, started standing propranolol 2mg IVP q4H, prn amiodarone boluses as needed - 05/05 remains rate controlled. intermittently in SR/Wenckebach. Cleared to take PO meds. Has been on amiodarone drip since 05/03 --> will change to maintenance dosing 200 mg po daily. Transition off diltiazem drip and start po regimen of diltiazem 60 mg QID and propanolol 40 mg tid. h/o multiple falls, now with fall and SDH - 05/06 SVR today persists despite receiving minimal PO regimen. Will stop amiodarone to avoid ongoing SVR. Start propanolol at a lower dose without diltiazem this evening to avoid recurrence of RVR overnight (as has happened in past when rate control meds have been held). lyte repletion prn -05/07-05/10: cont low dose inderal, when in afib rate is controlled. no pathologic bradycardia overnight. h/o multiple falls, now with fall and SDH - s/p L craniotomy for SDH--mgmt per neurosurgery - Ongoing managment of bp/hr as mentioned. HTN - required nicardipine gtt over weekend, now off - tight bp control to reduce risk of further ICH - 05/06 bp suboptimal today while rate control medications being held for SVR. Can give prn hydralazine (decreased dose to 10 mg) if needed until propanolol is resumed this evening. If SVR continues to persist tomorrow/bp remains uncontrolled then will have to choose alternate medication. now taking in PO -- > will decrease the rate of IVF. -05/07: will start po hydralazine for better bp control -05/08: bp still elevated, will increase hydralazine to 50 bid -05/09: bp still elevated, will increase hydralazine from 50 tid to 100 tid -05/10: bp still elevated, will add norvasc 5 today CAD - prior details uncertain, no recent PCI - Patient with multiple falls and subdural hematoma on ASA --> may not be able to continue this unfortunately, as risks of recurrent falls and ICH >> benefits. cont holding ASA for now, reassess later (requires outpt cardio f/u also to clarify prior stent history--if no stents, would definitely stop ASA here) - con't statin when able to take po. - no signs acs - ce's neg x 2. ekg without acute ischemic changes. CVA. - Not a candidate for AC or ASA at this time as mentioned. will start statin.
[2017-05-10] MEDS: VALPROATE SODIUM 500 MG/5 ML VIAL IVPB SCH (09:51)
[2017-05-10] MEDS: RANITIDINE HCL 150 MG TABLET (FP) PO SCH ×2 (09:51→22:13)
[2017-05-10] MEDS: amLODIPine BESYLATE 5 MG TABLET (FP) PO SCH (09:51)
[2017-05-10] MEDS: THIAMINE HCL 100 MG TABLET (FP) PO SCH (09:51)
[2017-05-10] MEDS ORDERED: ACETAMINOPHEN 325 MG TABLET (FP) PO ONE (12:29)
[2017-05-10] MEDS: DEXTROSE 5%-0.45% SALINE 1,000 ML IV SCH ×2 (14:05→22:13)
--- NOTE | 2017-05-10 16:20 | PN ---
Progress Note (short form) - Note Progress Note: 76 y/o M with PMH CAD with stents on ASA, CVA (2005), HTN,DMII, spinal stenosis s/p spinal surgery who was brought in to ED after family observed changes in mental status and personality after a fall a few months earlier. On CT noted to have a subacute/chronic subdural hematoma with mass effect. Also noted to have a A-fib/flutter and bradycardia.He is transferred to ICU for monitoring pending clearance for craniotomy and drainage+/- subdural drain placement. seen by neurosurgery and underwent craniotomy for drainage and then drain placement. FU: POD #9 still confused , remains aphasic, expressive, poor naming and repetition, family bedside, explained these may be residual effects of bleed CT HD: 05/02/17 Impression: Interval postsurgical changes are noted in comparison to a prior CT study of 05/01/2017. - Current Medication List Current Medications: Active Medications Chlorhexidine Gluconate (Hibiclens For Decolonization -) 1 applic TP HS DANNY Last Admin: 05/04/17 22:08 Dose: 1 applic Clonidine HCl (Catapres Tts Patch -) 0.1 mg TD Q7D@1000 DANNY Last Admin: 05/04/17 11:26 Dose: 0.1 mg Diltiazem HCl (Cardizem Injection -) 10 mg IVPUSH Q4H PRN PRN Reason: TACHYCARDIA Last Admin: 05/04/17 00:19 Dose: 10 mg Hydralazine HCl (Apresoline Injection -) 20 mg IVPUSH Q4H PRN PRN Reason: HYPERTENSION Last Admin: 05/05/17 05:37 Dose: 20 mg Pantoprazole Sodium (Protonix 40mg Ivpb (Pre-Docked)) 100 mls @ 200 mls/hr IVPB DAILY DANNY Last Admin: 05/04/17 09:01 Dose: 200 mls/hr Dextrose/Sodium Chloride (D5-1/2ns -) 1,000 mls @ 75 mls/hr IV ASDIR DANNY Last Admin: 05/04/17 22:11 Dose: 75 mls/hr Diltiazem HCl 125 mg/ Dextrose 125 mls @ 5 mls/hr IVPB TITR DANNY; 5 MG/HR PRN Reason: Protocol Last Admin: 05/05/17 01:31 Dose: Not Given Amiodarone HCl 450 mg/ (Dextrose) 250 mls @ 33.33 mls/hr IVPB TITR DANNY PRN Reason: 1 MG/MIN Last Admin: 05/05/17 06:11 Dose: 33.33 mls/hr Potassium Phosphate 30 mm/ (Sodium Chloride) 260 mls @ 62.5 mls/hr IVPB ONCE ONE Stop: 05/05/17 13:39 Insulin Aspart (Novolog Vial Sliding Scale -) 0 vial SQ ACHS DANNY PRN Reason: Protocol Last Admin: 05/05/17 06:17 Dose: 4 units Lorazepam (Ativan Injection -) 1 mg IVPUSH Q6H PRN PRN Reason: ANXIETY Last Admin: 05/04/17 22:12 Dose: 1 mg Mupirocin (Bactroban Ointment (For Decolonization) -) 1 applic NS BID [facility] Stop: 05/05/17 21:59 Last Admin: 05/04/17 23:13 Dose: 1 applic Ondansetron HCl (Zofran Injection) 4 mg IVPB Q6H PRN PRN Reason: NAUSEA Propranolol HCl (Inderal Injection -) 2 mg IVPUSH Q4H-IV DANNY Last Admin: 05/05/17 05:08 Dose: 2 mg Valproate Sodium (Depacon Injection -) 500 mg IVPB DAILY [facility] Last Admin: 05/04/17 09:01 Dose: 500 mg - Objective Vital Signs: Vital Signs Temperature 97.8 F 05/10/17 13:36 Pulse Rate 67 05/10/17 13:36 Respiratory Rate 20 05/10/17 13:36 Blood Pressure 154/89 05/10/17 13:36 O2 Sat by Pulse Oximetry (%) 96 05/10/17 08:20 Neurological: Yes: Other (seen in bed sleeping, and with some effort he was roused and conversant. A bit confused but moving all limbs.) Labs: CBCD WBC 7.4 K/mm3 (4.0-10.0) 05/07/17 06:45 RBC 5.52 M/mm3 (4.00-5.60) 05/07/17 06:45 Hgb 12.7 GM/dL (11.7-16.9) 05/07/17 06:45 Hct 39.6 % (35.4-49) 05/07/17 06:45 MCV 71.7 fl (80-96) L 05/07/17 06:45 MCHC 32.0 g/dl (32.0-35.9) 05/07/17 06:45 RDW 16.0 % (11.9-15.9) H 05/07/17 06:45 Plt Count 171 K/MM3 (134-434) 05/07/17 06:45 MPV 10.5 fl (7.5-11.1) 05/07/17 06:45 CMP Sodium 139 mmol/L (136-145) 05/09/17 06:00 Potassium 4.0 mmol/L (3.5-5.1) 05/09/17 06:00 Chloride 102 mmol/L (98-107) 05/09/17 06:00 Carbon Dioxide 31 mmol/L (21-32) 05/09/17 06:00 Anion Gap 6 (8-16) L 05/09/17 06:00 BUN 11 mg/dL (7-18) 05/09/17 06:00 Creatinine 0.8 mg/dL (0.7-1.3) 05/09/17 06:00 Creat Clearance w eGFR > 60 (>60) 05/06/17 05:20 Calcium 8.4 mg/dL (8.5-10.1) L 05/09/17 06:00 Total Bilirubin 1.2 mg/dL (0.2-1.0) H D 05/06/17 05:20 AST 18 U/L (15-37) D 05/06/17 05:20 ALT 20 U/L (12-78) D 05/06/17 05:20 Alkaline Phosphatase 62 U/L (45-117) 05/06/17 05:20 Total Protein 6.8 g/dl (6.4-8.2) 05/06/17 05:20 Albumin 3.0 g/dl (3.4-5.0) L 05/06/17 05:20 Problem List - Problems (1) Subdural bleeding Code(s): I62.00 - NONTRAUMATIC SUBDURAL HEMORRHAGE, UNSPECIFIED Assessment/Plan s/p subdural evacuation with residual aphasia will repeat HD CT , no sig fluctuations so doubt seizure, but will check EEG as well when stabilizes ( after one month, will consider assistant terminal manager AC for AFIB, though will have to reasess if he is still a candidate) Dr Kwok
--- NOTE | 2017-05-10 18:58 | PN ---
Progress Note (short form) - Note Progress Note: Comfortable with no acute distress. is at bedside, patient's speech continue to be slurred. Vital Signs Temperature 98 F 05/10/17 17:42 Pulse Rate 90 05/10/17 17:42 Respiratory Rate 20 05/10/17 17:42 Blood Pressure 147/93 05/10/17 18:35 O2 Sat by Pulse Oximetry (%) 96 05/10/17 08:20 GENERAL: The patient is awake and more alert. HEAD: 4cm incision with sutures, intact, clean, and dry without signs of infection. EYES: PERRL, extraocular movements intact, sclera anicteric, conjunctiva clear. ENT: Ears normal, oropharynx clear without exudates, moist mucous membranes. NECK: Trachea midline, full range of motion, supple. LUNGS: Breath sounds equal, clear to auscultation bilaterally, no wheezes, no crackles, no accessory muscle use. HEART: Regular rate and rhythm, S1, S2 without murmur, rub or gallop. ABDOMEN: Soft, nontender, nondistended, normoactive bowel sounds, no guarding, no rebound, no hepatosplenomegaly, no masses. EXTREMITIES: 2+ pulses, warm, well-perfused, no edema. NEUROLOGICAL: CN still difficult to fully assess. gait not observed. SKIN: Warm, dry, normal turgor, no rashes or lesions noted CBCD WBC 7.4 K/mm3 (4.0-10.0) 05/07/17 06:45 RBC 5.52 M/mm3 (4.00-5.60) 05/07/17 06:45 Hgb 12.7 GM/dL (11.7-16.9) 05/07/17 06:45 Hct 39.6 % (35.4-49) 05/07/17 06:45 MCV 71.7 fl (80-96) L 05/07/17 06:45 MCHC 32.0 g/dl (32.0-35.9) 05/07/17 06:45 RDW 16.0 % (11.9-15.9) H 05/07/17 06:45 Plt Count 171 K/MM3 (134-434) 05/07/17 06:45 MPV 10.5 fl (7.5-11.1) 05/07/17 06:45 CMP Sodium 139 mmol/L (136-145) 05/09/17 06:00 Potassium 4.0 mmol/L (3.5-5.1) 05/09/17 06:00 Chloride 102 mmol/L (98-107) 05/09/17 06:00 Carbon Dioxide 31 mmol/L (21-32) 05/09/17 06:00 Anion Gap 6 (8-16) L 05/09/17 06:00 BUN 11 mg/dL (7-18) 05/09/17 06:00 Creatinine 0.8 mg/dL (0.7-1.3) 05/09/17 06:00 Creat Clearance w eGFR > 60 (>60) 05/06/17 05:20 Random Glucose 159 mg/dL (74-106) H 05/09/17 06:00 Calcium 8.4 mg/dL (8.5-10.1) L 05/09/17 06:00 Total Bilirubin 1.2 mg/dL (0.2-1.0) H D 05/06/17 05:20 AST 18 U/L (15-37) D 05/06/17 05:20 ALT 20 U/L (12-78) D 05/06/17 05:20 Alkaline Phosphatase 62 U/L (45-117) 05/06/17 05:20 Total Protein 6.8 g/dl (6.4-8.2) 05/06/17 05:20 Albumin 3.0 g/dl (3.4-5.0) L 05/06/17 05:20 CARDIAC ENZYMES Creatine Kinase 206 IU/L (39-308) 05/01/17 03:40 Troponin I < 0.02 ng/ml (0.00-0.05) 05/01/17 03:40 Current Medications Generic Name Dose Route Start Last Admin Trade Name Freq PRN Reason Stop Dose Admin Amlodipine Besylate 5 mg 05/10/17 10:00 05/10/17 09:51 Norvasc - PO 5 mg DAILY DANNY Administration Artificial Tears 1 drop 05/10/17 18:15 Artificial Tears OU Q6H PRN DRY EYES Atorvastatin Calcium 20 mg 05/09/17 22:00 05/09/17 21:51 Lipitor - PO 20 mg HS DANNY Administration Diltiazem HCl 10 mg 05/06/17 13:12 Cardizem Injection - IVPUSH Q4H PRN TACHYCARDIA Hydralazine HCl 10 mg 05/06/17 18:38 05/09/17 17:16 Apresoline Injection - IVPUSH 10 mg Q4H PRN Administration HYPERTENSION Hydralazine HCl 100 mg 05/09/17 08:13 05/10/17 13:34 Apresoline - PO 100 mg TID DANNY Administration Dextrose/Sodium Chloride 1,000 mls @ 42 mls/hr 05/06/17 18:45 05/10/17 14:05 D5-1/2ns - IV 42 mls/hr ASDIR DANNY Administration Insulin Aspart 1 vial 05/06/17 16:30 05/10/17 16:48 Novolog Vial Sliding Scale - SQ Not Given ACHS DANNY Protocol Ondansetron HCl 4 mg 05/06/17 13:12 Zofran Injection IVPB Q6H PRN NAUSEA Propranolol HCl 20 mg 05/06/17 22:00 05/10/17 13:36 Inderal - PO Not Given Q8H DANNY Ranitidine HCl 150 mg 05/08/17 22:00 05/10/17 09:51 Zantac - PO 150 mg BID DANNY Administration Thiamine HCl 100 mg 05/08/17 10:00 05/10/17 09:51 Vitamin B1 - PO 100 mg DAILY DANNY Administration Valproate Sodium 500 mg 05/07/17 10:00 05/10/17 09:51 Depacon Injection - IVPB 500 mg DAILY DANNY Administration Home Medications Medication Instructions Recorded Aspirin [Ecotrin] 325 mg PO DAILY 04/30/17 Carvedilol 12.5 mg PO BID 04/30/17 Clonidine HCl 0.2 mg PO BID 04/30/17 Gabapentin 100 mg PO TID 04/30/17 Glipizide 10 mg PO DAILY 04/30/17 Losartan/Hydrochlorothiazide 1 each PO DAILY 04/30/17 [Losartan-Hctz 100-25 mg Tab] Metformin HCl 1,500 mg PO DAILY 04/30/17 Quetiapine Fumarate [Seroquel -] 12.5 mg PO HS 04/30/17 A/P: Patient is a 76 y/o man with h/o CAD, HTN, DM II, CVA , presented to ED. with confusion and urinary incontinence and was found to have Left subdural hematoma. # POD #9 s/p left subdural evacuation with residual aphasia s/p fall. s/p Evacuation 05/01 . On valproic acid for seizure prophylaxis , Keep Blood pressure between SBP goal 120-160 # A flutter and A fib with rate controlled . HR improved on po Inderal now s/p IV propranolol .discontinue PO cardizem now on PO Hydralazine 100mg tid , further managment per cardiology. patient cannot be anticoagulated due to ICH ( recent). #HTN Uncontrolled : on Inderal and hydralazine oral continue # Dm :on SSI # H/o CVA and CAD, off asa due to ICH #Nutrition: Majic cup continue, MBS once medically stable by [place] Mejia DVT px: SCDs , heparin is contraindicated due to subdural hematoma. Visit type - Emergency Visit Emergency Visit: Yes ED Registration Date: 04/30/17 Care time: The patient presented to the Emergency Department on the above date and was hospitalized for further evaluation of their emergent condition. - New Patient This patient is new to me today: No - Critical Care Critical Care patient: No
[2017-05-10] MEDS: ATORVASTATIN CA 20 MG TABLET (FP) PO SCH (22:13)
[2017-05-11] MEDS: PROPRANOLOL HCL 20 MG TABLET PO SCH ×3 (06:24→22:14)
[2017-05-11] MEDS: INSULIN SLIDING SCALE (NOVOLOG) 1 VIAL SQ SCH ×4 (06:25→22:12)
[2017-05-11] MEDS: hydrALAZINE HCL 50 MG TABLET (FP) PO SCH ×3 (06:25→22:12)
--- NOTE | 2017-05-11 09:17 | PN ---
Progress Note (short form) - Note Progress Note: s: lethargic, no overnight events Current Medications Generic Name Dose Route Start Last Admin Trade Name Freq PRN Reason Stop Dose Admin Amlodipine Besylate 5 mg 05/10/17 10:00 05/10/17 09:51 Norvasc - PO 5 mg DAILY DANNY Administration Artificial Tears 1 drop 05/10/17 18:15 Artificial Tears OU Q6H PRN DRY EYES Atorvastatin Calcium 20 mg 05/09/17 22:00 05/10/17 22:13 Lipitor - PO 20 mg HS DANNY Administration Diltiazem HCl 10 mg 05/06/17 13:12 Cardizem Injection - IVPUSH Q4H PRN TACHYCARDIA Hydralazine HCl 10 mg 05/06/17 18:38 05/09/17 17:16 Apresoline Injection - IVPUSH 10 mg Q4H PRN Administration HYPERTENSION Hydralazine HCl 100 mg 05/09/17 08:13 05/11/17 06:25 Apresoline - PO 100 mg TID DANNY Administration Dextrose/Sodium Chloride 1,000 mls @ 42 mls/hr 05/06/17 18:45 05/10/17 22:13 D5-1/2ns - IV Not Given ASDIR DANNY Insulin Aspart 1 vial 05/06/17 16:30 05/11/17 06:25 Novolog Vial Sliding Scale - SQ 2 units ACHS DANNY Administration Protocol Ondansetron HCl 4 mg 05/06/17 13:12 Zofran Injection IVPB Q6H PRN NAUSEA Propranolol HCl 20 mg 05/06/17 22:00 05/11/17 06:24 Inderal - PO 20 mg Q8H DANNY Administration Ranitidine HCl 150 mg 05/08/17 22:00 05/10/17 22:13 Zantac - PO 150 mg BID DANNY Administration Thiamine HCl 100 mg 05/08/17 10:00 05/10/17 09:51 Vitamin B1 - PO 100 mg DAILY DANNY Administration Valproate Sodium 500 mg 05/07/17 10:00 05/10/17 09:51 Depacon Injection - IVPB 500 mg DAILY DANNY Administration Vital Signs Period Temp Pulse Resp BP Sys/Cortés Pulse Ox Last 24 Hr 97.8 F-98.7 F 67-99 16-20 122-167/73-93 96 Constitutional: Yes: Well Nourished, No Distress, Calm Cardiovascular: Yes: irregular Rate and Rhythm, S1, S2. No: JVD, Gallop, Murmur Respiratory: Yes: trace rales . No: Accessory Muscle Use, Rales, Wheezes Extremities: No: Cold Edema: No Neurological: Yes:lethargic No: Seizure Psychiatric: No: Agitated no jaundice diaphoresis Labs: CBC, BMP 05/07/17 06:45 05/09/17 06:00 tele: sr Echo 04/2017: Mild conc lvh. grossly nl lv fn. tds for rwma. nl rv function. mild-mod tr. rvsp 30-40. < 1 cm pericardial effusion, not hemodynamically significant. 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 Hospital course notable for new onset atrial flutter with slow ventricular conduction. New onset atrial flutter - Not a candidate for AC due to recent frequent falls, the current fall resulting in subdural hematoma - echo with grossly normal lv function. - on admit Had svr to 40's initially (Had been on coreg and clonidine at home)-- suspect initial bradycardia was due to home meds plus increased ICP - rapid AFL rates once home meds held, requiring diltiazem gtt, then required addition of amiodarone drip for rapid HRs on diltiazem. - 05/04: remains rapid in AFL with 2:1 A-V conduction. increased amio to 1 mg/ min and given dose of propranolol 2mg IVP x1, and HR decreased to 70s with variable AFL conduction. --> cont present amio rate, started standing propranolol 2mg IVP q4H, prn amiodarone boluses as needed - 05/05 remains rate controlled. intermittently in SR/Wenckebach. Cleared to take PO meds. Has been on amiodarone drip since 05/03 --> will change to maintenance dosing 200 mg po daily. Transition off diltiazem drip and start po regimen of diltiazem 60 mg QID and propanolol 40 mg tid. h/o multiple falls, now with fall and SDH - 05/06 SVR today persists despite receiving minimal PO regimen. Will stop amiodarone to avoid ongoing SVR. Start propanolol at a lower dose without diltiazem this evening to avoid recurrence of RVR overnight (as has happened in past when rate control meds have been held). lyte repletion prn -05/07-05/11: cont low dose inderal, when in afib rate is controlled. no pathologic bradycardia overnight. h/o multiple falls, now with fall and SDH - s/p L craniotomy for SDH--mgmt per neurosurgery, neuro htn: -improved on hydralazine 100 tid and norvasc 5. If still elevated would increase norvasc to 10 next. CAD - prior details uncertain, no recent PCI - Patient with multiple falls and subdural hematoma on ASA --> may not be able to continue this unfortunately, as risks of recurrent falls and ICH >> benefits. cont holding ASA for now, reassess later (requires outpt cardio f/u also to clarify prior stent history--if no stents, would definitely stop ASA here) - con't statin when able to take po. - no signs acs - ce's neg x 2. ekg without acute ischemic changes. CVA. - Not a candidate for AC or ASA at this time as mentioned. will start statin.
[2017-05-11] MEDS ORDERED: PT OWN MED DRAWER 7, Y5N ONE ×3 (09:50→22:30)
[2017-05-11] MEDS: THIAMINE HCL 100 MG TABLET (FP) PO SCH (10:11)
[2017-05-11] MEDS: amLODIPine BESYLATE 5 MG TABLET (FP) PO SCH (10:12)
[2017-05-11] MEDS: RANITIDINE HCL 150 MG TABLET (FP) PO SCH ×2 (10:12→22:12)
[2017-05-11] MEDS: VALPROATE SODIUM 500 MG/5 ML VIAL IVPB SCH (10:38)
[2017-05-11] MEDS: DEXTROSE 5%-0.45% SALINE 1,000 ML IV SCH ×2 (14:43→22:10)
--- NOTE | 2017-05-11 15:42 | PN ---
Progress Note (short form) - Note Progress Note: 76 y/o M with PMH CAD with stents on ASA, CVA (2005), HTN,DMII, spinal stenosis s/p spinal surgery who was brought in to ED after family observed changes in mental status and personality after a fall a few months earlier. On CT noted to have a subacute/chronic subdural hematoma with mass effect. Also noted to have a A-fib/flutter and bradycardia.He is transferred to ICU for monitoring pending clearance for craniotomy and drainage+/- subdural drain placement. seen by neurosurgery and underwent craniotomy for drainage and then drain placement. FU: repeat HD CT 05/10, slight increase in size acute on chronic left subdural spoke to dr reynoso-- will eval in AM, will get MRI to rule out superimposed stroke still confused , remains aphasic, expressive, poor naming and repetition, CT HD: 05/02/17 Impression: Interval postsurgical changes are noted in comparison to a prior CT study of 05/01/2017. - Current Medication List Current Medications: Active Medications Chlorhexidine Gluconate (Hibiclens For Decolonization -) 1 applic TP HS DANNY Last Admin: 05/04/17 22:08 Dose: 1 applic Clonidine HCl (Catapres Tts Patch -) 0.1 mg TD Q7D@1000 DANNY Last Admin: 05/04/17 11:26 Dose: 0.1 mg Diltiazem HCl (Cardizem Injection -) 10 mg IVPUSH Q4H PRN PRN Reason: TACHYCARDIA Last Admin: 05/04/17 00:19 Dose: 10 mg Hydralazine HCl (Apresoline Injection -) 20 mg IVPUSH Q4H PRN PRN Reason: HYPERTENSION Last Admin: 05/05/17 05:37 Dose: 20 mg Pantoprazole Sodium (Protonix 40mg Ivpb (Pre-Docked)) 100 mls @ 200 mls/hr IVPB DAILY DANNY Last Admin: 05/04/17 09:01 Dose: 200 mls/hr Dextrose/Sodium Chloride (D5-1/2ns -) 1,000 mls @ 75 mls/hr IV ASDIR DANNY Last Admin: 05/04/17 22:11 Dose: 75 mls/hr Diltiazem HCl 125 mg/ Dextrose 125 mls @ 5 mls/hr IVPB TITR DANNY; 5 MG/HR PRN Reason: Protocol Last Admin: 05/05/17 01:31 Dose: Not Given Amiodarone HCl 450 mg/ (Dextrose) 250 mls @ 33.33 mls/hr IVPB TITR DANNY PRN Reason: 1 MG/MIN Last Admin: 05/05/17 06:11 Dose: 33.33 mls/hr Potassium Phosphate 30 mm/ (Sodium Chloride) 260 mls @ 62.5 mls/hr IVPB ONCE ONE Stop: 05/05/17 13:39 Insulin Aspart (Novolog Vial Sliding Scale -) 0 vial SQ ACHS DANNY PRN Reason: Protocol Last Admin: 05/05/17 06:17 Dose: 4 units Lorazepam (Ativan Injection -) 1 mg IVPUSH Q6H PRN PRN Reason: ANXIETY Last Admin: 05/04/17 22:12 Dose: 1 mg Mupirocin (Bactroban Ointment (For Decolonization) -) 1 applic NS BID [facility] Stop: 05/05/17 21:59 Last Admin: 05/04/17 23:13 Dose: 1 applic Ondansetron HCl (Zofran Injection) 4 mg IVPB Q6H PRN PRN Reason: NAUSEA Propranolol HCl (Inderal Injection -) 2 mg IVPUSH Q4H-IV DANNY Last Admin: 05/05/17 05:08 Dose: 2 mg Valproate Sodium (Depacon Injection -) 500 mg IVPB DAILY [facility] Last Admin: 05/04/17 09:01 Dose: 500 mg - Objective Vital Signs: Vital Signs Temperature 97.6 F 05/11/17 09:00 Pulse Rate 71 05/11/17 10:03 Respiratory Rate 18 05/11/17 09:00 Blood Pressure 141/98 05/11/17 09:00 O2 Sat by Pulse Oximetry (%) 99 05/11/17 10:03 Neurological: Yes: Other (seen in bed sleeping, and with some effort he was roused and conversant. A bit confused but moving all limbs.) Labs: 05/07/17 06:45 05/09/17 06:00 Problem List - Problems (1) Subdural bleeding Code(s): I62.00 - NONTRAUMATIC SUBDURAL HEMORRHAGE, UNSPECIFIED Assessment/Plan s/p subdural evacuation with residual aphasia no sig fluctuations so doubt seizure, but will check EEG as well spoke to neurosurgery and re-eval if requires decompression , will gte MRI brain in meantime, ensure no new stroke when stabilizes ( after one month, will consider superintendent [employer] AC for AFIB, though will have to reasess if he is still a candidate) no sedation , on depwhit Kwok
--- NOTE | 2017-05-11 17:16 | PN ---
Progress Note (short form) - Note Progress Note: No new findings comfortable with no acute distress. No change from yesterday. Vital Signs Temperature 98.7 F 05/11/17 14:10 Pulse Rate 90 05/11/17 14:10 Respiratory Rate 18 05/11/17 14:10 Blood Pressure 133/78 05/11/17 14:10 O2 Sat by Pulse Oximetry (%) 99 05/11/17 10:03 GENERAL: The patient is awake and more alert. HEAD: 4cm incision with sutures, intact, clean, and dry without signs of infection. EYES: PERRL, extraocular movements intact, sclera anicteric, conjunctiva clear. ENT: Ears normal, oropharynx clear without exudates, moist mucous membranes. NECK: Trachea midline, full range of motion, supple. LUNGS: Breath sounds equal, clear to auscultation bilaterally, no wheezes, no crackles, no accessory muscle use. HEART: Regular rate and rhythm, S1, S2 without murmur, rub or gallop. ABDOMEN: Soft, nontender, nondistended, normoactive bowel sounds, no guarding, no rebound, no hepatosplenomegaly, no masses. EXTREMITIES: 2+ pulses, warm, well-perfused, no edema. NEUROLOGICAL: CN still difficult to fully assess. gait not observed. SKIN: Warm, dry, normal turgor, no rashes or lesions noted CBCD WBC 7.4 K/mm3 (4.0-10.0) 05/07/17 06:45 RBC 5.52 M/mm3 (4.00-5.60) 05/07/17 06:45 Hgb 12.7 GM/dL (11.7-16.9) 05/07/17 06:45 Hct 39.6 % (35.4-49) 05/07/17 06:45 MCV 71.7 fl (80-96) L 05/07/17 06:45 MCHC 32.0 g/dl (32.0-35.9) 05/07/17 06:45 RDW 16.0 % (11.9-15.9) H 05/07/17 06:45 Plt Count 171 K/MM3 (134-434) 05/07/17 06:45 MPV 10.5 fl (7.5-11.1) 05/07/17 06:45 CMP Sodium 139 mmol/L (136-145) 05/09/17 06:00 Potassium 4.0 mmol/L (3.5-5.1) 05/09/17 06:00 Chloride 102 mmol/L (98-107) 05/09/17 06:00 Carbon Dioxide 31 mmol/L (21-32) 05/09/17 06:00 Anion Gap 6 (8-16) L 05/09/17 06:00 BUN 11 mg/dL (7-18) 05/09/17 06:00 Creatinine 0.8 mg/dL (0.7-1.3) 05/09/17 06:00 Creat Clearance w eGFR > 60 (>60) 05/06/17 05:20 Random Glucose 159 mg/dL (74-106) H 05/09/17 06:00 Calcium 8.4 mg/dL (8.5-10.1) L 05/09/17 06:00 Total Bilirubin 1.2 mg/dL (0.2-1.0) H D 05/06/17 05:20 AST 18 U/L (15-37) D 05/06/17 05:20 ALT 20 U/L (12-78) D 05/06/17 05:20 Alkaline Phosphatase 62 U/L (45-117) 05/06/17 05:20 Total Protein 6.8 g/dl (6.4-8.2) 05/06/17 05:20 Albumin 3.0 g/dl (3.4-5.0) L 05/06/17 05:20 CARDIAC ENZYMES Creatine Kinase 206 IU/L (39-308) 05/01/17 03:40 Troponin I < 0.02 ng/ml (0.00-0.05) 05/01/17 03:40 Current Medications Generic Name Dose Route Start Last Admin Trade Name Freq PRN Reason Stop Dose Admin Amlodipine Besylate 5 mg 05/10/17 10:00 05/11/17 10:12 Norvasc - PO 5 mg DAILY DANNY Administration Artificial Tears 1 drop 05/10/17 18:15 Artificial Tears OU Q6H PRN DRY EYES Atorvastatin Calcium 20 mg 05/09/17 22:00 05/10/17 22:13 Lipitor - PO 20 mg HS DANNY Administration Diltiazem HCl 10 mg 05/06/17 13:12 Cardizem Injection - IVPUSH Q4H PRN TACHYCARDIA Hydralazine HCl 10 mg 05/06/17 18:38 05/09/17 17:16 Apresoline Injection - IVPUSH 10 mg Q4H PRN Administration HYPERTENSION Hydralazine HCl 100 mg 05/09/17 08:13 05/11/17 14:43 Apresoline - PO 100 mg TID DANNY Administration Dextrose/Sodium Chloride 1,000 mls @ 42 mls/hr 05/06/17 18:45 05/11/17 14:43 D5-1/2ns - IV 42 mls/hr ASDIR DANNY Administration Insulin Aspart 1 vial 05/06/17 16:30 05/11/17 17:08 Novolog Vial Sliding Scale - SQ 2 units ACHS DANNY Administration Protocol Ondansetron HCl 4 mg 05/06/17 13:12 Zofran Injection IVPB Q6H PRN NAUSEA Propranolol HCl 20 mg 05/06/17 22:00 05/11/17 14:42 Inderal - PO Not Given Q8H DANNY Ranitidine HCl 150 mg 05/08/17 22:00 05/11/17 10:12 Zantac - PO 150 mg BID DANNY Administration Thiamine HCl 100 mg 05/08/17 10:00 05/11/17 10:11 Vitamin B1 - PO 100 mg DAILY DANNY Administration Valproate Sodium 500 mg 05/07/17 10:00 05/11/17 10:38 Depacon Injection - IVPB 500 mg DAILY DANNY Administration Home Medications Medication Instructions Recorded Aspirin [Ecotrin] 325 mg PO DAILY 04/30/17 Carvedilol 12.5 mg PO BID 04/30/17 Clonidine HCl 0.2 mg PO BID 04/30/17 Gabapentin 100 mg PO TID 04/30/17 Glipizide 10 mg PO DAILY 04/30/17 Losartan/Hydrochlorothiazide 1 each PO DAILY 04/30/17 [Losartan-Hctz 100-25 mg Tab] Metformin HCl 1,500 mg PO DAILY 04/30/17 Quetiapine Fumarate [Seroquel -] 12.5 mg PO HS 04/30/17 A/P: Patient is a 76 y/o man with h/o CAD, HTN, DM II, CVA , presented to ED. with confusion and urinary incontinence and was found to have Left subdural hematoma. # POD #10 s/p left subdural evacuation with residual aphasia s/p fall. s/p Evacuation 05/01 . On valproic acid for seizure prophylaxis , Keep Blood pressure between SBP goal 120-160 # A flutter and A fib rate contolled on po Inderal now and Hydralazine po tid as pe cardiology , further managment per cardiology. patient cannot be anticoagulated due to ICH (recent). #HTN Uncontrolled : on Inderal and hydralazine oral continue # Dm : hold oral meds , SSI # H/o CVA and CAD, off asa due to ICH #Nutrition: Majic cup continue, MBS once medically stable by Nunu Mejia DVT px: SCDs , heparin is contraindicated due to subdural hematoma. Visit type - Emergency Visit Emergency Visit: Yes ED Registration Date: 04/30/17 Care time: The patient presented to the Emergency Department on the above date and was hospitalized for further evaluation of their emergent condition. - New Patient This patient is new to me today: No - Critical Care Critical Care patient: No
--- NOTE | 2017-05-11 18:49 | PN ---
Progress Note (short form) - Note Progress Note: NEUROSURGERY F/U POD #10 In telemetry Care d/w Dr Kwok PE: AF; VSS Scalp incision clean/dry without drainage Fully awake and alert presently "I am fine" "not really any headaches" I want a new shirt" Conversant with somewhat dysarthric speech Face minimally droopy; tongue midline Moving B UE/LE at least 4-4+/5 WBC 7.4, Hgb 12.[address]- slightly increased L sided acute on chronic subdural fluid collection; minimal mass effect; no shift; old L putamen and palafox radiata stroke Pt is clinically better than he has been in the past few days Cont anticonvulsant for sz prophylaxis MRI to r/o acute ischemia per neurology Cont to monitor SDH size
[2017-05-11] MEDS: ATORVASTATIN CA 20 MG TABLET (FP) PO SCH (22:11)
[2017-05-11] MEDS: ARTIFICIAL TEARS (POLYVINYL ALCOHOL 1.4%) OPTH DROPS OU PRN (22:15)
[2017-05-12] MEDS: PROPRANOLOL HCL 20 MG TABLET PO SCH (06:01)
[2017-05-12] MEDS: hydrALAZINE HCL 50 MG TABLET (FP) PO SCH ×5 (06:01→23:44)
[2017-05-12] MEDS: INSULIN SLIDING SCALE (NOVOLOG) 1 VIAL SQ SCH ×4 (06:02→23:44)
[2017-05-12] MEDS ORDERED: INSULIN (NOVOLOG) ASPART 100 UNITS/ML 10ML VIAL ONE (07:03)
--- NOTE | 2017-05-12 07:58 | PN ---
Progress Note (short form) - Note Progress Note: NEUROSURGERY F/U POD #11 In telemetry In bed, already awake PE: AF; some systolic hypertension 170-180 Scalp incision clean/dry without drainage Fully awake and alert presently; oriented x2 "no headaches" "comfortable" Following commands Somewhat dysarthric speech Face symmetric; tongue midline Moving B UE/LE at least 4-4+/5 WBC 7.4, Hgb 12.[address]- slightly increased L sided acute on chronic subdural fluid collection; minimal mass effect; no midline shift; old L putamen and palafox radiata stroke Pt is clinically better than he has been in the past few days On anticonvulsant (depakote) for sz prophylaxis PT/ROM MRI to r/o acute ischemia Cont to monitor SDH size
--- NOTE | 2017-05-12 08:40 | PN ---
Progress Note, Physician Chief Complaint: change in Mental Status, subdural hematoma History of Present Illness: 76 y/o M with PMH CAD with stents on ASA, CVA (2004), HTN,DMII, spinal stenosis s/p spinal surgery who was brought in to ED after family observed changes in mental status and personality after a fall a few months earlier. On MRI noted to have a subacute/chronic subdural hematoma with mass effect. Also noted to have a A-fib/flutter and bradycardia.He is transferred to ICU for monitoring pending clearance for craniotomy and drainage+/- subdural drain placement. In ED VS HR 30's to 60's,SBP 140's to 150's. Notable labs WBC 3.3, HGb 10.7,BUN/ Creat 15/0.8, K3.3, trop <0.02. Family states since pt had his fall, he has had personality change, slurred speech, emotional lability, hallucinations, confusion as well as new onset Afib. Seen by neurosurgery and underwent craniotomy for drainage and then drain placement. since the last time that I saw him he's been moved from the ICU to the floor, and now is awake and able to eat when fed by nurse. He offers no complaints - Current Medication List Current Medications: Active Medications Amlodipine Besylate (Norvasc -) 5 mg PO DAILY [facility] Last Admin: 05/11/17 10:12 Dose: 5 mg Artificial Tears (Artificial Tears) 1 drop OU Q6H PRN PRN Reason: DRY EYES Last Admin: 05/11/17 22:15 Dose: 1 drop Atorvastatin Calcium (Lipitor -) 20 mg PO HS [facility] Last Admin: 05/11/17 22:11 Dose: 20 mg Diltiazem HCl (Cardizem Injection -) 10 mg IVPUSH Q4H PRN PRN Reason: TACHYCARDIA Hydralazine HCl (Apresoline Injection -) 10 mg IVPUSH Q4H PRN PRN Reason: HYPERTENSION Last Admin: 05/09/17 17:16 Dose: 10 mg Hydralazine HCl (Apresoline -) 100 mg PO TID [facility] Last Admin: 05/12/17 06:01 Dose: 100 mg Dextrose/Sodium Chloride (D5-1/2ns -) 1,000 mls @ 42 mls/hr IV ASDIR [facility] Last Admin: 05/11/17 22:10 Dose: 42 mls/hr Insulin Aspart (Novolog Vial Sliding Scale -) 1 vial SQ ACHS DANNY PRN Reason: Protocol Last Admin: 05/12/17 06:02 Dose: 2 units Ondansetron HCl (Zofran Injection) 4 mg IVPB Q6H PRN PRN Reason: NAUSEA Propranolol HCl (Inderal -) 20 mg PO Q8H [facility] Last Admin: 05/12/17 06:01 Dose: 20 mg Ranitidine HCl (Zantac -) 150 mg PO BID [facility] Last Admin: 05/11/17 22:12 Dose: 150 mg Thiamine HCl (Vitamin B1 -) 100 mg PO DAILY [facility] Last Admin: 05/11/17 10:11 Dose: 100 mg Valproate Sodium (Depacon Injection -) 500 mg IVPB DAILY [facility] Last Admin: 05/11/17 10:38 Dose: 500 mg - Objective Vital Signs: Vital Signs Temperature 98.1 F 05/12/17 05:58 Pulse Rate 98 H 05/12/17 05:58 Respiratory Rate 18 05/12/17 05:58 Blood Pressure 176/89 05/12/17 05:58 O2 Sat by Pulse Oximetry (%) 99 05/11/17 21:00 Neurological: Yes: Other (Awake, abulic, oriented to person, CN II-XII intact. Moves all limbs well.) Labs: CBC, BMP 05/07/17 06:45 05/09/17 06:00 INR, PTT INR 1.20 (0.82-1.09) H 05/06/17 05:20 Problem List - Problems (1) Subdural bleeding Assessment/Plan: s/p drainage of subdural with patient waking up, but still not back to normal mentation. He probably has baseline cognitive impairment, and this may be aggravated by further damage, but there may also be superimposed encephalopathy that may be reversible. Code(s): I62.00 - NONTRAUMATIC SUBDURAL HEMORRHAGE, UNSPECIFIED (2) Vascular dementia Assessment/Plan: Suspect that this was present prior to subdural and may have been aggravated. There is probably some superimposed reversible encephalopathy. Code(s): F01.50 - VASCULAR DEMENTIA WITHOUT BEHAVIORAL DISTURBANCE (3) Encephalopathy Assessment/Plan: Multifactorial, in patient with history recent craniotomy for drainage of subdural hematoma and likely underlying vascular cognitive deficits. He likely has low threshold for confusional state and will have to monitor for now. Will order ammonia level, syphilis screen. B12, magnesium and other metabolic studies have been fine. He is looking better and may just continue to improve over time. Code(s): G93.40 - ENCEPHALOPATHY, UNSPECIFIED
[2017-05-12] MEDS ORDERED: PT OWN MED DRAWER 7, Y5N ONE ×2 (08:58→21:42)
[2017-05-12] MEDS: RANITIDINE HCL 150 MG TABLET (FP) PO SCH ×2 (09:04→23:44)
[2017-05-12] MEDS: amLODIPine BESYLATE 5 MG TABLET (FP) PO SCH (09:05)
[2017-05-12] MEDS: THIAMINE HCL 100 MG TABLET (FP) PO SCH (09:05)
--- NOTE | 2017-05-12 12:04 | PN ---
Physical Exam: SUBJECTIVE: Patient seen and examined. Overnight resident states that she was called for agitation, but when she went to see the pt, he was much calmer and no meds were given to decrease agitation. Pt is more alert, answering some questions, and following some commands. OBJECTIVE: Vital Signs Period Temp Pulse Resp BP Sys/Cortés Pulse Ox Last 24 Hr 98.0 F-98.7 F 83-98 18-18 133-183/78-98 98-99 GENERAL: The patient is awake, alert, AAOx1 (name) in no acute distress. HEAD: 8cm incision is healing well without signs of infection, sutures have been removed. EYES: PERRL, extraocular movements intact, sclera anicteric, conjunctiva clear. No ptosis. ENT: Ears normal, nares patent, oropharynx clear without exudates, moist mucous membranes. NECK: Trachea midline, full range of motion, supple. LUNGS: Breath sounds equal, clear to auscultation bilaterally, no wheezes, no crackles, no accessory muscle use. HEART: irregularly irregular without murmur, rub or gallop. ABDOMEN: Soft, nontender, nondistended, normoactive bowel sounds, no guarding, no rebound, no hepatosplenomegaly, no masses. EXTREMITIES: 2+ pulses, warm, well-perfused, no edema. SCDs in place NEUROLOGICAL: Cranial nerves II through XII still difficult to fully assess. dysarthria and incoherent, gait not observed. PSYCH: Normal mood, normal affect. SKIN: Warm, dry, normal turgor, no rashes or lesions noted Laboratory Results - last 24 hr 05/11/17 05/11/17 05/11/17 11:42 16:59 20:38 POC Glucometer 195 185 263 05/12/17 05:43 POC Glucometer 192 Active Medications Generic Name Dose Route Start Last Admin Trade Name Freq PRN Reason Stop Dose Admin Amlodipine Besylate 5 mg 05/10/17 10:00 05/12/17 09:05 Norvasc - PO 5 mg DAILY DANNY Administration Artificial Tears 1 drop 05/10/17 18:15 05/11/17 22:15 Artificial Tears OU 1 drop Q6H PRN Administration DRY EYES Atorvastatin Calcium 20 mg 05/09/17 22:00 05/11/17 22:11 Lipitor - PO 20 mg HS DANNY Administration Diltiazem HCl 10 mg 05/06/17 13:12 Cardizem Injection - IVPUSH Q4H PRN TACHYCARDIA Hydralazine HCl 10 mg 05/06/17 18:38 05/09/17 17:16 Apresoline Injection - IVPUSH 10 mg Q4H PRN Administration HYPERTENSION Hydralazine HCl 100 mg 05/09/17 08:13 05/12/17 06:01 Apresoline - PO 100 mg TID DANNY Administration Dextrose/Sodium Chloride 1,000 mls @ 42 mls/hr 05/06/17 18:45 05/11/17 22:10 D5-1/2ns - IV 42 mls/hr ASDIR DANNY Administration Insulin Aspart 1 vial 05/06/17 16:30 05/12/17 11:54 Novolog Vial Sliding Scale - SQ 4 units ACHS DANNY Administration Protocol Ondansetron HCl 4 mg 05/06/17 13:12 Zofran Injection IVPB Q6H PRN NAUSEA Propranolol HCl 40 mg 05/12/17 14:00 Inderal - PO TID DANNY Ranitidine HCl 150 mg 05/08/17 22:00 05/12/17 09:04 Zantac - PO 150 mg BID DANNY Administration Thiamine HCl 100 mg 05/08/17 10:00 05/12/17 09:05 Vitamin B1 - PO 100 mg DAILY DANNY Administration Valproate Sodium 500 mg 05/07/17 10:00 05/11/17 10:38 Depacon Injection - IVPB 500 mg DAILY DANNY Administration ASSESSMENT/PLAN: 76 year old man with a history of cervical stenosis, CAD, CVA, HTN, type 2 DM who presented to the ER with confusion, slurred speech, urinary incontinence after a fall 2 months ago, found to have a subdural hematoma on MRI, s/p hematoma evacuation on 05/01, with repeat CT showing acute on chronic subdural hematoma. #Subdural hematoma - s/p craniotomy with drain placement 05/01 - Extubated 05/02 -repeat head CT (05/10) shows acute on chronic subdural hematoma - Continue valproic acid 500mg IV for seizure prophylaxis -continue neuro checks and tight SBP control (120-160) -neurosurgery following -f/u PT eval -continue thiamine 100mg qd -f/u brain MRI w/o contrast -f/u EEG -f/u ammonia, RPR #Refractory HTN -cardiology on board -BP in 160-180s/110s with HR in 90s. -propranolol 20mg PO TID increased to 40mg PO TID -continue hydralazine 100mg PO TID, IV hydralazine 10mg q4h PRN #Atrial flutter with RVR - cardio following - hydralazine 100mg PO TID, propranolol 20mg PO TID, hydralazine 10mg IV q4h PRN #Tachycardia -diltiazem 10mg IV q4h PRN #CAD - continue lipitor 20mg #Type 2 diabetes mellitus - Metformin and glipizide held - Continue Novolog sliding scale #History of CVA - Aspirin held secondary to ICH #History of cervical stenosis #Speech and swallow - diet as directed #microcytic anemia -Hgb of 12.7 with MCV of 72 -B12: 1943 -folate: 18 -iron studies: iron of 91, TIBC of 232, and transferrin of 200 -continue thiamine 100mg qd #FEN/ppx -D5 w/ 1/2NS @42 ml/hr -no bmp today -diet as per speech and swallow -ranitidine 150mg BID for stress ulcer ppx -SCDs for DVT ppx #Dispo -needs outpt cardiology f/u to clarify prior stent hx -- Mulugeta Waters MD PGY1 Problem List - Problems (1) Atrial fibrillation Code(s): I48.91 - UNSPECIFIED ATRIAL FIBRILLATION (2) Diabetes mellitus Code(s): E11.9 - TYPE 2 DIABETES MELLITUS WITHOUT COMPLICATIONS Visit type - Emergency Visit Emergency Visit: Yes ED Registration Date: 04/30/17 Care time: The patient presented to the Emergency Department on the above date and was hospitalized for further evaluation of their emergent condition. - New Patient This patient is new to me today: No - Critical Care Critical Care patient: No
--- NOTE | 2017-05-12 12:13 | PN ---
Progress Note (short form) - Note Progress Note: CC: subdural s: per nursing notes, agitated overnight. --> hypertensive. propanolol dose increased this morning. Has been lethargic and confused and unable to take po medications since this morning. Current Medications Amlodipine Besylate (Norvasc -) 5 mg PO DAILY [facility] Last Admin: 05/12/17 09:05 Dose: 5 mg Artificial Tears (Artificial Tears) 1 drop OU Q6H PRN PRN Reason: DRY EYES Last Admin: 05/11/17 22:15 Dose: 1 drop Atorvastatin Calcium (Lipitor -) 20 mg PO HS [facility] Last Admin: 05/11/17 22:11 Dose: 20 mg Diltiazem HCl (Cardizem Injection -) 10 mg IVPUSH Q4H PRN PRN Reason: TACHYCARDIA Hydralazine HCl (Apresoline Injection -) 10 mg IVPUSH Q4H PRN PRN Reason: HYPERTENSION Last Admin: 05/09/17 17:16 Dose: 10 mg Hydralazine HCl (Apresoline -) 100 mg PO TID [facility] Last Admin: 05/12/17 06:01 Dose: 100 mg Dextrose/Sodium Chloride (D5-1/2ns -) 1,000 mls @ 42 mls/hr IV ASDIR [facility] Last Admin: 05/11/17 22:10 Dose: 42 mls/hr Insulin Aspart (Novolog Vial Sliding Scale -) 1 vial SQ ACHS [facility] PRN Reason: Protocol Last Admin: 05/12/17 11:54 Dose: 4 units Ondansetron HCl (Zofran Injection) 4 mg IVPB Q6H PRN PRN Reason: NAUSEA Propranolol HCl (Inderal -) 40 mg PO TID [facility] Ranitidine HCl (Zantac -) 150 mg PO BID [facility] Last Admin: 05/12/17 09:04 Dose: 150 mg Thiamine HCl (Vitamin B1 -) 100 mg PO DAILY [facility] Last Admin: 05/12/17 09:05 Dose: 100 mg Valproate Sodium (Depacon Injection -) 500 mg IVPB DAILY [facility] Last Admin: 05/11/17 10:38 Dose: 500 mg Vital Signs - 24 hr 05/11/17 05/11/17 05/11/17 14:10 18:40 21:00 Temperature 98.7 F 98.6 F Pulse Rate 90 90 Respiratory 18 18 18 Rate Blood Pressure 133/78 146/82 O2 Sat by Pulse 99 Oximetry (%) 05/11/17 05/12/17 05/12/17 22:00 02:00 05:58 Temperature 98.1 F 98.0 F 98.1 F Pulse Rate 90 98 H 98 H Respiratory 18 18 18 Rate Blood Pressure 183/88 160/94 176/89 O2 Sat by Pulse Oximetry (%) 05/12/17 05/12/17 05/12/17 08:41 08:44 10:37 Temperature 98.4 F Pulse Rate 83 93 H Respiratory 18 18 Rate Blood Pressure 170/98 O2 Sat by Pulse 98 98 Oximetry (%) Intake & Output 05/10/17 05/11/17 05/12/17 05/13/17 07:59 07:59 07:59 07:59 Intake Total 3255 941 7789 Balance 6555 721 6176 Constitutional: Yes: Well Nourished, No Distress, Calm, lethargic. Cardiovascular: Yes: irregular Rate and Rhythm, S1, S2. No: JVD, Gallop, Murmur Respiratory: Yes: trace rales . No: Accessory Muscle Use, Rales, Wheezes Extremities: No: Cold Edema: No Neurological: Yes:lethargic No: Seizure Psychiatric: No: Agitated no jaundice diaphoresis Labs: CBC, BMP 05/07/17 06:45 05/09/17 06:00 tele: rate controlled afib. no bradyarrhythmias. Echo 04/2017: Mild conc lvh. grossly nl lv fn. tds for rwma. nl rv function. mild-mod tr. rvsp 30-40. < 1 cm pericardial effusion, not hemodynamically significant. 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 Hospital course notable for new onset atrial flutter with slow ventricular conduction. New onset atrial flutter - Not a candidate for AC due to recent frequent falls, the current fall resulting in subdural hematoma - echo with grossly normal lv function. - on admit Had svr to 40's initially (Had been on coreg and clonidine at home)-- suspect initial bradycardia was due to home meds plus increased ICP - rapid AFL rates once home meds held, requiring diltiazem gtt, then required addition of amiodarone drip for rapid HRs on diltiazem. - 05/04: remains rapid in AFL with 2:1 A-V conduction. increased amio to 1 mg/ min and given dose of propranolol 2mg IVP x1, and HR decreased to 70s with variable AFL conduction. --> cont present amio rate, started standing propranolol 2mg IVP q4H, prn amiodarone boluses as needed - 05/05 remains rate controlled. intermittently in SR/Wenckebach. Cleared to take PO meds. Has been on amiodarone drip since 05/03 --> will change to maintenance dosing 200 mg po daily. Transition off diltiazem drip and start po regimen of diltiazem 60 mg QID and propanolol 40 mg tid. h/o multiple falls, now with fall and SDH - 05/06 SVR today persists despite receiving minimal PO regimen. Will stop amiodarone to avoid ongoing SVR. Start propanolol at a lower dose without diltiazem this evening to avoid recurrence of RVR overnight (as has happened in past when rate control meds have been held). lyte repletion prn -05/07-05/11: cont low dose inderal, when in afib rate is controlled. no pathologic bradycardia overnight. - 05/12: HR 90's overnight, agitated. --> inderal dose increased to 40 mg tid this morning. Was able to take morning dose, but since then has been too altered/ confused to take po meds. Has IV diltiazem prn if needed. Will repeat labs today. h/o multiple falls, now with fall and SDH - s/p L craniotomy for SDH--mgmt per neurosurgery, neuro - 05/12, plan for MRI today. htn: -initially mproved on hydralazine 100 tid and norvasc 5. - 05/12: uncontrolled overnight in the setting of agitation. Remains on maintenance fluids. as mentioned, has not been able to take his po medications since this morning due to lethargy/confusion. has IV hydralazine prn if needed. Currently bp reasonably controlled. Will increase dose of norvasc for tomorrow morning. CAD - prior details uncertain, no recent PCI - Patient with multiple falls and subdural hematoma on ASA --> may not be able to continue this unfortunately, as risks of recurrent falls and ICH >> benefits. cont holding ASA for now, reassess later (requires outpt cardio f/u also to clarify prior stent history--if no stents, would definitely stop ASA here) - con't statin when able to take po. - no signs acs - ce's neg x 2. ekg without acute ischemic changes. CVA. - Not a candidate for AC or ASA at this time as mentioned. started statin.
[2017-05-12] MEDS: PROPRANOLOL HCL 40 MG TABLET PO SCH ×4 (13:02→23:44)
[2017-05-12] MEDS: VALPROATE SODIUM 500 MG/5 ML VIAL IVPB SCH (13:02)
--- NOTE | 2017-05-12 14:03 | PN ---
Progress Note, [employer] - Note Progress Note: Selected Entries 05/11/17 05/11/17 05/11/17 01:54 05:53 09:00 Breakfast Lunch Supper Temperature 98.7 F 98.4 F 97.6 F 05/11/17 05/11/17 05/11/17 12:55 14:10 18:40 Breakfast 50% Lunch 50% Supper Temperature 98.7 F 98.6 F 05/11/17 05/11/17 05/12/17 18:45 22:00 02:00 Breakfast Lunch Supper 50% Temperature 98.1 F 98.0 F 05/12/17 05/12/17 05/12/17 05:58 08:41 09:58 Breakfast 75% Lunch Supper Temperature 98.1 F 98.4 F Was agitated last night, lethargic today. Arousable with poor (+) intelligibilty and perseverative speech eg "Black and white music" MBS reviewed and tolerating diet upgrade.
[2017-05-12 17:21] LABS: BASOPHIL 1.3 % (0-2.0); EOSINOPHIL 0.4 % (0-4.5); MCH 23.3 pg (25.7-33.7); MCHC 31.8 g/dl (32.0-35.9); MEAN CELL VOLUME 73.2 fl (80-96); MEAN PLT VOLUME 10.7 fl (7.5-11.1); NEUTROPHILS 66.5 % (42.8-82.8); PLATELET COUNT 218 K/MM3 (134-434); RDW 15.3 % (11.9-15.9); WHITE BLOOD COUNT 7.7 K/mm3 (4.0-10.0)
[2017-05-12 17:45] LABS: ALK PHOS 66 U/L (45-117); ANION GAP 9 (8-16); BILIRUBIN,TOTAL 0.6 mg/dL (0.2-1.0); CALCIUM 8.5 mg/dL (8.5-10.1); CO2 28 mmol/L (21-32); CREATININE 0.8 mg/dL (0.7-1.3); GLUCOSE,RANDOM 172 mg/dL (74-106); SGOT/AST 21 U/L (15-37); SGPT/ALT 26 U/L (12-78)
[2017-05-12] MEDS: DEXTROSE 5%-0.45% SALINE 1,000 ML IV SCH (18:28)
--- NOTE | 2017-05-12 19:49 | PN ---
Teaching Attending Note Name of Resident: Miguelina Rod ATTENDING PHYSICIAN STATEMENT I saw and evaluated the patient. I reviewed the resident's note and discussed the case with the resident. I agree with the resident's findings and plan as documented. SUBJECTIVE: Patient continues to be confused. With no acute distress. OBJECTIVE: Vital Signs Temperature 98.6 F 05/12/17 14:30 Pulse Rate 106 H 05/12/17 14:30 Respiratory Rate 20 05/12/17 14:30 Blood Pressure 156/102 05/12/17 14:30 O2 Sat by Pulse Oximetry (%) 98 05/12/17 10:37 CBCD WBC 7.7 K/mm3 (4.0-10.0) 05/12/17 17:00 RBC 4.95 M/mm3 (4.00-5.60) 05/12/17 17:00 Hgb 11.5 GM/dL (11.7-16.9) L 05/12/17 17:00 Hct 36.2 % (35.4-49) 05/12/17 17:00 MCV 73.2 fl (80-96) L 05/12/17 17:00 MCHC 31.8 g/dl (32.0-35.9) L 05/12/17 17:00 RDW 15.3 % (11.9-15.9) 05/12/17 17:00 Plt Count 218 K/MM3 (134-434) D 05/12/17 17:00 MPV 10.7 fl (7.5-11.1) 05/12/17 17:00 CMP Sodium 135 mmol/L (136-145) L 05/12/17 17:00 Potassium 3.7 mmol/L (3.5-5.1) 05/12/17 17:00 Chloride 98 mmol/L (98-107) 05/12/17 17:00 Carbon Dioxide 28 mmol/L (21-32) 05/12/17 17:00 Anion Gap 9 (8-16) 05/12/17 17:00 BUN 10 mg/dL (7-18) 05/12/17 17:00 Creatinine 0.8 mg/dL (0.7-1.3) 05/12/17 17:00 Creat Clearance w eGFR > 60 (>60) 05/12/17 17:00 Random Glucose 172 mg/dL (74-106) H 05/12/17 17:00 Calcium 8.5 mg/dL (8.5-10.1) 05/12/17 17:00 Total Bilirubin 0.6 mg/dL (0.2-1.0) D 05/12/17 17:00 AST 21 U/L (15-37) 05/12/17 17:00 ALT 26 U/L (12-78) D 05/12/17 17:00 Alkaline Phosphatase 66 U/L (45-117) 05/12/17 17:00 Total Protein 7.0 g/dl (6.4-8.2) 05/12/17 17:00 Albumin 3.0 g/dl (3.4-5.0) L 05/12/17 17:00 CARDIAC ENZYMES Creatine Kinase 206 IU/L (39-308) 05/01/17 03:40 Troponin I < 0.02 ng/ml (0.00-0.05) 05/01/17 03:40 Current Medications Generic Name Dose Route Start Last Admin Trade Name Freq PRN Reason Stop Dose Admin Amlodipine Besylate 5 mg 05/10/17 10:00 05/12/17 09:05 Norvasc - PO 5 mg DAILY DANNY Administration Artificial Tears 1 drop 05/10/17 18:15 05/11/17 22:15 Artificial Tears OU 1 drop Q6H PRN Administration DRY EYES Atorvastatin Calcium 20 mg 05/09/17 22:00 05/11/17 22:11 Lipitor - PO 20 mg HS DANNY Administration Diltiazem HCl 10 mg 05/06/17 13:12 Cardizem Injection - IVPUSH Q4H PRN TACHYCARDIA Hydralazine HCl 10 mg 05/06/17 18:38 05/09/17 17:16 Apresoline Injection - IVPUSH 10 mg Q4H PRN Administration HYPERTENSION Hydralazine HCl 100 mg 05/09/17 08:13 05/12/17 15:56 Apresoline - PO Not Given TID DANNY Dextrose/Sodium Chloride 1,000 mls @ 42 mls/hr 05/06/17 18:45 05/12/17 18:28 D5-1/2ns - IV 42 mls/hr ASDIR DANNY Administration Insulin Aspart 1 vial 05/06/17 16:30 09/05/17 18:28 Novolog Vial Sliding Scale - SQ 4 units ACHS DANNY Administration Protocol Ondansetron HCl 4 mg 05/06/17 13:12 Zofran Injection IVPB Q6H PRN NAUSEA Propranolol HCl 40 mg 05/12/17 14:00 05/12/17 15:57 Inderal - PO 40 mg TID DANNY Administration Ranitidine HCl 150 mg 05/08/17 22:00 05/12/17 09:04 Zantac - PO 150 mg BID DANNY Administration Thiamine HCl 100 mg 05/08/17 10:00 05/12/17 09:05 Vitamin B1 - PO 100 mg DAILY DANNY Administration Valproate Sodium 500 mg 05/07/17 10:00 05/12/17 13:02 Depacon Injection - IVPB 500 mg DAILY DANNY Administration Home Medications Medication Instructions Recorded Aspirin [Ecotrin] 325 mg PO DAILY 04/30/17 Carvedilol 12.5 mg PO BID 04/30/17 Clonidine HCl 0.2 mg PO BID 04/30/17 Gabapentin 100 mg PO TID 04/30/17 Glipizide 10 mg PO DAILY 04/30/17 Losartan/Hydrochlorothiazide 1 each PO DAILY 04/30/17 [Losartan-Hctz 100-25 mg Tab] Metformin HCl 1,500 mg PO DAILY 04/30/17 Quetiapine Fumarate [Seroquel -] 12.5 mg PO HS 04/30/17 PE: PER resident's note ASSESSMENT AND PLAN: Patient is a 76 y/o man with h/o CAD, HTN, DM II, CVA , presented to ED. with confusion and urinary incontinence and was found to have Left subdural hematoma. # POD #11 s/p left subdural evacuation with residual aphasia s/p fall. s/p Evacuation 05/01 . On valproic acid for seizure prophylaxis , Keep Blood pressure between SBP goal 120-160 # A flutter and A fib rate controlled on po Inderal , will increase the dose to 40mg since blood pressure continues to be on high side, and Hydralazine po tid 100mg as pe cardiology , further managment per cardiology. patient cannot be anticoagulated due to ICH (recent). #HTN Uncontrolled : on Inderal and hydralazine oral continue # Dm : hold oral meds , SSI # H/o CVA and CAD, off asa due to ICH #Nutrition: Majic cup continue, MBS once medically stable by [facility] Going for MRI for further assessment r/o acute ischemia DVT px: SCDs , heparin is contraindicated due to subdural hematoma.
[2017-05-12] MEDS: ATORVASTATIN CA 20 MG TABLET (FP) PO SCH (23:44)
[2017-05-13] MEDS ORDERED: PT OWN MED DRAWER 7, Y5N ONE ×4 (06:32→22:33)
[2017-05-13] MEDS: hydrALAZINE HCL 50 MG TABLET (FP) PO SCH ×3 (06:47→22:34)
[2017-05-13] MEDS: INSULIN SLIDING SCALE (NOVOLOG) 1 VIAL SQ SCH ×4 (06:47→22:35)
[2017-05-13] MEDS: PROPRANOLOL HCL 40 MG TABLET PO SCH ×3 (06:47→23:29)
--- NOTE | 2017-05-13 08:16 | PN ---
Progress Note (short form) - Note Progress Note: NEUROSURGERY F/U POD #12 In telemetry In bed, already awake PE: AF; some systolic hypertension 130-160's Scalp incision clean/dry without drainage More drowsy today Following simple commands Dysarthric speech Face symmetric; tongue midline Moving B UE/LE at least 4/[address]- slightly increased L sided acute on chronic subdural fluid collection; minimal mass effect; no midline shift; old L putamen and palafox radiata stroke Brain MRI- L fronto-parietal convexity subdural fluid collection, thickest 1.3- 1.5 cm L parietal region; chronic L putamen/palafox radiata infarct; no acute ischemia; no shift, minimal mass effect On anticonvulsant (depakote) for sz prophylaxis PT/ROM Nutritional support Cont to monitor SDH size Issue is brain atrophy after extensive L putamen stroke, which does not allow the brain to re-expand and the space will continue to be occupied by fluid ( blood, CSF) [place] pending Care d/w , who opts more conservative tx at this time
--- NOTE | 2017-05-13 10:39 | PN ---
Progress Note (short form) - Note Progress Note: s: lethargic, no overnight events Current Medications Generic Name Dose Route Start Last Admin Trade Name Freq PRN Reason Stop Dose Admin Amlodipine Besylate 5 mg 05/10/17 10:00 05/12/17 09:05 Norvasc - PO 5 mg DAILY DANNY Administration Artificial Tears 1 drop 05/10/17 18:15 05/11/17 22:15 Artificial Tears OU 1 drop Q6H PRN Administration DRY EYES Atorvastatin Calcium 20 mg 05/09/17 22:00 05/12/17 23:44 Lipitor - PO 20 mg HS DANNY Administration Diltiazem HCl 10 mg 05/06/17 13:12 Cardizem Injection - IVPUSH Q4H PRN TACHYCARDIA Hydralazine HCl 10 mg 05/06/17 18:38 05/09/17 17:16 Apresoline Injection - IVPUSH 10 mg Q4H PRN Administration HYPERTENSION Hydralazine HCl 100 mg 05/09/17 08:13 05/13/17 06:47 Apresoline - PO 100 mg TID DANNY Administration Dextrose/Sodium Chloride 1,000 mls @ 42 mls/hr 05/06/17 18:45 05/12/17 18:28 D5-1/2ns - IV 42 mls/hr ASDIR DANNY Administration Insulin Aspart 1 vial 05/06/17 16:30 05/13/17 06:47 Novolog Vial Sliding Scale - SQ 2 units ACHS DANNY Administration Protocol Ondansetron HCl 4 mg 05/06/17 13:12 Zofran Injection IVPB Q6H PRN NAUSEA Propranolol HCl 40 mg 05/12/17 14:00 05/13/17 06:47 Inderal - PO 40 mg TID DANNY Administration Ranitidine HCl 150 mg 05/08/17 22:00 05/12/17 23:44 Zantac - PO 150 mg BID DANNY Administration Thiamine HCl 100 mg 05/08/17 10:00 05/12/17 09:05 Vitamin B1 - PO 100 mg DAILY DANNY Administration Valproate Sodium 500 mg 05/07/17 10:00 05/12/17 13:02 Depacon Injection - IVPB 500 mg DAILY DANNY Administration Vital Signs Period Temp Pulse Resp BP Sys/Cortés Pulse Ox Last 24 Hr 98.6 F-99.6 F 72-106 18-20 135-166/82-102 94 Constitutional: Yes: Well Nourished, No Distress, Calm Cardiovascular: Yes: irregular Rate and Rhythm, S1, S2. No: JVD, Gallop, Murmur Respiratory: Yes: trace rales . No: Accessory Muscle Use, Rales, Wheezes Extremities: No: Cold Edema: No Neurological: Yes:lethargic No: Seizure Psychiatric: No: Agitated no jaundice diaphoresis Labs: CBC, BMP 05/12/17 17:00 05/12/17 17:00 tele: sr Echo 04/2017: Mild conc lvh. grossly nl lv fn. tds for rwma. nl rv function. mild-mod tr. rvsp 30-40. < 1 cm pericardial effusion, not hemodynamically significant. 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 Hospital course notable for new onset atrial flutter with slow ventricular conduction. New onset atrial flutter - Not a candidate for AC due to recent frequent falls, the current fall resulting in subdural hematoma - echo with grossly normal lv function. - on admit Had svr to 40's initially (Had been on coreg and clonidine at home)-- suspect initial bradycardia was due to home meds plus increased ICP - rapid AFL rates once home meds held, requiring diltiazem gtt, then required addition of amiodarone drip for rapid HRs on diltiazem. - 05/04: remains rapid in AFL with 2:1 A-V conduction. increased amio to 1 mg/ min and given dose of propranolol 2mg IVP x1, and HR decreased to 70s with variable AFL conduction. --> cont present amio rate, started standing propranolol 2mg IVP q4H, prn amiodarone boluses as needed - 05/05 remains rate controlled. intermittently in SR/Wenckebach. Cleared to take PO meds. Has been on amiodarone drip since 05/03 --> will change to maintenance dosing 200 mg po daily. Transition off diltiazem drip and start po regimen of diltiazem 60 mg QID and propanolol 40 mg tid. h/o multiple falls, now with fall and SDH - 05/06 SVR today persists despite receiving minimal PO regimen. Will stop amiodarone to avoid ongoing SVR. Start propanolol at a lower dose without diltiazem this evening to avoid recurrence of RVR overnight (as has happened in past when rate control meds have been held). lyte repletion prn -05/07-05/11: cont low dose inderal, when in afib rate is controlled. no pathologic bradycardia overnight. - 05/12: HR 90's overnight, agitated. --> inderal dose increased to 40 mg tid this morning. -05/13: cont same inderal h/o multiple falls, now with fall and SDH - s/p L craniotomy for SDH--mgmt per neurosurgery, neuro\ htn: -cont current po meds, if unable to take po has prn orders for iv hydralazine CAD - prior details uncertain, no recent PCI - Patient with multiple falls and subdural hematoma on ASA --> may not be able to continue this unfortunately, as risks of recurrent falls and ICH >> benefits. cont holding ASA for now, reassess later (requires outpt cardio f/u also to clarify prior stent history--if no stents, would definitely stop ASA here) - con't statin when able to take po. - no signs acs - ce's neg x 2. ekg without acute ischemic changes. CVA. - Not a candidate for AC or ASA at this time as mentioned. started statin.
--- NOTE | 2017-05-13 11:33 | PN ---
Progress Note, Physician History of Present Illness: 76 y/o M with PMH CAD with stents on ASA, CVA (2005), HTN,DMII, spinal stenosis s/p spinal surgery who was brought in to ED after family observed changes in mental status and personality after a fall a few months earlier. On CT noted to have a subacute/chronic subdural hematoma with mass effect. Also noted to have a A-fib/flutter and bradycardia.He is transferred to ICU for monitoring pending clearance for craniotomy and drainage+/- subdural drain placement. seen by neurosurgery and underwent craniotomy for drainage and then drain placement. FU: MRI- acute on chronic subdural, no sig chnage form 05/10, no new udnerlying stroke , chronic L BG infarct getting EEG MS fluctuates seen by NS , discussed possible shunt with family, they deferred repeat HD CT 05/10, slight increase in size acute on chronic left subdural spoke to dr reynoso-- will eval in AM, will get MRI to rule out superimposed stroke still confused , remains aphasic, expressive, poor naming and repetition, CT HD: 05/02/17 Impression: Interval postsurgical changes are noted in comparison to a prior CT study of 05/01/2017. - Current Medication List Current Medications: Active Medications Chlorhexidine Gluconate (Hibiclens For Decolonization -) 1 applic TP HS [facility] Last Admin: 05/04/17 22:08 Dose: 1 applic Clonidine HCl (Catapres Tts Patch -) 0.1 mg TD Q7D@1000 DANNY Last Admin: 05/04/17 11:26 Dose: 0.1 mg Diltiazem HCl (Cardizem Injection -) 10 mg IVPUSH Q4H PRN PRN Reason: TACHYCARDIA Last Admin: 05/04/17 00:19 Dose: 10 mg Hydralazine HCl (Apresoline Injection -) 20 mg IVPUSH Q4H PRN PRN Reason: HYPERTENSION Last Admin: 05/05/17 05:37 Dose: 20 mg Pantoprazole Sodium (Protonix 40mg Ivpb (Pre-Docked)) 100 mls @ 200 mls/hr IVPB DAILY DANNY Last Admin: 05/04/17 09:01 Dose: 200 mls/hr Dextrose/Sodium Chloride (D5-1/2ns -) 1,000 mls @ 75 mls/hr IV ASDIR [facility] Last Admin: 05/04/17 22:11 Dose: 75 mls/hr Diltiazem HCl 125 mg/ Dextrose 125 mls @ 5 mls/hr IVPB TITR DANNY; 5 MG/HR PRN Reason: Protocol Last Admin: 05/05/17 01:31 Dose: Not Given Amiodarone HCl 450 mg/ (Dextrose) 250 mls @ 33.33 mls/hr IVPB TITR DANNY PRN Reason: 1 MG/MIN Last Admin: 05/05/17 06:11 Dose: 33.33 mls/hr Potassium Phosphate 30 mm/ (Sodium Chloride) 260 mls @ 62.5 mls/hr IVPB ONCE ONE Stop: 05/05/17 13:39 Insulin Aspart (Novolog Vial Sliding Scale -) 0 vial SQ ACHS DANNY PRN Reason: Protocol Last Admin: 05/05/17 06:17 Dose: 4 units Lorazepam (Ativan Injection -) 1 mg IVPUSH Q6H PRN PRN Reason: ANXIETY Last Admin: 05/04/17 22:12 Dose: 1 mg Mupirocin (Bactroban Ointment (For Decolonization) -) 1 applic NS BID [facility] Stop: 05/05/17 21:59 Last Admin: 05/04/17 23:13 Dose: 1 applic Ondansetron HCl (Zofran Injection) 4 mg IVPB Q6H PRN PRN Reason: NAUSEA Propranolol HCl (Inderal Injection -) 2 mg IVPUSH Q4H-IV DANNY Last Admin: 05/05/17 05:08 Dose: 2 mg Valproate Sodium (Depacon Injection -) 500 mg IVPB DAILY [facility] Last Admin: 05/04/17 09:01 Dose: 500 mg - Objective Vital Signs: Vital Signs Temperature 98 F 05/13/17 10:00 Pulse Rate 61 05/13/17 10:00 Respiratory Rate 18 05/13/17 10:00 Blood Pressure 104/56 05/13/17 10:00 O2 Sat by Pulse Oximetry (%) 94 L 05/12/17 22:00 Neurological: Yes: Other (seen in bed sleeping, and with some effort he was roused and conversant. A bit confused but moving all limbs.) Labs: CBCD WBC 7.7 K/mm3 (4.0-10.0) 05/12/17 17:00 RBC 4.95 M/mm3 (4.00-5.60) 05/12/17 17:00 Hgb 11.5 GM/dL (11.7-16.9) L 05/12/17 17:00 Hct 36.2 % (35.4-49) 05/12/17 17:00 MCV 73.2 fl (80-96) L 05/12/17 17:00 MCHC 31.8 g/dl (32.0-35.9) L 05/12/17 17:00 RDW 15.3 % (11.9-15.9) 05/12/17 17:00 Plt Count 218 K/MM3 (134-434) D 05/12/17 17:00 MPV 10.7 fl (7.5-11.1) 05/12/17 17:00 CMP Sodium 135 mmol/L (136-145) L 05/12/17 17:00 Potassium 3.7 mmol/L (3.5-5.1) 05/12/17 17:00 Chloride 98 mmol/L (98-107) 05/12/17 17:00 Carbon Dioxide 28 mmol/L (21-32) 05/12/17 17:00 Anion Gap 9 (8-16) 05/12/17 17:00 BUN 10 mg/dL (7-18) 05/12/17 17:00 Creatinine 0.8 mg/dL (0.7-1.3) 05/12/17 17:00 Creat Clearance w eGFR > 60 (>60) 05/12/17 17:00 Calcium 8.5 mg/dL (8.5-10.1) 05/12/17 17:00 Total Bilirubin 0.6 mg/dL (0.2-1.0) D 05/12/17 17:00 AST 21 U/L (15-37) 05/12/17 17:00 ALT 26 U/L (12-78) D 05/12/17 17:00 Alkaline Phosphatase 66 U/L (45-117) 05/12/17 17:00 Total Protein 7.0 g/dl (6.4-8.2) 05/12/17 17:00 Albumin 3.0 g/dl (3.4-5.0) L 05/12/17 17:00 Problem List - Problems (1) Subdural bleeding Code(s): I62.00 - NONTRAUMATIC SUBDURAL HEMORRHAGE, UNSPECIFIED Assessment/Plan s/p subdural evacuation with residual aphasia/ encephalopathy recent MRI reviewed spoke to neurosurgery and re-eval if requires decompression , given atrophy may be proven for collections FU EEG when stabilizes ( after one month, will consider moth exterminator AC for AFIB, though will have to reasess if he is still a candidate) no sedation , on depakote Dr Kwok - Current Medication List Current Medications: Active Medications Amlodipine Besylate (Norvasc -) 5 mg PO DAILY [facility] Last Admin: 05/12/17 09:05 Dose: 5 mg Artificial Tears (Artificial Tears) 1 drop OU Q6H PRN PRN Reason: DRY EYES Last Admin: 05/11/17 22:15 Dose: 1 drop Atorvastatin Calcium (Lipitor -) 20 mg PO HS [facility] Last Admin: 05/12/17 23:44 Dose: 20 mg Diltiazem HCl (Cardizem Injection -) 10 mg IVPUSH Q4H PRN PRN Reason: TACHYCARDIA Hydralazine HCl (Apresoline Injection -) 10 mg IVPUSH Q4H PRN PRN Reason: HYPERTENSION Last Admin: 05/09/17 17:16 Dose: 10 mg Hydralazine HCl (Apresoline -) 100 mg PO TID [facility] Last Admin: 05/13/17 06:47 Dose: 100 mg Dextrose/Sodium Chloride (D5-1/2ns -) 1,000 mls @ 42 mls/hr IV ASDIR [facility] Last Admin: 05/12/17 18:28 Dose: 42 mls/hr Insulin Aspart (Novolog Vial Sliding Scale -) 1 vial SQ ACHS [facility] PRN Reason: Protocol Last Admin: 05/13/17 06:47 Dose: 2 units Ondansetron HCl (Zofran Injection) 4 mg IVPB Q6H PRN PRN Reason: NAUSEA Propranolol HCl (Inderal -) 40 mg PO TID [facility] Last Admin: 05/13/17 06:47 Dose: 40 mg Ranitidine HCl (Zantac -) 150 mg PO BID [facility] Last Admin: 05/12/17 23:44 Dose: 150 mg Thiamine HCl (Vitamin B1 -) 100 mg PO DAILY [facility] Last Admin: 05/12/17 09:05 Dose: 100 mg Valproate Sodium (Depacon Injection -) 500 mg IVPB DAILY DANNY Last Admin: 05/12/17 13:02 Dose: 500 mg - Objective Vital Signs: Vital Signs Temperature 98 F 05/13/17 10:00 Pulse Rate 61 05/13/17 10:00 Respiratory Rate 18 05/13/17 10:00 Blood Pressure 104/56 05/13/17 10:00 O2 Sat by Pulse Oximetry (%) 94 L 05/12/17 22:00 Labs: CBC, BMP 05/12/17 17:00 05/12/17 17:00 INR, PTT INR 1.20 (0.82-1.09) H 05/06/17 05:20
--- NOTE | 2017-05-13 12:26 | PN ---
Progress Note, KELP CUTTER - Note Progress Note: Selected Entries 05/11/17 05/11/17 05/11/17 01:54 05:53 09:00 Breakfast Lunch Supper Temperature 98.7 F 98.4 F 97.6 F 05/11/17 05/11/17 05/11/17 12:55 14:10 18:40 Breakfast 50% Lunch 50% Supper Temperature 98.7 F 98.6 F 05/11/17 05/11/17 05/12/17 18:45 22:00 02:00 Breakfast Lunch Supper 50% Temperature 98.1 F 98.0 F 05/12/17 05/12/17 05/12/17 05:58 08:41 09:58 Breakfast 75% Lunch Supper Temperature 98.1 F 98.4 F Selected Entries 05/12/17 05/12/17 05/12/17 02:00 05:58 08:41 Breakfast Temperature 98.0 F 98.1 F 98.4 F 05/12/17 05/12/17 05/12/17 09:58 14:30 22:00 Breakfast 75% Temperature 98.6 F 99.6 F 05/13/17 05/13/17 05/13/17 02:00 06:00 10:00 Breakfast Temperature 98.8 F 98.9 F 98 F Laboratory Tests 05/12/17 17:00 WBC 7.7 Lethargic this am. attempting to feed pt while not sufficiently aroused. Nursing made aware. Counseled pt on need for arousability, with risk of aspiration. I was able to arouse pt, with occasional intelligible words elicited, including 's name. Educated regarding compensatory swallowing strategies.
[2017-05-13] MEDS: THIAMINE HCL 100 MG TABLET (FP) PO SCH (12:47)
[2017-05-13] MEDS: RANITIDINE HCL 150 MG TABLET (FP) PO SCH ×2 (12:47→22:34)
[2017-05-13] MEDS: amLODIPine BESYLATE 5 MG TABLET (FP) PO SCH (12:47)
[2017-05-13] MEDS: VALPROATE SODIUM 500 MG/5 ML VIAL IVPB SCH (14:53)
[2017-05-13] MEDS ORDERED: INSULIN (NOVOLOG) ASPART 100 UNITS/ML 10ML VIAL ONE ×2 (17:26→22:33)
--- NOTE | 2017-05-13 18:51 | PN ---
Physical Exam: SUBJECTIVE: Patient seen and examined. No acute events overnight per night team. This am, pt was sleeping, easily awoken, dysarthric/aphasic, similar to last few days. He denies any pains or other complaints. OBJECTIVE: Vital Signs Period Temp Pulse Resp BP Sys/Cortés Pulse Ox Last 24 Hr 98 F-99.6 F 61-91 16-18 104-166/56-87 94-98 GENERAL: The patient is awake, drowsy, in no acute distress. HEAD: Incision on head healed well, sutures removed, no signs of infection EYES: PERRL, extraocular movements intact, sclera anicteric, conjunctiva clear. No ptosis. ENT: Ears normal, nares patent, oropharynx clear without exudates, moist mucous membranes. NECK: Trachea midline, full range of motion, supple. LUNGS: Breath sounds equal, clear to auscultation bilaterally, no wheezes, no crackles, no accessory muscle use. HEART: irregularly irregular without murmur, rub or gallop. ABDOMEN: Soft, nontender, nondistended, normoactive bowel sounds, no guarding, no rebound, no hepatosplenomegaly, no masses. EXTREMITIES: 2+ pulses, warm, well-perfused, no edema. SCDs in place. NEUROLOGICAL: Cranial nerves II through XII still difficult to fully assess. speech dysarthric and aphasic, gait not observed. SKIN: Warm, dry, normal turgor, no rashes or lesions noted Laboratory Results - last 24 hr 05/12/17 05/13/17 05/13/17 20:49 05:55 06:30 POC Glucometer 260 176 Ammonia < 10.00 L RPR Titer 05/13/17 05/13/17 06:30 12:44 POC Glucometer 151 Ammonia RPR Titer Nonreactive Active Medications Generic Name Dose Route Start Last Admin Trade Name Freq PRN Reason Stop Dose Admin Amlodipine Besylate 5 mg 05/10/17 10:00 05/13/17 12:47 Norvasc - PO 5 mg DAILY DANNY Administration Artificial Tears 1 drop 05/10/17 18:15 05/11/17 22:15 Artificial Tears OU 1 drop Q6H PRN Administration DRY EYES Atorvastatin Calcium 20 mg 05/09/17 22:00 05/12/17 23:44 Lipitor - PO 20 mg HS DANNY Administration Diltiazem HCl 10 mg 05/06/17 13:12 Cardizem Injection - IVPUSH Q4H PRN TACHYCARDIA Hydralazine HCl 10 mg 05/06/17 18:38 05/09/17 17:16 Apresoline Injection - IVPUSH 10 mg Q4H PRN Administration HYPERTENSION Hydralazine HCl 100 mg 05/09/17 08:13 05/13/17 14:53 Apresoline - PO 100 mg TID DANNY Administration Dextrose/Sodium Chloride 1,000 mls @ 42 mls/hr 05/06/17 18:45 05/12/17 18:28 D5-1/2ns - IV 42 mls/hr ASDIR DANNY Administration Insulin Aspart 1 vial 05/06/17 16:30 05/13/17 17:42 Novolog Vial Sliding Scale - SQ 4 units ACHS DANNY Administration Protocol Ondansetron HCl 4 mg 05/06/17 13:12 Zofran Injection IVPB Q6H PRN NAUSEA Propranolol HCl 40 mg 05/12/17 14:00 05/13/17 14:54 Inderal - PO 40 mg TID DANNY Administration Ranitidine HCl 150 mg 05/08/17 22:00 05/13/17 12:47 Zantac - PO 150 mg BID DANNY Administration Thiamine HCl 100 mg 05/08/17 10:00 05/13/17 12:47 Vitamin B1 - PO 100 mg DAILY DANNY Administration Valproate Sodium 500 mg 05/07/17 10:00 05/13/17 14:53 Depacon Injection - IVPB 500 mg DAILY DANNY Administration ASSESSMENT/PLAN: 76 year old man with a history of cervical stenosis, CAD, CVA, HTN, type 2 DM who presented to the ER with confusion, slurred speech, urinary incontinence after a fall 2 months ago, found to have a subdural hematoma on MRI, s/p hematoma evacuation on 05/01, with repeat CT as well as MRI showing acute on chronic subdural hematoma. #Subdural hematoma - s/p craniotomy with drain placement 05/01 - Extubated 05/02 -repeat head CT (05/10) shows acute on chronic subdural hematoma - Continue valproic acid 500mg IV for seizure prophylaxis -continue neuro checks and tight SBP control (120-160) -neurosurgery following, appreciated note that pt's deferred shunt, and wants conservative treatment -continue thiamine 100mg qd -brain MRI w/o contrast: limited persistent motion artifact, inability to complete study- acute on chronic subdural hematoma, no acute infarct, +chronic infarct in left basal ganglia -ammonia: 17.46 --> <10 -RPR non-reactive #Refractory HTN -cardiology on board -BP in 130-160s/80-100s with HR between 70-100 overnight. -continue propranolol 40mg PO TID -continue hydralazine 100mg PO TID, IV hydralazine 10mg q4h PRN #Atrial flutter with RVR - cardio following - hydralazine 100mg PO TID, propranolol 20mg PO TID, hydralazine 10mg IV q4h PRN #Tachycardia -diltiazem 10mg IV q4h PRN #CAD - continue lipitor 20mg #Type 2 diabetes mellitus - Metformin and glipizide held - Continue Novolog sliding scale #History of CVA - Aspirin held secondary to ICH #History of cervical stenosis #Speech and swallow - diet as directed #microcytic anemia -Hgb of 12.7 with MCV of 72 -B12: 1943 -folate: 18 -iron studies: iron of 91, TIBC of 232, and transferrin of 200 -continue thiamine 100mg qd #FEN/ppx -D5 w/ 1/2NS @42 ml/hr -no bmp today -diet as per speech and swallow -ranitidine 150mg BID for stress ulcer ppx -SCDs for DVT ppx #Dispo -needs outpt cardiology f/u to clarify prior stent hx -- Mulugeta Waters MD PGY1 Problem List - Problems (1) Atrial fibrillation Code(s): I48.91 - UNSPECIFIED ATRIAL FIBRILLATION (2) Diabetes mellitus Code(s): E11.9 - TYPE 2 DIABETES MELLITUS WITHOUT COMPLICATIONS Visit type - Emergency Visit Emergency Visit: Yes ED Registration Date: 04/30/17 Care time: The patient presented to the Emergency Department on the above date and was hospitalized for further evaluation of their emergent condition. - New Patient This patient is new to me today: No - Critical Care Critical Care patient: No
--- NOTE | 2017-05-13 20:35 | PN ---
Teaching Attending Note Name of Resident: Mulugeta Waters ATTENDING PHYSICIAN STATEMENT I saw and evaluated the patient. I reviewed the resident's note and discussed the case with the resident. I agree with the resident's findings and plan as documented. SUBJECTIVE: unable toobtain hx due to encephalopathy OBJECTIVE: NAD, awake , no response to commands HEENT: EOMI, round equal pupils 3 mm in diameter CV: irreg irreg . Lungs : CTAB ext : no edema Abd : soft, NT, ND , nl BS ASSESSMENT AND PLAN: 76 y/o man with h/o CAD, HTN, DM II, CVA , and other medical problems who presented with confusion and urinary incontinence and was found to have L subdural hematoma 1- Subdural hematoma , due to fall. s/p Evacuation 05/01 . MRI reviewed. appreciate neurology and neuro sx help no need fro re-evaccuation - encephalopathy might not improve further 2- A flutter and A fib with RVR. - cont propranolol - can not anticoagulate due to ICH 3- Uncontrolled HTN: - PO propranolol, and hydralazine 4- Dm : hold oral meds - SSI 6- H/o CVA and CAD, off asa due to ICH HLOC
[2017-05-13] MEDS: ATORVASTATIN CA 20 MG TABLET (FP) PO SCH (22:34)
[2017-05-13] MEDS: DEXTROSE 5%-0.45% SALINE 1,000 ML IV SCH (22:38)
[2017-05-14] MEDS ORDERED: INSULIN (NOVOLOG) ASPART 100 UNITS/ML 10ML VIAL ONE ×2 (05:58→17:37)
[2017-05-14] MEDS ORDERED: PT OWN MED DRAWER 7, Y5N ONE ×2 (05:58→09:37)
[2017-05-14] MEDS: PROPRANOLOL HCL 40 MG TABLET PO SCH ×3 (05:59→21:00)
[2017-05-14] MEDS: hydrALAZINE HCL 50 MG TABLET (FP) PO SCH ×3 (05:59→21:00)
[2017-05-14] MEDS: INSULIN SLIDING SCALE (NOVOLOG) 1 VIAL SQ SCH ×4 (06:00→21:01)
[2017-05-14] MEDS ORDERED: LORazepam 1 MG TABLET PO PRN (06:56)
--- NOTE | 2017-05-14 08:53 | PN ---
Progress Note (short form) - Note Progress Note: NEUROSURGERY POD #13 In telemetry In bed PE: AF, VSS Scalp incision clean/dry Somewhat more awake Following simple commands Dysarthric speech Face symmetric; tongue midline Moving B UE/LE at least 4/[address]- slightly increased L sided acute on chronic subdural fluid collection; minimal mass effect; no midline shift; old L putamen and palafox radiata stroke Brain MRI- Atrophy; L fronto-parietal convexity subdural fluid collection, thickest 1.3-1.5 cm L parietal region; chronic large L putamen/palafox radiata infarct; no acute ischemia; no shift, minimal mass effect On anticonvulsant (depakote) for sz prophylaxis PT/ROM Nutritional support Issue is brain atrophy after extensive L putamen stroke, which does not allow the brain to re-expand and the space will continue to be occupied by fluid ( blood, CSF) EEG pending Care and options including re-exploration and subdural-peritoneal shunt d/w yesterday, who opts more conservative tx at this time
[2017-05-14] MEDS: RANITIDINE HCL 150 MG TABLET (FP) PO SCH ×2 (09:39→21:01)
[2017-05-14] MEDS: amLODIPine BESYLATE 10 MG TABLET (FP) PO SCH (09:40)
[2017-05-14] MEDS: THIAMINE HCL 100 MG TABLET (FP) PO SCH (09:40)
[2017-05-14] MEDS: VALPROATE SODIUM 500 MG/5 ML VIAL IVPB SCH (09:40)
--- NOTE | 2017-05-14 10:07 | PN ---
Progress Note (short form) - Note Progress Note: s: lethargic, no overnight events Current Medications Generic Name Dose Route Start Last Admin Trade Name Freq PRN Reason Stop Dose Admin Amlodipine Besylate 10 mg 05/14/17 10:00 05/14/17 09:40 Norvasc - PO 10 mg DAILY DANNY Administration Artificial Tears 1 drop 05/10/17 18:15 05/11/17 22:15 Artificial Tears OU 1 drop Q6H PRN Administration DRY EYES Atorvastatin Calcium 20 mg 05/09/17 22:00 05/13/17 22:34 Lipitor - PO 20 mg HS DANNY Administration Diltiazem HCl 10 mg 05/06/17 13:12 Cardizem Injection - IVPUSH Q4H PRN TACHYCARDIA Hydralazine HCl 10 mg 05/06/17 18:38 05/09/17 17:16 Apresoline Injection - IVPUSH 10 mg Q4H PRN Administration HYPERTENSION Hydralazine HCl 100 mg 05/09/17 08:13 05/14/17 05:59 Apresoline - PO 100 mg TID DANNY Administration Dextrose/Sodium Chloride 1,000 mls @ 42 mls/hr 05/06/17 18:45 05/13/17 22:38 D5-1/2ns - IV 42 mls/hr ASDIR DANNY Administration Insulin Aspart 1 vial 05/06/17 16:30 05/14/17 06:00 Novolog Vial Sliding Scale - SQ 2 units ACHS DANNY Administration Protocol Lorazepam 0.5 mg 05/14/17 08:21 Ativan Injection - IM Q6H PRN AGITATION Ondansetron HCl 4 mg 05/06/17 13:12 Zofran Injection IVPB Q6H PRN NAUSEA Propranolol HCl 40 mg 05/12/17 14:00 05/14/17 05:59 Inderal - PO 40 mg TID DANNY Administration Ranitidine HCl 150 mg 05/08/17 22:00 05/14/17 09:39 Zantac - PO 150 mg BID DANNY Administration Thiamine HCl 100 mg 05/08/17 10:00 05/14/17 09:40 Vitamin B1 - PO 100 mg DAILY DANNY Administration Valproate Sodium 500 mg 05/07/17 10:00 05/14/17 09:40 Depacon Injection - IVPB 500 mg DAILY DANNY Administration Vital Signs Period Temp Pulse Resp BP Sys/Cortés Pulse Ox Last 24 Hr 98 F-99.0 F 41-99 16-20 115-156/72-96 98 Constitutional: Yes: Well Nourished, No Distress, Calm Cardiovascular: Yes: irregular Rate and Rhythm, S1, S2. No: JVD, Gallop, Murmur Respiratory: Yes: cta bl, poor effort. No: Accessory Muscle Use, Rales, Wheezes Extremities: No: Cold Edema: No Neurological: Yes:lethargic No: Seizure Psychiatric: No: Agitated no jaundice diaphoresis Labs: CBC, BMP 05/12/17 17:00 05/12/17 17:00 tele: sr Echo 04/2017: Mild conc lvh. grossly nl lv fn. tds for rwma. nl rv function. mild-mod tr. rvsp 30-40. < 1 cm pericardial effusion, not hemodynamically significant. 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 Hospital course notable for new onset atrial flutter with slow ventricular conduction. New onset atrial flutter - Not a candidate for AC due to recent frequent falls, the current fall resulting in subdural hematoma - echo with grossly normal lv function. - on admit Had svr to 40's initially (Had been on coreg and clonidine at home)-- suspect initial bradycardia was due to home meds plus increased ICP - rapid AFL rates once home meds held, requiring diltiazem gtt, then required addition of amiodarone drip for rapid HRs on diltiazem. - 05/04: remains rapid in AFL with 2:1 A-V conduction. increased amio to 1 mg/ min and given dose of propranolol 2mg IVP x1, and HR decreased to 70s with variable AFL conduction. --> cont present amio rate, started standing propranolol 2mg IVP q4H, prn amiodarone boluses as needed - 05/05 remains rate controlled. intermittently in SR/Wenckebach. Cleared to take PO meds. Has been on amiodarone drip since 05/03 --> will change to maintenance dosing 200 mg po daily. Transition off diltiazem drip and start po regimen of diltiazem 60 mg QID and propanolol 40 mg tid. h/o multiple falls, now with fall and SDH - 05/06 SVR today persists despite receiving minimal PO regimen. Will stop amiodarone to avoid ongoing SVR. Start propanolol at a lower dose without diltiazem this evening to avoid recurrence of RVR overnight (as has happened in past when rate control meds have been held). lyte repletion prn -05/07-05/11: cont low dose inderal, when in afib rate is controlled. no pathologic bradycardia overnight. - 05/12: HR 90's overnight, agitated. --> inderal dose increased to 40 mg tid this morning. -05/13-: cont same inderal. no pathologic bradycardia overnight. h/o multiple falls, now with fall and SDH - s/p L craniotomy for SDH--mgmt per neurosurgery, neuro htn: -bp better but still high at times so will increase norvasc to 10 mg. CAD - prior details uncertain, no recent PCI - Patient with multiple falls and subdural hematoma on ASA --> may not be able to continue this unfortunately, as risks of recurrent falls and ICH >> benefits. cont holding ASA for now, reassess later (requires outpt cardio f/u also to clarify prior stent history--if no stents, would definitely stop ASA here) - con't statin when able to take po. - no signs acs - ce's neg x 2. ekg without acute ischemic changes. CVA. - Not a candidate for AC or ASA at this time as mentioned. started statin.
--- NOTE | 2017-05-14 11:22 | PN ---
Progress Note, [facility] - Note Progress Note: EEG noted with diffuse encephalopathy. Agitated last night, given Ativan. Selected Entries 05/14/17 05/14/17 05/14/17 01:53 06:00 09:46 Breakfast Temperature 98.2 F 98.5 F 98 F 05/14/17 10:59 Breakfast 25% Temperature Laboratory Tests 05/12/17 17:00 WBC 7.7 Declined by Cali blackwell. Sleeping. Seems comfortable. No sob or audible congestion. Continue PO trials, when sufficiently alert. Encourage supplements when are more nutritionally dense. Monitor PO tolerance.
[2017-05-14] MEDS: DEXTROSE 5%-0.45% SALINE 1,000 ML IV SCH ×2 (17:00→20:17)
--- NOTE | 2017-05-14 19:48 | PN ---
Teaching Attending Note Name of Resident: Mulugeta Waters ATTENDING PHYSICIAN STATEMENT I saw and evaluated the patient. I reviewed the resident's note and discussed the case with the resident. I agree with the resident's findings and plan as documented. SUBJECTIVE: no events over night . OBJECTIVE: NAD, lethargic , no response to commands HEENT: EOMI, round equal pupils 3 mm in diameter CV: irreg irreg . Lungs : CTAB ext : no edema Abd : soft, NT, ND , nl BS ASSESSMENT AND PLAN: 76 y/o man with h/o CAD, HTN, DM II, CVA , and other medical problems who presented with confusion and urinary incontinence and was found to have L subdural hematoma 1- Subdural hematoma , due to fall. s/p Evacuation 05/01 . re-evacuation declined by . conservative mgt for now - encephalopathy might not improve further 2- A flutter and A fib with RVR. - cont propranolol - can not anticoagulate due to ICH 3- Uncontrolled HTN: - PO propranolol, and hydralazine . norvasc increased 4- Dm : hold oral meds - SSI 6- H/o CVA and CAD, off asa due to ICH D/W the need fro staedy po intake especially his meds. PEG tube was d/w her and she is agreeable. will consult IR appreciate CM help. NH search started
[2017-05-14] MEDS: ATORVASTATIN CA 20 MG TABLET (FP) PO SCH (21:00)
--- NOTE | 2017-05-14 23:07 | PN ---
Physical Exam: SUBJECTIVE: Patient seen and examined. Overnight, pt became agitated, and was given 1mg ativan which calmed him down. This am, pt was very lethargic and difficult to awaken. Pt did not wake up for more than a few seconds. OBJECTIVE: Vital Signs Period Temp Pulse Resp BP Sys/Cortés Pulse Ox Last 24 Hr 97.4 F-98.5 F 41-90 18-20 114-172/63-96 98-99 GENERAL: The patient is sleeping in no acute distress. HEAD: Incision on head healed well, sutures removed, no signs of infection EYES: PERRL, extraocular movements intact, sclera anicteric, conjunctiva clear. No ptosis. ENT: Ears normal, nares patent, oropharynx clear without exudates, moist mucous membranes. NECK: Trachea midline, full range of motion, supple. LUNGS: Breath sounds equal, clear to auscultation bilaterally, no wheezes, no crackles, no accessory muscle use. HEART: irregularly irregular without murmur, rub or gallop. ABDOMEN: Soft, nontender, nondistended, normoactive bowel sounds, no guarding, no rebound, no hepatosplenomegaly, no masses. EXTREMITIES: 2+ pulses, warm, well-perfused, no edema. SCDs in place. NEUROLOGICAL: could not assess because pt would not awaken SKIN: Warm, dry, normal turgor, no rashes or lesions noted Laboratory Results - last 24 hr 05/13/17 05/13/17 05/14/17 16:16 21:56 05:26 POC Glucometer 223 190 152 05/14/17 05/14/17 11:51 17:00 POC Glucometer 149 181 Active Medications Generic Name Dose Route Start Last Admin Trade Name Freq PRN Reason Stop Dose Admin Amlodipine Besylate 10 mg 05/14/17 10:00 05/14/17 09:40 Norvasc - PO 10 mg DAILY DANNY Administration Artificial Tears 1 drop 05/10/17 18:15 05/11/17 22:15 Artificial Tears OU 1 drop Q6H PRN Administration DRY EYES Atorvastatin Calcium 20 mg 05/09/17 22:00 05/14/17 21:00 Lipitor - PO Not Given HS DANNY Diltiazem HCl 10 mg 05/06/17 13:12 Cardizem Injection - IVPUSH Q4H PRN TACHYCARDIA Hydralazine HCl 10 mg 05/06/17 18:38 05/09/17 17:16 Apresoline Injection - IVPUSH 10 mg Q4H PRN Administration HYPERTENSION Hydralazine HCl 100 mg 05/09/17 08:13 05/14/17 21:00 Apresoline - PO Not Given TID [facility] Dextrose/Sodium Chloride 1,000 mls @ 42 mls/hr 05/06/17 18:45 05/14/17 20:17 D5-1/2ns - IV Not Given ASDIR [facility] Insulin Aspart 1 vial 05/06/17 16:30 05/14/17 21:01 Novolog Vial Sliding Scale - SQ Not Given ACHS [facility] Protocol Ondansetron HCl 4 mg 05/06/17 13:12 Zofran Injection IVPB Q6H PRN NAUSEA Propranolol HCl 40 mg 05/12/17 14:00 05/14/17 21:00 Inderal - PO Not Given TID [facility] Ranitidine HCl 150 mg 05/08/17 22:00 05/14/17 21:01 Zantac - PO Not Given BID DANNY Thiamine HCl 100 mg 05/08/17 10:00 05/14/17 09:40 Vitamin B1 - PO 100 mg DAILY [facility] Administration Valproate Sodium 500 mg 05/15/17 10:00 Depakene - PO DAILY [facility] ASSESSMENT/PLAN: 76 year old man with a history of cervical stenosis, CAD, CVA, HTN, type 2 DM who presented to the ER with confusion, slurred speech, urinary incontinence after a fall 2 months ago, found to have a subdural hematoma on MRI, s/p hematoma evacuation on 05/01, with repeat CT as well as MRI showing acute on chronic subdural hematoma. #Subdural hematoma - s/p craniotomy with drain placement 05/01 - Extubated 05/02 -repeat head CT (05/10) shows acute on chronic subdural hematoma - Continue valproic acid 500mg IV for seizure prophylaxis -continue neuro checks and tight SBP control (120-160) -neurosurgery following, appreciated note that pt's deferred shunt, and wants conservative treatment -continue thiamine 100mg qd -brain MRI w/o contrast: limited persistent motion artifact, inability to complete study- acute on chronic subdural hematoma, no acute infarct, +chronic infarct in left basal ganglia -ammonia: 17.46 --> <10 -RPR non-reactive -EEG abnormal and non-specific #Refractory HTN -cardiology on board -BP in 130-160s/80-100s with HR between 70-100 overnight. -continue propranolol 40mg PO TID -continue hydralazine 100mg PO TID, IV hydralazine 10mg q4h PRN #Atrial flutter with RVR - cardio following - hydralazine 100mg PO TID, propranolol 20mg PO TID, hydralazine 10mg IV q4h PRN #Tachycardia -diltiazem 10mg IV q4h PRN #CAD - continue lipitor 20mg #Type 2 diabetes mellitus - Metformin and glipizide held - Continue Novolog sliding scale #History of CVA - Aspirin held secondary to ICH #History of cervical stenosis #Speech and swallow - diet as directed #microcytic anemia -Hgb of 12.7 with MCV of 72 -B12: 1943 -folate: 18 -iron studies: iron of 91, TIBC of 232, and transferrin of 200 -continue thiamine 100mg qd #FEN/ppx -D5 w/ 1/2NS @42 ml/hr -no bmp today -diet as per speech and swallow -ranitidine 150mg BID for stress ulcer ppx -SCDs for DVT ppx #Dispo -needs outpt cardiology f/u to clarify prior stent hx -spoke to pt's about employing a peg tube in pt due to pt's high risk for aspiration. She agreed. Dr. Duran consulted. -- Mulugeta Waters MD PGY1 Problem List - Problems (1) Atrial fibrillation Code(s): I48.91 - UNSPECIFIED ATRIAL FIBRILLATION (2) Diabetes mellitus Code(s): E11.9 - TYPE 2 DIABETES MELLITUS WITHOUT COMPLICATIONS Visit type - Emergency Visit Emergency Visit: Yes ED Registration Date: 04/30/17 Care time: The patient presented to the Emergency Department on the above date and was hospitalized for further evaluation of their emergent condition. - New Patient This patient is new to me today: No - Critical Care Critical Care patient: No
[2017-05-15] MEDS ORDERED: INSULIN (NOVOLOG) ASPART 100 UNITS/ML 10ML VIAL ONE ×2 (06:07→12:34)
[2017-05-15] MEDS ORDERED: PT OWN MED DRAWER 7, Y5N ONE ×3 (06:07→13:45)
[2017-05-15] MEDS: PROPRANOLOL HCL 40 MG TABLET PO SCH ×3 (06:08→22:34)
[2017-05-15] MEDS: INSULIN SLIDING SCALE (NOVOLOG) 1 VIAL SQ SCH ×4 (06:08→22:37)
[2017-05-15] MEDS: hydrALAZINE HCL 50 MG TABLET (FP) PO SCH ×4 (06:08→22:52)
--- NOTE | 2017-05-15 08:39 | PN ---
Progress Note (short form) - Note Progress Note: 76 y/o M with PMH CAD with stents on ASA, CVA (2005), HTN,DMII, spinal stenosis s/p spinal surgery who was brought in to ED after family observed changes in mental status and personality after a fall a few months earlier. On CT noted to have a subacute/chronic subdural hematoma with mass effect. Also noted to have a A-fib/flutter and bradycardia.He is transferred to ICU for monitoring pending clearance for craniotomy and drainage+/- subdural drain placement. seen by neurosurgery and underwent craniotomy for drainage and then drain placement. FU: ras burden conservative care, seen BY NS yesterday EEG result P Studies: MRI- acute on chronic subdural, no sig chnage form 05/10, no new udnerlying stroke , chronic L BG infarct seen by NS , discussed possible shunt with family, they deferred repeat HD CT 05/10, slight increase in size acute on chronic left subdural spoke to dr reynoso-- will eval in AM, will get MRI to rule out superimposed stroke still confused , remains aphasic, expressive, poor naming and repetition, CT HD: 05/02/17 Impression: Interval postsurgical changes are noted in comparison to a prior CT study of 05/01/2017. - Current Medication List Current Medications: Active Medications Chlorhexidine Gluconate (Hibiclens For Decolonization -) 1 applic TP HS [facility] Last Admin: 05/04/17 22:08 Dose: 1 applic Clonidine HCl (Catapres Tts Patch -) 0.1 mg TD Q7D@1000 [facility] Last Admin: 05/04/17 11:26 Dose: 0.1 mg Diltiazem HCl (Cardizem Injection -) 10 mg IVPUSH Q4H PRN PRN Reason: TACHYCARDIA Last Admin: 05/04/17 00:19 Dose: 10 mg Hydralazine HCl (Apresoline Injection -) 20 mg IVPUSH Q4H PRN PRN Reason: HYPERTENSION Last Admin: 05/05/17 05:37 Dose: 20 mg Pantoprazole Sodium (Protonix 40mg Ivpb (Pre-Docked)) 100 mls @ 200 mls/hr IVPB DAILY [facility] Last Admin: 05/04/17 09:01 Dose: 200 mls/hr Dextrose/Sodium Chloride (D5-1/2ns -) 1,000 mls @ 75 mls/hr IV ASDIR DANNY Last Admin: 05/04/17 22:11 Dose: 75 mls/hr Diltiazem HCl 125 mg/ Dextrose 125 mls @ 5 mls/hr IVPB TITR ADNNY; 5 MG/HR PRN Reason: Protocol Last Admin: 05/05/17 01:31 Dose: Not Given Amiodarone HCl 450 mg/ (Dextrose) 250 mls @ 33.33 mls/hr IVPB TITR DANNY PRN Reason: 1 MG/MIN Last Admin: 05/05/17 06:11 Dose: 33.33 mls/hr Potassium Phosphate 30 mm/ (Sodium Chloride) 260 mls @ 62.5 mls/hr IVPB ONCE ONE Stop: 05/05/17 13:39 Insulin Aspart (Novolog Vial Sliding Scale -) 0 vial SQ ACHS DANNY PRN Reason: Protocol Last Admin: 05/05/17 06:17 Dose: 4 units Lorazepam (Ativan Injection -) 1 mg IVPUSH Q6H PRN PRN Reason: ANXIETY Last Admin: 05/04/17 22:12 Dose: 1 mg Mupirocin (Bactroban Ointment (For Decolonization) -) 1 applic NS BID DANNY Stop: 05/05/17 21:59 Last Admin: 05/04/17 23:13 Dose: 1 applic Ondansetron HCl (Zofran Injection) 4 mg IVPB Q6H PRN PRN Reason: NAUSEA Propranolol HCl (Inderal Injection -) 2 mg IVPUSH Q4H-IV DANNY Last Admin: 05/05/17 05:08 Dose: 2 mg Valproate Sodium (Depacon Injection -) 500 mg IVPB DAILY DANNY Last Admin: 05/04/17 09:01 Dose: 500 mg - Objective Vital Signs: Vital Signs Temperature 98 F 05/13/17 10:00 Pulse Rate 61 05/13/17 10:00 Respiratory Rate 18 05/13/17 10:00 Blood Pressure 104/56 05/13/17 10:00 O2 Sat by Pulse Oximetry (%) 94 L 05/12/17 22:00 Neurological: Yes: Other (seen in bed sleeping, and with some effort he was roused and conversant. A bit confused but moving all limbs.) Labs: CBCD WBC 7.7 K/mm3 (4.0-10.0) 05/12/17 17:00 RBC 4.95 M/mm3 (4.00-5.60) 05/12/17 17:00 Hgb 11.5 GM/dL (11.7-16.9) L 05/12/17 17:00 Hct 36.2 % (35.4-49) 05/12/17 17:00 MCV 73.2 fl (80-96) L 05/12/17 17:00 MCHC 31.8 g/dl (32.0-35.9) L 05/12/17 17:00 RDW 15.3 % (11.9-15.9) 05/12/17 17:00 Plt Count 218 K/MM3 (134-434) D 05/12/17 17:00 MPV 10.7 fl (7.5-11.1) 05/12/17 17:00 CMP Sodium 135 mmol/L (136-145) L 05/12/17 17:00 Potassium 3.7 mmol/L (3.5-5.1) 05/12/17 17:00 Chloride 98 mmol/L (98-107) 05/12/17 17:00 Carbon Dioxide 28 mmol/L (21-32) 05/12/17 17:00 Anion Gap 9 (8-16) 05/12/17 17:00 BUN 10 mg/dL (7-18) 05/12/17 17:00 Creatinine 0.8 mg/dL (0.7-1.3) 05/12/17 17:00 Creat Clearance w eGFR > 60 (>60) 05/12/17 17:00 Calcium 8.5 mg/dL (8.5-10.1) 05/12/17 17:00 Total Bilirubin 0.6 mg/dL (0.2-1.0) D 05/12/17 17:00 AST 21 U/L (15-37) 05/12/17 17:00 ALT 26 U/L (12-78) D 05/12/17 17:00 Alkaline Phosphatase 66 U/L (45-117) 05/12/17 17:00 Total Protein 7.0 g/dl (6.4-8.2) 05/12/17 17:00 Albumin 3.0 g/dl (3.4-5.0) L 05/12/17 17:00 Problem List - Problems (1) Subdural bleeding Code(s): I62.00 - NONTRAUMATIC SUBDURAL HEMORRHAGE, UNSPECIFIED Assessment/Plan s/p subdural evacuation with residual aphasia/ encephalopathy recent MRI reviewed spoke to neurosurgery and re-eval if requires decompression , given atrophy may be proven for collections FU EEG when stabilizes ( after one month, will consider terminal makeup operator AC for AFIB, though will have to reasess if he is still a candidate) no sedation , on depakote Dr Kwok - Current Medication List Current Medications: Active Medications Amlodipine Besylate (Norvasc -) 5 mg PO DAILY [facility] Last Admin: 05/12/17 09:05 Dose: 5 mg Artificial Tears (Artificial Tears) 1 drop OU Q6H PRN PRN Reason: DRY EYES Last Admin: 05/11/17 22:15 Dose: 1 drop Atorvastatin Calcium (Lipitor -) 20 mg PO HS [facility] Last Admin: 05/12/17 23:44 Dose: 20 mg Diltiazem HCl (Cardizem Injection -) 10 mg IVPUSH Q4H PRN PRN Reason: TACHYCARDIA Hydralazine HCl (Apresoline Injection -) 10 mg IVPUSH Q4H PRN PRN Reason: HYPERTENSION Last Admin: 05/09/17 17:16 Dose: 10 mg Hydralazine HCl (Apresoline -) 100 mg PO TID [facility] Last Admin: 05/13/17 06:47 Dose: 100 mg Dextrose/Sodium Chloride (D5-1/2ns -) 1,000 mls @ 42 mls/hr IV ASDIR [facility] Last Admin: 05/12/17 18:28 Dose: 42 mls/hr Insulin Aspart (Novolog Vial Sliding Scale -) 1 vial SQ ACHS [facility] PRN Reason: Protocol Last Admin: 05/13/17 06:47 Dose: 2 units Ondansetron HCl (Zofran Injection) 4 mg IVPB Q6H PRN PRN Reason: NAUSEA Propranolol HCl (Inderal -) 40 mg PO TID [facility] Last Admin: 05/13/17 06:47 Dose: 40 mg Ranitidine HCl (Zantac -) 150 mg PO BID [facility] Last Admin: 05/12/17 23:44 Dose: 150 mg Thiamine HCl (Vitamin B1 -) 100 mg PO DAILY [facility] Last Admin: 05/12/17 09:05 Dose: 100 mg Valproate Sodium (Depacon Injection -) 500 mg IVPB DAILY DANNY Last Admin: 05/12/17 13:02 Dose: 500 mg - Objective Vital Signs: Vital Signs Temperature 98.8 F 05/15/17 06:00 Pulse Rate 88 05/15/17 06:00 Respiratory Rate 20 05/15/17 06:00 Blood Pressure 158/101 05/15/17 06:00 O2 Sat by Pulse Oximetry (%) 99 05/14/17 20:36 Labs: CBCD WBC 7.7 K/mm3 (4.0-10.0) 05/12/17 17:00 RBC 4.95 M/mm3 (4.00-5.60) 05/12/17 17:00 Hgb 11.5 GM/dL (11.7-16.9) L 05/12/17 17:00 Hct 36.2 % (35.4-49) 05/12/17 17:00 MCV 73.2 fl (80-96) L 05/12/17 17:00 MCHC 31.8 g/dl (32.0-35.9) L 05/12/17 17:00 RDW 15.3 % (11.9-15.9) 05/12/17 17:00 Plt Count 218 K/MM3 (134-434) D 05/12/17 17:00 MPV 10.7 fl (7.5-11.1) 05/12/17 17:00 CMP Sodium 135 mmol/L (136-145) L 05/12/17 17:00 Potassium 3.7 mmol/L (3.5-5.1) 05/12/17 17:00 Chloride 98 mmol/L (98-107) 05/12/17 17:00 Carbon Dioxide 28 mmol/L (21-32) 05/12/17 17:00 Anion Gap 9 (8-16) 05/12/17 17:00 BUN 10 mg/dL (7-18) 05/12/17 17:00 Creatinine 0.8 mg/dL (0.7-1.3) 05/12/17 17:00 Creat Clearance w eGFR > 60 (>60) 05/12/17 17:00 Calcium 8.5 mg/dL (8.5-10.1) 05/12/17 17:00 Total Bilirubin 0.6 mg/dL (0.2-1.0) D 05/12/17 17:00 AST 21 U/L (15-37) 05/12/17 17:00 ALT 26 U/L (12-78) D 05/12/17 17:00 Alkaline Phosphatase 66 U/L (45-117) 05/12/17 17:00 Total Protein 7.0 g/dl (6.4-8.2) 05/12/17 17:00 Albumin 3.0 g/dl (3.4-5.0) L 05/12/17 17:00
[2017-05-15] MEDS: amLODIPine BESYLATE 10 MG TABLET (FP) PO SCH (09:02)
[2017-05-15] MEDS: RANITIDINE HCL 150 MG TABLET (FP) PO SCH ×3 (09:02→22:52)
[2017-05-15] MEDS: VALPROATE SODIUM 250 MG/5 ML UNIT DOSE CUP PO SCH (09:02)
[2017-05-15] MEDS: THIAMINE HCL 100 MG TABLET (FP) PO SCH (09:02)
[2017-05-15] MEDS ORDERED: VALPROIC ACID 250 MG CAPSULE PO SCH (10:00)
--- NOTE | 2017-05-15 10:40 | PN ---
Progress Note (short form) - Note Progress Note: s: lethargic, no overnight events Current Medications Generic Name Dose Route Start Last Admin Trade Name Freq PRN Reason Stop Dose Admin Amlodipine Besylate 10 mg 05/14/17 10:00 05/15/17 09:02 Norvasc - PO 10 mg DAILY DANNY Administration Artificial Tears 1 drop 05/10/17 18:15 05/11/17 22:15 Artificial Tears OU 1 drop Q6H PRN Administration DRY EYES Atorvastatin Calcium 20 mg 05/09/17 22:00 05/14/17 21:00 Lipitor - PO Not Given HS DANNY Diltiazem HCl 10 mg 05/06/17 13:12 Cardizem Injection - IVPUSH Q4H PRN TACHYCARDIA Hydralazine HCl 10 mg 05/06/17 18:38 05/09/17 17:16 Apresoline Injection - IVPUSH 10 mg Q4H PRN Administration HYPERTENSION Hydralazine HCl 100 mg 05/09/17 08:13 05/15/17 06:08 Apresoline - PO 100 mg TID DANNY Administration Dextrose/Sodium Chloride 1,000 mls @ 42 mls/hr 05/06/17 18:45 05/14/17 20:17 D5-1/2ns - IV Not Given ASDIR DANNY Insulin Aspart 1 vial 05/06/17 16:30 05/15/17 06:08 Novolog Vial Sliding Scale - SQ 4 units ACHS DANNY Administration Protocol Ondansetron HCl 4 mg 05/06/17 13:12 Zofran Injection IVPB Q6H PRN NAUSEA Propranolol HCl 40 mg 05/12/17 14:00 05/15/17 06:08 Inderal - PO 40 mg TID DANNY Administration Ranitidine HCl 150 mg 05/08/17 22:00 05/15/17 09:02 Zantac - PO 150 mg BID DANNY Administration Thiamine HCl 100 mg 05/08/17 10:00 05/15/17 09:02 Vitamin B1 - PO 100 mg DAILY DANNY Administration Valproate Sodium 500 mg 05/15/17 10:00 05/15/17 09:02 Depakene - PO 500 mg DAILY DANNY Administration Vital Signs Period Temp Pulse Resp BP Sys/Cortés Pulse Ox Last 24 Hr 97.4 F-98.8 F 62-92 20-20 114-172/63-101 98-99 Constitutional: Yes: Well Nourished, No Distress, Calm Cardiovascular: Yes: irregular Rate and Rhythm, S1, S2. No: JVD, Gallop, Murmur Respiratory: Yes: cta bl, poor effort. No: Accessory Muscle Use, Rales, Wheezes Extremities: No: Cold Edema: No Neurological: Yes:lethargic No: Seizure Psychiatric: No: Agitated no jaundice diaphoresis Labs: CBC, BMP 05/12/17 17:00 05/12/17 17:00 tele: sr Echo 04/2017: Mild conc lvh. grossly nl lv fn. tds for rwma. nl rv function. mild-mod tr. rvsp 30-40. < 1 cm pericardial effusion, not hemodynamically significant. 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 Hospital course notable for new onset atrial flutter with slow ventricular conduction. New onset atrial flutter - Not a candidate for AC due to recent frequent falls, the current fall resulting in subdural hematoma - echo with grossly normal lv function. - on admit Had svr to 40's initially (Had been on coreg and clonidine at home)-- suspect initial bradycardia was due to home meds plus increased ICP - rapid AFL rates once home meds held, requiring diltiazem gtt, then required addition of amiodarone drip for rapid HRs on diltiazem. - 05/04: remains rapid in AFL with 2:1 A-V conduction. increased amio to 1 mg/ min and given dose of propranolol 2mg IVP x1, and HR decreased to 70s with variable AFL conduction. --> cont present amio rate, started standing propranolol 2mg IVP q4H, prn amiodarone boluses as needed - 05/05 remains rate controlled. intermittently in SR/Wenckebach. Cleared to take PO meds. Has been on amiodarone drip since 05/03 --> will change to maintenance dosing 200 mg po daily. Transition off diltiazem drip and start po regimen of diltiazem 60 mg QID and propanolol 40 mg tid. h/o multiple falls, now with fall and SDH - 05/06 SVR today persists despite receiving minimal PO regimen. Will stop amiodarone to avoid ongoing SVR. Start propanolol at a lower dose without diltiazem this evening to avoid recurrence of RVR overnight (as has happened in past when rate control meds have been held). lyte repletion prn -05/07-05/11: cont low dose inderal, when in afib rate is controlled. no pathologic bradycardia overnight. - 05/12: HR 90's overnight, agitated. --> inderal dose increased to 40 mg tid this morning. -05/13-: cont same inderal. no pathologic bradycardia overnight. h/o multiple falls, now with fall and SDH - s/p L craniotomy for SDH--mgmt per neurosurgery, neuro htn: -bp better controlled on current meds CAD - prior details uncertain, no recent PCI - Patient with multiple falls and subdural hematoma on ASA --> may not be able to continue this unfortunately, as risks of recurrent falls and ICH >> benefits. cont holding ASA for now, reassess later (requires outpt cardio f/u also to clarify prior stent history--if no stents, would definitely stop ASA here) - con't statin when able to take po. - no signs acs - ce's neg x 2. ekg without acute ischemic changes. CVA. - Not a candidate for AC or ASA at this time as mentioned. started statin here. can [employer] tele
--- NOTE | 2017-05-15 12:27 | PN ---
Progress Note, TELEGRAPH OFFICE ROUTE AIDE - Note Progress Note: Selected Entries 05/14/17 05/14/17 05/14/17 01:53 06:00 09:46 Breakfast Lunch Supper Temperature 98.2 F 98.5 F 98 F 05/14/17 05/14/17 05/14/17 10:59 15:02 18:57 Breakfast 25% Lunch 0 Supper Temperature 97.7 F 97.4 F L 05/14/17 05/14/17 05/15/17 21:00 22:04 02:00 Breakfast Lunch Supper 25% Temperature 97.9 F 97.6 F 05/15/17 05/15/17 05/15/17 06:00 10:00 11:22 Breakfast 25% Lunch Supper Temperature 98.8 F 98.3 F Laboratory Tests 05/12/17 17:00 WBC 7.7 More awake, verbal, imprecise articulation but speaking in phrases with interspersed paraphasic errors.dysarthria, apraxia, aphasia,dysphagia, cognitive deficits. Improved performance today.
[2017-05-15] MEDS ORDERED: LORazepam 0.5 MG TABLET PO PRN (16:11)
[2017-05-15] MEDS: DEXTROSE 5%-0.45% SALINE 1,000 ML IV SCH ×2 (16:33→19:00)
--- NOTE | 2017-05-15 16:35 | PN ---
Progress Note (short form) - Note Progress Note: 76 y/o M with PMH CAD with stents on ASA, CVA (2004), HTN,DMII, spinal stenosis s/p spinal surgery who was brought in to ED after family observed changes in mental status and personality after a fall a few months earlier. On CT noted to have a subacute/chronic subdural hematoma with mass effect. Also noted to have a A-fib/flutter and bradycardia.He is transferred to ICU for monitoring pending clearance for craniotomy and drainage+/- subdural drain placement. seen by neurosurgery and underwent craniotomy for drainage and then drain placement. FU: veering towrds conservative care, seen BY NS yesterday EEG result P Vital Signs Temperature 97.7 F 05/15/17 14:06 Pulse Rate 70 05/15/17 14:06 Respiratory Rate 16 05/15/17 14:06 Blood Pressure 119/62 05/15/17 14:06 O2 Sat by Pulse Oximetry (%) 99 05/14/17 20:36 Studies: MRI- acute on chronic subdural, no sig chnage form 05/10, no new udnerlying stroke , chronic L BG infarct seen by NS , discussed possible shunt with family, they deferred repeat HD CT 05/10, slight increase in size acute on chronic left subdural spoke to dr reynoso-- will eval in AM, will get MRI to rule out superimposed stroke still confused , remains aphasic, expressive, poor naming and repetition, CT HD: 05/02/17 Impression: Interval postsurgical changes are noted in comparison to a prior CT study of 05/01/2017. AP subdural acute on chronic s/p decompression residual aphasia family defers inetrvention, as per NS note await placement, PEG FU EEG Dr Kwok
--- NOTE | 2017-05-15 17:58 | PN ---
Teaching Attending Note Name of Resident: Mulugeta Waters ATTENDING PHYSICIAN STATEMENT I saw and evaluated the patient. I reviewed the resident's note and discussed the case with the resident. I agree with the resident's findings and plan as documented. SUBJECTIVE: unable to get hx OBJECTIVE: NAD, awake, minimally follows commands . HEENT: EOMI, round equal pupils 3 mm in diameter CV: irreg irreg . Lungs : CTAB ext : no edema Abd : soft, NT, ND , nl BS ASSESSMENT AND PLAN: 76 y/o man with h/o CAD, HTN, DM II, CVA , and other medical problems who presented with confusion and urinary incontinence and was found to have L subdural hematoma 1- Subdural hematoma , due to fall. s/p Evacuation 05/01 . cont to monitor encephalopathy and confusion continue. will try to avoid IV ativan. can't give Haldol due to prolonged QTC start standing evening dose of ativan po 2- A flutter and A fib with RVR. - cont propranolol - can not anticoagulate due to ICH 3- Uncontrolled HTN: - PO propranolol, and hydralazine and norvasc 4- Dm : hold oral meds - SSI 6- H/o CVA and CAD, off asa due to ICH 7- nutrition, not taking enough oral nutrition. eval for PEG on Thursday
--- NOTE | 2017-05-15 19:50 | PN ---
Physical Exam: SUBJECTIVE: Patient seen and examined. Pt was agitated overnight, given ativan to calm him down. This am, more alert than previous day, still dysarthric and aphasic. No complaints. OBJECTIVE: Vital Signs Period Temp Pulse Resp BP Sys/Cortés Pulse Ox Last 24 Hr 97.6 F-98.8 F 63-92 16-20 119-158/62-101 99 GENERAL: The patient is awake in no acute distress. HEAD: Incision on head healed well, sutures removed, no signs of infection EYES: PERRL, extraocular movements intact, sclera anicteric, conjunctiva clear. No ptosis. ENT: Ears normal, nares patent, oropharynx clear without exudates, moist mucous membranes. NECK: Trachea midline, full range of motion, supple. LUNGS: Breath sounds equal, clear to auscultation bilaterally, no wheezes, no crackles, no accessory muscle use. HEART: irregularly irregular without murmur, rub or gallop. ABDOMEN: Soft, nontender, nondistended, normoactive bowel sounds, no guarding, no rebound, no hepatosplenomegaly, no masses. EXTREMITIES: 2+ pulses, warm, well-perfused, no edema. SCDs in place. NEUROLOGICAL: uncooperative, difficult to assess. SKIN: Warm, dry, normal turgor, no rashes or lesions noted Laboratory Results - last 24 hr 05/15/17 05/15/17 05/15/17 05:10 11:40 16:32 POC Glucometer 206 155 221 Active Medications Generic Name Dose Route Start Last Admin Trade Name Freq PRN Reason Stop Dose Admin Amlodipine Besylate 10 mg 05/14/17 10:00 05/15/17 09:02 Norvasc - PO 10 mg DAILY DANNY Administration Artificial Tears 1 drop 05/10/17 18:15 05/11/17 22:15 Artificial Tears OU 1 drop Q6H PRN Administration DRY EYES Atorvastatin Calcium 20 mg 05/09/17 22:00 05/14/17 21:00 Lipitor - PO Not Given HS DANNY Diltiazem HCl 10 mg 05/06/17 13:12 Cardizem Injection - IVPUSH Q4H PRN TACHYCARDIA Hydralazine HCl 10 mg 05/06/17 18:38 05/09/17 17:16 Apresoline Injection - IVPUSH 10 mg Q4H PRN Administration HYPERTENSION Hydralazine HCl 100 mg 05/09/17 08:13 05/15/17 13:55 Apresoline - PO 100 mg TID DANNY Administration Dextrose/Sodium Chloride 1,000 mls @ 42 mls/hr 05/06/17 18:45 05/15/17 16:33 D5-1/2ns - IV 42 mls/hr ASDIR DANNY Administration Insulin Aspart 1 vial 05/06/17 16:30 05/15/17 16:33 Novolog Vial Sliding Scale - SQ 4 units ACHS DANNY Administration Protocol Lorazepam 0.5 mg 05/15/17 16:11 Ativan - PO HS PRN AGITATION Ondansetron HCl 4 mg 05/06/17 13:12 Zofran Injection IVPB Q6H PRN NAUSEA Propranolol HCl 40 mg 05/12/17 14:00 05/15/17 14:13 Inderal - PO 40 mg TID DANNY Administration Ranitidine HCl 150 mg 05/08/17 22:00 05/15/17 09:02 Zantac - PO 150 mg BID DANNY Administration Thiamine HCl 100 mg 05/08/17 10:00 05/15/17 09:02 Vitamin B1 - PO 100 mg DAILY DANNY Administration Valproate Sodium 500 mg 05/15/17 10:00 05/15/17 09:02 Depakene - PO 500 mg DAILY DANNY Administration ASSESSMENT/PLAN: 76 year old man with a history of cervical stenosis, CAD, CVA, HTN, type 2 DM who presented to the ER with confusion, slurred speech, urinary incontinence after a fall 2 months ago, found to have a subdural hematoma on MRI, s/p hematoma evacuation on 05/01, with repeat CT as well as MRI showing acute on chronic subdural hematoma. #acute on chronic Subdural hematoma - s/p craniotomy with drain placement 05/01, extubated 05/02 -repeat head CT (05/10) shows acute on chronic subdural hematoma - Continue valproic acid 500mg IV for seizure prophylaxis, continue thiamine 100mg qd -continue neuro checks and tight SBP control (120-160) -neurosurgery following, appreciated note that pt's deferred shunt, and wants conservative treatment -pt to get peg tube on thursday with IR, pt's is amenable. -place NG tube at 6pm on 05/17 with barium in prep for procedure the following day #Refractory HTN -cardiology on board -continue propranolol 40mg PO, hydralazine 100mg PO TID, IV hydralazine 10mg q4h PRN #Atrial flutter with RVR - cardio following - hydralazine 100mg PO TID, propranolol 20mg PO TID, hydralazine 10mg IV q4h PRN #Agitation -started on ativan 0.5mg HS #Tachycardia -diltiazem 10mg IV q4h PRN #CAD - continue lipitor 20mg #Type 2 diabetes mellitus - Metformin and glipizide held - Continue Novolog sliding scale #History of CVA - Aspirin held secondary to ICH #History of cervical stenosis #Speech and swallow - diet as directed #microcytic anemia -Hgb of 12.7 with MCV of 72 -B12: 1943 -folate: 18 -iron studies: iron of 91, TIBC of 232, and transferrin of 200 -continue thiamine 100mg qd #FEN/ppx -D5 w/ 1/2NS @42 ml/hr -no bmp today -diet as per speech and swallow -ranitidine 150mg BID for stress ulcer ppx -SCDs for DVT ppx #Dispo -needs outpt cardiology f/u to clarify prior stent hx -D/C pending peg tube placement on 05/17 -- Mulugeta Waters MD PGY1 Problem List - Problems (1) Atrial fibrillation Code(s): I48.91 - UNSPECIFIED ATRIAL FIBRILLATION (2) Diabetes mellitus Code(s): E11.9 - TYPE 2 DIABETES MELLITUS WITHOUT COMPLICATIONS Visit type - Emergency Visit Emergency Visit: Yes ED Registration Date: 04/30/17 Care time: The patient presented to the Emergency Department on the above date and was hospitalized for further evaluation of their emergent condition. - New Patient This patient is new to me today: No - Critical Care Critical Care patient: No
[2017-05-15] MEDS: ATORVASTATIN CA 20 MG TABLET (FP) PO SCH ×2 (22:39→22:51)
[2017-05-16] MEDS: INSULIN SLIDING SCALE (NOVOLOG) 1 VIAL SQ SCH ×4 (06:06→22:01)
[2017-05-16] MEDS ORDERED: PT OWN MED DRAWER 7, Y5N ONE ×6 (07:46→22:45)
[2017-05-16] MEDS: hydrALAZINE HCL 50 MG TABLET (FP) PO SCH ×3 (07:49→22:00)
[2017-05-16] MEDS: PROPRANOLOL HCL 40 MG TABLET PO SCH ×3 (07:50→22:01)
[2017-05-16] MEDS: VALPROATE SODIUM 250 MG/5 ML UNIT DOSE CUP PO SCH (10:42)
[2017-05-16] MEDS: RANITIDINE HCL 150 MG TABLET (FP) PO SCH ×2 (10:42→22:00)
[2017-05-16] MEDS: amLODIPine BESYLATE 10 MG TABLET (FP) PO SCH (10:42)
[2017-05-16] MEDS: ARTIFICIAL TEARS (POLYVINYL ALCOHOL 1.4%) OPTH DROPS OU PRN (10:42)
[2017-05-16] MEDS: THIAMINE HCL 100 MG TABLET (FP) PO SCH (10:42)
--- NOTE | 2017-05-16 11:13 | PN ---
Progress Note, Physician History of Present Illness: No events - Current Medication List Current Medications: Active Medications Amlodipine Besylate (Norvasc -) 10 mg PO DAILY [facility] Last Admin: 05/16/17 10:42 Dose: 10 mg Artificial Tears (Artificial Tears) 1 drop OU Q6H PRN PRN Reason: DRY EYES Last Admin: 05/16/17 10:42 Dose: 1 drop Atorvastatin Calcium (Lipitor -) 20 mg PO HS [facility] Last Admin: 05/15/17 22:51 Dose: Not Given Diltiazem HCl (Cardizem Injection -) 10 mg IVPUSH Q4H PRN PRN Reason: TACHYCARDIA Hydralazine HCl (Apresoline Injection -) 10 mg IVPUSH Q4H PRN PRN Reason: HYPERTENSION Last Admin: 05/09/17 17:16 Dose: 10 mg Hydralazine HCl (Apresoline -) 100 mg PO TID [facility] Last Admin: 05/16/17 07:49 Dose: 100 mg Dextrose/Sodium Chloride (D5-1/2ns -) 1,000 mls @ 42 mls/hr IV ASDIR [facility] Last Admin: 05/15/17 19:00 Dose: Not Given Insulin Aspart (Novolog Vial Sliding Scale -) 1 vial SQ ACHS DANNY PRN Reason: Protocol Last Admin: 05/16/17 06:06 Dose: Not Given Lorazepam (Ativan -) 0.5 mg PO HS PRN PRN Reason: AGITATION Ondansetron HCl (Zofran Injection) 4 mg IVPB Q6H PRN PRN Reason: NAUSEA Propranolol HCl (Inderal -) 40 mg PO TID [facility] Last Admin: 05/16/17 07:50 Dose: 40 mg Ranitidine HCl (Zantac -) 150 mg PO BID [facility] Last Admin: 05/16/17 10:42 Dose: 150 mg Thiamine HCl (Vitamin B1 -) 100 mg PO DAILY [facility] Last Admin: 05/16/17 10:42 Dose: 100 mg Valproate Sodium (Depakene -) 500 mg PO DAILY [facility] Last Admin: 05/16/17 10:42 Dose: 500 mg - Objective Vital Signs: Vital Signs Temperature 97.8 F 05/16/17 10:45 Pulse Rate 71 05/16/17 10:45 Respiratory Rate 20 05/16/17 10:45 Blood Pressure 112/70 05/16/17 10:45 O2 Sat by Pulse Oximetry (%) 99 05/15/17 20:55 Constitutional: Yes: No Distress, Other (Asleep and lethargic but arrousable) HENT: Yes: Atraumatic Neck: Yes: WNL Cardiovascular: Yes: Pulse Irregular Respiratory: Yes: Regular, CTA Bilaterally Gastrointestinal: Yes: Normal Bowel Sounds Extremities: Yes: WNL Edema: No Labs: CBC, BMP 05/12/17 17:00 05/12/17 17:00 INR, PTT INR 1.20 (0.82-1.09) H 05/06/17 05:20 Assessment/Plan a/p: H/o 76 yo with h/o CAD (s/p stenting in 2013?/2014), 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 Hospital course notable for new onset atrial flutter with slow ventricular conduction. New onset atrial flutter - Not a candidate for AC due to recent frequent falls, the current fall resulting in subdural hematoma - echo with grossly normal lv function. 05/17: Continue inderal. Tele stable. Agree with asa once stable from NS perspective. h/o multiple falls, now with fall and SDH - s/p L craniotomy for SDH--mgmt per neurosurgery, neuro htn: -bp better controlled on current meds CAD - prior details uncertain, no recent PCI - Patient with multiple falls and subdural hematoma on ASA --> may not be able to continue this unfortunately, as risks of recurrent falls and ICH >> benefits. cont holding ASA for now, reassess later (requires outpt cardio f/u also to clarify prior stent history--if no stents, would definitely stop ASA here) - con't statin when able to take po. - no signs acs - ce's neg x 2. ekg without acute ischemic changes. CVA. - Not a candidate for AC or ASA at this time as mentioned. started statin here.
[2017-05-16] MEDS ORDERED: INSULIN (NOVOLOG) ASPART 100 UNITS/ML 10ML VIAL ONE ×2 (12:33→21:58)
--- NOTE | 2017-05-16 14:54 | PN ---
Physical Exam: SUBJECTIVE: Patient seen and examined OBJECTIVE: Vital Signs Period Temp Pulse Resp BP Sys/Cortés Pulse Ox Last 24 Hr 97.5 F-98.4 F 60-81 18-20 112-154/70-97 99 GENERAL: The patient is awake in no acute distress. talking gibberish and screaming HEAD: Incision on head healed well, sutures removed, no signs of infection EYES: PERRL, extraocular movements intact, sclera anicteric, conjunctiva clear. No ptosis. ENT: Ears normal, nares patent, oropharynx clear without exudates, moist mucous membranes. NECK: Trachea midline, full range of motion, supple. LUNGS: Breath sounds equal, clear to auscultation bilaterally, no wheezes, no crackles, no accessory muscle use. HEART: irregularly irregular ABDOMEN: Soft, nontender, nondistended, normoactive bowel sounds, no guarding, no rebound, no hepatosplenomegaly, no masses. EXTREMITIES: 2+ pulses, warm, well-perfused, no edema. SCDs in place. SKIN: Warm, dry, normal turgor, no rashes or lesions noted Laboratory Results - last 24 hr 05/15/17 05/15/17 05/16/17 16:32 20:48 05:39 POC Glucometer 221 313 103 05/16/17 11:52 POC Glucometer 321 Active Medications Generic Name Dose Route Start Last Admin Trade Name Freq PRN Reason Stop Dose Admin Amlodipine Besylate 10 mg 05/14/17 10:00 05/16/17 10:42 Norvasc - PO 10 mg DAILY DANNY Administration Artificial Tears 1 drop 05/10/17 18:15 05/16/17 10:42 Artificial Tears OU 1 drop Q6H PRN Administration DRY EYES Atorvastatin Calcium 20 mg 05/09/17 22:00 05/15/17 22:51 Lipitor - PO Not Given HS DANNY Diltiazem HCl 10 mg 05/06/17 13:12 Cardizem Injection - IVPUSH Q4H PRN TACHYCARDIA Hydralazine HCl 10 mg 05/06/17 18:38 05/09/17 17:16 Apresoline Injection - IVPUSH 10 mg Q4H PRN Administration HYPERTENSION Hydralazine HCl 100 mg 05/09/17 08:13 05/16/17 07:49 Apresoline - PO 100 mg TID DANNY Administration Dextrose/Sodium Chloride 1,000 mls @ 42 mls/hr 05/06/17 18:45 05/15/17 19:00 D5-1/2ns - IV Not Given ASDIR DANNY Insulin Aspart 1 vial 05/06/17 16:30 05/16/17 12:36 Novolog Vial Sliding Scale - SQ 8 units ACHS DANNY Administration Protocol Lorazepam 0.5 mg 05/15/17 16:11 Ativan - PO HS PRN AGITATION Ondansetron HCl 4 mg 05/06/17 13:12 Zofran Injection IVPB Q6H PRN NAUSEA Propranolol HCl 40 mg 05/12/17 14:00 05/16/17 07:50 Inderal - PO 40 mg TID DANNY Administration Ranitidine HCl 150 mg 05/08/17 22:00 05/16/17 10:42 Zantac - PO 150 mg BID DANNY Administration Thiamine HCl 100 mg 05/08/17 10:00 05/16/17 10:42 Vitamin B1 - PO 100 mg DAILY DANNY Administration Valproate Sodium 500 mg 05/15/17 10:00 05/16/17 10:42 Depakene - PO 500 mg DAILY DANNY Administration ASSESSMENT/PLAN: 76 year old man with a history of cervical stenosis, CAD, CVA, HTN, type 2 DM who presented to the ER with confusion, slurred speech, urinary incontinence after a fall 2 months ago, found to have a subdural hematoma on MRI, s/p hematoma evacuation on 05/01, with repeat CT as well as MRI showing acute on chronic subdural hematoma. acute on chronic Subdural hematoma No active issues at this time neurosurgery appreciated hold aspirin for now HTN well controlled on hydralazine and propanolol Agitation ativan PRN Tachycardia resolved CAD continue lipitor 20mg Type 2 diabetes mellitus ISS fingerstivks well controlled History of CVA no aspirin for now Anemia: cotnine thimaine FEN/ppx -D5 w/ 1/2NS @42 ml/hr SCDs no HSQ per neurosurgery ranitidine continue diet-calorie counting For possible PEG thursday then D/C planning Visit type - Emergency Visit Emergency Visit: Yes ED Registration Date: 04/30/17 Care time: The patient presented to the Emergency Department on the above date and was hospitalized for further evaluation of their emergent condition. - New Patient This patient is new to me today: Yes Date on this admission: 05/16/17 - Critical Care Critical Care patient: No - Discharge Referral Referred to [facility] Med P.C.: No
[2017-05-16] MEDS: DEXTROSE 5%-0.45% SALINE 1,000 ML IV SCH (16:52)
--- NOTE | 2017-05-16 16:52 | PN ---
Progress Note (short form) - Note Progress Note: 76 y/o M with PMH CAD with stents on ASA, CVA (2005), HTN,DMII, spinal stenosis s/p spinal surgery who was brought in to ED after family observed changes in mental status and personality after a fall a few months earlier. On CT noted to have a subacute/chronic subdural hematoma with mass effect. Also noted to have a A-fib/flutter and bradycardia.He is transferred to ICU for monitoring pending clearance for craniotomy and drainage+/- subdural drain placement. seen by neurosurgery and underwent craniotomy for drainage and then drain placement. FU: Pt was agitated last night , no sleep so sleeping during daytime. Vital Signs Temperature 97.7 F 05/15/17 14:06 Pulse Rate 70 05/15/17 14:06 Respiratory Rate 16 05/15/17 14:06 Blood Pressure 119/62 05/15/17 14:06 O2 Sat by Pulse Oximetry (%) 99 05/14/17 20:36 PE: A & O to self , dysphasia , speak a few words CN2-12 int , no face droop, or gaze preference Moves all exts , no pronator drift EEG: reported abnormal due to post asymmetria . Studies: MRI- acute on chronic subdural, no sig chnage form 05/10, no new udnerlying stroke , chronic L BG infarct seen by NS , discussed possible shunt with family, they deferred repeat HD CT 05/10, slight increase in size acute on chronic left subdural spoke to dr reynoso-- will eval in AM, will get MRI to rule out superimposed stroke still confused , remains aphasic, expressive, poor naming and repetition, CT HD: 05/02/17 Impression: Interval postsurgical changes are noted in comparison to a prior CT study of 05/01/2017. AP subdural acute on chronic s/p decompression; doing well residual aphasia, speak a few words family defers inetrvention, as per NS note await placement, PEG EEG as above , no electrographic seizure activities Health maintenance per primary team. Thank you. FK. Maria E MD Problem List - Problems (1) Subdural bleeding Code(s): I62.00 - NONTRAUMATIC SUBDURAL HEMORRHAGE, UNSPECIFIED (2) Dementia Code(s): F03.90 - UNSPECIFIED DEMENTIA WITHOUT BEHAVIORAL DISTURBANCE Qualifiers: Dementia behavioral disturbance: with behavioral disturbance (3) Old lacunar stroke without late effect Code(s): Z86.73 - PRSNL HX OF TIA (TIA), AND CEREB INFRC W/O RESID DEFICITS
--- NOTE | 2017-05-16 19:18 | PN ---
Teaching Attending Note Name of Resident: Skip Anglin ATTENDING PHYSICIAN STATEMENT I saw and evaluated the patient. I reviewed the resident's note and discussed the case with the resident. I agree with the resident's findings and plan as documented. SUBJECTIVE: no events over night . OBJECTIVE: NAD, more awake, answers few questions , cooperative. knows his name HEENT: EOMI, round equal pupils 3 mm in diameter CV: irreg irreg . Lungs : CTAB ext : no edema Abd : soft, NT, ND , nl BS ASSESSMENT AND PLAN: 76 y/o man with h/o CAD, HTN, DM II, CVA , and other medical problems who presented with confusion and urinary incontinence and was found to have L subdural hematoma 1- Subdural hematoma , due to fall. s/p Evacuation 05/01 . cont to monitor mental status improved . did not receive his benzo last night . will dc benzo 2- A flutter and A fib with RVR. - cont propranolol - can not anticoagulate due to ICH 3- HTN: Now better controlled - PO propranolol, and hydralazine and norvasc 4- Dm : hold oral meds - SSI 6- H/o CVA and CAD, off asa due to ICH 7- Nutrition,LOC improved, and oral intake much improved today. hold off PEG for now ( might not need it )
[2017-05-16] MEDS ORDERED: LORazepam 2 MG/ML SDV VIAL IVPUSH ONE (20:41)
[2017-05-16] MEDS: ATORVASTATIN CA 20 MG TABLET (FP) PO SCH (22:00)
[2017-05-17] MEDS: hydrALAZINE HCL 50 MG TABLET (FP) PO SCH ×3 (06:59→22:51)
[2017-05-17] MEDS: INSULIN SLIDING SCALE (NOVOLOG) 1 VIAL SQ SCH ×4 (07:01→22:53)
[2017-05-17] MEDS: PROPRANOLOL HCL 40 MG TABLET PO SCH ×3 (07:01→23:11)
[2017-05-17] MEDS ORDERED: PT OWN MED DRAWER 7, Y5N ONE ×2 (09:02→22:37)
[2017-05-17] MEDS: THIAMINE HCL 100 MG TABLET (FP) PO SCH (09:15)
[2017-05-17] MEDS: amLODIPine BESYLATE 10 MG TABLET (FP) PO SCH (09:15)
[2017-05-17] MEDS: RANITIDINE HCL 150 MG TABLET (FP) PO SCH ×2 (09:15→22:51)
[2017-05-17] MEDS: VALPROATE SODIUM 250 MG/5 ML UNIT DOSE CUP PO SCH (09:16)
--- NOTE | 2017-05-17 10:51 | PN ---
Progress Note, Physician History of Present Illness: No events overnight No tele; d/cd - Current Medication List Current Medications: Active Medications Amlodipine Besylate (Norvasc -) 10 mg PO DAILY [facility] Last Admin: 05/17/17 09:15 Dose: 10 mg Artificial Tears (Artificial Tears) 1 drop OU Q6H PRN PRN Reason: DRY EYES Last Admin: 05/16/17 10:42 Dose: 1 drop Atorvastatin Calcium (Lipitor -) 20 mg PO HS [facility] Last Admin: 05/16/17 22:00 Dose: 20 mg Diltiazem HCl (Cardizem Injection -) 10 mg IVPUSH Q4H PRN PRN Reason: TACHYCARDIA Hydralazine HCl (Apresoline Injection -) 10 mg IVPUSH Q4H PRN PRN Reason: HYPERTENSION Last Admin: 05/09/17 17:16 Dose: 10 mg Hydralazine HCl (Apresoline -) 100 mg PO TID [facility] Last Admin: 05/17/17 06:59 Dose: Not Given Dextrose/Sodium Chloride (D5-1/2ns -) 1,000 mls @ 42 mls/hr IV ASDIR [facility] Last Admin: 05/16/17 16:52 Dose: 42 mls/hr Insulin Aspart (Novolog Vial Sliding Scale -) 1 vial SQ ACHS [facility] PRN Reason: Protocol Last Admin: 05/17/17 07:01 Dose: 2 units Ondansetron HCl (Zofran Injection) 4 mg IVPB Q6H PRN PRN Reason: NAUSEA Propranolol HCl (Inderal -) 40 mg PO TID [facility] Last Admin: 05/17/17 07:01 Dose: Not Given Ranitidine HCl (Zantac -) 150 mg PO BID [facility] Last Admin: 05/17/17 09:15 Dose: 150 mg Thiamine HCl (Vitamin B1 -) 100 mg PO DAILY [facility] Last Admin: 05/17/17 09:15 Dose: 100 mg Valproate Sodium (Depakene -) 500 mg PO DAILY [facility] Last Admin: 05/17/17 09:16 Dose: 500 mg - Objective Vital Signs: Vital Signs Temperature 98.2 F 05/17/17 04:00 Pulse Rate 79 05/17/17 04:00 Respiratory Rate 18 05/17/17 04:00 Blood Pressure 153/88 05/17/17 04:00 O2 Sat by Pulse Oximetry (%) 92 L 05/16/17 20:07 Constitutional: Yes: No Distress Eyes: Yes: WNL HENT: Yes: WNL Neck: Yes: WNL Cardiovascular: Yes: Pulse Irregular Respiratory: Yes: Regular Extremities: Yes: WNL Edema: No Neurological: Yes: Other (Lethargic but more awake this AM) Labs: CBC, BMP 05/12/17 17:00 05/12/17 17:00 INR, PTT INR 1.20 (0.82-1.09) H 05/06/17 05:20 Assessment/Plan a/p: H/o 76 yo with h/o CAD (s/p stenting in 2013?/2014), 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 Hospital course notable for new onset atrial flutter with slow ventricular conduction. New onset atrial flutter - Not a candidate for AC due to recent frequent falls, the current fall resulting in subdural hematoma - echo with grossly normal lv function. 05/17: Continue inderal. -Agree with asa once stable from NS perspective. h/o multiple falls, now with fall and SDH - s/p L craniotomy for SDH--mgmt per neurosurgery, neuro htn: -bp better controlled on current meds. repeat this AM 127/52, HR 61. CAD - prior details uncertain, no recent PCI - Patient with multiple falls and subdural hematoma on ASA --> may not be able to continue this unfortunately, as risks of recurrent falls and ICH >> benefits. cont holding ASA for now, reassess later (requires outpt cardio f/u also to clarify prior stent history--if no stents, would definitely stop ASA here) - con't statin when able to take po. - no signs acs - ce's neg x 2. ekg without acute ischemic changes. CVA. - Not a candidate for AC or ASA at this time as mentioned. started statin here.
--- NOTE | 2017-05-17 13:18 | PN ---
Progress Note (short form) - Note Progress Note: Subjective: no events over night . Objective: Vital Signs: Last Vital Signs Temp Pulse Resp BP Pulse Ox 98.4 F 61 18 127/52 98 05/17/17 09:00 05/17/17 09:00 05/17/17 09:00 05/17/17 09:00 05/17/17 09:00 Laboratory Results - last 24 hr 05/16/17 05/16/17 05/17/17 16:55 20:58 05:37 POC Glucometer 231 204 158 05/17/17 12:07 POC Glucometer 171 Physical Exam: NAD, more awake, answers few questions , declined lung and heart exam Ext: R LE with edema . no increased warmth ASSESSMENT AND PLAN: 76 y/o man with h/o CAD, HTN, DM II, CVA , and other medical problems who presented with confusion and urinary incontinence and was found to have L subdural hematoma 1- Subdural hematoma , due to fall. s/p Evacuation 05/01 . cont to monitor mental status improved . avoid Benzos cont valproic acid 2- A flutter and A fib with RVR. - cont propranolol - can not anticoagulate due to ICH 3- HTN: Now better controlled - PO propranolol, and hydralazine and norvasc 4- Dm : hold oral meds - SSI 6- H/o CVA and CAD, off asa due to ICH 7- Nutrition,LOC improved, and oral intake also improved . will not place a pEG tube . repeat CBC , BMP in am . DC IVF Possible dc to rehab tomorrow if remains off restraints Visit type - Emergency Visit Emergency Visit: Yes ED Registration Date: 04/30/17 Care time: The patient presented to the Emergency Department on the above date and was hospitalized for further evaluation of their emergent condition. - New Patient This patient is new to me today: No - Critical Care Critical Care patient: No
[2017-05-17] MEDS: ATORVASTATIN CA 20 MG TABLET (FP) PO SCH (22:51)
[2017-05-17] MEDS ORDERED: HALOPERIDOL LACTATE 5 MG/ML IM ONE (23:38)
[2017-05-17] MEDS ORDERED: HALOPERIDOL LACTATE 5 MG/ML ONE (23:46)
[2017-05-18] MEDS: PROPRANOLOL HCL 40 MG TABLET PO SCH ×3 (06:47→23:06)
[2017-05-18] MEDS: hydrALAZINE HCL 50 MG TABLET (FP) PO SCH ×3 (06:47→23:06)
[2017-05-18] MEDS: INSULIN SLIDING SCALE (NOVOLOG) 1 VIAL SQ SCH ×4 (07:29→23:08)
[2017-05-18 07:34] LABS: ANION GAP 9 (8-16); CALCIUM 8.9 mg/dL (8.5-10.1); CO2 28 mmol/L (21-32); GLUCOSE,RANDOM 127 mg/dL (74-106)
[2017-05-18 07:36] LABS: CREATININE 0.7 mg/dL (0.7-1.3)
--- NOTE | 2017-05-18 08:30 | PN ---
Progress Note, Physician Chief Complaint: paroxysmal afib History of Present Illness: very sleepy, cooperates with exam but little communication - Current Medication List Current Medications: Active Medications Amlodipine Besylate (Norvasc -) 10 mg PO DAILY [facility] Last Admin: 05/17/17 09:15 Dose: 10 mg Artificial Tears (Artificial Tears) 1 drop OU Q6H PRN PRN Reason: DRY EYES Last Admin: 05/16/17 10:42 Dose: 1 drop Atorvastatin Calcium (Lipitor -) 20 mg PO HS [facility] Last Admin: 05/17/17 22:51 Dose: 20 mg Diltiazem HCl (Cardizem Injection -) 10 mg IVPUSH Q4H PRN PRN Reason: TACHYCARDIA Hydralazine HCl (Apresoline Injection -) 10 mg IVPUSH Q4H PRN PRN Reason: HYPERTENSION Last Admin: 05/09/17 17:16 Dose: 10 mg Hydralazine HCl (Apresoline -) 100 mg PO TID [facility] Last Admin: 05/18/17 06:47 Dose: Not Given Insulin Aspart (Novolog Vial Sliding Scale -) 1 vial SQ ACHS [facility] PRN Reason: Protocol Last Admin: 05/18/17 07:29 Dose: 2 units Ondansetron HCl (Zofran Injection) 4 mg IVPB Q6H PRN PRN Reason: NAUSEA Propranolol HCl (Inderal -) 40 mg PO TID [facility] Last Admin: 05/18/17 06:47 Dose: Not Given Ranitidine HCl (Zantac -) 150 mg PO BID [facility] Last Admin: 05/17/17 22:51 Dose: 150 mg Thiamine HCl (Vitamin B1 -) 100 mg PO DAILY [facility] Last Admin: 05/17/17 09:15 Dose: 100 mg Valproate Sodium (Depakene -) 500 mg PO DAILY [facility] Last Admin: 05/17/17 09:16 Dose: 500 mg - Objective Vital Signs: Vital Signs Temperature 97.6 F 05/18/17 06:00 Pulse Rate 84 05/18/17 06:00 Respiratory Rate 18 05/18/17 06:00 Blood Pressure 153/84 05/18/17 06:00 O2 Sat by Pulse Oximetry (%) 98 05/17/17 23:00 Constitutional: Yes: Well Nourished, No Distress, Calm Cardiovascular: Yes: Pulse Irregular, S1, S2. No: Gallop, Murmur Respiratory: Yes: Regular, CTA Bilaterally (not deep breaths). No: Accessory Muscle Use, Rales, Wheezes Extremities: No: Cold Edema: No Neurological: Yes: Lethargy. No: Seizure Psychiatric: No: Agitated Labs: CBC, BMP 05/18/17 06:20 05/18/17 06:20 INR, PTT INR 1.20 (0.82-1.09) H 05/06/17 05:20 Assessment/Plan Echo 04/2017: Mild conc lvh. grossly nl lv fn. tds for rwma. nl rv function. mild-mod tr. rvsp 30-40. < 1 cm pericardial effusion, not hemodynamically significant. 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 Hospital course notable for new onset atrial flutter with slow ventricular conduction. New onset atrial flutter - Not a candidate for AC due to recent frequent falls, the current fall resulting in subdural hematoma - echo with grossly normal lv function. - on admit Had svr to 40's initially (Had been on coreg and clonidine at home)-- suspect initial bradycardia was due to home meds plus increased ICP - rapid AFL rates once home meds held, requiring diltiazem gtt, then required addition of amiodarone drip for rapid HRs on diltiazem. - 05/04: remains rapid in AFL with 2:1 A-V conduction. increased amio to 1 mg/ min and given dose of propranolol 2mg IVP x1, and HR decreased to 70s with variable AFL conduction. --> cont present amio rate, started standing propranolol 2mg IVP q4H, prn amiodarone boluses as needed - 05/05 remains rate controlled. intermittently in SR/Wenckebach. Cleared to take PO meds. Has been on amiodarone drip since 05/03 --> will change to maintenance dosing 200 mg po daily. Transition off diltiazem drip and start po regimen of diltiazem 60 mg QID and propanolol 40 mg tid. h/o multiple falls, now with fall and SDH - 05/06 SVR today persists despite receiving minimal PO regimen. Will stop amiodarone to avoid ongoing SVR. Start propanolol at a lower dose without diltiazem this evening to avoid recurrence of RVR overnight (as has happened in past when rate control meds have been held). -05/07-05/11: cont low dose inderal--when in PAF the rate is controlled. no pathologic bradycardia overnight. - 05/12: HR 90's overnight, agitated. --> inderal dose increased to 40 mg tid this morning. -05/18: HR remains stable on inderal h/o multiple falls, now with fall and SDH - s/p L craniotomy for SDH--mgmt per neurosurgery, neuro htn: -bp better controlled on current meds, ranging 110s-150s -on high dose hydral (100 tid) plus amlodipine (10) and propranolol -05/18: add HCTZ. would rec trying to decr hydral dose if responds to HCTZ (+/- ARB later), to minimize toxicity potential in elderly pt CAD - prior details uncertain, no recent PCI - Patient with multiple falls and subdural hematoma on ASA --> may not be able to continue this unfortunately, as risks of recurrent falls and ICH >> benefits. cont holding ASA for now, reassess later (requires outpt cardio f/u also to clarify prior stent history--if no stents, would definitely stop ASA here) - con't statin when able to take po. - no signs acs - ce's neg x 2. ekg without acute ischemic changes. CVA - Not a candidate for AC or ASA at this time as mentioned. started statin here.
[2017-05-18] MEDS ORDERED: PT OWN MED DRAWER 7, Y5N ONE ×2 (11:52→22:55)
--- NOTE | 2017-05-18 12:12 | PN ---
Progress Note, [employer] - Note Progress Note: Agitated with Ativan last night with lethargy this am. Now awake, smiling, cooperative. Selected Entries 05/16/17 05/16/17 05/16/17 15:00 18:27 22:00 Breakfast 100% Lunch 50% Supper 50% 50% 05/17/17 05/17/17 05/17/17 09:00 12:41 19:55 Breakfast 25% Lunch 100% 100% Supper verbal, imprecise articulation but speaking in phrases with interspersed paraphasic errors.dysarthria, apraxia, aphasia,dysphagia, cognitive deficits. Counseled staff/visitors on reminding pt to speak slowly and clearly, with improved intelligibility. Pt will benefit from continued speech tx upon d/c from [facility].
[2017-05-18] MEDS: THIAMINE HCL 100 MG TABLET (FP) PO SCH (12:26)
[2017-05-18] MEDS: RANITIDINE HCL 150 MG TABLET (FP) PO SCH ×2 (12:26→23:10)
[2017-05-18] MEDS: VALPROATE SODIUM 250 MG/5 ML UNIT DOSE CUP PO SCH (12:26)
[2017-05-18] MEDS: amLODIPine BESYLATE 10 MG TABLET (FP) PO SCH (12:26)
[2017-05-18] MEDS: HYDROCHLOROTHIAZIDE 25 MG TABLET (FP) PO SCH (12:26)
--- NOTE | 2017-05-18 13:39 | PN ---
Physical Exam: SUBJECTIVE: Patient seen and examined. Over the weekend, pt had no episodes of agitation and required no sedatives. However, last night, pt had episode of agitation and was given haldol 2.5mg. This am, pt is very difficult to arouse, not responding to verbal, physical, or noxious stimuli. OBJECTIVE: Vital Signs Period Temp Pulse Resp BP Sys/Cortés Pulse Ox Last 24 Hr 97.6 F-98.5 F 64-84 18-18 116-163/56-84 98-98 ENERAL: The patient is sleeping in no acute distress. HEAD: Incision on head healed well, sutures removed, no signs of infection EYES: PERRL ENT: Ears normal, nares patent, oropharynx clear without exudates, moist mucous membranes. NECK: Trachea midline, full range of motion, supple. LUNGS: Breath sounds equal, clear to auscultation bilaterally, no wheezes, no crackles, no accessory muscle use. HEART: irregularly irregular without murmur, rub or gallop. ABDOMEN: Soft, nontender, nondistended, normoactive bowel sounds, no guarding, no rebound, no hepatosplenomegaly, no masses. EXTREMITIES: 2+ pulses, warm, well-perfused, no edema. SCDs in place. NEUROLOGICAL: sleeping, unable to be aroused SKIN: Warm, dry, normal turgor, no rashes or lesions noted Laboratory Results - last 24 hr 05/17/17 05/17/17 05/18/17 17:10 22:49 06:20 WBC Cancelled Corrected WBC (auto) Cancelled RBC Cancelled Hgb Cancelled Hct Cancelled MCV Cancelled MCH Cancelled MCHC Cancelled RDW Cancelled Plt Count Cancelled MPV Cancelled Differential Comment Cancelled Platelet Estimate Cancelled Platelet Comment Cancelled RBC Morphology Cancelled Sodium Potassium Chloride Carbon Dioxide Anion Gap BUN Creatinine POC Glucometer 242 185 Random Glucose Calcium 05/18/17 05/18/17 05/18/17 06:20 06:51 12:18 WBC Corrected WBC (auto) RBC Hgb Hct MCV MCH MCHC RDW Plt Count MPV Differential Comment Platelet Estimate Platelet Comment RBC Morphology Sodium 138 Potassium 3.8 Chloride 101 Carbon Dioxide 28 Anion Gap 9 BUN 9 Creatinine 0.7 POC Glucometer 135 141 Random Glucose 127 H D Calcium 8.9 Active Medications Generic Name Dose Route Start Last Admin Trade Name Freq PRN Reason Stop Dose Admin Amlodipine Besylate 10 mg 05/14/17 10:00 05/18/17 12:26 Norvasc - PO 10 mg DAILY [facility] Administration Artificial Tears 1 drop 05/10/17 18:15 05/16/17 10:42 Artificial Tears OU 1 drop Q6H PRN Administration DRY EYES Atorvastatin Calcium 20 mg 05/09/17 22:00 05/17/17 22:51 Lipitor - PO 20 mg HS [facility] Administration Diltiazem HCl 10 mg 05/06/17 13:12 Cardizem Injection - IVPUSH Q4H PRN TACHYCARDIA Hydralazine HCl 10 mg 05/06/17 18:38 05/09/17 17:16 Apresoline Injection - IVPUSH 10 mg Q4H PRN Administration HYPERTENSION Hydralazine HCl 100 mg 05/09/17 08:13 05/18/17 06:47 Apresoline - PO Not Given TID [facility] Hydrochlorothiazide 25 mg 05/18/17 10:00 05/18/17 12:26 Hctz - PO 25 mg DAILY [facility] Administration Insulin Aspart 1 vial 05/06/17 16:30 05/18/17 12:19 Novolog Vial Sliding Scale - SQ Not Given ACHS [facility] Protocol Ondansetron HCl 4 mg 05/06/17 13:12 Zofran Injection IVPB Q6H PRN NAUSEA Propranolol HCl 40 mg 05/12/17 14:00 05/18/17 06:47 Inderal - PO Not Given TID [facility] Ranitidine HCl 150 mg 05/08/17 22:00 05/18/17 12:26 Zantac - PO 150 mg BID [facility] Administration Thiamine HCl 100 mg 05/08/17 10:00 05/18/17 12:26 Vitamin B1 - PO 100 mg DAILY [facility] Administration Valproate Sodium 500 mg 05/15/17 10:00 05/18/17 12:26 Depakene - PO 500 mg DAILY [facility] Administration ASSESSMENT/PLAN: 76 year old man with a history of CAD, CVA, HTN, type 2 DM who presented to the ER with confusion, slurred speech, urinary incontinence after a fall 2 months ago, found to have a subdural hematoma on MRI, s/p hematoma evacuation on 05/01, with repeat CT as well as MRI showing acute on chronic subdural hematoma. #acute on chronic Subdural hematoma - s/p craniotomy with drain placement 05/01, extubated 05/02, repeat head CT () shows acute on chronic subdural hematoma -Continue valproic acid 500mg IV for seizure prophylaxis, continue thiamine 100mg qd -Continue neuro checks and tight SBP control (120-160) -neurosurgery following, appreciated note that pt's deferred shunt, and wants conservative treatment #Agitation at night -has required ativan and restraints during this hospitalization. This past weekend, he did not require anything. However, last night, he had another episode of agitation, received haldol 2.5mg and has been very lethargic this am. Will try to control agitation without any medications tonight. #Refractory HTN -cardiology on board -continue propranolol 40mg PO, hydralazine 100mg PO TID, IV hydralazine 10mg q4h PRN -per cards, HCTZ 25mg qd added #Atrial flutter with RVR - cardio following - hydralazine 100mg PO TID, propranolol 20mg PO TID, hydralazine 10mg IV q4h PRN #Tachycardia -diltiazem 10mg IV q4h PRN #CAD - continue lipitor 20mg #Type 2 diabetes mellitus - Metformin and glipizide held - Continue Novolog sliding scale #History of CVA - Aspirin held secondary to ICH #History of cervical stenosis #Speech and swallow - diet as directed #microcytic anemia -Hgb of 12.7 with MCV of 72 -B12: 1943 -folate: 18 -iron studies: iron of 91, TIBC of 232, and transferrin of 200 -continue thiamine 100mg qd #FEN/ppx -D5 w/ 1/2NS @42 ml/hr -no bmp today -diet as per speech and swallow -ranitidine 150mg BID for stress ulcer ppx -SCDs for DVT ppx #Dispo -needs outpt cardiology f/u to clarify prior stent hx -spoke with SAUL Winston about placement in [facility]. Pt was denied in [place], lucian try for [facility]. -D/C yulisa if pt's agitation is able to be controlled without sedatives -- Mulugeta Waters MD PGY1 Problem List - Problems (1) Atrial fibrillation Code(s): I48.91 - UNSPECIFIED ATRIAL FIBRILLATION (2) Diabetes mellitus Code(s): E11.9 - TYPE 2 DIABETES MELLITUS WITHOUT COMPLICATIONS Visit type - Emergency Visit Emergency Visit: Yes ED Registration Date: 04/30/17 Care time: The patient presented to the Emergency Department on the above date and was hospitalized for further evaluation of their emergent condition. - New Patient This patient is new to me today: No - Critical Care Critical Care patient: No
[2017-05-18] MEDS ORDERED: INSULIN (NOVOLOG) ASPART 100 UNITS/ML 10ML VIAL ONE ×2 (16:33→22:54)
--- NOTE | 2017-05-18 17:14 | PN ---
Teaching Attending Note Name of Resident: Mulugeta Waters ATTENDING PHYSICIAN STATEMENT I saw and evaluated the patient. I reviewed the resident's note and discussed the case with the resident. I agree with the resident's findings and plan as documented. SUBJECTIVE: was agitated last night and received haldol . not able to obtain any ROS OBJECTIVE: lethargic. CV: irreg irreg Lungs : CTAB Ext: R LE with edema . no increased warmth ASSESSMENT AND PLAN: 76 y/o man with h/o CAD, HTN, DM II, CVA , and other medical problems who presented with confusion and urinary incontinence and was found to have L subdural hematoma 1- Subdural hematoma , due to fall. s/p Evacuation 05/01 . cont to monitor mental status is worse today due to meds needed for agitation avoid Benzos and haldol ( long QTC) cont valproic acid 2- A flutter and A fib with RVR. - cont propranolol - can not anticoagulate due to ICH 3- HTN: Now better controlled , slightly elevated this am - PO propranolol,hydralazine and norvasc . HCTZ added 4- DM : hold oral meds - SSI 6- H/o CVA and CAD, off ASA due to ICH 7- Nutrition : cont oral feeding. Dc planning to [facility] . dc when bed is available . D/W today
--- NOTE | 2017-05-18 21:32 | EKG ---
Test Reason : Blood Pressure : / mmHG Vent. Rate : 049 BPM Atrial Rate : 049 BPM P-R Int : 174 ms QRS Dur : 092 ms QT Int : 486 ms P-R-T Axes : 116 045 -27 degrees QTc Int : 439 ms SINUS BRADYCARDIA WITH SINUS ARRHYTHMIA MODERATE VOLTAGE CRITERIA FOR LVH, MAY BE NORMAL VARIANT NONSPECIFIC T WAVE ABNORMALITY ABNORMAL ECG WHEN COMPARED WITH ECG OF 17-MAY-2017 23:08, PREMATURE SUPRAVENTRICULAR COMPLEXES ARE NO LONGER PRESENT VENT. RATE HAS DECREASED Confirmed by SAM RUCKER MD ([id number]) on 05/18/2017 9:32:19 PM Referred By: GREGG CEJA Confirmed By:SAM RUCKER MD
--- NOTE | 2017-05-18 21:35 | EKG ---
Test Reason : Blood Pressure : / mmHG Vent. Rate : 069 BPM Atrial Rate : 069 BPM P-R Int : 172 ms QRS Dur : 078 ms QT Int : 440 ms P-R-T Axes : 092 033 189 degrees QTc Int : 471 ms SINUS RHYTHM WITH PREMATURE SUPRAVENTRICULAR COMPLEXES T WAVE ABNORMALITY, CONSIDER LATERAL ISCHEMIA ABNORMAL ECG WHEN COMPARED WITH ECG OF 04-MAY-2017 09:00, SINUS RHYTHM HAS REPLACED ATRIAL FLUTTER VENT. RATE HAS DECREASED BY 61 BPM Confirmed by SAM RUCKER MD ([id number]) on 05/18/2017 9:35:36 PM Referred By: Confirmed By:SAM RUCKER MD
[2017-05-18] MEDS: ATORVASTATIN CA 20 MG TABLET (FP) PO SCH (23:06)
[2017-05-19] MEDS: hydrALAZINE HCL 50 MG TABLET (FP) PO SCH ×3 (06:24→21:19)
[2017-05-19] MEDS: PROPRANOLOL HCL 40 MG TABLET PO SCH ×2 (06:24→13:47)
[2017-05-19] MEDS: INSULIN SLIDING SCALE (NOVOLOG) 1 VIAL SQ SCH ×4 (06:25→21:21)
[2017-05-19] MEDS ORDERED: INSULIN (NOVOLOG) ASPART 100 UNITS/ML 10ML VIAL ONE ×4 (06:58→21:15)
[2017-05-19 08:48] LABS: ANION GAP 6 (8-16); CALCIUM 8.9 mg/dL (8.5-10.1); CO2 31 mmol/L (21-32); CREATININE 0.8 mg/dL (0.7-1.3); GLUCOSE,RANDOM 141 mg/dL (74-106)
[2017-05-19] MEDS ORDERED: PT OWN MED DRAWER 7, Y5N ONE ×2 (09:03→19:02)
[2017-05-19] MEDS: VALPROATE SODIUM 250 MG/5 ML UNIT DOSE CUP PO SCH (09:06)
[2017-05-19] MEDS: HYDROCHLOROTHIAZIDE 25 MG TABLET (FP) PO SCH (09:06)
[2017-05-19] MEDS: THIAMINE HCL 100 MG TABLET (FP) PO SCH (09:06)
[2017-05-19] MEDS: amLODIPine BESYLATE 10 MG TABLET (FP) PO SCH (09:06)
[2017-05-19] MEDS: RANITIDINE HCL 150 MG TABLET (FP) PO SCH ×2 (09:06→21:19)
--- NOTE | 2017-05-19 11:22 | PN ---
Progress Note, Physician Chief Complaint: change in Mental Status, subdural hematoma History of Present Illness: 76 y/o M with PMH CAD with stents on ASA, CVA (2004), HTN,DMII, spinal stenosis s/p spinal surgery who was brought in to ED after family observed changes in mental status and personality after a fall a few months earlier. On MRI noted to have a subacute/chronic subdural hematoma with mass effect. Also noted to have a A-fib/flutter and bradycardia.He is transferred to ICU for monitoring pending clearance for craniotomy and drainage+/- subdural drain placement. In ED VS HR 30's to 60's,SBP 140's to 150's. Notable labs WBC 3.3, HGb 10.7,BUN/ Creat 15/0.8, K3.3, trop <0.02. Family states since pt had his fall, he has had personality change, slurred speech, emotional lability, hallucinations, confusion as well as new onset Afib. Seen by neurosurgery and underwent craniotomy for drainage and then drain placement. since the last time that I saw him he's been moved from the ICU to the floor, and now is awake and able to eat when fed by nurse. He offers no complaints but really has no concept s to what is happening to him. - Current Medication List Current Medications: Active Medications Amlodipine Besylate (Norvasc -) 10 mg PO DAILY [facility] Last Admin: 05/19/17 09:06 Dose: 10 mg Artificial Tears (Artificial Tears) 1 drop OU Q6H PRN PRN Reason: DRY EYES Last Admin: 05/16/17 10:42 Dose: 1 drop Atorvastatin Calcium (Lipitor -) 20 mg PO HS [facility] Last Admin: 05/18/17 23:06 Dose: 20 mg Diltiazem HCl (Cardizem Injection -) 10 mg IVPUSH Q4H PRN PRN Reason: TACHYCARDIA Hydralazine HCl (Apresoline Injection -) 10 mg IVPUSH Q4H PRN PRN Reason: HYPERTENSION Last Admin: 05/09/17 17:16 Dose: 10 mg Hydralazine HCl (Apresoline -) 100 mg PO TID [facility] Last Admin: 05/19/17 06:24 Dose: 100 mg Hydrochlorothiazide (Hctz -) 25 mg PO DAILY [facility] Last Admin: 05/19/17 09:06 Dose: 25 mg Insulin Aspart (Novolog Vial Sliding Scale -) 1 vial SQ ACHS [facility] PRN Reason: Protocol Last Admin: 05/19/17 06:25 Dose: 2 units Ondansetron HCl (Zofran Injection) 4 mg IVPB Q6H PRN PRN Reason: NAUSEA Propranolol HCl (Inderal -) 40 mg PO TID [facility] Last Admin: 05/19/17 06:24 Dose: 40 mg Ranitidine HCl (Zantac -) 150 mg PO BID [facility] Last Admin: 05/19/17 09:06 Dose: 150 mg Thiamine HCl (Vitamin B1 -) 100 mg PO DAILY [facility] Last Admin: 05/19/17 09:06 Dose: 100 mg Valproate Sodium (Depakene -) 500 mg PO DAILY [facility] Last Admin: 05/19/17 09:06 Dose: 500 mg - Objective Vital Signs: Vital Signs Temperature 98.5 F 05/19/17 10:00 Pulse Rate 76 05/19/17 10:00 Respiratory Rate 19 05/19/17 10:00 Blood Pressure 133/81 05/19/17 10:00 O2 Sat by Pulse Oximetry (%) 98 05/18/17 21:00 Neurological: Yes: Aphasia (Confused, some degree of aphasia, but this vs. confusion confounding. Oriented to self only. ?mild right facial. Moves all limbs,) Labs: CBC, BMP 05/18/17 06:20 05/19/17 06:00 INR, PTT INR 1.20 (0.82-1.09) H 05/06/17 05:20 - ....Imaging Cat Scan: Report Reviewed, Image Reviewed Problem List - Problems (1) Subdural bleeding Assessment/Plan: s/p drainage of subdural with patient waking up, but still not back to normal mentation. He probably has baseline cognitive impairment, and this may be aggravated by further damage, but there may also be superimposed encephalopathy that may be reversible. He has small residual collection which family has opted for conservative watch and wait approach to. Code(s): I62.00 - NONTRAUMATIC SUBDURAL HEMORRHAGE, UNSPECIFIED (2) Vascular dementia Assessment/Plan: Suspect that this was present prior to subdural and may have been aggravated. There is probably some superimposed reversible encephalopathy. Code(s): F01.50 - VASCULAR DEMENTIA WITHOUT BEHAVIORAL DISTURBANCE (3) Encephalopathy Code(s): G93.40 - ENCEPHALOPATHY, UNSPECIFIED
--- NOTE | 2017-05-19 11:53 | PN ---
Progress Note (short form) - Note Progress Note: Awake and responsive, but very confused. No documented acute events overnight. No respiratory distress. Intake & Output 05/16/17 05/17/17 05/18/17 05/19/17 23:59 23:59 23:59 23:59 Intake Total 2002 604 400 150 Balance 2002 604 400 150 Last Vital Signs Temp Pulse Resp BP Pulse Ox 98.5 F 76 19 133/81 98 05/19/17 10:00 05/19/17 10:00 05/19/17 10:00 05/19/17 10:00 05/18/17 21:00 Active Medications Amlodipine Besylate (Norvasc -) 10 mg PO DAILY [facility] Last Admin: 05/19/17 09:06 Dose: 10 mg Artificial Tears (Artificial Tears) 1 drop OU Q6H PRN PRN Reason: DRY EYES Last Admin: 05/16/17 10:42 Dose: 1 drop Atorvastatin Calcium (Lipitor -) 20 mg PO HS [facility] Last Admin: 05/18/17 23:06 Dose: 20 mg Diltiazem HCl (Cardizem Injection -) 10 mg IVPUSH Q4H PRN PRN Reason: TACHYCARDIA Hydralazine HCl (Apresoline Injection -) 10 mg IVPUSH Q4H PRN PRN Reason: HYPERTENSION Last Admin: 05/09/17 17:16 Dose: 10 mg Hydralazine HCl (Apresoline -) 100 mg PO TID [facility] Last Admin: 05/19/17 06:24 Dose: 100 mg Hydrochlorothiazide (Hctz -) 25 mg PO DAILY [facility] Last Admin: 05/19/17 09:06 Dose: 25 mg Insulin Aspart (Novolog Vial Sliding Scale -) 1 vial SQ ACHS [facility] PRN Reason: Protocol Last Admin: 05/19/17 06:25 Dose: 2 units Ondansetron HCl (Zofran Injection) 4 mg IVPB Q6H PRN PRN Reason: NAUSEA Propranolol HCl (Inderal -) 40 mg PO TID [facility] Last Admin: 05/19/17 06:24 Dose: 40 mg Ranitidine HCl (Zantac -) 150 mg PO BID [facility] Last Admin: 05/19/17 09:06 Dose: 150 mg Thiamine HCl (Vitamin B1 -) 100 mg PO DAILY [facility] Last Admin: 05/19/17 09:06 Dose: 100 mg Valproate Sodium (Depakene -) 500 mg PO DAILY [facility] Last Admin: 05/19/17 09:06 Dose: 500 mg SUBJECTIVE: Patient seen and examined OBJECTIVE: Vital Signs Period Temp Pulse Resp BP Sys/Cortés Pulse Ox Last 24 Hr 97.5 F-98.4 F 60-81 18-20 112-154/70-97 99 GENERAL: The patient is awake in no acute distress. Confused. HEAD: Healing incision on scalp, no signs of infection EYES: PERRL, extraocular movements intact, sclera anicteric, conjunctiva clear. No ptosis. NECK: Trachea midline, full range of motion, supple. LUNGS: Breath sounds equal, clear to auscultation bilaterally, no wheezes, no crackles, no accessory muscle use. HEART: irregularly irregular ABDOMEN: Soft, nontender, nondistended, normoactive bowel sounds EXTREMITIES: 2+ pulses, warm, well-perfused, no edema. SCDs in place. SKIN: Warm, dry, normal turgor, no rashes or lesions noted Laboratory Results - last 24 hr 05/18/17 05/18/17 05/18/17 12:18 16:31 21:57 Sodium Potassium Chloride Carbon Dioxide Anion Gap BUN Creatinine POC Glucometer 141 260 233 Random Glucose Calcium 05/19/17 05/19/17 06:00 06:13 Sodium 138 Potassium 4.1 Chloride 101 Carbon Dioxide 31 Anion Gap 6 L BUN 14 D Creatinine 0.8 POC Glucometer 158 Random Glucose 141 H Calcium 8.9 ASSESSMENT/PLAN: Acute on chronic Subdural hematoma S/P evacuation HTN Agitation CAD Tachycardia DM CVA by history Anemia Confusion Aspiration precautions PO as tolerated O2 only as needed Fall precautions D/C planning to SNF Dr Garcia
[2017-05-19] MEDS ORDERED: SENNOSIDES 8.6MG TABLET (FP) PO ONE (12:01)
--- NOTE | 2017-05-19 12:01 | PN ---
Progress Note, [employer] MANAGER - Note Progress Note: Pt crying, c/o pain in rectum. Repoted to be constipated. RN aware. Pt continues to be verbal, imprecise articulation but speaking in phrases with interspersed paraphasic errors.dysarthria, apraxia, aphasia,dysphagia, cognitive deficits. Limited awareness of impaired intelligibility. Remind pt to speak slowly and clearly, for improved intelligibility. Selected Entries 05/18/17 05/18/17 05/18/17 06:00 09:19 14:05 Breakfast Lunch Supper Temperature 97.6 F 97.8 F 97.2 F L 05/18/17 05/18/17 05/18/17 15:43 18:00 22:00 Breakfast Lunch 100% Supper Temperature 98.5 F 98 F 05/18/17 05/19/17 05/19/17 22:38 02:00 06:00 Breakfast Lunch Supper 100% Temperature 98.3 F 98.2 F 05/19/17 05/19/17 10:00 10:16 Breakfast 75% 75% Lunch Supper Temperature 98.5 F Tolerating diet well. Needs to be fully arousable for PO intake. Pt will benefit from continued speech tx upon d/c from [facility].
[2017-05-19] MEDS ORDERED: DOCUSATE SODIUM 100 MG CAPSULE (FP) PO ONE (12:02)
--- NOTE | 2017-05-19 12:53 | PN ---
Progress Note (short form) - Note Progress Note: Chief Complaint: paroxysmal afib History of Present Illness: conversational today, answers simple questions. denies complaints. hctz added yesterday. Current Medications Amlodipine Besylate (Norvasc -) 10 mg PO DAILY [facility] Last Admin: 05/19/17 09:06 Dose: 10 mg Artificial Tears (Artificial Tears) 1 drop OU Q6H PRN PRN Reason: DRY EYES Last Admin: 05/16/17 10:42 Dose: 1 drop Atorvastatin Calcium (Lipitor -) 20 mg PO HS [facility] Last Admin: 05/18/17 23:06 Dose: 20 mg Diltiazem HCl (Cardizem Injection -) 10 mg IVPUSH Q4H PRN PRN Reason: TACHYCARDIA Hydralazine HCl (Apresoline Injection -) 10 mg IVPUSH Q4H PRN PRN Reason: HYPERTENSION Last Admin: 05/09/17 17:16 Dose: 10 mg Hydralazine HCl (Apresoline -) 100 mg PO TID [facility] Last Admin: 05/19/17 06:24 Dose: 100 mg Hydrochlorothiazide (Hctz -) 25 mg PO DAILY [facility] Last Admin: 05/19/17 09:06 Dose: 25 mg Insulin Aspart (Novolog Vial Sliding Scale -) 1 vial SQ ACHS [facility] PRN Reason: Protocol Last Admin: 05/19/17 12:24 Dose: 4 units Ondansetron HCl (Zofran Injection) 4 mg IVPB Q6H PRN PRN Reason: NAUSEA Propranolol HCl (Inderal -) 40 mg PO TID [facility] Last Admin: 05/19/17 06:24 Dose: 40 mg Ranitidine HCl (Zantac -) 150 mg PO BID [facility] Last Admin: 05/19/17 09:06 Dose: 150 mg Thiamine HCl (Vitamin B1 -) 100 mg PO DAILY [facility] Last Admin: 05/19/17 09:06 Dose: 100 mg Valproate Sodium (Depakene -) 500 mg PO DAILY [facility] Last Admin: 05/19/17 09:06 Dose: 500 mg Vital Signs - 24 hr 05/18/17 05/18/17 05/18/17 14:05 18:00 21:00 Temperature 97.2 F L 98.5 F Pulse Rate 60 59 L Respiratory 16 20 20 Rate Blood Pressure 116/54 112/52 O2 Sat by Pulse 98 Oximetry (%) 05/18/17 05/19/17 05/19/17 22:00 02:00 06:00 Temperature 98 F 98.3 F 98.2 F Pulse Rate 70 71 58 L Respiratory 20 20 20 Rate Blood Pressure 114/60 147/64 145/67 O2 Sat by Pulse Oximetry (%) 05/19/17 10:00 Temperature 98.5 F Pulse Rate 76 Respiratory 19 Rate Blood Pressure 133/81 O2 Sat by Pulse 98 Oximetry (%) Intake & Output 05/17/17 05/18/17 05/19/17 05/20/17 07:59 07:59 07:59 07:59 Intake Total 1972 100 550 300 Balance 1972 100 550 300 Constitutional: Yes: Well Nourished, No Distress, Calm Cardiovascular: Yes: regular, S1, S2. No: Gallop, Murmur Respiratory: Yes: Regular, CTA Bilaterally, nl effort No: Accessory Muscle Use , Rales, Wheezes Extremities: No: Cold Edema: No Neurological: Yes:alet. No: Seizure Psychiatric: No: Agitated Labs: CBC, BMP 05/18/17 06:20 05/19/17 06:00 Assessment/Plan Echo 04/2017: Mild conc lvh. grossly nl lv fn. tds for rwma. nl rv function. mild-mod tr. rvsp 30-40. < 1 cm pericardial effusion, not hemodynamically significant. 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 Hospital course notable for new onset atrial flutter with slow ventricular conduction. New onset atrial flutter - Not a candidate for AC due to recent frequent falls, the current fall resulting in subdural hematoma - echo with grossly normal lv function. - on admit Had svr to 40's initially (Had been on coreg and clonidine at home)-- suspect initial bradycardia was due to home meds plus increased ICP - rapid AFL rates once home meds held, requiring diltiazem gtt, then required addition of amiodarone drip for rapid HRs on diltiazem. - 05/04: remains rapid in AFL with 2:1 A-V conduction. increased amio to 1 mg/ min and given dose of propranolol 2mg IVP x1, and HR decreased to 70s with variable AFL conduction. --> cont present amio rate, started standing propranolol 2mg IVP q4H, prn amiodarone boluses as needed - 05/05 remains rate controlled. intermittently in SR/Wenckebach. Cleared to take PO meds. Has been on amiodarone drip since 05/03 --> will change to maintenance dosing 200 mg po daily. Transition off diltiazem drip and start po regimen of diltiazem 60 mg QID and propanolol 40 mg tid. h/o multiple falls, now with fall and SDH - 05/06 SVR today persists despite receiving minimal PO regimen. Will stop amiodarone to avoid ongoing SVR. Start propanolol at a lower dose without diltiazem this evening to avoid recurrence of RVR overnight (as has happened in past when rate control meds have been held). -05/07-05/11: cont low dose inderal--when in PAF the rate is controlled. no pathologic bradycardia overnight. - 05/12: HR 90's overnight, agitated. --> inderal dose increased to 40 mg tid this morning. -05/18: HR remains stable on inderal - 05/19: Note patient written for tid dosing, but review of mar shows he has only been getting it twice a day (held at least once a day for poor mental status or patient refusal etc..). Will transition to long acting formula for tomorrow. h/o multiple falls, now with fall and SDH - s/p L craniotomy for SDH--mgmt per neurosurgery, neuro htn: -on high dose hydral (100 tid) plus amlodipine (10) and propranolol -05/18: add HCTZ. would rec trying to decr hydral dose if responds to HCTZ (+/- ARB later), to minimize toxicity potential in elderly pt - 05/19: Note patient written for hydralazine tid dosing, but review of mar shows he has only been getting it twice a day (held at least once a day for poor mental status or patient refusal etc..). Will change to bid dosing so that he can get it in regular intervals. bp low yesterday after hctz and bicarb up. will stop. CAD - prior details uncertain, no recent PCI - Patient with multiple falls and subdural hematoma on ASA --> may not be able to continue this unfortunately, as risks of recurrent falls and ICH >> benefits. cont holding ASA for now, reassess later (requires outpt cardio f/u also to clarify prior stent history--if no stents, would definitely stop ASA here) - con't statin - no signs acs - ce's neg x 2. ekg without acute ischemic changes. CVA - Not a candidate for AC or ASA at this time as mentioned. started statin here. .
[2017-05-19] MEDS ORDERED: MINERAL OIL ENEMA 133 ML ENEMA PR ONE (13:06)
--- NOTE | 2017-05-19 13:48 | DS ---
Physical Exam: SUBJECTIVE: Patient seen and examined. Pt mildly agitated last night, did not require any sedatives, fell asleep shortly afterwards. This am, pt more alert, responsive, and communicative than prior days. He denies headache, lightheadedness, chest pain, SOB, nausea, emesis , diarrhea, and dysuria. OBJECTIVE: Vital Signs Period Temp Pulse Resp BP Sys/Cortés Pulse Ox Last 24 Hr 97.2 F-98.5 F 58-76 16-20 112-147/52-81 98-98 PHYSICAL EXAM GENERAL: The patient is awake, alert, and AAOx2 (name and place), in no acute distress. HEAD: craniotomy scar well healed EYES: PERRL, extraocular movements intact, sclera anicteric, conjunctiva clear. ENT: Ears normal, nares patent, oropharynx clear without exudates, moist mucous membranes. NECK: Trachea midline, full range of motion, supple. LUNGS: Breath sounds equal, clear to auscultation bilaterally, no wheezes, no crackles, no accessory muscle use. HEART: irregularly irregular without murmur, rub or gallop. ABDOMEN: Soft, nontender, nondistended, normoactive bowel sounds, no guarding, no rebound, no hepatosplenomegaly, no masses. EXTREMITIES: 2+ pulses, warm, well-perfused, no edema. NEUROLOGICAL: Cranial nerves II through XII grossly intact. aphasic and dysarthric speech, gait not observed. PSYCH: Normal mood, normal affect. SKIN: Warm, dry, normal turgor, no rashes or lesions noted. LABS Laboratory Results - last 24 hr 05/18/17 05/18/17 05/19/17 16:31 21:57 06:00 Sodium 138 Potassium 4.1 Chloride 101 Carbon Dioxide 31 Anion Gap 6 L BUN 14 D Creatinine 0.8 POC Glucometer 260 233 Random Glucose 141 H Calcium 8.9 05/19/17 05/19/17 06:13 12:18 Sodium Potassium Chloride Carbon Dioxide Anion Gap BUN Creatinine POC Glucometer 158 229 Random Glucose Calcium HOSPITAL COURSE: 76M w/ hx of CAD s/p stents, CVA (2004), HTN, NIDDM, spinal stenosis, and a-fib who presented with acute encephalopathy and urinary incontinence several weeks s /p fall, found to have a subdural hematoma. Pt underwent a subdural hematoma evacuation and placed on seizure prophylaxis. Shortly afterwards, he was found to have a chronic left putamen stroke preventing the re-expansion of brain, allowing more blood to fill up the space leading to an acute on chronic subdural hematoma. Pt is likely at his new baseline mental status. Pt's refused placement of a shunt and requested more conservative treatment. PT also had refractory HTN and tachycardia that was controlled with a regimen of propranolol, hydralazine, amlodipine, and HCTZ. In the hospital, pt was seen by cardiology, neurology, neurosurgery, and speech and swallow. Pt was supposed to leave yesterday, but due to insurance authorization issues, pt was held until today. Today, pt is alert with normal vital signs, stable, has no complaints, and is ready for discharge to [facility] for rehab. He was given referrals to neurology, neurosurgery, and cardiology. 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 Neurosurgery performed a craniotomy to reduce the swelling in your brain. Your BP was difficult to control, and your BP medications were optimized. Please make sure to follow the new medication instructions and disregard your old ones. 1. Please follow up with your PCP within one week. 2. Please follow up with a neurologist within two weeks. If you don't have one, we have given you a referral. 3. Please follow up with a neurosurgeon within two weeks. We have given you a referral to Dr. Vimal Ackerman. 4. Please follow up with a potato bucker within two weeks. We have give you a referral to If you develop any new concerning or worsening symptoms, return to the ED. It will need to be determined when it is safe to resume ASA , neuro surgery recommendation is needed for this issue if sugar is elevated can think of resuming low dose glipizide . Insulin sliding scale might be use too Referrals: Nicki Bryant MD [Staff Physician] - Yessenia Romero [Primary Care Provider] - Eddie Laurent MD [Staff Physician] - Vimal Ackerman MD [Staff Physician] - Nunu Mejia MS, CCC [Speech Therapist] - Disposition: [facility] - Home Medications Comprehensive Discharge Medication List: Ambulatory Orders Amlodipine Besylate [Norvasc -] 10 mg PO DAILY #30 tablet 05/19/17 Atorvastatin Ca [Lipitor] 20 mg PO HS #30 tablet 05/19/17 Hydralazine HCl 100 mg PO TID #30 tablet 05/19/17 Hydrochlorothiazide [Hctz -] 25 mg PO DAILY #30 tablet 05/19/17 Metformin HCl 850 mg PO DAILY #0 tab 05/19/17 Propranolol HCl [Inderal -] 40 mg PO TID #90 tablet 05/19/17 Ranitidine [Zantac -] 150 mg PO BID #60 tablet 05/19/17 Thiamine HCl [Vitamin B1 -] 100 mg PO DAILY #30 tablet 05/19/17 Valproate Sodium [Depakene -] 500 mg PO DAILY #30 tab 05/19/17 Problem List - Problems (1) Atrial fibrillation Code(s): I48.91 - UNSPECIFIED ATRIAL FIBRILLATION (2) Diabetes mellitus Code(s): E11.9 - TYPE 2 DIABETES MELLITUS WITHOUT COMPLICATIONS This patient is new to me today: No Emergency Visit: Yes ED Registration Date: 04/30/17 Care time: The patient presented to the Emergency Department on the above date and was hospitalized for further evaluation of their emergent condition. Critical Care patient: No - Discharge Referral Referred to [facility] Med [facility] No
--- NOTE | 2017-05-19 14:51 | PN ---
Physical Exam: SUBJECTIVE: Patient seen and examined OBJECTIVE: Vital Signs Period Temp Pulse Resp BP Sys/Cortés Pulse Ox Last 24 Hr 98 F-98.6 F 52-76 19-20 105-147/52-81 98-98 GENERAL: The patient is awake, alert, and fully oriented, in no acute distress. HEAD: Normal with no signs of trauma. EYES: PERRL, extraocular movements intact, sclera anicteric, conjunctiva clear. No ptosis. ENT: Ears normal, nares patent, oropharynx clear without exudates, moist mucous membranes. NECK: Trachea midline, full range of motion, supple. LUNGS: Breath sounds equal, clear to auscultation bilaterally, no wheezes, no crackles, no accessory muscle use. HEART: Regular rate and rhythm, S1, S2 without murmur, rub or gallop. ABDOMEN: Soft, nontender, nondistended, normoactive bowel sounds, no guarding, no rebound, no hepatosplenomegaly, no masses. EXTREMITIES: 2+ pulses, warm, well-perfused, no edema. NEUROLOGICAL: Cranial nerves II through XII grossly intact. Normal speech, gait not observed. PSYCH: Normal mood, normal affect. SKIN: Warm, dry, normal turgor, no rashes or lesions noted Laboratory Results - last 24 hr 05/18/17 05/18/17 05/19/17 16:31 21:57 06:00 Sodium 138 Potassium 4.1 Chloride 101 Carbon Dioxide 31 Anion Gap 6 L BUN 14 D Creatinine 0.8 POC Glucometer 260 233 Random Glucose 141 H Calcium 8.9 05/19/17 05/19/17 06:13 12:18 Sodium Potassium Chloride Carbon Dioxide Anion Gap BUN Creatinine POC Glucometer 158 229 Random Glucose Calcium Active Medications Generic Name Dose Route Start Last Admin Trade Name Freq PRN Reason Stop Dose Admin Amlodipine Besylate 10 mg 05/14/17 10:00 05/19/17 09:06 Norvasc - PO 10 mg DAILY DANNY Administration Artificial Tears 1 drop 05/10/17 18:15 05/16/17 10:42 Artificial Tears OU 1 drop Q6H PRN Administration DRY EYES Atorvastatin Calcium 20 mg 05/09/17 22:00 05/18/17 23:06 Lipitor - PO 20 mg HS DANNY Administration Diltiazem HCl 10 mg 05/06/17 13:12 Cardizem Injection - IVPUSH Q4H PRN TACHYCARDIA Hydralazine HCl 10 mg 05/06/17 18:38 05/09/17 17:16 Apresoline Injection - IVPUSH 10 mg Q4H PRN Administration HYPERTENSION Hydralazine HCl 100 mg 05/09/17 08:13 05/19/17 13:46 Apresoline - PO 100 mg TID DANNY Administration Hydrochlorothiazide 25 mg 05/18/17 10:00 05/19/17 09:06 Hctz - PO 25 mg DAILY DANNY Administration Insulin Aspart 1 vial 05/06/17 16:30 05/19/17 12:24 Novolog Vial Sliding Scale - SQ 4 units ACHS DANNY Administration Protocol Ondansetron HCl 4 mg 05/06/17 13:12 Zofran Injection IVPB Q6H PRN NAUSEA Propranolol HCl 40 mg 05/12/17 14:00 05/19/17 13:47 Inderal - PO 40 mg TID DANNY Administration Ranitidine HCl 150 mg 05/08/17 22:00 05/19/17 09:06 Zantac - PO 150 mg BID DANNY Administration Thiamine HCl 100 mg 05/08/17 10:00 05/19/17 09:06 Vitamin B1 - PO 100 mg DAILY DANNY Administration Valproate Sodium 500 mg 05/15/17 10:00 05/19/17 09:06 Depakene - PO 500 mg DAILY DANNY Administration ASSESSMENT/PLAN: 76 year old man with a history of CAD, CVA, HTN, type 2 DM who presented to the ER with confusion, slurred speech, urinary incontinence after a fall 2 months ago, found to have a subdural hematoma on MRI, s/p hematoma evacuation on 05/01, with repeat CT as well as MRI showing acute on chronic subdural hematoma. #acute on chronic Subdural hematoma - s/p craniotomy with drain placement 05/01, extubated 05/02, repeat head CT () shows acute on chronic subdural hematoma -Continue valproic acid 500mg IV for seizure prophylaxis, continue thiamine 100mg qd -Continue neuro checks and tight SBP control (120-160) -neurosurgery following, appreciated note that pt's deferred shunt, and wants conservative treatment #Agitation at night -has required ativan and restraints during this hospitalization. This past weekend, he did not require anything. However, last night, he had another episode of agitation, received haldol 2.5mg and has been very lethargic this am. Will try to control agitation without any medications tonight. #Refractory HTN -cardiology on board -continue propranolol 40mg PO, hydralazine 100mg PO TID, IV hydralazine 10mg q4h PRN -per cards, HCTZ 25mg qd added #Atrial flutter with RVR - cardio following - hydralazine 100mg PO TID, propranolol 20mg PO TID, hydralazine 10mg IV q4h PRN #Tachycardia -diltiazem 10mg IV q4h PRN #CAD - continue lipitor 20mg #Type 2 diabetes mellitus - Metformin and glipizide held - Continue Novolog sliding scale #History of CVA - Aspirin held secondary to ICH #History of cervical stenosis #Speech and swallow - diet as directed #microcytic anemia -Hgb of 12.7 with MCV of 72 -B12: 1943 -folate: 18 -iron studies: iron of 91, TIBC of 232, and transferrin of 200 -continue thiamine 100mg qd #FEN/ppx -D5 w/ 1/2NS @42 ml/hr -no bmp today -diet as per speech and swallow -ranitidine 150mg BID for stress ulcer ppx -SCDs for DVT ppx #Dispo -needs outpt cardiology f/u to clarify prior stent hx -spoke with SAUL Winston about placement in [facility]. Pt was denied in [place], will try for [facility]. -D/C yulisa if pt's agitation is able to be controlled without sedatives -- Mulugeta Waters MD PGY1 Problem List - Problems (1) Atrial fibrillation Code(s): I48.91 - UNSPECIFIED ATRIAL FIBRILLATION (2) Diabetes mellitus Code(s): E11.9 - TYPE 2 DIABETES MELLITUS WITHOUT COMPLICATIONS
--- NOTE | 2017-05-19 15:44 | PN ---
Physical Exam: SUBJECTIVE: Patient seen and examined Pt mildly agitated last night, did not require any sedatives, fell asleep shortly afterwards. This am, pt more alert, responsive, and communicative than prior days. He denies headache, lightheadedness, chest pain, SOB, nausea, emesis , diarrhea, and dysuria. OBJECTIVE: Vital Signs Period Temp Pulse Resp BP Sys/Cortés Pulse Ox Last 24 Hr 97.2 F-98.5 F 58-76 16-20 112-147/52-81 98-98 PHYSICAL EXAM GENERAL: The patient is awake, alert, and AAOx2 (name and place), in no acute distress. HEAD: craniotomy scar well healed EYES: PERRL, extraocular movements intact, sclera anicteric, conjunctiva clear. ENT: Ears normal, nares patent, oropharynx clear without exudates, moist mucous membranes. NECK: Trachea midline, full range of motion, supple. LUNGS: Breath sounds equal, clear to auscultation bilaterally, no wheezes, no crackles, no accessory muscle use. HEART: irregularly irregular without murmur, rub or gallop. ABDOMEN: Soft, nontender, nondistended, normoactive bowel sounds, no guarding, no rebound, no hepatosplenomegaly, no masses. EXTREMITIES: 2+ pulses, warm, well-perfused, no edema. NEUROLOGICAL: Cranial nerves II through XII grossly intact. aphasic and dysarthric speech, gait not observed. PSYCH: Normal mood, normal affect. SKIN: Warm, dry, normal turgor, no rashes or lesions noted. Laboratory Results - last 24 hr 05/18/17 05/18/17 05/19/17 16:31 21:57 06:00 Sodium 138 Potassium 4.1 Chloride 101 Carbon Dioxide 31 Anion Gap 6 L BUN 14 D Creatinine 0.8 POC Glucometer 260 233 Random Glucose 141 H Calcium 8.9 05/19/17 05/19/17 06:13 12:18 Sodium Potassium Chloride Carbon Dioxide Anion Gap BUN Creatinine POC Glucometer 158 229 Random Glucose Calcium Active Medications Generic Name Dose Route Start Last Admin Trade Name Freq PRN Reason Stop Dose Admin Amlodipine Besylate 10 mg 05/14/17 10:00 05/19/17 09:06 Norvasc - PO 10 mg DAILY DANNY Administration Artificial Tears 1 drop 05/10/17 18:15 05/16/17 10:42 Artificial Tears OU 1 drop Q6H PRN Administration DRY EYES Atorvastatin Calcium 20 mg 05/09/17 22:00 05/18/17 23:06 Lipitor - PO 20 mg HS DANNY Administration Diltiazem HCl 10 mg 05/06/17 13:12 Cardizem Injection - IVPUSH Q4H PRN TACHYCARDIA Hydralazine HCl 10 mg 05/06/17 18:38 05/09/17 17:16 Apresoline Injection - IVPUSH 10 mg Q4H PRN Administration HYPERTENSION Hydralazine HCl 100 mg 05/09/17 08:13 05/19/17 13:46 Apresoline - PO 100 mg TID DANNY Administration Hydrochlorothiazide 25 mg 05/18/17 10:00 05/19/17 09:06 Hctz - PO 25 mg DAILY DANNY Administration Insulin Aspart 1 vial 05/06/17 16:30 05/19/17 12:24 Novolog Vial Sliding Scale - SQ 4 units ACHS DANNY Administration Protocol Ondansetron HCl 4 mg 05/06/17 13:12 Zofran Injection IVPB Q6H PRN NAUSEA Propranolol HCl 40 mg 05/12/17 14:00 05/19/17 13:47 Inderal - PO 40 mg TID DANNY Administration Ranitidine HCl 150 mg 05/08/17 22:00 05/19/17 09:06 Zantac - PO 150 mg BID DANNY Administration Thiamine HCl 100 mg 05/08/17 10:00 05/19/17 09:06 Vitamin B1 - PO 100 mg DAILY DANNY Administration Valproate Sodium 500 mg 05/15/17 10:00 05/19/17 09:06 Depakene - PO 500 mg DAILY DANNY Administration ASSESSMENT/PLAN: 76 year old man with a history of CAD, CVA, HTN, type 2 DM who presented to the ER with confusion, slurred speech, urinary incontinence after a fall 2 months ago, found to have a subdural hematoma on MRI, s/p hematoma evacuation on 05/01, with repeat CT as well as MRI showing acute on chronic subdural hematoma. #acute on chronic Subdural hematoma - s/p craniotomy with drain placement 05/01, extubated 05/02, repeat head CT () shows acute on chronic subdural hematoma -Continue valproic acid 500mg IV for seizure prophylaxis, continue thiamine 100mg qd -Continue neuro checks and tight SBP control (120-160) -neurosurgery following, appreciated note that pt's deferred shunt, and wants conservative treatment #Agitation at night -agitated last night, no sedatives needed. #Refractory HTN -cardiology on board -continue propranolol 40mg PO, hydralazine 100mg PO TID, amlodipine 10mg qd, IV hydralazine 10mg q4h PRN, and HCTZ 25mg qd #Atrial flutter with RVR - cardio following - hydralazine 100mg PO TID, propranolol 20mg PO TID, hydralazine 10mg IV q4h PRN #Tachycardia -diltiazem 10mg IV q4h PRN #CAD - continue lipitor 20mg #Type 2 diabetes mellitus - Metformin and glipizide held - Continue Novolog sliding scale #History of CVA - Aspirin held secondary to ICH #History of cervical stenosis #Speech and swallow - diet as directed #microcytic anemia -Hgb of 12.7 with MCV of 72 -B12: 1943 -folate: 18 -iron studies: iron of 91, TIBC of 232, and transferrin of 200 -continue thiamine 100mg qd #FEN/ppx -no fluids -no bmp today -diet as per speech and swallow -ranitidine 150mg BID for stress ulcer ppx -SCDs for DVT ppx #Dispo -needs outpt cardiology f/u to clarify prior stent hx -pt accepted to [facility], is now amenable. However, authorization from the insurance company could not be obtained today due to a broken fax machine as per Catrachito (tar pot worker). Authorization will be obtained yulisa morning. -- Mulugeta Waters MD PGY1 Problem List - Problems (1) Atrial fibrillation Code(s): I48.91 - UNSPECIFIED ATRIAL FIBRILLATION (2) Diabetes mellitus Code(s): E11.9 - TYPE 2 DIABETES MELLITUS WITHOUT COMPLICATIONS Visit type - Emergency Visit Emergency Visit: Yes ED Registration Date: 04/30/17 Care time: The patient presented to the Emergency Department on the above date and was hospitalized for further evaluation of their emergent condition. - New Patient This patient is new to me today: No - Critical Care Critical Care patient: No
--- NOTE | 2017-05-19 18:50 | PN ---
Teaching Attending Note Name of Resident: Mulugeta Waters ATTENDING PHYSICIAN STATEMENT I saw and evaluated the patient. I reviewed the resident's note and discussed the case with the resident. I agree with the resident's findings and plan as documented. SUBJECTIVE: no agitation last night. OBJECTIVE: awake , minimal verbal response CV: irreg irreg Lungs: CTAB Ext: R LE with edema. No increased warmth ASSESSMENT AND PLAN: 76 y/o man with h/o CAD, HTN, DM II, CVA , and other medical problems who presented with confusion and urinary incontinence and was found to have L subdural hematoma 1- Subdural hematoma , due to fall. s/p Evacuation 05/01 . cont to monitor mental improved avoid Benzos and haldol ( long QTC) . if extremely necessary for severe agitationcan give low dose oral ativan cont valproic acid 2- A flutter and A fib with RVR. - cont propranolol - can not anticoagulate due to ICH 3- HTN: Now better controlled after adding HCTZ. on lower side today - Cont PO propranolol,hydralazine, norvasc , and HCTZ. if BP remains on lower side , can decrease hydralazine 4- DM : hold oral meds - SSI 6- H/o CVA and CAD, off ASA due to ICH 7- Nutrition : cont oral feeding. Dc when bed is available at rehab .
[2017-05-19] MEDS: ATORVASTATIN CA 20 MG TABLET (FP) PO SCH (21:19)
[2017-05-19] MEDS ORDERED: PROPRANOLOL HCL 40 MG TABLET PO SCH (22:00)
[2017-05-20] MEDS: INSULIN SLIDING SCALE (NOVOLOG) 1 VIAL SQ SCH (06:28)
[2017-05-20 06:56] LABS: MCH 23.6 pg (25.7-33.7); MCHC 32.2 g/dl (32.0-35.9); MEAN CELL VOLUME 73.1 fl (80-96); MEAN PLT VOLUME 11.2 fl (7.5-11.1); PLATELET COUNT 281 K/MM3 (134-434); RDW 15.4 % (11.9-15.9); WHITE BLOOD COUNT 6.4 K/mm3 (4.0-10.0)
[2017-05-20 07:10] LABS: ANION GAP 11 (8-16); CALCIUM 8.9 mg/dL (8.5-10.1); CO2 28 mmol/L (21-32); CREATININE 0.8 mg/dL (0.7-1.3); GLUCOSE,RANDOM 120 mg/dL (74-106)
[2017-05-20] MEDS ORDERED: PT OWN MED DRAWER 7, Y5N ONE (08:57)
[2017-05-20] MEDS: ARTIFICIAL TEARS (POLYVINYL ALCOHOL 1.4%) OPTH DROPS OU PRN (09:00)
[2017-05-20] MEDS: THIAMINE HCL 100 MG TABLET (FP) PO SCH (09:01)
[2017-05-20] MEDS: amLODIPine BESYLATE 10 MG TABLET (FP) PO SCH (09:01)
[2017-05-20] MEDS: RANITIDINE HCL 150 MG TABLET (FP) PO SCH (09:01)
[2017-05-20] MEDS: hydrALAZINE HCL 50 MG TABLET (FP) PO SCH (09:01)
[2017-05-20] MEDS: VALPROATE SODIUM 250 MG/5 ML UNIT DOSE CUP PO SCH (09:01)
[2017-05-20 10:52] VITALS: BP 133/72; PULSE 62; TEMP 98.7
--- NOTE | 2017-05-20 11:06 | PN ---
Teaching Attending Note Name of Resident: Mulugeta Waters ATTENDING PHYSICIAN STATEMENT I saw and evaluated the patient. I reviewed the resident's note and discussed the case with the resident. I agree with the resident's findings and plan as documented. SUBJECTIVE: Patient is comfortable with no acute distress. OBJECTIVE: Vital Signs Temperature 98.7 F 05/20/17 10:00 Pulse Rate 62 05/20/17 10:00 Respiratory Rate 20 05/20/17 10:00 Blood Pressure 133/72 05/20/17 10:00 O2 Sat by Pulse Oximetry (%) 96 05/20/17 09:00 CBCD WBC 6.4 K/mm3 (4.0-10.0) 05/20/17 05:49 RBC 4.84 M/mm3 (4.00-5.60) 05/20/17 05:49 Hgb 11.4 GM/dL (11.7-16.9) L 05/20/17 05:49 Hct 35.4 % (35.4-49) 05/20/17 05:49 MCV 73.1 fl (80-96) L 05/20/17 05:49 MCHC 32.2 g/dl (32.0-35.9) 05/20/17 05:49 RDW 15.4 % (11.9-15.9) 05/20/17 05:49 Plt Count 281 K/MM3 (134-434) D 05/20/17 05:49 MPV 11.2 fl (7.5-11.1) H 05/20/17 05:49 CMP Sodium 138 mmol/L (136-145) 05/20/17 05:49 Potassium 3.8 mmol/L (3.5-5.1) 05/20/17 05:49 Chloride 99 mmol/L (98-107) 05/20/17 05:49 Carbon Dioxide 28 mmol/L (21-32) 05/20/17 05:49 Anion Gap 11 (8-16) 05/20/17 05:49 BUN 12 mg/dL (7-18) 05/20/17 05:49 Creatinine 0.8 mg/dL (0.7-1.3) 05/20/17 05:49 Creat Clearance w eGFR > 60 (>60) 05/12/17 17:00 Random Glucose 120 mg/dL (74-106) H 05/20/17 05:49 Calcium 8.9 mg/dL (8.5-10.1) 05/20/17 05:49 Total Bilirubin 0.6 mg/dL (0.2-1.0) D 05/12/17 17:00 AST 21 U/L (15-37) 05/12/17 17:00 ALT 26 U/L (12-78) D 05/12/17 17:00 Alkaline Phosphatase 66 U/L (45-117) 05/12/17 17:00 Total Protein 7.0 g/dl (6.4-8.2) 05/12/17 17:00 Albumin 3.0 g/dl (3.4-5.0) L 05/12/17 17:00 CARDIAC ENZYMES Creatine Kinase 206 IU/L (39-308) 05/01/17 03:40 Troponin I < 0.02 ng/ml (0.00-0.05) 05/01/17 03:40 Current Medications Generic Name Dose Route Start Last Admin Trade Name Freq PRN Reason Stop Dose Admin Amlodipine Besylate 10 mg 05/14/17 10:00 05/20/17 09:01 Norvasc - PO 10 mg DAILY DANNY Administration Artificial Tears 1 drop 05/10/17 18:15 05/20/17 09:00 Artificial Tears OU 1 drop Q6H PRN Administration DRY EYES Atorvastatin Calcium 20 mg 05/09/17 22:00 05/19/17 21:19 Lipitor - PO 20 mg HS DANNY Administration Diltiazem HCl 10 mg 05/06/17 13:12 Cardizem Injection - IVPUSH Q4H PRN TACHYCARDIA Hydralazine HCl 10 mg 05/06/17 18:38 05/09/17 17:16 Apresoline Injection - IVPUSH 10 mg Q4H PRN Administration HYPERTENSION Hydralazine HCl 100 mg 05/19/17 22:00 05/20/17 09:01 Apresoline - PO 100 mg BID DANNY Administration Insulin Aspart 1 vial 05/06/17 16:30 05/20/17 06:28 Novolog Vial Sliding Scale - SQ Not Given ACHS DANNY Protocol Ondansetron HCl 4 mg 05/06/17 13:12 Zofran Injection IVPB Q6H PRN NAUSEA Propranolol HCl 80 mg 05/20/17 10:00 05/20/17 09:01 Inderal La - PO 80 mg DAILY DANNY Administration Ranitidine HCl 150 mg 05/08/17 22:00 05/20/17 09:01 Zantac - PO 150 mg BID DANNY Administration Thiamine HCl 100 mg 05/08/17 10:00 05/20/17 09:01 Vitamin B1 - PO 100 mg DAILY DANNY Administration Valproate Sodium 500 mg 05/15/17 10:00 05/20/17 09:01 Depakene - PO 500 mg DAILY DANNY Administration Home Medications Medication Instructions Recorded Amlodipine Besylate [Norvasc -] 10 mg PO DAILY #30 tablet 05/19/17 Atorvastatin Ca [Lipitor] 20 mg PO HS #30 tablet 05/19/17 Metformin HCl 850 mg PO DAILY #0 tab 05/19/17 Ranitidine [Zantac -] 150 mg PO BID #60 tablet 05/19/17 Thiamine HCl [Vitamin B1 -] 100 mg PO DAILY #30 tablet 05/19/17 Valproate Sodium [Depakene -] 500 mg PO DAILY #30 tab 05/19/17 Hydralazine HCl 100 mg PO BID #60 tablet 05/20/17 Propranolol HCl [Propranolol HCl 80 mg PO DAILY #30 cap.sa.24h 05/20/17 ER] Pe: LEs no swelling, no obvious injury , no erythema, no cellulitis rest of physical exam by the resident. ASSESSMENT AND PLAN: 76 y/o man with h/o CAD, HTN, DM II, CVA , and other medical problems who presented with confusion and urinary incontinence and was found to have L subdural hematoma # Subdural hematoma , due to fall. s/p Evacuation 05/01 by neurosurgeon. Patient improved mentally. communicates better, still some difficulty with the words. Avoid Benzos and haldol ( long QTC) . if extremely necessary for severe agitation can give low dose xanax 0.25mg, cont valproic acid prophylactically # A-flutter and A fib with RVR. controlled on propranolol was changed to long acting LA form yesterday by . Can not anticoagulate due to ICH # HTN: Now better controlled on Inderal and hydralazine, discontinued Hctz by jewel inspector , # T2DM on Metformin continue # H/o CVA and CAD, off ASA due to ICH # Nutrition : Dysphagia chopped diet now. Discharge time 45 minutes. patient is going to Rehab.
--- NOTE | 2017-05-20 11:11 | PN ---
Progress Note (short form) - Note Progress Note: s: awake, confused, denies pain, no overnight events Current Medications Generic Name Dose Route Start Last Admin Trade Name Freq PRN Reason Stop Dose Admin Amlodipine Besylate 10 mg 05/14/17 10:00 05/20/17 09:01 Norvasc - PO 10 mg DAILY DANNY Administration Artificial Tears 1 drop 05/10/17 18:15 05/20/17 09:00 Artificial Tears OU 1 drop Q6H PRN Administration DRY EYES Atorvastatin Calcium 20 mg 05/09/17 22:00 05/19/17 21:19 Lipitor - PO 20 mg HS DANNY Administration Diltiazem HCl 10 mg 05/06/17 13:12 Cardizem Injection - IVPUSH Q4H PRN TACHYCARDIA Hydralazine HCl 10 mg 05/06/17 18:38 05/09/17 17:16 Apresoline Injection - IVPUSH 10 mg Q4H PRN Administration HYPERTENSION Hydralazine HCl 100 mg 05/19/17 22:00 05/20/17 09:01 Apresoline - PO 100 mg BID DANNY Administration Insulin Aspart 1 vial 05/06/17 16:30 05/20/17 06:28 Novolog Vial Sliding Scale - SQ Not Given ACHS DANNY Protocol Ondansetron HCl 4 mg 05/06/17 13:12 Zofran Injection IVPB Q6H PRN NAUSEA Propranolol HCl 80 mg 05/20/17 10:00 05/20/17 09:01 Inderal La - PO 80 mg DAILY DANNY Administration Ranitidine HCl 150 mg 05/08/17 22:00 05/20/17 09:01 Zantac - PO 150 mg BID DANNY Administration Thiamine HCl 100 mg 05/08/17 10:00 05/20/17 09:01 Vitamin B1 - PO 100 mg DAILY DANNY Administration Valproate Sodium 500 mg 05/15/17 10:00 05/20/17 09:01 Depakene - PO 500 mg DAILY DANNY Administration Vital Signs Period Temp Pulse Resp BP Sys/Cortés Pulse Ox Last 24 Hr 98.6 F-98.8 F 52-72 18-20 105-152/43-79 96-97 Constitutional: Yes: Well Nourished, No Distress, Calm Cardiovascular: Yes: irregular Rate and Rhythm, S1, S2. No: JVD, Gallop, Murmur Respiratory: Yes: cta bl, poor effort. No: Accessory Muscle Use, Rales, Wheezes Extremities: No: Cold Edema: No Neurological: Yes:awake, confused No: Seizure Psychiatric: No: Agitated no jaundice diaphoresis Labs: CBC, BMP 05/20/17 05:49 05/20/17 05:49 Echo 04/2017: Mild conc lvh. grossly nl lv fn. tds for rwma. nl rv function. mild-mod tr. rvsp 30-40. < 1 cm pericardial effusion, not hemodynamically significant. 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 Hospital course notable for new onset atrial flutter with slow ventricular conduction. New onset atrial flutter - Not a candidate for AC due to recent frequent falls, the current fall resulting in subdural hematoma - echo with grossly normal lv function. - on admit Had svr to 40's initially (Had been on coreg and clonidine at home)-- suspect initial bradycardia was due to home meds plus increased ICP - rapid AFL rates once home meds held, requiring diltiazem gtt, then required addition of amiodarone drip for rapid HRs on diltiazem. - 05/04: remains rapid in AFL with 2:1 A-V conduction. increased amio to 1 mg/ min and given dose of propranolol 2mg IVP x1, and HR decreased to 70s with variable AFL conduction. --> cont present amio rate, started standing propranolol 2mg IVP q4H, prn amiodarone boluses as needed - 05/05 remains rate controlled. intermittently in SR/Wenckebach. Cleared to take PO meds. Has been on amiodarone drip since 05/03 --> will change to maintenance dosing 200 mg po daily. Transition off diltiazem drip and start po regimen of diltiazem 60 mg QID and propanolol 40 mg tid. h/o multiple falls, now with fall and SDH - 05/06 SVR today persists despite receiving minimal PO regimen. Will stop amiodarone to avoid ongoing SVR. Start propanolol at a lower dose without diltiazem this evening to avoid recurrence of RVR overnight (as has happened in past when rate control meds have been held). lyte repletion prn -05/07-05/11: cont low dose inderal, when in afib rate is controlled. no pathologic bradycardia overnight. - 05/12: HR 90's overnight, agitated. --> inderal dose increased to 40 mg tid this morning. -05/13-: cont same inderal. no pathologic bradycardia overnight. h/o multiple falls, now with fall and SDH - s/p L craniotomy for SDH--mgmt per neurosurgery, neuro htn: -bp better controlled on current meds CAD - prior details uncertain, no recent PCI - Patient with multiple falls and subdural hematoma on ASA --> may not be able to continue this unfortunately, as risks of recurrent falls and ICH >> benefits. cont holding ASA for now, reassess later (requires outpt cardio f/u also to clarify prior stent history--if no stents, would definitely stop ASA here) - con't statin when able to take po. - no signs acs - ce's neg x 2. ekg without acute ischemic changes. CVA. - Not a candidate for AC or ASA at this time as mentioned. started statin here. cardiac guerrero stable for dc
== END 2017-05-20 11:40 | DRG 25 ==
LOC: JER 11:37 → JERBED 16:41 → JICU 17:30 → J4S 05-06 18:35
PROVIDERS: ADMIT Internal Medicine; ATTEND Internal Medicine
PROC: 00C40ZZ Extirpation of Matter from Intracranial Subdural Space, Open Approach (ICD-10-PCS; 2017-05-01)
PROC: 009400Z Drainage of Intracranial Subdural Space with Drainage Device, Open Approach (ICD-10-PCS; principal; 2017-05-01 15:30)
DX: S06.5X0A Traumatic subdural hemorrhage without loss of consciousness, initial encounter (principal); G93.40 Encephalopathy, unspecified; I69.351 Hemiplegia and hemiparesis following cerebral infarction affecting right dominant side; I48.92 Unspecified atrial flutter; R47.01 Aphasia; I25.10 Atherosclerotic heart disease of native coronary artery without angina pectoris; I10 Essential (primary) hypertension; R00.1 Bradycardia, unspecified; D64.9 Anemia, unspecified; E87.6 Hypokalemia; I48.91 Unspecified atrial fibrillation; E11.42 Type 2 diabetes mellitus with diabetic polyneuropathy; M48.02 Spinal stenosis, cervical region; F03.90 Unspecified dementia, unspecified severity, without behavioral disturbance, psychotic disturbance, mood disturbance, and anxiety; R45.1 Restlessness and agitation; E83.42 Hypomagnesemia; Y92.89 Other specified places as the place of occurrence of the external cause; W18.39XA Other fall on same level, initial encounter; E83.39 Other disorders of phosphorus metabolism; R00.0 Tachycardia, unspecified; N39.498 Other specified urinary incontinence; Z79.4 Long term (current) use of insulin; Z87.891 Personal history of nicotine dependence
CPT/HCPCS: 31500; 36415; 36600; 70450-TC; 70551-TC; 71010-TC; 74230-TC; 80048; 80053; 82140; 82553; 82607; 82746; 82803; 83036; 83540; 83550; 83605; 83735; 84100; 84443; 84466; 84484; 85025; 85027; 85610; 85730; 86593; 86850; 86900; 86901; 86922; 87070; 87075; 87205; 88304-TC; 90670; 92611-GN; 93005; 93010; 93306-TC; 93971-TC; 94002; 95816; 97116-GP; 97162-GP; 99285-25